=== PATIENT | male | born 1945 | race Caucasian/White ===

== ENCOUNTER 2016-10-29 08:13 | Inpatient (IN) ==
--- NOTE | 2016-10-29 08:56 | EKG Report ---
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
[2016-10-29] MEDS ORDERED: ONDANSETRON 4 MG/2 ML VIAL IV STA (09:15)
[2016-10-29] MEDS ORDERED: SODIUM CHLORIDE 0.9% 1,000 ML IV STA (09:15)
[2016-10-29] MEDS ORDERED: ONDANSETRON 4 MG/2 ML VIAL ONE (09:22)
[2016-10-29 09:23] LABS: Basophils # 0.1 10*3/uL (0.0-0.2); Basophils % 0.7 % (0.0-0.8); Eosinophils # 0.3 10*3/uL (0.0-0.87); Eosinophils % 2.1 % (0.00-10.9); Hematocrit 44.3 VOL% (42.0-52.0); Hemoglobin 15.6 GM/DL (14.0-18.0); Immature Granulocytes % 0.4 %; Immature Granulocytes Absolute 0.05 #; Lymphocytes # 2.6 10*3/uL (1.4-4.0); Lymphocytes % 21.1 % (21.2-54.2); Mean Corpuscular HGB Conc 35.2 GM/DL (32-36); Mean Corpuscular Hemoglobin 29 PG (27-34); Mean Corpuscular Volume 81.4 FL (87-102); Mean Platelet Volume 9.7 FL (9.6-12.0); Monocytes # 0.7 10*3/uL (0.11-0.8); Monocytes % 5.8 % (1.7-12.7); Neutrophils # 8.5 10*3/uL (1.4-7.4); Neutrophils % 69.9 % (38.7-73.9); Platelet Count 275 T/CUMM (130-400); Red Blood Count 5.44 MC/CUMM (3.8-5.5); White Blood Count 12.2 T/CUMM (4-12)
--- NOTE | 2016-10-29 09:23 | Emergency Department Note ---
Arrival - Arrival Chief Complaint: Dizziness Stated Complaint: dizziness,vomitting,heart issues ED Nursing Triage Note: after getting up this am pt started having n/v. +light head after vomiting. Mode of Arrival: Ambulatory Limitations: No Limitations Source: Patient Time Seen by Provider: 10/29/16 09:14 - History of Present Illness HPI Narrative: The patient complains of nausea and vomiting this morning shortly after awaking. He also had some lightheadedness just afterwards. Patient states he has been having "dizziness" off and on for the past 3 weeks or so, especially when he is up moving around. He has been using a walking stick because he feels unsteady. He had a episode of nausea and vomiting around 3 weeks ago as well. He denies syncope. He denies any sense of movement or spinning. He had no symptoms prior to this. No chest pain, palpitations, shortness of breath, diaphoresis or other symptoms. No fever or recent illness. He has no known cardiac problems, however, during an evaluation for abdominal pain a few years ago, he was noted to be bradycardic. Allergies/Adverse Reactions: Allergies Allergy/AdvReac Type Severity Reaction Status Date / Time Penicillins Allergy Unknown/Unable Verified 10/29/16 08:21 to obtain Review of System - Review of System 12 point system: reviewed and no additional remarkable complaints except as stated - Review of System Constitutional: Present: weakness. Absent: diaphoresis, fever Head/Ears/Nose/Throat: Absent: nasal drainage, sore throat Respiratory: Absent: cough, respiratory distress, wheezing Cardiovascular: Absent: chest pain, palpitations, dyspnea on exertion, orthopnea , edema, syncope Gastrointestinal: Present: nausea, vomiting. Absent: abdominal pain, diarrhea, constipation Musculoskeletal: Absent: arm pain, back pain, neck pain Neurological: Absent: headache, numbness, paresthesias, confusion Medical,Surgical,& Family Hx - Medical History Cardio: History of: Hypertension, Cardiovascular Problems (low heart rate) Genitourinary: History of: Kidney Stones Gastrointestinal: History of: GI Problems (gallstones) - Surgical History Surgical History: noncontributory - Family History Family History: noncontributory - Social History Smoking Status: Never smoker Frequency of Alcohol Use: None Type of Drug Use: None Exam Physical Examination: GENERAL: Alert. No acute distress. HEENT: Normocephalic and atraumatic. PERRLA. EOMI. There is no nasal drainage. No pharyngeal erythema or exudate. NECK: Normal inspection. Supple. No lymphadenopathy or meningismus. LUNGS: No respiratory distress. Clear to auscultation bilaterally, no wheezes, rales or rhonchi. HEART: Regular bradycardia around 48. (Monitor showed a rate of 38 when I enter the room). No murmurs. ABDOMEN: Soft, nontender and nondistended with normoactive bowel sounds. BACK: Normal inspection. SKIN: Color normal. Warm and dry. EXTREMITIES: Nontender. Normal range of motion. No pedal edema. NEUROLOGICAL/PSYCHIATRIC: Alert and oriented -3 with normal mood and affect. Cranial nerves normal. No motor or sensory deficit. No pronator drift. Vital Signs: Vital Signs Temperature 97.0 F L 10/29/16 08:46 Pulse Rate 44 L 10/29/16 09:44 Respiratory Rate 18 10/29/16 09:35 Blood Pressure 207/81 10/29/16 09:44 O2 Sat by Pulse Oximetry 95 10/29/16 08:46 Course - Reevaluation(s) Reevaluation #1: The patient has remained stable in the ER. Heart rate has been in the 40s and 50s but he has remained asymptomatic while lying in bed. His potassium is noted to be low at 2.9. He is on hydrochlorothiazide for peripheral edema but is not taking any potassium. He also takes MiraLAX once a day. I suspect his symptoms are coming from the low potassium versus the low heart rate. His TSH is also elevated. I discussed the patient with the hospitalist service who will see him and admit. Time: 10:13 Results - Labs CBC & BMP: 10/29/16 08:42 10/29/16 08:42 Lab Results: I have reviewed the patients labs Labs: Laboratory Tests 10/29/16 10/29/16 08:42 08:42 Potassium 2.9 L Total Bilirubin 0.40 AST 18 ALT 27 Troponin I 0.034 TSH 3rd Generation 7.130 H Ur Specific [place] 1.004 Urine Ketones Negative Urine RBC 1 Urine WBC 2 Laboratory Tests 10/29/16 08:42 TSH 3rd Generation 7.130 H - Impressions EKG shows atrial fibrillation with slow ventricular response of 42. Chest x-ray shows cardiomegaly without decompensation. 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 Additional atrophy and microvascular disease. 16 mm asymmetric hypodensity in the right cerebellum which could be related to a more recent infarction. Sinusitis with 10 mm retention cyst/polyp in the left ethmoid air cells. 12 mm asymmetric osseous findings in finding in the left occipital bone which could be related to arachnoid granulation, etc. MRI may be helpful for further evaluation these findings. Disposition Clinical Impression: Hypokalemia, Hypothyroidism, Bradycardia, Renal insufficiency, Atrial fibrillation Case discussed with: patient, patient's family Disposition: Still a Patient Condition: Stable Time of Disposition: 10:15
[2016-10-29 09:28] LABS: PT Patient Result 10.3 SECS
--- NOTE | 2016-10-29 09:35 | CT Report ---
Referring physician: Mac Vaughan Exam: CT brain without contrast Date: 10/29/2016 Comparison: None Reason: Dizziness Technique: Axial images of the head were obtained without the use of contrast. Total DLP was 1012.10 mGy*cm. Findings: The right frontal horn is minimally larger in size in the left with adjacent 26 mm hypodensity in the left frontal lobe. Diffuse atrophy and cerebral hypodensities. Ill-defined asymmetric 16 mm hypodensity in the right cerebellum. Vascular calcifications are identified. There is no evidence of recent intracranial hemorrhage or abnormal mass effect. The osseous structures appear intact. The mastoid air cells are clear. Mucosal thickening/fluid in the visualized paranasal sinuses with 10 mm polypoidal mucosal finding in the left ethmoid air cells. 12 mm asymmetric osseous finding in the left occipital bone. 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 Additional atrophy and microvascular disease. 16 mm asymmetric hypodensity in the right cerebellum which could be related to a more recent infarction. Sinusitis with 10 mm retention cyst/polyp in the left ethmoid air cells. 12 mm asymmetric osseous findings in finding in the left occipital bone which could be related to arachnoid granulation, etc. MRI may be helpful for further evaluation these findings. The CT exam was performed using one or more of the following dose reduction techniques: Automated exposure control and adjustment of the mA and/or kV according to patient size. PROCEDURE INTERPRETED AT [facility] DEPARTMENT OF RADIOLOGY Final Report Signed by: Dr. Ignacia Herrera
--- NOTE | 2016-10-29 09:37 | XRay Report ---
Exam: XR chest 1V portable Date: 10/29/2016 9:16 AM Indication: Shortness of breath Comparison: None Technical: PA chest Findings: Cardiomegaly is present. No obvious consolidating infiltrate or effusion. Mediastinum and bony structures reveal no acute findings. Impression: 1. Cardiomegaly without decompensation with mild scarring in the perihilar regions. PROCEDURE INTERPRETED AT [facility] DEPARTMENT OF RADIOLOGY Final Report Signed by: Dr. Mac Coley
[2016-10-29 09:44] LABS: Apearance,Urine CLEAR (Clear); Bilirubin,Urine Negative (Negative); Blood, Urine Negative (Negative); Glucose,Urine (UA) Negative (Negative); Ketones,Urine Negative (Negative); Nitrite,Urine Negative (Negative); Protein,Urine >=500 MG/DL; RBC,Urine 1 /HPF (0-4); Urine Color Straw (Yellow); Urine Specific Gravity 1.004 (1.001-1.035); Urine Urobilinogen < 2.0 EU/DL (0.2-1.0); WBC,Urine 2 /HPF (0-6)
[2016-10-29 09:54] LABS: Albumin 3.7 G/DL (3.4-5.0); Bilirubin,Total 0.4 MG/DL (0.2-1.0); Calcium 9.1 MG/DL (8.5-10.1); Magnesium 2.2 MG/DL (1.8-2.4); Osmolality,Calculated 283.4 MOS/KG (273-304); Potassium 2.9 MMOL/L (3.5-5.1); Thyroid Stimulating Hormone 7.13 uIU/ml (0.358-3.74); Total Protein 7.1 G/DL (6.4-8.3); Troponin I Only 0.034 NG/ML (0.00-0.045)
[2016-10-29] MEDS ORDERED: POTASSIUM CHLORIDE 20 MEQ TABLET PO STA (09:58)
[2016-10-29] MEDS ORDERED: POTASSIUM CHLORIDE 20 MEQ TABLET PO ONE (10:03)
--- NOTE | 2016-10-29 10:51 | Hospitalist History & Physical ---
Assessment and Plan (1) Hypokalemia Status: Acute Assessment and plan: Potassium was noted at 2.9, we will correct the deficit and recheck in a.m. Current Visit: Yes (2) Hypothyroidism Status: Acute Assessment and plan: TSH was noted at 7.130. The patient reports no previous diagnosis of hypothyroidism. We will order ordered T4 and placed on continuous telemetry monitoring pending results. Current Visit: Yes (3) Atrial fibrillation with slow ventricular response Status: Acute Assessment and plan: The patient was noted to be in atrial fibrillation with slow ventricular response at the time of ED presentation. Heart rate ranged from 30-40. The patient reports no significant cardiac history in the past. He reports that he takes hydrochlorothiazide for "peripheral edema". Chest x-ray reported significant cardiomegaly. We will obtain echocardiogram, carotid Dopplers, lipid panel, and consult cardiology to evaluate and assist during the clinical encounter. Current Visit: Yes History of Present Illness Chief complaint: Nausea, vomiting, near syncope History of present illness: This is a very pleasant 71-year-old male that presented to the ED at [facility] for evaluation of dizziness, vomiting, and near syncope patient has a medical history significant for: Bradycardia, renal calculi, and gallstones. patient reports no significant surgical history at the time of ED presentation. The patient reported the onset of the above symptoms shortly this morning upon awakening. In addition, he also reported some "lightheadedness". He also reported intermittent episodes of vertigo, nausea, and vomiting for the past 3 weeks which normally occurred when he was up and ambulatory. Due to the increased episodes of vertigo, the patient has resorted to using a assistive device due to his unsteady gait. Pertinent positives include: Vertigo, near syncope, nausea, vomiting, and unsteady gait; pertinent negatives include: Chest pain, shortness of breath, diaphoresis, visual changes , abdominal pain, and headache. The patient became alarmed and his transported him to the ED for further evaluation. Incidentally, the patient reports no significant cardiac history however he was found to be bradycardic during a routine examination for abdominal pain several years ago. At the time of ED presentation, the patient was assessed. He was noted to be profoundly bradycardic with a heart rate 44. In addition the patient was noted to be hypertensive with a blood pressure of 207/81. Labs were obtained; complete blood cell count reported a white blood cell count at 12.2, hemoglobin 15.6, hematocrit 44.3, platelet count 275. Coagulation panel reported INR at 1.0 and PT 18.3 complete metabolic profile reported a sodium at 140, potassium at 2.9, chloride 99, carbon dioxide 30, BUN at 24, creatinine 1.50, glucose 110 , magnesium 2.2, calcium 9.1, and alkaline phosphatase at 134. Cardiac enzymes reported an albumin at 1.0 TSH was reported at 7.13. Urinalysis was essentially unremarkable. Chest x-ray reported cardiomegaly without decompensation with mild scarring in the perihilar regions. 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 Additional atrophy and microvascular disease was noted. In addition a 16 mm asymmetric hypodensity in the right cerebellum was noted which could be significant for a more recent infarction. Sinusitis with a 10 mm retention cyst/polyp in the left ethmoid air cells and 12 mm asymmetric osseous findings in the left occipital bone which could be related to arachnoid granulation. After brief discussion with both Dr. Vaughan and Dr. Ramirez, the patient will be admitted to the hospitalist services for continuation of care. We will consult cardiology to evaluate and assist during the clinical encounter. Home Medications Medication Instructions Recorded Confirmed Type Albuterol Sulfate [Ventolin HFA] 2 puffs INH Q4H PRN 10/29/16 10/29/16 History Loratadine Tab [Claritin Tab] 10 mg PO QAM 10/29/16 10/29/16 History Polyethylene Glycol Powder 17 gm PO BEDTIME 10/29/16 10/29/16 History [Miralax] amLODIPine [Norvasc] 5 mg PO BEDTIME 10/29/16 10/29/16 History hydroCHLOROthiazide 50 mg PO QAM 10/29/16 10/29/16 History [Hydrochlorothiazide] Allergies Allergy/AdvReac Type Severity Reaction Status Date / Time Penicillins Allergy Unknown/Unable Verified 10/29/16 08:21 to obtain Medical,Surgical,& Family Hx - Medical History Cardio: History of: Hypertension, Cardiovascular Problems (low heart rate) Genitourinary: History of: Kidney Stones Gastrointestinal: History of: GI Problems (gallstones) - Social History Smoking Status: Never smoker Frequency of Alcohol Use: None Type of Drug Use: None 12 point system: reviewed and no additional remarkable complaints except as stated Exam - Constitutional Vitals: Period Temp Pulse Resp BP Sys/Pretty Pulse Ox Last 24 Hr 97.0 F-97.0 F 43-55 18-18 204-234/46-98 95-95 General appearance: morbidly obese - Head Head exam: Present: normal inspection, normocephalic, atraumatic - Eye Eye exam: Present: EOMI, conjunctival injection Pupils: Present: ELISEO, normal accommodation - ENT ENT exam: Present: normal exam, normal external ear exam, normal oropharynx - Neck Neck exam: Present: normal inspection. Absent: lymphadenopathy, meningismus, tenderness, thyromegaly - Respiratory Respiratory exam: Present: clear to auscultation bilaterally. Absent: rales, rhonchi, stridor, other - Cardiovascular Cardiovascular exam: Present: bradycardia (Rate is regular), irregular rhythm ( Atrial fibrillation with slow ventricular response). Absent: carotid bruit, diastolic murmur, gallop, JVD, regular rate and rhythm, rubs, tachycardia - GI/Abdominal GI/Abdominal exam: Present: normal bowel sounds, soft - Extremities Exam Extremities exam: Present: normal inspection, normal capillary refill, full ROM , edema (+2 edema noted to lower extreme) - Back Exam Back exam: Present: normal inspection - Neurological Exam Neurological exam: Present: alert, oriented X3, abnormal gait (Per patient report unsteady gait since the initiation of episodes.), CN II-XII intact - Psychiatric Psychiatric exam: Present: normal affect, normal mood - Skin Skin exam: Present: normal color, warm, dry Results - Labs CBC & BMP: 10/29/16 08:42 10/29/16 08:42 Lab Results: I have reviewed the past 24 hour labs
[2016-10-29 10:53] LABS: Free T4 (Free Thyroxine) 0.93 NG/DL (0.76-1.46); T4 (Thyroxine) 7.8 UG/DL (4.7-13.3)
--- NOTE | 2016-10-29 11:31 | Ultrasound Report ---
US carotid duplex BI Indication: Bradycardia. Syncope. CAROTID ULTRASOUND Comparison: None. Findings: Grayscale, color Doppler and pulsed Doppler interrogation of the carotid and vertebral arteries performed. Severity of stenosis based on flow velocity measurements using NASCET criteria. Distal right ICA diameter: 5.0 mm Distal left ICA diameter: 7.0 mm Peak systolic flow velocities in centimeters per second are as follows: Right: CCA: 60 cm/s Proximal ICA: 87 Distal ICA: 95 ICA/CCA ratio: 1.6 Left: CCA: 85 cm/s Proximal ICA: 82 Distal ICA: 89 ICA/CCA ratio: 1.0 External carotid arteries: Both are patent with antegrade flow. Vertebral arteries: Both are patent with antegrade flow. Grayscale and color Doppler images: Scattered areas of mild focal plaque deposition identified, with normal color Doppler flow present. Pulse Doppler waveform interrogation: No significant spectral broadening. Impression: No hemodynamically significant stenosis of either ICA origin. PROCEDURE INTERPRETED AT [facility] DEPARTMENT OF RADIOLOGY Final Report Signed by: Rm Borden M.D.
[2016-10-29] MEDS ORDERED: ENOXAPARIN 40 MG/0.4 ML SYRINGE SUBCUT SCH (11:51)
[2016-10-29] MEDS ORDERED: POTASSIUM CHLORIDE RIDER 10 MEQ in PREMIX 1 EACH IV PRN (11:51)
[2016-10-29] MEDS ORDERED: ALBUTEROL 2.5 MG/3 ML NEB RESP TX PRN ×2 (11:51)
--- NOTE | 2016-10-29 12:36 | Cardiology Consult Note ---
<Brandy Mendes E - Last Filed: 10/29/16 12:35> History of Present Illness - Consult Narrative History of present illness: Mr. Hays is a 71 year old male CC: Nanda Ramirez MD - Home Medications and Allergies Home Medications: Home Medications Medication Instructions Recorded Confirmed Type Albuterol Sulfate [Ventolin HFA] 2 puffs INH Q4H PRN 10/29/16 10/29/16 History Loratadine Tab [Claritin Tab] 10 mg PO QAM 10/29/16 10/29/16 History Polyethylene Glycol Powder 17 gm PO BEDTIME 10/29/16 10/29/16 History [Miralax] amLODIPine [Norvasc] 5 mg PO BEDTIME 10/29/16 10/29/16 History hydroCHLOROthiazide 50 mg PO QAM 10/29/16 10/29/16 History [Hydrochlorothiazide] Allergies/Adverse Reactions: Allergies Allergy/AdvReac Type Severity Reaction Status Date / Time Penicillins Allergy Unknown/Unable Verified 10/29/16 08:21 to obtain Medical,Surgical,& Family Hx - Medical History Cardio: History of: Hypertension, Cardiovascular Problems (low heart rate) Respiratory: History of: Asthma (As a child), Bronchitis (As a child) Genitourinary: History of: Kidney Stones Gastrointestinal: History of: GI Problems (gallstones) - Surgical History Reproductive Surgeries: Patient denies;: Genitourinary Surgery - Social History Smoking Status: Never smoker Frequency of Alcohol Use: None Type of Drug Use: None Physical Examination Vital Signs Temp Pulse Resp BP Pulse Ox 97.0 F L 55 L 18 234/81 95 10/29/16 08:17 10/29/16 08:17 10/29/16 08:17 10/29/16 08:17 10/29/16 08:17 Result/EKG - Labs CBC & BMP: 10/29/16 08:42 10/29/16 08:42 Labs: Laboratory Results - last 24 hr 10/29/16 10/29/16 10/29/16 08:42 08:42 08:42 WBC 12.2 H RBC 5.44 Hgb 15.6 Hct 44.3 MCV 81.4 L MCH 29 MCHC 35.2 RDW 14.0 Plt Count 275 MPV 9.7 Neut % (Auto) 69.9 Lymph % (Auto) 21.1 L [place] % (Auto) 5.8 Eos % (Auto) 2.1 Baso % (Auto) 0.7 Neut # (Auto) 8.5 H Lymph # (Auto) 2.6 [place] # (Auto) 0.7 Eos # (Auto) 0.3 Baso # (Auto) 0.1 Immature Gran % 0.4 Nucleated RBC % 0.0 Immature Gran # 0.05 Nucleated RBCs # 0.00 INR 1.0 PT Patient/Control Mix 10.3 Sodium Potassium Chloride Carbon Dioxide Anion Gap BUN Creatinine GFR Calculation BUN/Creatinine Ratio Glucose Hemoglobin A1c Calculated Osmolality Calcium Magnesium Total Bilirubin AST ALT Alkaline Phosphatase Troponin I Total Protein Albumin Globulin Albumin/Globulin Ratio Free T4 Thyroxine (T4) TSH 3rd Generation Urine Color Straw Urine Appearance Clear Urine pH 7.0 Ur Specific [place] 1.004 Urine Protein >=500 Urine Glucose (UA) Negative Urine Ketones Negative Urine Blood Negative Urine Nitrate Negative Urine Bilirubin Negative Urine Urobilinogen < 2.0 H Urine Leukocytes Negative Urine RBC 1 Urine WBC 2 Ur Culture Indicated? Not indicated 10/29/16 10/29/16 10/29/16 08:42 08:42 Unknown WBC RBC Hgb Hct MCV MCH MCHC RDW Plt Count MPV Neut % (Auto) Lymph % (Auto) [place] % (Auto) Eos % (Auto) Baso % (Auto) Neut # (Auto) Lymph # (Auto) [place] # (Auto) Eos # (Auto) Baso # (Auto) Immature Gran % Nucleated RBC % Immature Gran # Nucleated RBCs # INR PT Patient/Control Mix Sodium 140 Potassium 2.9 L Chloride 99 Carbon Dioxide 30 Anion Gap 13.9 BUN 24 H Creatinine 1.50 H GFR Calculation 58 BUN/Creatinine Ratio 16.00 Glucose 110 H Hemoglobin A1c 6.2 Calculated Osmolality 283.4 Calcium 9.1 Magnesium 2.2 Total Bilirubin 0.40 AST 18 ALT 27 Alkaline Phosphatase 134 H Troponin I 0.034 Total Protein 7.1 Albumin 3.7 Globulin 3.4 Albumin/Globulin Ratio 1.0 L Free T4 0.93 Thyroxine (T4) 7.8 TSH 3rd Generation 7.130 H Urine Color Urine Appearance Urine pH Ur Specific [place] Urine Protein Urine Glucose (UA) Urine Ketones Urine Blood Urine Nitrate Urine Bilirubin Urine Urobilinogen Urine Leukocytes Urine RBC Urine WBC Ur Culture Indicated? <Woodrwo Mason - Last Filed: 10/29/16 14:46> History of Present Illness - Consult Narrative History of present illness: Cardiology addendum 71-year-old man with several week history of weakness and dizziness but no calvin syncope. Franca states he tires very easily and has been sleeping all the time. EKG shows atrial fib ventricular rate 40. Blood pressure is 180/ 90. O2 sat is 95% on 2 L. No history of atrial fibrillation. he does have chronic hypertension takes Norvasc. Remote smoker. Remote alcohol abuse. No angina. Never had a stress test. CT does show evidence for 2 old lacunar infarcts. Echo shows ejection fraction of 45-50% with moderate biatrial enlargement. Chest x-ray shows cardio megaly but no heart failure. Suspect atrial fib is chronic. Dizziness weakness for several weeks and chronic fatigue. White count is elevated. Plan MRI of the brain Recheck CBC Anticipate single-chamber pacemaker Tuesday Watch rhythm and blood pressure CC: Nanda Ramirez MD Physical Examination Vital Signs Temp Pulse Resp BP Pulse Ox 97.0 F L 55 L 18 234/81 95 10/29/16 08:17 10/29/16 08:17 10/29/16 08:17 10/29/16 08:17 10/29/16 08:17 Result/EKG - Labs CBC & BMP: 10/29/16 08:42 10/29/16 08:42 Labs: Laboratory Results - last 24 hr 10/29/16 10/29/16 10/29/16 08:42 08:42 08:42 WBC 12.2 H RBC 5.44 Hgb 15.6 Hct 44.3 MCV 81.4 L MCH 29 MCHC 35.2 RDW 14.0 Plt Count 275 MPV 9.7 Neut % (Auto) 69.9 Lymph % (Auto) 21.1 L [place] % (Auto) 5.8 Eos % (Auto) 2.1 Baso % (Auto) 0.7 Neut # (Auto) 8.5 H Lymph # (Auto) 2.6 [place] # (Auto) 0.7 Eos # (Auto) 0.3 Baso # (Auto) 0.1 Immature Gran % 0.4 Nucleated RBC % 0.0 Immature Gran # 0.05 Nucleated RBCs # 0.00 INR 1.0 PT Patient/Control Mix 10.3 Sodium Potassium Chloride Carbon Dioxide Anion Gap BUN Creatinine GFR Calculation BUN/Creatinine Ratio Glucose Hemoglobin A1c Calculated Osmolality Calcium Magnesium Total Bilirubin AST ALT Alkaline Phosphatase Troponin I Total Protein Albumin Globulin Albumin/Globulin Ratio Free T4 Thyroxine (T4) TSH 3rd Generation Urine Color Straw Urine Appearance Clear Urine pH 7.0 Ur Specific [place] 1.004 Urine Protein >=500 Urine Glucose (UA) Negative Urine Ketones Negative Urine Blood Negative Urine Nitrate Negative Urine Bilirubin Negative Urine Urobilinogen < 2.0 H Urine Leukocytes Negative Urine RBC 1 Urine WBC 2 Ur Culture Indicated? Not indicated 10/29/16 10/29/16 10/29/16 08:42 08:42 Unknown WBC RBC Hgb Hct MCV MCH MCHC RDW Plt Count MPV Neut % (Auto) Lymph % (Auto) [place] % (Auto) Eos % (Auto) Baso % (Auto) Neut # (Auto) Lymph # (Auto) [place] # (Auto) Eos # (Auto) Baso # (Auto) Immature Gran % Nucleated RBC % Immature Gran # Nucleated RBCs # INR PT Patient/Control Mix Sodium 140 Potassium 2.9 L Chloride 99 Carbon Dioxide 30 Anion Gap 13.9 BUN 24 H Creatinine 1.50 H GFR Calculation 58 BUN/Creatinine Ratio 16.00 Glucose 110 H Hemoglobin A1c 6.2 Calculated Osmolality 283.4 Calcium 9.1 Magnesium 2.2 Total Bilirubin 0.40 AST 18 ALT 27 Alkaline Phosphatase 134 H Troponin I 0.034 Total Protein 7.1 Albumin 3.7 Globulin 3.4 Albumin/Globulin Ratio 1.0 L Free T4 0.93 Thyroxine (T4) 7.8 TSH 3rd Generation 7.130 H Urine Color Urine Appearance Urine pH Ur Specific [place] Urine Protein Urine Glucose (UA) Urine Ketones Urine Blood Urine Nitrate Urine Bilirubin Urine Urobilinogen Urine Leukocytes Urine RBC Urine WBC Ur Culture Indicated?
--- NOTE | 2016-10-29 12:56 | ECHO Report ---
Stuart Hays Exam Date: 10/29/2016 11:22 Referring Physician: Technologist: Gail Keane Age: 71 Ht (in): 68 Wt (lb): 230 Gender: M Exam Location: [facility] Echo Indications: HTN, Hx. Kidney stones, Hx. GI, hypokalemia, hypothyroidism, A fib BP: 207 / 81 HR: 44 Rhythm: Atrial fibrillation Technical Quality: Fair IMPRESSIONS EF 45-50 % at slow heart rate. Normal right ventricular size and systolic function. Moderately increased right atrial size. Moderately increased left atrial size. Thickened mitral valve. Trace mitral valve regurgitation. Aortic valve sclerosis. Moderate tricuspid valve regurgitation. PAP 40 mmHg. Pulmonic valve not well visualized. No pericardial effusion. Normal aorta. MEASUREMENTS (Male / Female) Normal Values 2D ECHO LV Diastolic Diameter PLAX 4.3 cm 4.2 - 5.9 / 3.9 - 5.3 cm LV Systolic Diameter PLAX 2.9 cm LV Fractional Shortening PLAX 31.5 % IVS Diastolic Thickness 1.7 cm 0.6 - 1.0 / 0.6 - 0.9 cm LVPW Diastolic Thickness 1.8 cm 0.6 - 1.0 / 0.6 - 0.9 cm RV Internal Dim ED PLAX 3.8 cm Aortic Root Diameter 3.0 cm LA Systolic Diameter LX 5.9 cm 3.0 - 4.0 / 2.7 - 3.8 cm DOPPLER TR Peak Velocity 269.0 cm/s TR Peak Gradient 28.9 mmHg FINDINGS Left Ventricle EF 45-50 % at slow heart rate. Right Ventricle Normal right ventricular size and systolic function. Right Atrium Moderately increased right atrial size. Left Atrium Moderately increased left atrial size. Mitral Valve Thickened mitral valve. Trace mitral valve regurgitation. Aortic Valve Aortic valve sclerosis. Tricuspid Valve Morphologically normal tricuspid valve. Moderate tricuspid valve regurgitation. PAP 40 mmHg. Pulmonic Valve Pulmonic valve not well visualized. Pericardium No pericardial effusion. Aorta Normal aorta. Wing Mason (Electronically Signed) Final Date: 29 October 2016 12:55
--- NOTE | 2016-10-29 14:50 | Magnetic Resonance Report ---
Exam: MR head/brain w and wo con Date: 10/29/2016 11:14 AM Comparison: CT brain 10/29/2016 Indication: Dizziness,, unsteady gait, nausea, and vomiting, near syncope Technique:[Multiple acquisitions were obtained including sagittal T1, coronal T1 scans following injection of 20 cc of Dotarem, and axial ADC, diffusion, FLAIR, T2, GRE, and T1 scans before and after the injection contrast.] Findings: The left frontal horn is minimally larger in size than the right. Adjacent chronic infarction in the left frontal lobe. Partially empty sella. The cerebellar tonsils are normal in their location. 19 mm area of restricted diffusion in the right cerebellum. No evidence of hemorrhage, mass, extracerebral collection, or abnormal enhancement. Enlarged perivascular spaces are noted which represent a normal variant. Additional diffuse atrophy and FLAIR/T2 hyperintensities. 10 mm retention cyst in the right maxillary sinus and left ethmoid air cells. Symmetric fluid in the optic nerve sheaths. No acute findings in the temporal bones, [place], or venous sinuses. Probable arachnoid granulation in the left occipital bone. Impression: 19 mm acute infarction right cerebellum. 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 Additional atrophy and significant microvascular disease. T2 hyperintensities can also be associated with demyelinating disease, vasculitis, viral illness, etc. Retention cyst in the right maxillary sinus and ethmoid air cells with probable arachnoid granulation in the left occipital bone. Partially empty sella with associated nonspecific fluid in the optic nerves disease. Papilledema should be excluded clinically since these findings can be associated with idiopathic intracranial hypertension. PROCEDURE INTERPRETED AT [facility] DEPARTMENT OF RADIOLOGY Final Report Signed by: Dr. Ignacia Herrera
--- NOTE | 2016-10-29 14:53 | Magnetic Resonance Report ---
History: Stroke Date: 10/29/2016 Study: MR angiogram neck with and without IV contrast Comparison exam: No previous similar study MRA of the neck was performed with and without IV 20 ml Dotarem contrast on the 1.5 Natalie magnet. In addition to axial 2-D [id number] source images, 3-D maximum intensity projection images were also archived and evaluated. There is normal arch anatomy. There is no hemodynamically significant stenosis at the origins of the great vessels. There is antegrade flow in either vertebral artery. There is no significant stenosis of the common carotid arteries on either side. There is 26% diameter reduction narrowing of the right internal carotid artery and 0% diameter reduction narrowing of the left internal carotid artery using NASCET criteria. The normal right ICA measures 4.6 mm; the left measures 3.6 mm. Impression: No hemodynamically significant stenosis of the internal carotid arteries at the neck level. Details above PROCEDURE INTERPRETED AT [facility] DEPARTMENT OF RADIOLOGY Final Report Signed by: Dr. Sarah Ayala
--- NOTE | 2016-10-29 15:11 | Magnetic Resonance Report ---
History: Stroke Date: 10/29/2016 Study: MRA [place] without contrast Comparison exam: No previous similar A 3-D [id number] MRA of the [place] was performed without IV contrast on the 1.5 Natalie magnet. In addition to axial source images, 3-D maximum intensity projection images were also archived and evaluated. There are 2 areas of elongated 50% stenosis in the basilar artery, 1 at its proximal aspect and the other at its mid to distal aspect. Flow is noted within bilateral superior cerebellar and right anterior inferior cerebellar arteries. The posterior cerebral arteries are patent bilaterally with mild to moderate diffuse atherosclerotic irregularity. There is moderate atherosclerotic irregularity and mild to moderate diffuse narrowing of the distal internal carotid arteries bilaterally. There is flow within the anterior and middle cerebral arteries bilaterally. There is mild diffuse atherosclerotic irregularity and narrowing of the M1 segments of either middle cerebral artery and A1 segment of either anterior cerebral artery. There is moderate diffuse atherosclerotic irregularity and narrowing of the peripheral branches of the anterior and middle cerebral arteries bilaterally. There is no obvious patent cerebral artery aneurysm. Impression: Diffuse atherosclerotic irregularity of the cerebral vasculature. No focal high-grade [place] stenosis. 2 areas of elongated 50% stenosis are noted in the basilar artery. No patent cerebral artery aneurysm is seen. PROCEDURE INTERPRETED AT [facility] DEPARTMENT OF RADIOLOGY Final Report Signed by: Dr. Sarah Ayala
--- NOTE | 2016-10-29 16:17 | Cardiology Consult Note ---
Assessment and Plan - Time spent with patient Time spent with patient: Greater than 30 minutes (1) Hypertension Status: Chronic Assessment and plan: SEE PLAN OF CARE LISTED BELOW Current Visit: Yes (2) Sleep disorder Status: Chronic Assessment and plan: SEE PLAN OF CARE LISTED BELOW Current Visit: Yes (3) Obesity (BMI 35.0-39.9 without comorbidity) Status: Chronic Assessment and plan: SEE PLAN OF CARE LISTED BELOW Current Visit: Yes (4) Hypokalemia Status: Acute Assessment and plan: SEE PLAN OF CARE LISTED BELOW Current Visit: Yes (5) Hypothyroidism Status: Acute Assessment and plan: SEE PLAN OF CARE LISTED BELOW Current Visit: Yes (6) Bradycardia Status: Acute Assessment and plan: SEE PLAN OF CARE LISTED BELOW Current Visit: Yes (7) Atrial fibrillation with slow ventricular response Status: Acute Assessment and plan: SEE PLAN OF CARE LISTED BELOW Current Visit: Yes History of Present Illness - Data of Consult Patient: new to practice Consult date: 10/29/16 Requesting Physician: Nanda Ramirez Primary care physician: Dominic Martinez - Consult Narrative Reason for consult: symptomatic bradycardia, atrial fib with SVR History of present illness: 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 MASON Patient was seen in the emergency department. Mr. Hays, 71WM, without a prior history of known coronary artery disease. He has never been followed by cardiology. Risk factors include: Hypertension, remote tobaccoism. Patient presented to the ED of [facility] this morning with complaints of dizziness, near syncope, weakness and unsteady gait occurring over the past 3 weeks. The vomiting occurred this morning and he became alarmed. Upon evaluation in the emergency department he was found to be in atrial fibrillation with SVR, heart rate in the 30s -40s. He was extremely hypertensive with a blood pressure noted of 220/100. He denies chest pain, heaviness, tightness. Prior to 3 weeks ago, patient considered himself very active however, he has been avoiding activities over the past week due to significant fatigue. Patient states he is always had a low heart rate. He cannot further elaborate. Cardiac biomarkers negative, EKG reveals A. fib, SVR. Patient was hypokalemic, potassium 2.9. This was repleted but his heart rate still persistently low. Also, TSH elevated but T4 within normal limits. I contacted his pharmacy myself in order to verify all home medications. He takes Norvasc and HCTZ. He recently picked up an inhaler. Patient underwent CT of head which reported a 26 mm chronic infarct in the left frontal lobe, right cerebellum revealed a probable recent infarct. To his knowledge, he has never had TIA or CVA. He has never been formally diagnosed with atrial fibrillation. He denies palpitations. is present and acknowledges that he does snore occasionally but frequently holds his breath while sleeping. He has never been tested for sleep apnea. Echocardiogram reveals EF 45%. At this time, patient is scheduled to undergo MRI of the brain. I have discussed patient with Dr. Mason who in turn consulted Dr. Stallings, traffic engineering director. Patient's WBCs are minimally elevated at 12.2 and blood pressure is suboptimally controlled. Patient will be started on anticoagulation (Lovenox) today. His heart rhythm seems stable. He will be "tuned up" over the weekend and scheduled to undergo pacemaker implantation by Dr. Stallings Tuesday. Continue to follow his heart rate. Will adjust medications for better blood pressure control. Consult sleep medicine for evaluation of possible sleep apnea, fasting lipid profile in the morning. Will further discuss with Dr. Mason and await additional recommendations. ASSESSMENT/PLAN: 1. SYMPTOMATIC BRADYCARDIA - heart rate seems to be stable and will be scheduled for pacemaker Tuesday. 2. ATRIAL FIBRILLATION, SVR - this will be a new diagnosis. Lovenox has been initiated and patient will need NOAC prior to discharge 3. HYPERTENSION - suboptimally controlled. Will adjust medications accordingly for better control. 4. UNKNOWN LIPID STATUS - lipid profile in the morning 5. SLEEP DISORDER CONCERNING FOR SLEEP APNEA - consult Dr. Mott 6. OBESITY - dietary counseling prior to discharge 7. SUSPECTED TIA - scheduled for MRI today. 8. HYPOKALEMIA - repleted. Continue to monitor accordingly. CC: Nanda Ramirez MD - Home Medications and Allergies Home Medications: Home Medications Medication Instructions Recorded Confirmed Type Albuterol Sulfate [Ventolin HFA] 2 puffs INH Q4H PRN 10/29/16 10/29/16 History Loratadine Tab [Claritin Tab] 10 mg PO QAM 10/29/16 10/29/16 History Polyethylene Glycol Powder 17 gm PO BEDTIME 10/29/16 10/29/16 History [Miralax] amLODIPine [Norvasc] 5 mg PO BEDTIME 10/29/16 10/29/16 History hydroCHLOROthiazide 50 mg PO QAM 10/29/16 10/29/16 History [Hydrochlorothiazide] Allergies/Adverse Reactions: Allergies Allergy/AdvReac Type Severity Reaction Status Date / Time Penicillins Allergy Unknown/Unable Verified 10/29/16 08:21 to obtain Review of systems: REVIEW OF SYSTEMS: - Constitutional Constitutional: Present: Fatigue. Near syncope. Absent: syncope, anorexia, night sweats - EENT Eyes: Absent: blurry vision, loss of vision, diplopia Ears: Absent: decreased hearing, ear pain, ear discharge - Cardiovascular Cardiovascular: Denies: chest pain with exertion, dyspnea on exertion. Occasional edema. Denies palpitations. Absent: chest pain with deep breath, claudication - Respiratory Respiratory: Denies: BANERJEE, cough. Air hunger many nights while sleeping. Absent : wheezing, hemoptysis, change in phlegm color - Gastrointestinal Gastrointestinal: Denies: constipation. Vomiting. Absent: abbominal pain, hematemesis, hematochezia, melena, change in bowel habits - Genitourinary Genitourinary: Absent: difficulty urinating, dysuria, urinary hesitancy, flank pain - Musculoskeletal Musculoskeletal: Present: back pain Absent: joint swelling, muscle cramps, muscle weakness - Neurological Neurological: Present: Unsteady gait without frequent falls. Dizziness. Absent : hemiparesis - Psychiatric Psychiatric: Absent: anxiety, depression, difficulty concentrating - Endocrine Endocrine: Present: fatigue. Absent: cold intolerance, heat intolerance, polyuria, polyphagia, polydipsia - Hematologic/Lymphatic Hematologic/Lymphatic: Present: easy bruising. Absent: easy bleeding -Integumentary Integumentary: Absent: lesions, rashes, skin breakdown Medical,Surgical,& Family Hx - Medical History Cardio: History of: Hypertension, Cardiovascular Problems (Low heart rate) No history of: CAD, [place] Respiratory: History of: Asthma (As a child), Bronchitis (As a child) Genitourinary: History of: Kidney Stones Gastrointestinal: History of: GI Problems (gallstones) - Surgical History Reproductive Surgeries: Patient denies;: Genitourinary Surgery - Social History Smoking Status: Never smoker Have you smoked in the last 12 months: No Frequency of Alcohol Use: None Type of Drug Use: None Marital Status: Lives With:: Spouse Functional capacity: uses cane/walker Physical Examination Vital Signs Temp Pulse Resp BP Pulse Ox 97.0 F L 55 L 18 234/81 95 10/29/16 08:17 10/29/16 08:17 10/29/16 08:17 10/29/16 08:17 10/29/16 08:17 General: [Appears well with no apparent distress.] [Pleasant and cooperative. ] [Appears comfortable.] HEENT: [PERRL, normocephalic, atraumatic. Mucous membranes moist. No jaundice noted. Conjunctiva moist and clear, sclerae anicteric] Neck: No JVD/HJR, no thyromegaly or lymphadenopathy noted. No carotid bruit appreciated Cardiac: [Slow rate, irregularly irregular rhythm.] [No obvious murmur rub or gallop.] PMI is nondisplaced. Lungs: [Clear to auscultation without accessory muscle use to assist the respiratory pattern.] Oxygen in use via nasal cannula Abdomen: Soft, bowel sounds normoactive. Nontender and nondistended. No abdominal bruit or thrill noted. No masses noted. Musculoskeletal: No fluid collection. Decreased range of motion is noted. Extremities: No clubbing, cyanosis noted. [Trace bilateral lower extremity edema noted.] Upper extremity pulses 2+. Lower extremity pulses 2+. Capillary refill less than 3 seconds. Skin: No unusual lesions or rashes. No skin breakdown appreciated. Neuro: Awake, alert and oriented 3. Moves all extremities well without hemiparesis or paralysis. No essential tremor is appreciated. Result/EKG - Labs CBC & BMP: 10/29/16 08:42 10/29/16 08:42 Lab Results: I have reviewed the past 24 hour labs Labs: Laboratory Results - last 24 hr 10/29/16 10/29/16 10/29/16 08:42 08:42 08:42 WBC 12.2 H RBC 5.44 Hgb 15.6 Hct 44.3 MCV 81.4 L MCH 29 MCHC 35.2 RDW 14.0 Plt Count 275 MPV 9.7 Neut % (Auto) 69.9 Lymph % (Auto) 21.1 L [place] % (Auto) 5.8 Eos % (Auto) 2.1 Baso % (Auto) 0.7 Neut # (Auto) 8.5 H Lymph # (Auto) 2.6 [place] # (Auto) 0.7 Eos # (Auto) 0.3 Baso # (Auto) 0.1 Immature Gran % 0.4 Nucleated RBC % 0.0 Immature Gran # 0.05 Nucleated RBCs # 0.00 INR 1.0 PT Patient/Control Mix 10.3 Sodium Potassium Chloride Carbon Dioxide Anion Gap BUN Creatinine GFR Calculation BUN/Creatinine Ratio Glucose Hemoglobin A1c Calculated Osmolality Calcium Magnesium Total Bilirubin AST ALT Alkaline Phosphatase Troponin I Total Protein Albumin Globulin Albumin/Globulin Ratio Free T4 Thyroxine (T4) TSH 3rd Generation Urine Color Straw Urine Appearance Clear Urine pH 7.0 Ur Specific [place] 1.004 Urine Protein >=500 Urine Glucose (UA) Negative Urine Ketones Negative Urine Blood Negative Urine Nitrate Negative Urine Bilirubin Negative Urine Urobilinogen < 2.0 H Urine Leukocytes Negative Urine RBC 1 Urine WBC 2 Ur Culture Indicated? Not indicated 10/29/16 10/29/16 10/29/16 08:42 08:42 Unknown WBC RBC Hgb Hct MCV MCH MCHC RDW Plt Count MPV Neut % (Auto) Lymph % (Auto) [place] % (Auto) Eos % (Auto) Baso % (Auto) Neut # (Auto) Lymph # (Auto) [place] # (Auto) Eos # (Auto) Baso # (Auto) Immature Gran % Nucleated RBC % Immature Gran # Nucleated RBCs # INR PT Patient/Control Mix Sodium 140 Potassium 2.9 L Chloride 99 Carbon Dioxide 30 Anion Gap 13.9 BUN 24 H Creatinine 1.50 H GFR Calculation 58 BUN/Creatinine Ratio 16.00 Glucose 110 H Hemoglobin A1c 6.2 Calculated Osmolality 283.4 Calcium 9.1 Magnesium 2.2 Total Bilirubin 0.40 AST 18 ALT 27 Alkaline Phosphatase 134 H Troponin I 0.034 Total Protein 7.1 Albumin 3.7 Globulin 3.4 Albumin/Globulin Ratio 1.0 L Free T4 0.93 Thyroxine (T4) 7.8 TSH 3rd Generation 7.130 H Urine Color Urine Appearance Urine pH Ur Specific [place] Urine Protein Urine Glucose (UA) Urine Ketones Urine Blood Urine Nitrate Urine Bilirubin Urine Urobilinogen Urine Leukocytes Urine RBC Urine WBC Ur Culture Indicated? - Diagnostic Findings Procedure: Chest x-ray: report reviewed by me - EKG EKG results: interpreted by nd EKG shows: bradycardia, atrial fibrillation
[2016-10-29] MEDS ORDERED: amLODIPine 5 MG TABLET PO ONE (17:04)
[2016-10-29] MEDS: hydrALAZINE 25 MG TABLET PO SCH ×3 (17:20→21:46)
[2016-10-29] MEDS: ENOXAPARIN 100 MG/ML SYRINGE SUBCUT SCH (17:34)
[2016-10-29] MEDS ORDERED: hydrALAZINE 20 MG/1 ML VIAL IV ONE ×2 (19:46→19:47)
[2016-10-29] MEDS: NITROGLYCERIN DRIP 50 MG/250 ML BOTTLE IV SCH (19:55)
[2016-10-29 21:11] LABS: Calcium 8.2 MG/DL (8.5-10.1); Osmolality,Calculated 286.3 MOS/KG (273-304); Potassium 3.3 MMOL/L (3.5-5.1)
[2016-10-29] MEDS: POLYETHYLENE GLYCOL POWDER 17 GM PACK PO SCH (21:46)
[2016-10-29] MEDS: LISINOPRIL 5 MG TABLET PO SCH (21:46)
[2016-10-30] MEDS: ONDANSETRON 4 MG/2 ML VIAL IV PRN (00:08)
[2016-10-30] MEDS ORDERED: ONDANSETRON 4 MG/2 ML VIAL IV STA (01:33)
[2016-10-30] MEDS ORDERED: PROMETHAZINE INJ 25 MG in SODIUM CHLORIDE 0.9% 50 ML IV ONE (02:00)
[2016-10-30 04:42] LABS: Basophils # 0.1 10*3/uL (0.0-0.2); Basophils % 0.4 % (0.0-0.8); Eosinophils # 0.1 10*3/uL (0.0-0.87); Eosinophils % 0.7 % (0.00-10.9); Hemoglobin 13.9 GM/DL (14.0-18.0); Immature Granulocytes % 0.8 %; Immature Granulocytes Absolute 0.13 #; Lymphocytes # 2.4 10*3/uL (1.4-4.0); Lymphocytes % 14.8 % (21.2-54.2); Mean Corpuscular HGB Conc 34.8 GM/DL (32-36); Mean Corpuscular Hemoglobin 29 PG (27-34); Mean Corpuscular Volume 82.5 FL (87-102); Mean Platelet Volume 9.2 FL (9.6-12.0); Monocytes # 0.7 10*3/uL (0.11-0.8); Monocytes % 4.4 % (1.7-12.7); Neutrophils # 12.7 10*3/uL (1.4-7.4); Neutrophils % 78.9 % (38.7-73.9); Platelet Count 261 T/CUMM (130-400); Red Blood Count 4.85 MC/CUMM (3.8-5.5); Red Cell Distribution Width 14.2 % (9.3-17.3); White Blood Count 16.1 T/CUMM (4-12)
[2016-10-30 05:17] LABS: Calcium 8.2 MG/DL (8.5-10.1); Magnesium 2.1 MG/DL (1.8-2.4); Osmolality,Calculated 287.1 MOS/KG (273-304); Potassium 3.3 MMOL/L (3.5-5.1); Risk Ratio 5.07; VLDL CHOLESTEROL 45.8 MG/DL
--- NOTE | 2016-10-30 07:31 | Cardiology Progress Note ---
Cardiology - PN: Subj Interval history: Cardiology note 71-year-old man admitted with weakness, nausea and bradycardia. MRI of the brain shows acute infarct right cerebellum, and chronic left frontal lobe infarct. Carotid duplex negative. Patient has atrial fibrillation with a slow ventricular rate and I suspect that this is chronic. Chest x-ray shows cardiomegaly and his echo Doppler shows moderate biatrial enlargement with ejection fraction of 45-50%. O2 sat is 97% on 2 L Telemetry shows atrial fibrillation good rate in the 40s Irregular rhythm no murmur No carotid bruit Clear lungs Abdomen benign No leg edema Lab data today White count 16.1 hemoglobin 13.9 hematocrit 40.0 Sodium 142 potassium 3.3 chloride 104 CO2 28 BUN 25 creatinine 1.60 Glucose 123 magnesium 2.1 Impression Acute infarct right cerebellum Chronic left frontal lobe infarct Chronic atrial fibrillation with slow ventricular rate and symptoms of weakness dizziness Suspect DAYAMI Chronic hypertension Hypokalemia improving Plan Lovenox IV nitro Single-chamber pacemaker Tuesday Monitor rhythm and blood pressure Discussed with patient and his Franca Exam (Progress Note) - Constitutional Vitals: Period Temp Pulse Resp BP Sys/Pretty Pulse Ox Last 24 Hr 97.0 F-98.7 F 37-97 12-23 151-234/46-117 91-98 Result/EKG - Labs CBC & BMP: 10/30/16 04:33 10/30/16 04:33 Labs: Laboratory Results - last 24 hr 10/29/16 10/29/16 10/29/16 08:42 08:42 08:42 WBC 12.2 H RBC 5.44 Hgb 15.6 Hct 44.3 MCV 81.4 L MCH 29 MCHC 35.2 RDW 14.0 Plt Count 275 MPV 9.7 Neut % (Auto) 69.9 Lymph % (Auto) 21.1 L Holt % (Auto) 5.8 Eos % (Auto) 2.1 Baso % (Auto) 0.7 Neut # (Auto) 8.5 H Lymph # (Auto) 2.6 Holt # (Auto) 0.7 Eos # (Auto) 0.3 Baso # (Auto) 0.1 Immature Gran % 0.4 Nucleated RBC % 0.0 Immature Gran # 0.05 Nucleated RBCs # 0.00 INR 1.0 PT Patient/Control Mix 10.3 Sodium Potassium Chloride Carbon Dioxide Anion Gap BUN Creatinine GFR Calculation BUN/Creatinine Ratio Glucose Hemoglobin A1c Calculated Osmolality Lactic Acid Calcium Magnesium Total Bilirubin AST ALT Alkaline Phosphatase Troponin I Total Protein Albumin Globulin Albumin/Globulin Ratio Triglycerides Cholesterol LDL Cholesterol VLDL Cholesterol HDL Cholesterol Heart Disease Risk Ratio Free T4 Thyroxine (T4) TSH 3rd Generation Urine Color Straw Urine Appearance Clear Urine pH 7.0 Ur Specific [place] 1.004 Urine Protein >=500 Urine Glucose (UA) Negative Urine Ketones Negative Urine Blood Negative Urine Nitrate Negative Urine Bilirubin Negative Urine Urobilinogen < 2.0 H Urine Leukocytes Negative Urine RBC 1 Urine WBC 2 Ur Culture Indicated? Not indicated 10/29/16 10/29/16 10/29/16 08:42 08:42 20:20 WBC RBC Hgb Hct MCV MCH MCHC RDW Plt Count MPV Neut % (Auto) Lymph % (Auto) Holt % (Auto) Eos % (Auto) Baso % (Auto) Neut # (Auto) Lymph # (Auto) Holt # (Auto) Eos # (Auto) Baso # (Auto) Immature Gran % Nucleated RBC % Immature Gran # Nucleated RBCs # INR PT Patient/Control Mix Sodium 140 141 Potassium 2.9 L 3.3 L Chloride 99 102 Carbon Dioxide 30 29 Anion Gap 13.9 13.3 BUN 24 H 26 H Creatinine 1.50 H 1.60 H GFR Calculation 58 54 BUN/Creatinine Ratio 16.00 16.00 Glucose 110 H 120 H Hemoglobin A1c Calculated Osmolality 283.4 286.3 Lactic Acid Calcium 9.1 8.2 L Magnesium 2.2 Total Bilirubin 0.40 AST 18 ALT 27 Alkaline Phosphatase 134 H Troponin I 0.034 Total Protein 7.1 Albumin 3.7 Globulin 3.4 Albumin/Globulin Ratio 1.0 L Triglycerides Cholesterol LDL Cholesterol VLDL Cholesterol HDL Cholesterol Heart Disease Risk Ratio Free T4 0.93 Thyroxine (T4) 7.8 TSH 3rd Generation 7.130 H Urine Color Urine Appearance Urine pH Ur Specific [place] Urine Protein Urine Glucose (UA) Urine Ketones Urine Blood Urine Nitrate Urine Bilirubin Urine Urobilinogen Urine Leukocytes Urine RBC Urine WBC Ur Culture Indicated? 10/29/16 10/30/16 10/30/16 Unknown 04:33 04:33 WBC 16.1 H D RBC 4.85 Hgb 13.9 L Hct 40.0 L MCV 82.5 L MCH 29 MCHC 34.8 RDW 14.2 Plt Count 261 MPV 9.2 L Neut % (Auto) 78.9 H Lymph % (Auto) 14.8 L Holt % (Auto) 4.4 Eos % (Auto) 0.7 Baso % (Auto) 0.4 Neut # (Auto) 12.7 H Lymph # (Auto) 2.4 Holt # (Auto) 0.7 Eos # (Auto) 0.1 Baso # (Auto) 0.1 Immature Gran % 0.8 Nucleated RBC % 0.0 Immature Gran # 0.13 Nucleated RBCs # 0.00 INR PT Patient/Control Mix Sodium 142 Potassium 3.3 L Chloride 104 Carbon Dioxide 28 Anion Gap 13.3 BUN 25 H Creatinine 1.60 H GFR Calculation 54 BUN/Creatinine Ratio 15.00 Glucose 123 H Hemoglobin A1c 6.2 Calculated Osmolality 287.1 Lactic Acid Calcium 8.2 L Magnesium 2.1 Total Bilirubin AST ALT Alkaline Phosphatase Troponin I Total Protein Albumin Globulin Albumin/Globulin Ratio Triglycerides 229 H Cholesterol 152 LDL Cholesterol 80.0 VLDL Cholesterol 45.8 HDL Cholesterol 30 L Heart Disease Risk Ratio 5.07 Free T4 Thyroxine (T4) TSH 3rd Generation Urine Color Urine Appearance Urine pH Ur Specific [place] Urine Protein Urine Glucose (UA) Urine Ketones Urine Blood Urine Nitrate Urine Bilirubin Urine Urobilinogen Urine Leukocytes Urine RBC Urine WBC Ur Culture Indicated? 10/30/16 04:33 WBC RBC Hgb Hct MCV MCH MCHC RDW Plt Count MPV Neut % (Auto) Lymph % (Auto) Holt % (Auto) Eos % (Auto) Baso % (Auto) Neut # (Auto) Lymph # (Auto) [place] # (Auto) Eos # (Auto) Baso # (Auto) Immature Gran % Nucleated RBC % Immature Gran # Nucleated RBCs # INR PT Patient/Control Mix Sodium Cancelled Potassium Cancelled Chloride Cancelled Carbon Dioxide Cancelled Anion Gap Cancelled BUN Cancelled Creatinine Cancelled GFR Calculation Cancelled BUN/Creatinine Ratio Cancelled Glucose Cancelled Hemoglobin A1c Calculated Osmolality Cancelled Lactic Acid 1.6 Calcium Cancelled Magnesium Total Bilirubin AST ALT Alkaline Phosphatase Troponin I Total Protein Albumin Globulin Albumin/Globulin Ratio Triglycerides Cholesterol LDL Cholesterol VLDL Cholesterol HDL Cholesterol Heart Disease Risk Ratio Free T4 Thyroxine (T4) TSH 3rd Generation Urine Color Urine Appearance Urine pH Ur Specific [place] Urine Protein Urine Glucose (UA) Urine Ketones Urine Blood Urine Nitrate Urine Bilirubin Urine Urobilinogen Urine Leukocytes Urine RBC Urine WBC Ur Culture Indicated?
[2016-10-30] MEDS ORDERED: amLODIPine 5 MG TABLET PO SCH (09:00)
[2016-10-30] MEDS: ENOXAPARIN 100 MG/ML SYRINGE SUBCUT SCH ×2 (11:40→21:27)
[2016-10-30] MEDS: amLODIPine 5 MG TABLET PO SCH (11:41)
[2016-10-30] MEDS: LORATADINE 10 MG TABLET PO SCH (11:42)
[2016-10-30] MEDS: PANTOPRAZOLE 40 MG TABLET PO SCH (11:42)
[2016-10-30] MEDS: hydrALAZINE 25 MG TABLET PO SCH ×5 (11:43→21:27)
[2016-10-30] MEDS: LISINOPRIL 5 MG TABLET PO SCH ×3 (11:43→21:27)
--- NOTE | 2016-10-30 12:10 | Hospitalist Progress Note ---
Assessment and Plan (1) Atrial fibrillation with slow ventricular response Status: Acute Assessment and plan: 1)acute right cerebellar stroke, embolic- on SQ lovenox at treatment doses. PT OT ST consulted. On asa and statin. Stroke is cerebellar and explains his nausea and vomiting. Neuro consulted but Dr Lechuga is on bypass. 2)HTN- on meds for HTN prior to admit with good control per his history. Now on nitro drip, increase norvasc to 10, increase lisinopril to 10mg bid, and continue hydralazine 25qid. 3)slow afib with dizziness and weakness and sleepiness- pacer on Tuesday. anticoagulated now. Unknown how long he has had this. 4)elevated TSh with normal T4 5)hypokalemia- replacing. He associates the nausea with receiving IV KCL, so will try to replace orally once nausea improved this morning. 6)possible DAYAMI- consult sleep medicine. Current Visit: Yes (2) Hypokalemia Status: Acute Current Visit: Yes (3) Renal insufficiency Status: Acute Current Visit: Yes (4) Hypertension Status: Chronic Current Visit: Yes (5) Sleep disorder Status: Chronic Current Visit: Yes (6) Obesity (BMI 35.0-39.9 without comorbidity) Status: Chronic Current Visit: Yes Hospitalist: Subjective Interval history: Mr Hays is stable this morning with heart rate between 30s adn 50s. He has had nausea and vomiting last night especially when he moved around. Better this morning and hoping for rest today. BP slowly coming down with permissive HTN post acute stroke. On nitro drip. Exam - Constitutional Vitals: Period Temp Pulse Resp BP Sys/Pretty Pulse Ox Last 24 Hr 97.2 F-98.7 F 38-97 12-23 150-208/46-117 91-98 General appearance: no acute distress, over weight - Head Head exam: Present: normocephalic, atraumatic - Eye Eye exam: Present: EOMI. Absent: scleral icterus Pupils: Present: ELISEO - ENT ENT exam: Present: normal oropharynx - Respiratory Respiratory exam: Present: clear to auscultation bilaterally - Cardiovascular Cardiovascular exam: Present: bradycardia, irregular rhythm - GI/Abdominal GI/Abdominal exam: Present: normal bowel sounds, soft. Absent: tenderness - Extremities Exam Extremities exam: Present: edema - Neurological Exam Neurological exam: Present: alert, oriented X3, CN II-XII intact. Absent: motor sensory deficit - Skin Skin exam: Present: warm, dry Results - Labs CBC & BMP: 10/30/16 04:33 10/30/16 04:33 Lab Results: I have reviewed the past 24 hour labs
[2016-10-30] MEDS: POTASSIUM CHLORIDE 20 MEQ TABLET PO PRN ×3 (13:30→23:49)
[2016-10-30] MEDS: NITROGLYCERIN DRIP 50 MG/250 ML BOTTLE IV SCH (19:33)
[2016-10-30] MEDS: POLYETHYLENE GLYCOL POWDER 17 GM PACK PO SCH (21:27)
[2016-10-31 03:13] LABS: Basophils # 0.1 10*3/uL (0.0-0.2); Basophils % 0.4 % (0.0-0.8); Eosinophils # 0.3 10*3/uL (0.0-0.87); Hematocrit 40.2 VOL% (42.0-52.0); Hemoglobin 13.5 GM/DL (14.0-18.0); Immature Granulocytes % 0.4 %; Immature Granulocytes Absolute 0.05 #; Lymphocytes # 2.9 10*3/uL (1.4-4.0); Lymphocytes % 22.4 % (21.2-54.2); Mean Corpuscular HGB Conc 33.6 GM/DL (32-36); Mean Corpuscular Hemoglobin 28 PG (27-34); Mean Corpuscular Volume 83.6 FL (87-102); Mean Platelet Volume 9.1 FL (9.6-12.0); Monocytes # 0.8 10*3/uL (0.11-0.8); Monocytes % 6.4 % (1.7-12.7); Neutrophils # 8.8 10*3/uL (1.4-7.4); Neutrophils % 68.4 % (38.7-73.9); Platelet Count 260 T/CUMM (130-400); Red Blood Count 4.81 MC/CUMM (3.8-5.5); Red Cell Distribution Width 14.2 % (9.3-17.3); White Blood Count 12.9 T/CUMM (4-12)
[2016-10-31 04:09] LABS: Calcium 8.7 MG/DL (8.5-10.1); Magnesium 2.3 MG/DL (1.8-2.4); Potassium 3.2 MMOL/L (3.5-5.1)
[2016-10-31] MEDS: POTASSIUM CHLORIDE 20 MEQ TABLET PO PRN ×4 (05:05→16:54)
--- NOTE | 2016-10-31 07:58 | Cardiology Progress Note ---
Cardiology - PN: Subj Interval history: Cardiology note 71-year-old man admitted with weakness nausea bradycardia and a acute right cerebellar infarct. Nausea and dizziness have resolved. Telemetry shows atrial fib ventricular rate 45-50 O2 sat 96 on 2 L Blood pressure running a little high and additional meds started 200/86 now Irregular rhythm no murmur Decreased breath sounds but clear Abdomen benign. Lab data today Hemoglobin 13.5 hematocrit 40.2 white count 12.9 INR 1.0 Sodium 143 potassium 3.2 chloride 105 CO2 27 BUN 23 creatinine 1.60 Triglycerides 229 cholesterol 152 8 HDL 30 and LDL 80 Impression Acute infarct right cerebellum Chronic left frontal lobe infarct Chronic atrial fib with slow ventricular rate and symptoms of weakness and dizziness Chronic hypertension Hypokalemia improving Suspect DAYAMI Plan DC Lovenox after tonight's dose Single-chamber pacemaker tomorrow Replace potassium Increase lisinopril 20 mg twice daily 10 mg amlodipine daily Increase hydralazine 50 mg 3 times daily Exam (Progress Note) - Constitutional Vitals: Period Temp Pulse Resp BP Sys/Pretty Pulse Ox Last 24 Hr 97.1 F-97.9 F 39-68 12-22 136-199/42-102 91-98 Result/EKG - Labs CBC & BMP: 10/31/16 03:01 10/31/16 03:01 Labs: Laboratory Results - last 24 hr 10/31/16 10/31/16 03:01 03:01 WBC 12.9 H RBC 4.81 Hgb 13.5 L Hct 40.2 L MCV 83.6 L MCH 28 MCHC 33.6 RDW 14.2 Plt Count 260 MPV 9.1 L Neut % (Auto) 68.4 Lymph % (Auto) 22.4 [place]on % (Auto) 6.4 Eos % (Auto) 2.0 Baso % (Auto) 0.4 Neut # (Auto) 8.8 H Lymph # (Auto) 2.9 Weston # (Auto) 0.8 Eos # (Auto) 0.3 Baso # (Auto) 0.1 Immature Gran % 0.4 Nucleated RBC % 0.0 Immature Gran # 0.05 Nucleated RBCs # 0.00 Sodium 143 Potassium 3.2 L Chloride 105 Carbon Dioxide 27 Anion Gap 14.2 BUN 23 H Creatinine 1.60 H GFR Calculation 54 BUN/Creatinine Ratio 14.00 Glucose 113 H Calculated Osmolality 289.0 Calcium 8.7 Magnesium 2.3
[2016-10-31] MEDS: amLODIPine 5 MG TABLET PO SCH (08:28)
[2016-10-31] MEDS: LISINOPRIL 20 MG TABLET PO SCH ×2 (08:31→20:07)
[2016-10-31] MEDS: LORATADINE 10 MG TABLET PO SCH (08:31)
[2016-10-31] MEDS: ENOXAPARIN 100 MG/ML SYRINGE SUBCUT SCH (08:32)
[2016-10-31] MEDS: ATORVASTATIN 40 MG TABLET PO SCH (08:32)
[2016-10-31] MEDS: PANTOPRAZOLE 40 MG TABLET PO SCH (08:32)
--- NOTE | 2016-10-31 09:23 | Hospitalist Progress Note ---
Hospitalist: Subjective Interval history: Overnight, there were no issues. Patient denies any n/v/dizziness. He had a bowel movement today. Chart reviewed. Exam - Constitutional Vitals: Period Temp Pulse Resp BP Sys/Pretty Pulse Ox Last 24 Hr 97.1 F-97.9 F 39-68 12-22 136-199/42-102 91-98 General appearance: no acute distress, morbidly obese - Head Head exam: Present: atraumatic - Eye Eye exam: Present: EOMI Pupils: Present: ELISEO - Respiratory Respiratory exam: Present: clear to auscultation bilaterally, decreased breath sounds (no wheezes/rhonchi/rales) - Cardiovascular Cardiovascular exam: Present: bradycardia, irregular rhythm - GI/Abdominal GI/Abdominal exam: Present: normal bowel sounds, soft - Extremities Exam Extremities exam: Absent: edema - Neurological Exam Neurological exam: Present: alert, oriented X3 - Psychiatric Psychiatric exam: Present: normal affect, normal mood Results - Labs CBC & BMP: 10/31/16 03:01 10/31/16 03:01 - Impressions 1. Acute right cerebellar infarct: symptoms of dizziness/n,v resolved 2. h/o chronic left frontal lobe infarct 3. chronic a-fib with slow ventricular rate/sick sinus syndrome: being followed by cardiology; appreciate help; keep K at least 4 and mg at least 2 4. Hypertension: uncontrolled; hydralazine/lisinopril increased today; monitor renal functions and K 5. Azotemia: stable creatinine;monitor 6. Dyslipidemia: on statin 7. Leukocytosis: afebrile; improving; was 16, now: 13; monitor 8. HypoK: replete; monitor; check mg 9. Suspected DAYAMI: sleep medicine consulted Plan: add aspirin after pacer placement; continue statin; control bp; PT/OT noted plan for single chamber pacemaker placement on tomorrow; d/c lovenox after tonight's dose continue rest of current therapy
[2016-10-31] MEDS ORDERED: VANCOMYCIN INJ 1,000 MG in SODIUM CHLORIDE 0.9% 250 ML IV ONE (18:06)
[2016-10-31] MEDS ORDERED: VANCOMYCIN 500 MG VIAL IRRIG ONE (18:06)
--- NOTE | 2016-10-31 18:11 | Electrophysiology Consultation ---
History of Present Illness - Data of Consult Patient: new to practice Consult date: 10/31/16 Requesting Physician: Woodrow Mason - Consult Narrative Reason for consult: cindy, af History of present illness: Mr. Hays is a 71 year old male with history of hypertension, hypothyroidism. He was admitted on Tuesday, after he was feeling sick and weak for a few weeks and immediately prior to the admission, he had spells of nausea, vomiting and headache. He was diagnosed with acute cerebellar CVA, and atrial fibrillation, with bradycardia, junctional rhythm, in the 30s, low 40s. The MRI was also suspicious for elevated intracranial pressure. Anticoagulation was started Lovenox and blood pressure was controlled with oral and IV agents, was trending better in the 160s today, however, it is up to 210 today again. His amlodipine , lisinopril and hydralazine was increased earlier today. The nitroglycerin drip was discontinued yesterday due to headache and intermittent nausea. He is remained bradycardic, mostly in the 40s 50s, right now, he is in A. fib, heart rate 170, with frequent, uniform PVCs. He is currently not symptomatic but was feeling much weaker, when his heart rate for the lower. He has moderate CKD and he is still hypokalemic, despite repletion so far. Remote history of kidney stones, no recent bleeding problems. He also has bronchitis, stable currently. Echo showed borderline depressed systolic function, biatrial enlargement, PASP of 40. WBC was elevated on admission, still trending around 12, he is not septic and he is afebrile. CC: Art Bhatt MD - Home Medications and Allergies Home Medications: Home Medications Medication Instructions Recorded Confirmed Type Albuterol Sulfate [Ventolin HFA] 2 puffs INH Q4H PRN 10/29/16 10/29/16 History Loratadine Tab [Claritin Tab] 10 mg PO QAM 10/29/16 10/29/16 History Polyethylene Glycol Powder 17 gm PO BEDTIME 10/29/16 10/29/16 History [Miralax] amLODIPine [Norvasc] 5 mg PO BEDTIME 10/29/16 10/29/16 History hydroCHLOROthiazide 50 mg PO QAM 10/29/16 10/29/16 History [Hydrochlorothiazide] Allergies/Adverse Reactions: Allergies Allergy/AdvReac Type Severity Reaction Status Date / Time Penicillins Allergy Unknown/Unable Verified 10/29/16 08:21 to obtain Medical,Surgical,& Family Hx - Medical History Cardio: History of: Hypertension, Cardiovascular Problems (Low heart rate) No history of: CAD, AR Respiratory: History of: Asthma (As a child), Bronchitis (As a child) Genitourinary: History of: Kidney Stones Gastrointestinal: History of: GI Problems (gallstones) - Surgical History Reproductive Surgeries: Patient denies;: Genitourinary Surgery - Social History Smoking Status: Never smoker Frequency of Alcohol Use: None Type of Drug Use: None 12 point system: reviewed and no additional remarkable complaints except as stated Exam - Constitutional Vitals: Period Temp Pulse Resp BP Sys/Pretty Pulse Ox Last 24 Hr 97.7 F-99.2 F 39-61 12-22 140-210/47-102 90-100 General appearance: normal weight, morbidly obese - Head Head exam: Present: normal inspection, normocephalic - Eye Eye exam: Absent: conjunctival injection Pupils: Absent: dilated - ENT ENT exam: Present: normal external ear exam - Neck Neck exam: Present: normal inspection - Respiratory Respiratory exam: Present: clear to auscultation bilaterally. Absent: accessory muscle use - Cardiovascular Cardiovascular exam: Present: bradycardia, irregular rhythm, systolic murmur - GI/Abdominal GI/Abdominal exam: Present: normal bowel sounds. Absent: distended - Extremities Exam Extremities exam: Present: normal inspection, normal capillary refill. Absent: edema - Back Exam Back exam: Present: normal inspection - Neurological Exam Neurological exam: Present: alert, oriented X3 - Psychiatric Psychiatric exam: Present: normal affect, normal mood - Skin Skin exam: Present: normal color, warm. Absent: cyanosis Results - Labs CBC & BMP: 10/31/16 03:01 10/31/16 03:01 Lab Results: I have reviewed the past 24 hour labs Assessment and Plan (1) Atrial fibrillation with slow ventricular response Status: Acute Assessment and plan: 71-year-old male, persistent atrial fibrillation with slow ventricular rate of unknown duration, symptomatic bradycardia, recent cerebellar ischemic stroke, severe hypertension, moderate CKD, history of hypothyroidism. -Discussed risks and benefits of management options for symptomatic bradycardia , atrial fibrillation. We will proceed with a single-chamber pacemaker implantation in conscious sedation. N.p.o. after midnight. Hold Lovenox. -Hypertension. Still markedly elevated. His regimen was adjusted today, if the blood pressure is not trending down, we may consider putting him back on a nitroglycerin drip. -Frequent PVCs. Once protected from bradycardia, we can initiate beta-alyx. There is no ACS. -CHADSVASC 4. I suggest to resume anticoagulation, once the pacemaker is implanted, we may consider a NOAC or Coumadin. Will await neuro input if this is compatible with his recent CVA. Also suggest to start aspirin, once BP is better controlled, multiple CV risk factors. Current Visit: Yes (2) CVA (cerebral vascular accident) Status: Acute Current Visit: Yes (3) Hypokalemia Status: Acute Current Visit: Yes (4) Hypothyroidism Status: Acute Current Visit: Yes (5) Bradycardia Status: Acute Current Visit: Yes (6) Renal insufficiency Status: Acute Current Visit: Yes (7) Hypertension Status: Chronic Current Visit: Yes (8) Sleep disorder Status: Chronic Current Visit: Yes (9) Obesity (BMI 35.0-39.9 without comorbidity) Status: Chronic Current Visit: Yes
[2016-10-31] MEDS: POLYETHYLENE GLYCOL POWDER 17 GM PACK PO SCH (20:07)
[2016-11-01 04:42] LABS: Basophils # 0.1 10*3/uL (0.0-0.2); Basophils % 0.5 % (0.0-0.8); Eosinophils # 0.1 10*3/uL (0.0-0.87); Eosinophils % 0.8 % (0.00-10.9); Hematocrit 39.3 VOL% (42.0-52.0); Hemoglobin 13.4 GM/DL (14.0-18.0); Immature Granulocytes % 0.9 %; Immature Granulocytes Absolute 0.13 #; Lymphocytes # 2.6 10*3/uL (1.4-4.0); Lymphocytes % 18.5 % (21.2-54.2); Mean Corpuscular HGB Conc 34.1 GM/DL (32-36); Mean Corpuscular Hemoglobin 29 PG (27-34); Mean Corpuscular Volume 83.8 FL (87-102); Mean Platelet Volume 9.5 FL (9.6-12.0); Monocytes % 7.1 % (1.7-12.7); Neutrophils # 10.2 10*3/uL (1.4-7.4); Neutrophils % 72.2 % (38.7-73.9); Platelet Count 254 T/CUMM (130-400); Red Blood Count 4.69 MC/CUMM (3.8-5.5); Red Cell Distribution Width 14.3 % (9.3-17.3); White Blood Count 14.1 T/CUMM (4-12)
[2016-11-01 05:17] LABS: Calcium 8.2 MG/DL (8.5-10.1); Magnesium 2.2 MG/DL (1.8-2.4); Osmolality,Calculated 284.3 MOS/KG (273-304); Potassium 3.4 MMOL/L (3.5-5.1)
[2016-11-01] MEDS: NITROGLYCERIN DRIP 50 MG/250 ML BOTTLE IV SCH (06:26)
[2016-11-01] MEDS: POTASSIUM CHLORIDE 20 MEQ TABLET PO PRN ×3 (07:00→15:00)
[2016-11-01] MEDS: amLODIPine 5 MG TABLET PO SCH ×2 (07:00→08:12)
[2016-11-01] MEDS: LISINOPRIL 20 MG TABLET PO SCH ×3 (07:00→20:35)
[2016-11-01] MEDS: PANTOPRAZOLE 40 MG TABLET PO SCH ×2 (07:00→08:12)
[2016-11-01] MEDS: LORATADINE 10 MG TABLET PO SCH ×2 (07:00→08:12)
[2016-11-01] MEDS: ATORVASTATIN 40 MG TABLET PO SCH ×2 (07:00→08:12)
[2016-11-01] MEDS ORDERED: VANCOMYCIN 500 MG VIAL ONE ×2 (07:12→07:45)
[2016-11-01] MEDS ORDERED: HEPARIN/NACL 0.9% 2 UNITS/ML 500 ML IV ONE (07:12)
[2016-11-01] MEDS ORDERED: LIDOCAINE 1% 20 ML VIAL ONE (07:12)
--- NOTE | 2016-11-01 07:12 | EKG Report ---
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
--- NOTE | 2016-11-01 07:34 | History and Physical Update ---
Sedation H&P Update - History and Physical H&P was reviewed, the patient examined and there: are no changes in the patients condition since last H&P was completed. - Dictation Physical: refer to H&P completed by admitting physician - Physical Exam Mental Status: alert and oriented Heart: other (irregular, bradycardic) Lung: clear to auscultation Abdomen: within normal limits Vitals: other (hypertensive) - Sedation Plan for Sedation: moderate Patient Consent: Procedure disscussed with patient and patinet has consented., Risks and benefits were discussed with patient,including infection,, bleeding, injury to surrounding structures, seizure, temporary nerve, Patient understands and accepts potential risks/benefits and agrees to ASA Class: IV Airway Assessment: Class III: Soft palate, base of uvula visible
[2016-11-01] MEDS ORDERED: hydrALAZINE 20 MG/1 ML VIAL ONE (07:38)
[2016-11-01] MEDS ORDERED: fentaNYL 100 MCG/2 ML VIAL ONE ×2 (07:43→08:00)
[2016-11-01] MEDS ORDERED: MIDAZOLAM 2 MG/2 ML VIAL ONE ×2 (07:43→08:00)
[2016-11-01] MEDS ORDERED: TISSUE ADHESIVE 1 EACH APPLICATOR TOP ONE (08:32)
[2016-11-01] MEDS ORDERED: oxyCODONE/ACETAMINOPHEN 5-325 MG TABLET PO PRN (08:34)
--- NOTE | 2016-11-01 08:49 | Cardiac Pacemaker ---
- Preoperative diagnosis Date of Procedure:: 11/01/16 Preoperative Diagnosis: Documented nonreversible symptomatic bradycardia due to , sinus node dysfunction Pre-op Diagnosis: AF/bradycardia Post-op diagnosis: same Procedure: PROCEDURE SUMMARY DDD pacemaker implant from left axillary vein access. PLAN Bed rest for 4 hours. Routine post pacemaker implant site care and activity restrictions. Do not remove pressure dressing until AM. Portable CXR, EKG stat. CXR PA/Lat, device interrogation in AM. Vancomycin 1g iv. x1. Start Toprol XL 50 mg bid. If no bleeding, resume anticoagulation tonight. PROCEDURE Informed consent was obtained and a timeout was performed prior to the procedure. The patient was continuously monitored by ECG, pulse oxymetry and NIBP. 1g iv. Vancomycin was administered prior to the procedure for antibiotic prophylaxis. Moderate conscious sedation was initiated and maintained with iv. Versed and Fentanyl, for 45 minutes. The left pectoral area was meticulously prepared with ChloroPrep surgical scrub. Sterile draping was applied and Ioban was used to cover the operation site. The image intensifier was draped with a sterile bag and positioned over the patient's chest. After infiltration with 1% lidocaine, an incision was made in the left infraclavicular area, parallel to the deltopectoral groove. The incision was carried down to the level of the pectoral fascia. A subcutaneous pocket was then created with electrocautery and blunt dissection. Hemostasis was then achieved with electrocautery. A micropuncture needle was used to access the left axillary vein under fluoroscopic guidance. The microfilament was used to introduce the micropuncture sheath, which the was used to introduce and advance a long hydrophylic guidewire into the inferior vena cava. A 9 Fr sheath was introduced over the guidewire. The dilator was removed. The right ventricular pacemaker lead was introduced through the sheath. The sheath was then peeled away. The curved stylet was used to move the lead into the right ventricular outflow tract. The stylet was then replaced with a straight stylet and the lead was moved into a stable position on the right ventricular septum. Adequate sensing and pacing threshold was confirmed. The active fixation mechanism was then deployed. Stable signal and pacing threshold was noted, with decrease in pacing impedance. No extracardiac stimulation was noted with high output pacing. The lead was then anchored to the subcutaneous tissue with 2-0 nonabsorbable suture, using the anchoring sleeve near the point of entry to the vein. Another 9 Fr sheath was introduced over the retained guidewire. The dilator was removed. The right atrial pacemaker lead was introduced through the sheath. The sheath was then peeled away. A straight stylet was used to move the lead into the right atrium. The stylet was then replaced with a curved J stylet and the lead was moved into a stable position in the right atrial appendage. Adequate sensing and pacing threshold was confirmed. The active fixation mechanism was then deployed. Stable signal and pacing threshold was noted, with decrease in pacing impedance. No extracardiac stimulation was noted with high output pacing. The lead was then anchored to the subcutaneous tissue with 2-0 nonabsorbable suture, using the anchoring sleeve near the point of entry to the vein. The retained guidewire was removed. The pacemaker generator was attached to the leads and sealed in the prescribed manner. The wound was flushed with Vancomycin . The generator was placed into the pocket and tied to the pectoral fascia using 2-0 nonabsorbable suture. Stable lead positions were confirmed with fluoroscopy. The wound was closed using a double layer of 2-0 absorbable Vicryl sutures, followed by a subcuticular running suture with 4-0 Monocryl, then Exofin. A sterile, then a pressure dressing was applied. The device was then interrogated and programmed as detailed below. Device Type SN Location Medtronic Advisa DR DDD pacemaker [id number] Left infraclavicular Lead Position Type SN P/R Threshold Impedance RA RA appendage mV V @ 0.5 ms Ohm RV RV septum Medtronic 5076-58 [id number] 10.3 mV 0.5 V @ 0.5 ms 906 Ohm Bradycardia settings VVIR 60/110 The implanted system is MRI conditional. Anesthesia: moderate conscious sedation Surgeon / Physician: Corey Stallings [employer] Liaison: other ([place]) Estimated blood loss: minimal Specimens: none sent Condition: stable Disposition: ICU/CCU - Medications / Follow-up
[2016-11-01] MEDS ORDERED: ONDANSETRON 4 MG/2 ML VIAL ONE (08:51)
[2016-11-01] MEDS: ONDANSETRON 4 MG/2 ML VIAL IV PRN ×4 (08:54→23:20)
[2016-11-01] MEDS: diphenhydrAMINE 50 MG/1 ML VIAL IV PRN ×2 (09:00→17:00)
[2016-11-01] MEDS ORDERED: diphenhydrAMINE 50 MG/1 ML VIAL ONE (09:04)
--- NOTE | 2016-11-01 09:21 | XRay Report ---
XR chest 1V portable Indication: Lead placement. Comparison: Chest x-ray 10/29/2016. Technique: Portable AP chest was performed. Findings: There is been interval insertion of single lead cardiac pacemaker. The lead termination is not included on the study. Central vascular prominence bilaterally present and increased airspace opacities bilaterally within the lower chest suggest interval worsening of vascular congestive changes and pulmonary edema. Heart size is stable. Impression: 1. The entirety of the lead termination is not included on the study. 2. Interval worsening of pulmonary edema and pulmonary venous congestive changes is suggested. 11/01/2016 9:17 AM PROCEDURE INTERPRETED AT [facility] DEPARTMENT OF RADIOLOGY Final Report Signed by: Dr. Jeet Bueno
[2016-11-01] MEDS ORDERED: ONDANSETRON 4 MG/2 ML VIAL IV ONE (09:26)
--- NOTE | 2016-11-01 09:30 | EKG Report ---
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
[2016-11-01] MEDS: METOPROLOL SUCCINATE XL 50 MG TABLET PO SCH ×2 (10:11→20:36)
--- NOTE | 2016-11-01 10:47 | Physician Query Form ---
CLICK EDIT DOCUMENT TO SELECT QUERY ANSWER --> OK --> SIGN Suzette Hackett RN Clinical Relay Checker W) [phone] (f) [phone] [email or web address]: Make your selection(s) from the choices in EACH section by typing an "x" and enter comments in the comment section. Please use your independent medical judgment in providing your response. This request does not imply that any particular answer is desired or expected. CLINCAL INDICATORS: (Providers should not edit this section) Based on documentation of "His BP is very high 220/130 while i was in the room" Treated with IV Nitro infusion and IV Apresoline. Note: Hypertensive crises can present as hypertensive urgency or hypertensive emergency. Clarify which, if any of the following, is a more accurate diagnosis reflecting the type and acuity of the documented hypertension: TYPE: ( ) Hypertensive Urgency (x ) Hypertensive Emergency ( ) Uncontrolled chronic hypertension at baseline ( ) Other, please specify: ( ) Clinically unable to determine COMMENTS: Criteria Source - Up to Date (This topic last updated: Jul 02, 2015) HYPERTENSIVE URGENCY: Severe hypertension (usually a diastolic blood pressure above 120 mmHg) in asymptomatic patients is referred to as hypertensive urgency. There is no proven benefit from rapid reduction in blood pressure in asymptomatic patients who have no evidence of acute end-organ damage and are at little short-term risk. HYPERTENSIVE EMERGENCY: Severe hypertension (usually a diastolic blood pressure above 120 mmHg) with evidence of acute end-organ damage is defined as a hypertensive emergency. A hypertensive emergency can be life threatening and requires immediate treatment, usually with parenteral medications in a monitored setting. PLEASE ALSO DOCUMENT RESPONSE IN PROGRESS NOTES AND/OR DISCHARGE SUMMARY Use of terms such as suspected, likely, or probable (associated with a specific diagnosis that is being evaluated, monitored, or treated as if it exists) are acceptable and can be restated in the discharge summary if not ruled out. MTDD
--- NOTE | 2016-11-01 13:00 | Hospitalist Progress Note ---
Assessment and Plan (1) Atrial fibrillation with slow ventricular response Status: Acute Assessment and plan: 1)acute right cerebellar stroke, embolic- on SQ lovenox at treatment doses prior to pacemaker. restart anticoagulation when ok with Dr Stallings- donna Mckeon. PT OT ST consulted. On asa and statin. Stroke is cerebellar and explains his nausea and vomiting. Neuro consulted but Dr Lechuga is on bypass. 2)HTN- on meds for HTN prior to admit with good control per his history. Off nitro drip but BP remains elevated. Toprol started per cardiology after pacemaker today. If BP can come down, he could go to tele. 3)slow afib with dizziness and weakness and sleepiness- pacer placed. Unknown how long he has had this. 4)elevated TSh with normal T4 5)hypokalemia- replacing. He associates the nausea with receiving IV KCL, so will try to replacing orally. 6)possible DAYAMI- consult sleep medicine. Current Visit: Yes (2) Hypokalemia Status: Acute Current Visit: Yes (3) Renal insufficiency Status: Acute Current Visit: Yes (4) Hypertension Status: Chronic Current Visit: Yes (5) Sleep disorder Status: Chronic Current Visit: Yes (6) Obesity (BMI 35.0-39.9 without comorbidity) Status: Chronic Current Visit: Yes Hospitalist: Subjective Interval history: Mr Hays had his pacemaker this morning and is doing well. He states he already feels better. He continues to have nausea. No pain, no shortness of breath. Exam - Constitutional Vitals: Period Temp Pulse Resp BP Sys/Pretty Pulse Ox Last 24 Hr 97.0 F-99.2 F 42-83 12-26 152-212/51-84 91-100 General appearance: no acute distress, over weight - Head Head exam: Present: normocephalic, atraumatic - Eye Eye exam: Present: EOMI. Absent: scleral icterus - Respiratory Respiratory exam: Present: clear to auscultation bilaterally - Cardiovascular Cardiovascular exam: Present: regular rate and rhythm - GI/Abdominal GI/Abdominal exam: Present: normal bowel sounds, soft. Absent: tenderness - Extremities Exam Extremities exam: Absent: edema (trace) Results - Labs CBC & BMP: 11/01/16 04:34 11/01/16 04:34 Lab Results: I have reviewed the past 24 hour labs
[2016-11-01] MEDS ORDERED: SCOPOLAMINE 1.5 MG PATCH TRANSDERM SCH (13:30)
[2016-11-01] MEDS: hydrALAZINE 20 MG/1 ML VIAL IV PRN ×2 (14:56→22:55)
[2016-11-01 16:00] LABS: Apearance,Urine CLEAR (Clear); Bacteria,Urine Occasional /HPF (Few); Bilirubin,Urine Negative (Negative); Blood, Urine Negative (Negative); Glucose,Urine (UA) 50 mg/dL (Negative); Ketones,Urine Negative (Negative); Mucus,Urine Occasional /LPF (Occasional); Nitrite,Urine Negative (Negative); Protein,Urine >=500 MG/DL; RBC,Urine 1 /HPF (0-4); Squamous Epithelial Cell,Urine Occasional /HPF (0-10); Urine Color Yellow (Yellow); Urine Specific Gravity 1.011 (1.001-1.035); Urine Urobilinogen < 2.0 EU/DL (0.2-1.0); WBC,Urine 1 /HPF (0-6)
[2016-11-01] MEDS ORDERED: METOCLOPRAMIDE 10 MG/2 ML VIAL ONE (16:32)
[2016-11-01] MEDS: METOCLOPRAMIDE 10 MG/2 ML VIAL IV SCH (17:00)
[2016-11-01] MEDS ORDERED: VANCOMYCIN INJ 1,000 MG in SODIUM CHLORIDE 0.9% 250 ML IV ONE (20:34)
[2016-11-01] MEDS: POLYETHYLENE GLYCOL POWDER 17 GM PACK PO SCH (20:35)
[2016-11-01] MEDS: MECLIZINE 25 MG TABLET PO SCH (20:35)
[2016-11-02] MEDS: METOCLOPRAMIDE 10 MG/2 ML VIAL IV SCH ×5 (01:20→23:45)
[2016-11-02 02:42] LABS: Basophils # 0.1 10*3/uL (0.0-0.2); Basophils % 0.4 % (0.0-0.8); Eosinophils # 0.1 10*3/uL (0.0-0.87); Eosinophils % 0.3 % (0.00-10.9); Hematocrit 41.3 VOL% (42.0-52.0); Hemoglobin 13.9 GM/DL (14.0-18.0); Immature Granulocytes % 0.9 %; Immature Granulocytes Absolute 0.14 #; Lymphocytes # 1.8 10*3/uL (1.4-4.0); Lymphocytes % 11.4 % (21.2-54.2); Mean Corpuscular HGB Conc 33.7 GM/DL (32-36); Mean Corpuscular Hemoglobin 29 PG (27-34); Mean Corpuscular Volume 85.3 FL (87-102); Mean Platelet Volume 9.5 FL (9.6-12.0); Monocytes # 0.9 10*3/uL (0.11-0.8); Neutrophils # 12.6 10*3/uL (1.4-7.4); Platelet Count 256 T/CUMM (130-400); Red Blood Count 4.84 MC/CUMM (3.8-5.5); Red Cell Distribution Width 14.6 % (9.3-17.3); White Blood Count 15.6 T/CUMM (4-12)
[2016-11-02 03:18] LABS: Calcium 8.4 MG/DL (8.5-10.1); Magnesium 2.4 MG/DL (1.8-2.4); Osmolality,Calculated 281.4 MOS/KG (273-304); Potassium 3.6 MMOL/L (3.5-5.1)
[2016-11-02] MEDS: hydrALAZINE 20 MG/1 ML VIAL IV PRN (06:05)
--- NOTE | 2016-11-02 06:44 | XRay Report ---
History is respiratory distress, prior pacemaker placement Comparison 11/01/2016 The heart is enlarged with a pacemaker present There is been slight improvement of vascular congestion and pulmonary edema. There remains right greater than left reticulonodular and hazy pulmonary opacities and small right effusion. There is mild elevation right diaphragm with right basilar atelectasis and/or subpulmonic effusion suspected. No consolidation seen on the left. Impression: Mild improvement with continued right greater than left asymmetric edema and underlying right basilar infiltrate/atelectasis PROCEDURE INTERPRETED AT [facility] DEPARTMENT OF RADIOLOGY Final Report Signed by: Dr. Ary Rose
[2016-11-02] MEDS: LISINOPRIL 20 MG TABLET PO SCH ×2 (08:30→20:37)
[2016-11-02] MEDS: METOPROLOL SUCCINATE XL 50 MG TABLET PO SCH ×2 (08:30→20:38)
[2016-11-02] MEDS: amLODIPine 5 MG TABLET PO SCH (08:30)
[2016-11-02] MEDS: MECLIZINE 25 MG TABLET PO SCH ×4 (08:30→20:37)
[2016-11-02] MEDS: PANTOPRAZOLE 40 MG TABLET PO SCH (08:30)
[2016-11-02] MEDS: ATORVASTATIN 40 MG TABLET PO SCH (08:30)
[2016-11-02] MEDS: LORATADINE 10 MG TABLET PO SCH (08:30)
[2016-11-02] MEDS: ONDANSETRON 4 MG/2 ML VIAL IV PRN ×3 (08:31→22:35)
[2016-11-02] MEDS: TAMSULOSIN 0.4 MG CAPSULE PO SCH (08:35)
--- NOTE | 2016-11-02 09:26 | Electrophysiology Progress Not ---
Assessment and Plan (1) Atrial fibrillation with slow ventricular response Status: Acute Assessment and plan: 71-year-old male, persistent atrial fibrillation with slow ventricular rate of unknown duration, symptomatic bradycardia, recent cerebellar ischemic stroke, severe hypertension, moderate CKD, history of hypothyroidism. 11/01: VVI PM implant -HTN. Add Aldactone 25 mg daily. Follow renal function, CKD stage III. History of refractory hypertension, was also evaluated at [facility] in the past. He will need sleep evaluation. -Start Eliquis 5 mg twice daily. -Frequent PVCs. Improved with pacemaker, metoprolol. -Start ASA 81 mg qd -Nausea/vomiting. I suspect central etiology, due to stroke. Was quite refractory, now improved -He will need follow-up with neurology, when available, MRI suspected chronic intracranial hypertension -May be moved to telemetry -PT/OT -He may be ready for discharge tomorrow, if the blood pressure continues to improve. He would like to go home, with family support. Current Visit: Yes (2) CVA (cerebral vascular accident) Status: Acute Current Visit: Yes (3) Hypokalemia Status: Acute Current Visit: Yes (4) Hypothyroidism Status: Acute Current Visit: Yes (5) Bradycardia Status: Acute Current Visit: Yes (6) Renal insufficiency Status: Acute Current Visit: Yes (7) Hypertension Status: Chronic Current Visit: Yes (8) Sleep disorder Status: Chronic Current Visit: Yes (9) Obesity (BMI 35.0-39.9 without comorbidity) Status: Chronic Current Visit: Yes Electrophysiology Subjective Interval history: Uneventful single-chamber pacemaker implant yesterday. Removed the pressure dressing, there is no hematoma. Blood pressure still elevated, but less than 200 now. He is feeling better. Creatinine remains at 1.6 GFR 55 Exam - Constitutional Vitals: Period Temp Pulse Resp BP Sys/Pretty Pulse Ox Last 24 Hr 96.9 F-97.6 F 56-65 10-27 146-209/59-95 89-96 General appearance: no acute distress, morbidly obese - Head Head exam: Present: normal inspection, normocephalic - Eye Eye exam: Absent: conjunctival injection Pupils: Absent: dilated - ENT ENT exam: Present: normal external ear exam - Neck Neck exam: Present: normal inspection - Respiratory Respiratory exam: Present: clear to auscultation bilaterally. Absent: accessory muscle use - Cardiovascular Cardiovascular exam: Present: irregular rhythm. Absent: JVD, rubs - GI/Abdominal GI/Abdominal exam: Present: normal bowel sounds. Absent: distended - Extremities Exam Extremities exam: Present: normal inspection, normal capillary refill. Absent: edema - Back Exam Back exam: Present: normal inspection - Neurological Exam Neurological exam: Present: alert, oriented X3 - Psychiatric Psychiatric exam: Present: normal affect, normal mood - Skin Skin exam: Present: normal color, warm. Absent: cyanosis Results - Labs CBC & BMP: 11/02/16 02:36 11/02/16 02:36 Lab Results: I have reviewed the past 24 hour labs
[2016-11-02] MEDS: SPIRONOLACTONE 25 MG TABLET PO SCH (09:32)
[2016-11-02] MEDS: APIXABAN 5 MG TABLET PO SCH ×2 (09:32→20:37)
[2016-11-02] MEDS: ASPIRIN EC 81 MG TABLET PO SCH (10:15)
[2016-11-02] MEDS: FUROSEMIDE 40 MG TABLET PO SCH (10:15)
--- NOTE | 2016-11-02 11:16 | Hospitalist Progress Note ---
Assessment and Plan (1) Atrial fibrillation with slow ventricular response Status: Acute Assessment and plan: 1)acute right cerebellar stroke, embolic- started on Eliquis. PT OT ST consulted. On asa and statin. Stroke is cerebellar and explains his nausea and vomiting. His nausea is better on reglan and meclizine- continue these for now. Neuro consulted but Dr Lechuga is on bypass. 2)HTN- on meds for HTN prior to admit with good control per his history. Toprol has helped. Will start lasix today also. monitor. 3)slow afib with dizziness and weakness and sleepiness- pacer placed. Unknown how long he has had this. Feeling much better with heart rate in 60s. 4)elevated TSh with normal T4 5)hypokalemia- replaced. 6)possible DAYAMI- consult sleep medicine. 7)move to tele. hopes to go home tomorrow. Current Visit: Yes (2) Hypokalemia Status: Acute Current Visit: Yes (3) Renal insufficiency Status: Acute Current Visit: Yes (4) Hypertension Status: Chronic Current Visit: Yes (5) Sleep disorder Status: Chronic Current Visit: Yes (6) Obesity (BMI 35.0-39.9 without comorbidity) Status: Chronic Current Visit: Yes Hospitalist: Subjective Interval history: Mr Hays is feeling better this morning. His nausea is better and he has kept his breakfast down and been able to stand at the side of hte bed without nausea. His Bp remains high but is gradually coming down. He denies shortness of breath and his pain at pacer site is minimal. He can move to tele today. Exam - Constitutional Vitals: Period Temp Pulse Resp BP Sys/Pretty Pulse Ox Last 24 Hr 96.9 F-97.6 F 55-65 10-27 146-209/68-95 89-96 General appearance: no acute distress, over weight - Head Head exam: Present: normocephalic, atraumatic - Eye Eye exam: Present: EOMI. Absent: scleral icterus - Respiratory Respiratory exam: Present: clear to auscultation bilaterally - Cardiovascular Cardiovascular exam: Present: regular rate and rhythm, other (pacer site covered with bandage, clean, no bruising) - GI/Abdominal GI/Abdominal exam: Present: normal bowel sounds, soft. Absent: tenderness - Extremities Exam Extremities exam: Absent: edema Results - Labs CBC & BMP: 11/02/16 02:36 11/02/16 02:36 Lab Results: I have reviewed the past 24 hour labs
[2016-11-02] MEDS: POLYETHYLENE GLYCOL POWDER 17 GM PACK PO SCH (20:37)
[2016-11-03] MEDS: METOCLOPRAMIDE 10 MG/2 ML VIAL IV SCH ×3 (05:43→17:57)
[2016-11-03] MEDS: hydrALAZINE 20 MG/1 ML VIAL IV PRN (05:44)
[2016-11-03 06:26] LABS: Calcium 8.3 MG/DL (8.5-10.1); Magnesium 2.6 MG/DL (1.8-2.4); Osmolality,Calculated 284.4 MOS/KG (273-304); Potassium 3.5 MMOL/L (3.5-5.1)
[2016-11-03] MEDS: ONDANSETRON 4 MG/2 ML VIAL IV PRN ×3 (08:37→21:10)
[2016-11-03] MEDS: LISINOPRIL 20 MG TABLET PO SCH ×2 (08:39→21:09)
[2016-11-03] MEDS: PANTOPRAZOLE 40 MG TABLET PO SCH (08:39)
[2016-11-03] MEDS: METOPROLOL SUCCINATE XL 50 MG TABLET PO SCH ×2 (08:39→21:09)
[2016-11-03] MEDS: ATORVASTATIN 40 MG TABLET PO SCH (08:40)
[2016-11-03] MEDS: TAMSULOSIN 0.4 MG CAPSULE PO SCH (08:40)
[2016-11-03] MEDS: MECLIZINE 25 MG TABLET PO SCH ×4 (08:40→21:09)
[2016-11-03] MEDS: amLODIPine 5 MG TABLET PO SCH (08:40)
[2016-11-03] MEDS: APIXABAN 5 MG TABLET PO SCH ×2 (08:40→21:09)
[2016-11-03] MEDS: LORATADINE 10 MG TABLET PO SCH (08:41)
[2016-11-03] MEDS: ASPIRIN EC 81 MG TABLET PO SCH (08:41)
[2016-11-03] MEDS: SPIRONOLACTONE 25 MG TABLET PO SCH (08:41)
[2016-11-03] MEDS: FUROSEMIDE 40 MG TABLET PO SCH (08:41)
--- NOTE | 2016-11-03 10:49 | Cardiology Progress Note ---
I, Charito Roberson RN, am scribing for, and in the presence of, Corey Stallings MD 10 :46. Assessment and Plan (1) Atrial fibrillation with slow ventricular response Status: Acute Assessment and plan: 71-year-old male, persistent atrial fibrillation with slow ventricular rate of unknown duration, symptomatic bradycardia, recent cerebellar ischemic stroke, severe hypertension, moderate CKD, history of hypothyroidism. 11/01: VVI PM implant -HTN. Trend improving. Cont current regimen. Follow renal function closely with added aldactone, CKD stage III. History of refractory hypertension, was also evaluated at [facility] in the past. He will need sleep evaluation. -Cont Eliquis 5 mg twice daily for AF. -Frequent PVCs. Improved with pacemaker, metoprolol. -Cont ASA 81 mg qd -Nausea/vomiting. I suspect central etiology, due to stroke. Was quite refractory, now improving -He will need follow-up with neurology, when available, MRI suspected chronic intracranial hypertension. Due to recent pacemaker implant, MRI would be contraindicated for at least 6 weeks -Dispo: plan TMR. 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 Marin because he has family that sees him SUMMARY: Mr. Hays, 71WM, without a prior history of known coronary artery disease. He has never been followed by cardiology. Risk factors include: Hypertension, remote tobaccoism. Patient presented to the ED of [facility] this morning with complaints of dizziness, near syncope, weakness and unsteady gait occurring over the past 3 weeks. The vomiting occurred this morning and he became alarmed. Upon evaluation in the emergency department he was found to be in atrial fibrillation with SVR, heart rate in the 30s -40s. He was extremely hypertensive with a blood pressure noted of 220/100. He denies chest pain, heaviness, tightness. Prior to 3 weeks ago, patient considered himself very active however, he has been avoiding activities over the past week due to significant fatigue. Patient states he is always had a low heart rate. He cannot further elaborate. Cardiac biomarkers negative, EKG reveals A. fib, SVR. Patient was hypokalemic, potassium 2.9. This was repleted but his heart rate remained persistently low. Also, TSH elevated but T4 within normal limits. Patient underwent CT of head which reported a 26 mm chronic infarct in the left frontal lobe, right cerebellum revealed a probable recent infarct. To his knowledge, he has never had TIA or CVA. He has never been formally diagnosed with atrial fibrillation. He denies palpitations. is present and acknowledges that he does snore occasionally but frequently holds his breath while sleeping. He has never been tested for sleep apnea. Echocardiogram reveals EF 45%. 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 Also showed additional atrophy and significant microvascular disease. He underwent dual-chamber pacemaker implantation November 01 Dr. Stallings. November 03, 2016: Mr. Hays is day 2 status post dual-chamber pacemaker implant to left chest. Dressing to pacemaker site is dry and intact with no hematoma noted. Left arm is in immobilizer sling. He denies any chest pain, shortness of breath, or palpitations. He continues to be nauseated, but states that it is improving. He continues to be hypertensive, but it has improved. This morning it is 183/83. Potassium today is 3.5. Creatinine continues to increase , today is 1.8. We have discussed with the patient about going to rehab and he is cooperative with this plan. If he is still there next week, Dr. Stallings we will see him for his pacemaker check. Dr. Lechuga will be back next week, we will also have him see him while in rehab. We will schedule follow-up with Dr. Marin in 2 weeks. Exam (Progress Note) - Constitutional Vitals: Period Temp Pulse Resp BP Sys/Pretty Pulse Ox Last 24 Hr 97.3 F-97.6 F 59-66 17-20 145-184/65-98 91-174 General appearance: no acute distress, over weight - Head Head exam: Absent: abrasion, hematoma - Eye Eye exam: Absent: periorbital swelling, laceration to eyelids Pupils: Present: ELISEO - Respiratory Respiratory exam: Present: clear to auscultation bilaterally. Absent: accessory muscle use, chest wall tenderness - Cardiovascular Cardiovascular exam: Present: regular rate and rhythm, other (Pacemaker site without evidence of hematoma). Absent: JVD - GI/Abdominal GI/Abdominal exam: Present: normal bowel sounds, soft. Absent: distended, tenderness - Extremities Exam Extremities exam: Absent: calf tenderness, edema - Neurological Exam Neurological exam: Present: alert, oriented X3 - Psychiatric Psychiatric exam: Present: normal affect, normal mood - Skin Skin exam: Present: warm, dry Result/EKG - Labs CBC & BMP: 11/02/16 02:36 11/03/16 05:10 Lab Results: I have reviewed the past 24 hour labs Labs: Laboratory Results - last 24 hr 11/03/16 05:10 Sodium 140 Potassium 3.5 Chloride 105 Carbon Dioxide 26 Anion Gap 12.5 BUN 26 H Creatinine 1.80 H GFR Calculation 47 BUN/Creatinine Ratio 14.00 Glucose 111 H Calculated Osmolality 284.4 Calcium 8.3 L Magnesium 2.6 H - Diagnostic Findings Procedure: Chest x-ray: report reviewed by me Specialty Discharge - Follow Up or Referrals Follow up with: Chris Marin MD [Physician] - 2 Weeks (With CBC BMP mag EKG) Haylie Ratliff Attila, MD, personally performed the services described in this documentation, ascribed by Charito Roberson RN in my presence, and it is both accurate and complete .
--- NOTE | 2016-11-03 11:26 | Hospitalist Progress Note ---
Assessment and Plan (1) Atrial fibrillation with slow ventricular response Status: Acute Assessment and plan: 1)acute right cerebellar stroke, embolic- started on Eliquis. PT OT ST consulted. On asa and statin. No new deficits on exam. Stroke is cerebellar and explains his ataxia, vertigo, nausea and vomiting. His nausea is better on reglan and meclizine- continue these for now. Neuro consulted but Dr Lechuga is on bypass. 2)HTN- on meds for HTN prior to admit with good control per his history. Toprol has helped. stop lasix- it has not helped his BP. Try imdur. 3)slow afib with dizziness and weakness and sleepiness- pacer placed. Unknown how long he has had this. Feeling much better with heart rate in 60s. 4)elevated TSh with normal T4 5)dehydration with NEEL- creatinine now 1.8 from 1.6- start gentle hydration. EF 40%, CHF well compensated. stop lasix- it has not helped his BP. 6)possible DAYAMI- consult sleep medicine. 7)referred to [facility]. Current Visit: Yes (2) Hypokalemia Status: Acute Current Visit: Yes (3) Renal insufficiency Status: Chronic Current Visit: Yes (4) Hypertension Status: Chronic Current Visit: Yes (5) Sleep disorder Status: Chronic Current Visit: Yes (6) Obesity (BMI 35.0-39.9 without comorbidity) Status: Chronic Current Visit: Yes Hospitalist: Subjective Interval history: Mr Hays's balance and nausea is better this morning. He last vomited at 1am. It seems the meclizine and regaln have helped along with the zofran. Pt and OT are seeing him also. A referral has been made to [facility]. I discussed the situation as regards neurology with him again today and offered to transfer him to another hospital if he wanted me to. At this point he is comfortable with the plan to go to [facility] and see Dr Lechuga there when he gets back. I asked him to let me know if he changes his mind. I discussed it with DR Stallings also and he agreed that at this point his neuro exam is unchanged and that PT and OT will be most helpful. I think that it is best for him to go to [facility] prior to returning home. Exam - Constitutional Vitals: Period Temp Pulse Resp BP Sys/Pretty Pulse Ox Last 24 Hr 97.3 F-97.6 F 59-66 18-20 145-184/65-83 91-174 General appearance: no acute distress (lying in bed, comfortable, alert. ), over weight - Head Head exam: Present: normocephalic, atraumatic - Eye Eye exam: Present: EOMI. Absent: scleral icterus Pupils: Present: ELISEO - Neck Neck exam: Present: normal inspection - Respiratory Respiratory exam: Present: clear to auscultation bilaterally - Cardiovascular Cardiovascular exam: Present: regular rate and rhythm - GI/Abdominal GI/Abdominal exam: Present: normal bowel sounds, soft. Absent: tenderness - Extremities Exam Extremities exam: Absent: edema - Neurological Exam Neurological exam: Present: alert, oriented X3, CN II-XII intact, other (some balance issues when he gets up though he got to chair with PT yesterday.). Absent: motor sensory deficit - Skin Skin exam: Present: warm, dry Results - Labs CBC & BMP: 11/02/16 02:36 11/03/16 05:10 Lab Results: I have reviewed the past 24 hour labs Specialty Discharge - Follow Up or Referrals Follow up with: Chris Marin MD [Physician] - 2 Weeks (With CBC BMP mag EKG)
[2016-11-03] MEDS: ISOSORBIDE MONONITRATE 30 MG TABLET PO SCH (12:47)
[2016-11-03] MEDS: POLYETHYLENE GLYCOL POWDER 17 GM PACK PO SCH (21:07)
[2016-11-04] MEDS: METOCLOPRAMIDE 10 MG/2 ML VIAL IV SCH ×3 (00:09→12:11)
[2016-11-04 04:06] LABS: Basophils % 0.3 % (0.0-0.8); Eosinophils # 0.1 10*3/uL (0.0-0.87); Eosinophils % 0.8 % (0.00-10.9); Hematocrit 35.6 VOL% (42.0-52.0); Hemoglobin 12.2 GM/DL (14.0-18.0); Immature Granulocytes % 1.1 %; Immature Granulocytes Absolute 0.14 #; Lymphocytes # 1.7 10*3/uL (1.4-4.0); Lymphocytes % 13.8 % (21.2-54.2); Mean Corpuscular HGB Conc 34.3 GM/DL (32-36); Mean Corpuscular Hemoglobin 29 PG (27-34); Mean Corpuscular Volume 83.2 FL (87-102); Mean Platelet Volume 9.8 FL (9.6-12.0); Monocytes # 0.8 10*3/uL (0.11-0.8); Monocytes % 6.1 % (1.7-12.7); Neutrophils # 9.8 10*3/uL (1.4-7.4); Neutrophils % 77.9 % (38.7-73.9); Platelet Count 278 T/CUMM (130-400); Red Blood Count 4.28 MC/CUMM (3.8-5.5); Red Cell Distribution Width 14.7 % (9.3-17.3); White Blood Count 12.5 T/CUMM (4-12)
[2016-11-04 04:40] LABS: Calcium 8.4 MG/DL (8.5-10.1); Magnesium 2.5 MG/DL (1.8-2.4); Osmolality,Calculated 285.5 MOS/KG (273-304); Potassium 3.1 MMOL/L (3.5-5.1)
[2016-11-04] MEDS: SPIRONOLACTONE 25 MG TABLET PO SCH (09:13)
[2016-11-04] MEDS: ISOSORBIDE MONONITRATE 30 MG TABLET PO SCH (09:40)
[2016-11-04] MEDS: ATORVASTATIN 40 MG TABLET PO SCH (09:40)
[2016-11-04] MEDS: LORATADINE 10 MG TABLET PO SCH (09:40)
[2016-11-04] MEDS: POTASSIUM CHLORIDE 20 MEQ TABLET PO PRN ×2 (09:40→12:13)
[2016-11-04] MEDS: amLODIPine 5 MG TABLET PO SCH (09:41)
[2016-11-04] MEDS: FUROSEMIDE 40 MG TABLET PO SCH (09:41)
[2016-11-04] MEDS: LISINOPRIL 20 MG TABLET PO SCH (09:41)
[2016-11-04] MEDS: METOPROLOL SUCCINATE XL 50 MG TABLET PO SCH (09:43)
[2016-11-04] MEDS: PANTOPRAZOLE 40 MG TABLET PO SCH (09:43)
[2016-11-04] MEDS: ASPIRIN EC 81 MG TABLET PO SCH (09:43)
[2016-11-04] MEDS: MECLIZINE 25 MG TABLET PO SCH ×2 (09:44→12:13)
[2016-11-04] MEDS: APIXABAN 5 MG TABLET PO SCH (09:44)
[2016-11-04] MEDS: TAMSULOSIN 0.4 MG CAPSULE PO SCH (09:44)
[2016-11-04] MEDS ORDERED: ACETAMINOPHEN 325 MG TABLET PO PRN (10:40)
--- NOTE | 2016-11-04 10:42 | Cardiology Progress Note ---
I, Charito Roberson, RN, am scribing for, and in the presence of, Corey Stallings MD 10 :35. Assessment and Plan (1) Atrial fibrillation with slow ventricular response Status: Acute Assessment and plan: 71-year-old male, persistent atrial fibrillation with slow ventricular rate of unknown duration, symptomatic bradycardia, recent cerebellar ischemic stroke, severe hypertension, moderate CKD, history of hypothyroidism. 11/01: VVI PM implant -HTN. Trend improving. Cont amlodipine 10 mg qd, hydralazine 100 mg tid, Imdur 30 mg qd, Lisinopril 20 mg bid, Toprol 50 mg bid, -History of refractory hypertension, was also evaluated at [facility] in the past. He will need sleep evaluation. -D/c Lasix, Aldactone. Creat increased. Recheck BMP/Mg in 1 week. May need adding a diuretic to BP regimen if BP increases again -Cont Eliquis 5 mg twice daily for AF. -Frequent PVCs. Improved with pacemaker, metoprolol. -Cont ASA 81 mg qd -Nausea/vomiting. I suspect central etiology, due to stroke. Was quite refractory, improved -He will need follow-up with neurology, when available, MRI suspected chronic intracranial hypertension. Due to recent pacemaker implant, MRI would be contraindicated for at least 6 weeks -Dispo: plan TMR. 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 Marin because he has family that sees him SUMMARY: Mr. Hays, 71WM, without a prior history of known coronary artery disease. He has never been followed by cardiology. Risk factors include: Hypertension, remote tobaccoism. Patient presented to the ED of [facility] this morning with complaints of dizziness, near syncope, weakness and unsteady gait occurring over the past 3 weeks. The vomiting occurred this morning and he became alarmed. Upon evaluation in the emergency department he was found to be in atrial fibrillation with SVR, heart rate in the 30s -40s. He was extremely hypertensive with a blood pressure noted of 220/100. He denies chest pain, heaviness, tightness. Prior to 3 weeks ago, patient considered himself very active however, he has been avoiding activities over the past week due to significant fatigue. Patient states he is always had a low heart rate. He cannot further elaborate. Cardiac biomarkers negative, EKG reveals A. fib, SVR. Patient was hypokalemic, potassium 2.9. This was repleted but his heart rate remained persistently low. Also, TSH elevated but T4 within normal limits. Patient underwent CT of head which reported a 26 mm chronic infarct in the left frontal lobe, right cerebellum revealed a probable recent infarct. To his knowledge, he has never had TIA or CVA. He has never been formally diagnosed with atrial fibrillation. He denies palpitations. is present and acknowledges that he does snore occasionally but frequently holds his breath while sleeping. He has never been tested for sleep apnea. Echocardiogram reveals EF 45%. 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 Also showed additional atrophy and significant microvascular disease. He underwent dual-chamber pacemaker implantation November 01 Dr. Stallings. November 03, 2016: Mr. Hays is day 2 status post dual-chamber pacemaker implant to left chest. Dressing to pacemaker site is dry and intact with no hematoma noted. Left arm is in immobilizer sling. He denies any chest pain, shortness of breath, or palpitations. He continues to be nauseated, but states that it is improving. He continues to be hypertensive, but it has improved. This morning it is 183/83. Potassium today is 3.5. Creatinine continues to increase , today is 1.8. We have discussed with the patient about going to rehab and he is cooperative with this plan. If he is still there next week, Dr. Stallings we will see him for his pacemaker check. Dr. Lechuga will be back next week, we will also have him see him while in rehab. We will schedule follow-up with Dr. Marin in 2 weeks. November 04, 2016: Mr. Hays is seen sitting up in chair. He states he had a good night and has not had any vomiting since yesterday afternoon. Dressing to the pacemaker site is dry and intact with no hematoma noted, left arm is in an immobilizer sling. He denies any chest pain, shortness of breath, or palpitations. His pressures have been better during the night, this morning 158 /63. Potassium this morning was 3.1, this is to be replaced per protocol. His creatinine continues to rise, this morning it is 2.0. He is agreeable in going to [facility] rehab, we are waiting to hear back from them. Exam (Progress Note) - Constitutional Vitals: Period Temp Pulse Resp BP Sys/Pretty Pulse Ox Last 24 Hr 96.9 F-98.2 F 60-65 16-20 143-189/63-83 91-94 General appearance: no acute distress, over weight - Head Head exam: Absent: abrasion, hematoma - Eye Eye exam: Absent: periorbital swelling, laceration to eyelids - Respiratory Respiratory exam: Present: clear to auscultation bilaterally. Absent: accessory muscle use, chest wall tenderness - Cardiovascular Cardiovascular exam: Present: regular rate and rhythm, other (Pacemaker site without evidence of hematoma) - GI/Abdominal GI/Abdominal exam: Present: normal bowel sounds, soft. Absent: distended, tenderness - Extremities Exam Extremities exam: Absent: calf tenderness, edema - Neurological Exam Neurological exam: Present: alert, oriented X3 - Psychiatric Psychiatric exam: Present: normal affect, normal mood - Skin Skin exam: Present: warm, dry Result/EKG - Labs CBC & BMP: 11/04/16 03:31 11/04/16 03:31 Lab Results: I have reviewed the past 24 hour labs Labs: Laboratory Results - last 24 hr 11/04/16 11/04/16 03:31 03:31 WBC 12.5 H RBC 4.28 Hgb 12.2 L Hct 35.6 L MCV 83.2 L MCH 29 MCHC 34.3 RDW 14.7 Plt Count 278 MPV 9.8 Neut % (Auto) 77.9 H Lymph % (Auto) 13.8 L Hutchinson % (Auto) 6.1 Eos % (Auto) 0.8 Baso % (Auto) 0.3 Neut # (Auto) 9.8 H Lymph # (Auto) 1.7 Hutchinson # (Auto) 0.8 Eos # (Auto) 0.1 Baso # (Auto) 0.0 Immature Gran % 1.1 Nucleated RBC % 0.0 Immature Gran # 0.14 Nucleated RBCs # 0.00 Sodium 139 Potassium 3.1 L Chloride 103 Carbon Dioxide 24 Anion Gap 15.1 H BUN 35 H Creatinine 2.00 H GFR Calculation 42 BUN/Creatinine Ratio 17.00 Glucose 109 H Calculated Osmolality 285.5 Calcium 8.4 L Magnesium 2.5 H - EKG EKG results: interpreted by me Specialty Discharge - Follow Up or Referrals Follow up with: Chris Marin MD [Physician] - 2 Weeks (With CBC BMP mag EKG) Haylie Ratliff Attila, MD, personally performed the services described in this documentation, ascribed by Charito Roberson RN in my presence, and it is both accurate and complete 042 .
--- NOTE | 2016-11-04 11:26 | Discharge Summary ---
Hospital Course - Hospital Course Hospital Course: Mr. Stuart Hays is a 71-year-old male admitted for evaluation of dizziness, nausea, vomiting, and near syncope. An acute right cerebellar infarction was documented on brain MRI scan. The study also demonstrated chronic left frontal infarction involving left frontal horn. Retention cyst documented in right maxillary sinus and ethmoid air cells. Patient's brain MRA scan did not report focal high-grade intracerebral stenosis or aneurysm. No acute cardiopulmonary abnormalities were reported on chest x-ray. Patient has a history of chronic atrial fibrillation therefore systemic anticoagulation was recommended rather than solo antiplatelet therapy as secondary prophylaxis against future strokes. No hemodynamically significant ICA stenosis reported on carotid ultrasound exam. Transthoracic echocardiogram documented LVEF 45-50 % with moderately increased left atrial size with thickened mitral valve and trace mitral valve regurgitation. Patient completed physical and occupational therapy evaluation and treatment. His discharge to continue same at [facility]. - Time spent with patient Time with patient DS: Greater than 30 minutes (Mr. Stuart Hays is a 71-year- old male admitted for evaluation of an episode of dizziness, vomiting , and near syncope.) Diagnosis - Discharge Diagnosis (1) New cerebellar infarct Status: Acute (2) Atrial fibrillation with slow ventricular response Status: Chronic (3) Hypothyroidism Status: Chronic (4) Hypertension Status: Chronic (5) Hypokalemia Status: Acute Specialty Discharge - Follow Up or Referrals Follow up with: Chris Marin MD [Physician] - 2 Weeks (With CBC BMP mag EKG) Discharge Plan - Discharge Data Disposition: Disch/Xfer-Ip Rehab Fac Condition at Discharge: Stable Discharge Diet: heart healthy Activity: other (As directed by facility PT, OT staff) Hygiene: may shower Weight Bearing at Discharge: full weight bearing Driving: not until seen by doctor Contact your physician if you experience:: fever over 101 (I am seeing patient for the first time on the day of hospital discharge.) - Discharge Medications No Action hydroCHLOROthiazide [Hydrochlorothiazide] 50 mg PO QAM amLODIPine [Norvasc] 5 mg PO BEDTIME Polyethylene Glycol Powder [Miralax] 17 gm PO BEDTIME Albuterol Sulfate [Ventolin HFA] 2 puffs INH Q4H PRN PRN Reason: Shortness Of Breath/Wheezing Loratadine Tab [Claritin Tab] 10 mg PO QAM - Follow Up or Referral Follow Up: Chris Marin MD [Physician] - 2 Weeks (With CBC BMP mag EKG) - Forms/Instructions Exam - Constitutional Vitals: Period Temp Pulse Resp BP Sys/Pretty Pulse Ox Last 24 Hr 96.9 F-98.2 F 60-65 16-20 143-189/63-83 91-94 General appearance: no acute distress, other (Alert and fully oriented; patient' s was at bedside at the time of my interview and exam on the day of discharge.) - Head Head exam: Present: normal inspection - Eye Pupils: Present: ELISEO - Neck Neck exam: Present: normal inspection - Respiratory Respiratory exam: Present: clear to auscultation bilaterally - Cardiovascular Cardiovascular exam: Present: bradycardia, irregular rhythm - GI/Abdominal GI/Abdominal exam: Present: normal bowel sounds - Extremities Exam Extremities exam: Present: normal inspection - Neurological Exam Neurological exam: Present: alert, oriented X3 - Psychiatric Psychiatric exam: Present: normal affect, normal mood - Skin Skin exam: Present: normal color, warm, dry Discharge Results Procedures and tests throughout hospitalization: Chest x-ray 10/29/2016: Findings: Cardiomegaly is present. No obvious consolidating infiltrate or effusion. Mediastinum and bony structures reveal no acute findings. Impression: 1. Cardiomegaly without decompensation with mild scarring in the perihilar regions. Head CT without contrast 10/29/2016: Findings: The right frontal horn is minimally larger in size in the left with adjacent 26 mm hypodensity in the left frontal lobe. Diffuse atrophy and cerebral hypodensities. Ill-defined asymmetric 16 mm hypodensity in the right cerebellum. Vascular calcifications are identified. There is no evidence of recent intracranial hemorrhage or abnormal mass effect. The osseous structures appear intact. The mastoid air cells are clear. Mucosal thickening/fluid in the visualized paranasal sinuses with 10 mm polypoidal mucosal finding in the left ethmoid air cells. 12 mm asymmetric osseous finding in the left occipital bone. 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 Additional atrophy and microvascular disease. 16 mm asymmetric hypodensity in the right cerebellum which could be related to a more recent infarction. Sinusitis with 10 mm retention cyst/polyp in the left ethmoid air cells. 12 mm asymmetric osseous findings in finding in the left occipital bone which could be related to arachnoid granulation, etc. MRI may be helpful for further evaluation these findings. Carotid ultrasound 10/29/2016: Findings: Grayscale, color Doppler and pulsed Doppler interrogation of the carotid and vertebral arteries performed. Severity of stenosis based on flow velocity measurements using NASCET criteria. Distal right ICA diameter: 5.0 mm Distal left ICA diameter: 7.0 mm Peak systolic flow velocities in centimeters per second are as follows: Right: CCA: 60 cm/s Proximal ICA: 87 Distal ICA: 95 ICA/CCA ratio: 1.6 Left: CCA: 85 cm/s Proximal ICA: 82 Distal ICA: 89 ICA/CCA ratio: 1.0 External carotid arteries: Both are patent with antegrade flow. Vertebral arteries: Both are patent with antegrade flow. Grayscale and color Doppler images: Scattered areas of mild focal plaque deposition identified, with normal color Doppler flow present. Pulse Doppler waveform interrogation: No significant spectral broadening. Impression: No hemodynamically significant stenosis of either ICA origin. Brain MRI 10/29/2016: Findings: The left frontal horn is minimally larger in size than the right. Adjacent chronic infarction in the left frontal lobe. Partially empty sella. The cerebellar tonsils are normal in their location. 19 mm area of restricted diffusion in the right cerebellum. No evidence of hemorrhage, mass, extracerebral collection, or abnormal enhancement. Enlarged perivascular spaces are noted which represent a normal variant. Additional diffuse atrophy and FLAIR/T2 hyperintensities. 10 mm retention cyst in the right maxillary sinus and left ethmoid air cells. Symmetric fluid in the optic nerve sheaths. No acute findings in the temporal bones, [place], or venous sinuses. Probable arachnoid granulation in the left occipital bone. 19 mm acute infarction right cerebellum. 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 Additional atrophy and significant microvascular disease. T2 hyperintensities can also be associated with demyelinating disease, vasculitis, viral illness, etc. Retention cyst in the right maxillary sinus and ethmoid air cells with probable arachnoid granulation in the left occipital bone. Partially empty sella with associated nonspecific fluid in the optic nerves disease. Papilledema should be excluded clinically since these findings can be associated with idiopathic intracranial hypertension. Head and neck MRA: There are 2 areas of elongated 50% stenosis in the basilar artery, 1 at its proximal aspect and the other at its mid to distal aspect. Flow is noted within bilateral superior cerebellar and right anterior inferior cerebellar arteries. The posterior cerebral arteries are patent bilaterally with mild to moderate diffuse atherosclerotic irregularity. There is moderate atherosclerotic irregularity and mild to moderate diffuse narrowing of the distal internal carotid arteries bilaterally. There is flow within the anterior and middle cerebral arteries bilaterally. There is mild diffuse atherosclerotic irregularity and narrowing of the M1 segments of either middle cerebral artery and A1 segment of either anterior cerebral artery. There is moderate diffuse atherosclerotic irregularity and narrowing of the peripheral branches of the anterior and middle cerebral arteries bilaterally. There is no obvious patent cerebral artery aneurysm. Impression: Diffuse atherosclerotic irregularity of the cerebral vasculature. No focal high-grade [place] stenosis. 2 areas of elongated 50% stenosis are noted in the basilar artery. No patent cerebral artery aneurysm is seen. Labs on day of discharge: Labs from last 24 hours 11/04/16 11/04/16 03:31 03:31 WBC 12.5 H RBC 4.28 Hgb 12.2 L Hct 35.6 L MCV 83.2 L MCH 29 MCHC 34.3 RDW 14.7 Plt Count 278 MPV 9.8 Neut % (Auto) 77.9 H Lymph % (Auto) 13.8 L Will % (Auto) 6.1 Eos % (Auto) 0.8 Baso % (Auto) 0.3 Neut # (Auto) 9.8 H Lymph # (Auto) 1.7 Will # (Auto) 0.8 Eos # (Auto) 0.1 Baso # (Auto) 0.0 Immature Gran % 1.1 Nucleated RBC % 0.0 Immature Gran # 0.14 Nucleated RBCs # 0.00 Sodium 139 Potassium 3.1 L Chloride 103 Carbon Dioxide 24 Anion Gap 15.1 H BUN 35 H Creatinine 2.00 H GFR Calculation 42 BUN/Creatinine Ratio 17.00 Glucose 109 H Calculated Osmolality 285.5 Calcium 8.4 L Magnesium 2.5 H - Imaging and Cardiology Procedure: Chest x-ray: report reviewed by me, CT: report reviewed by me (Head CT without contrast), MRI: report reviewed by me (Brain MRI), Ultrasound: report reviewed by me (Carotid) - Additional Comments Brain MRA DS: Provider Date of admission: 10/29/16 10:22 Primary care physician: . No PCP Attending physician on admission: Nanda Ramirez MD Consults: 10/29/16 11:51 Consult to Physician [CONS] Routine Comment: Consulting Provider: Cardiology - [facility] When should Consulting Provider be notified: Now Consult Notification Comment: Left voicemail message on Khloe Bergman CNP cell phone Consult to Physician [CONS] Routine Comment: ?stroke Consulting Provider: Martin Das Consult Notification Comment: Unable to notify on 10/29/16 r/t Neuro being on bypass 11/01/16 @ 930 attempted to call consult to clinic but clinic closed for the holidays. I checked the [employer] consultant calendar again & dr das on bypass until 11/08/16 so I let charge nurse know, hospitalist will be made aware 10/29/16 17:03 Consult to Sleep Center [CONS] Routine Reason for Sleep Center: Sleep Center Physician Consult Comment: sleep disorder 11/02/16 09:28 Consult to Occupational Therapy [CONS] Routine Reason for Occupational Therapy: Evaluate and Treat PT [Consult to Physical Therapy] [CONS] Routine Reason for Physical Therapy: Evaluate and Treat 11/03/16 09:19 Consult to Case Mgmt/Social Srvs [CONS] Routine Reason for Case Mgmt/Social Srvs: Rehab Consult Comment: sumi lacy Discharging clinician: Hollis Pollack III Expected date of discharge: 11/04/16
[2016-11-04] MEDS: ONDANSETRON 4 MG/2 ML VIAL IV PRN (11:36)
[2016-11-04 11:42] VITALS: BP 151/67
--- NOTE | 2016-11-04 13:10 | Discharge Summary ---
Hospital Course - Hospital Course Hospital Course: Mr. Stuart Hays is a 71-year-old male admitted for evaluation of dizziness, nausea, vomiting, and near syncope. An acute right cerebellar infarction was documented on brain MRI scan. The study also demonstrated chronic left frontal infarction involving left frontal horn. Retention cyst documented in right maxillary sinus and ethmoid air cells. Patient's brain MRA scan did not report focal high-grade intracerebral stenosis or aneurysm. No acute cardiopulmonary abnormalities were reported on chest x-ray. Patient has a history of chronic atrial fibrillation therefore systemic anticoagulation was recommended rather than solo antiplatelet therapy as secondary prophylaxis against future strokes. No hemodynamically significant ICA stenosis reported on carotid ultrasound exam. Transthoracic echocardiogram documented LVEF 45-50 % with moderately increased left atrial size with thickened mitral valve and trace mitral valve regurgitation. Patient completed physical and occupational therapy evaluation and treatment. His discharge to continue same at [facility]. Diagnosis - Discharge Diagnosis (1) New cerebellar infarct Status: Acute (2) Atrial fibrillation with slow ventricular response Status: Chronic (3) Hypothyroidism Status: Chronic (4) Hypertension Status: Chronic (5) Hypokalemia Status: Acute Specialty Discharge - Follow Up or Referrals Follow up with: Chris Marin MD [Physician] - 2 Weeks (appt. for labs at [facility] on 11/17/16 at 10:[address] marin at [facility] on 11/24/16 at 9:10) Discharge Plan - Discharge Data Disposition: Disch/Xfer-Ip Rehab Fac - Discharge Medications New Aspirin EC Tab 81 mg PO DAILY #30 tablet Atorvastatin [Lipitor] 40 mg PO DAILY #30 tablet hydrALAZINE TAB [Apresoline Tab] 100 mg PO TID #90 tablet Lisinopril [Prinivil] 20 mg PO BID #60 tablet Metoprolol Succinate Xl [Toprol Xl] 50 mg PO BID #60 tablet Polyethylene Glycol Powder [Miralax] 17 gm PO DAILY #30 Potassium Chloride Cap/Tab [K Dur] 20 meq PO DAILY #30 tablet amLODIPine [Norvasc] 10 mg PO DAILY #30 tablet Apixaban [Eliquis] 5 mg PO BID #60 tablet Meclizine [Antivert] 25 mg PO QID #120 tablet Tamsulosin [Flomax] 0.4 mg PO DAILY #30 capsule Continue Albuterol Sulfate [Ventolin HFA] 2 puffs INH Q4H PRN #2 unit PRN Reason: Shortness Of Breath/Wheezing Discontinued hydroCHLOROthiazide [Hydrochlorothiazide] 50 mg PO QAM amLODIPine [Norvasc] 5 mg PO BEDTIME Polyethylene Glycol Powder [Miralax] 17 gm PO BEDTIME Loratadine Tab [Claritin Tab] 10 mg PO QAM - Follow Up or Referral Follow Up: Chris Marin MD [Physician] - 2 Weeks (appt. for labs at [facility] on 11/17/16 at 10:[address] marin at [facility] on 11/24/16 at 9:10) - Forms/Instructions Instructions: Pacemaker (DC) Exam - Constitutional Vitals: Period Temp Pulse Resp BP Sys/Pretty Pulse Ox Last 24 Hr 97.5 F-98.2 F 60-65 16-20 143-161/63-83 91-94 Discharge Results Labs on day of discharge: Labs from last 24 hours 11/04/16 11/04/16 03:31 03:31 WBC 12.5 H RBC 4.28 Hgb 12.2 L Hct 35.6 L MCV 83.2 L MCH 29 MCHC 34.3 RDW 14.7 Plt Count 278 MPV 9.8 Neut % (Auto) 77.9 H Lymph % (Auto) 13.8 L [place] % (Auto) 6.1 Eos % (Auto) 0.8 Baso % (Auto) 0.3 Neut # (Auto) 9.8 H Lymph # (Auto) 1.7 [place] # (Auto) 0.8 Eos # (Auto) 0.1 Baso # (Auto) 0.0 Immature Gran % 1.1 Nucleated RBC % 0.0 Immature Gran # 0.14 Nucleated RBCs # 0.00 Sodium 139 Potassium 3.1 L Chloride 103 Carbon Dioxide 24 Anion Gap 15.1 H BUN 35 H Creatinine 2.00 H GFR Calculation 42 BUN/Creatinine Ratio 17.00 Glucose 109 H Calculated Osmolality 285.5 Calcium 8.4 L Magnesium 2.5 H DS: Provider Date of admission: 10/29/16 10:22 Primary care physician: . No PCP Attending physician on admission: Nanda Ramirez MD Consults: 10/29/16 11:51 Consult to Physician [CONS] Routine Comment: Consulting Provider: Cardiology - [facility] When should Consulting Provider be notified: Now Consult Notification Comment: Left voicemail message on Khloe Bergman, JOSHUA cell phone Consult to Physician [CONS] Routine Comment: ?stroke Consulting Provider: Martin Das Consult Notification Comment: Unable to notify on 10/29/16 r/t Neuro being on bypass 11/01/16 @ 930 attempted to call consult to clinic but clinic closed for the holidays. I checked the [employer] regist[employer] calendar again & dr das on bypass until 11/08/16 so I let charge nurse know, hospitalist will be made aware 10/29/16 17:03 Consult to Sleep Center [CONS] Routine Reason for Sleep Center: Sleep Center Physician Consult Comment: sleep disorder 11/02/16 09:28 Consult to Occupational Therapy [CONS] Routine Reason for Occupational Therapy: Evaluate and Treat PT [Consult to Physical Therapy] [CONS] Routine Reason for Physical Therapy: Evaluate and Treat 11/03/16 09:19 Consult to Case Mgmt/Social Srvs [CONS] Routine Reason for Case Mgmt/Social Srvs: Rehab Consult Comment: sumi lacy Discharging clinician: Hollis Pollack III
[2016-11-05] MEDS ORDERED: amLODIPine 10 MG TABLET PO SCH (09:00)
[2016-11-05] MEDS ORDERED: POLYETHYLENE GLYCOL POWDER 17 GM PACK PO SCH (09:00)
--- NOTE | 2016-11-12 14:23 | Physician Query Form ---
CLICK EDIT DOCUMENT TO SELECT QUERY ANSWER --> OK --> SIGN Suzette Hackett RN Clinical Cloth Finishing Range Operator W) [phone] (f) [phone] [email or web address] PROVIDERS: Make your selection(s) from the choices in EACH section by typing an "x" and enter comments in the comment section. Please use your independent medical judgment in providing your response. This request does not imply that any particular answer is desired or expected. CLINICAL INDICATORS: (Providers should not edit this section) Based on documentation of "Renal insufficiency" Creatinine from 1.6 to 2.0. GFR from 54 to 42. Treated with NS bolus and infusion. Monitored with serial lab checks. Clarify which of the following most accurately represents the patient's renal status: ( ) Acute kidney injury (non-traumatic) ( x) Acute renal failure ( ) Acute renal failure with underlying Chronic Kidney Disease (CKD) - please provide stage below ( ) Acute renal failure with pathological renal lesion ( ) Acute renal failure with necrosis ( ) tubular ( ) medullary ( ) cortical ( ) CKD - please provide stage below ( ) End Stage Renal Disease ( ) Acute interstitial nephritis ( ) Hepatorenal syndrome ( ) Other, please specify: ( ) Clinically unable to determine Chronic Kidney Disease Stages Source: National Kidney Disease Foundation ( ) Stage I (eGFR > or = 90) ( ) Stage II (eGFR 60 - 89) ( ) Stage III (eGFR 30 - 59) ( ) Stage IV (eGFR 15 - 29) ( ) Stage V (eGFR < 15 or dialysis) COMMENTS: PLEASE ALSO DOCUMENT RESPONSE IN PROGRESS NOTES AND/OR DISCHARGE SUMMARY Use of terms such as suspected, likely, or probable (associated with a specific diagnosis that is being evaluated, monitored, or treated as if it exists) are acceptable and can be restated in the discharge summary if not ruled out. MTDD
== END 2016-11-04 13:35 | DRG 242 ==
LOC: EDSEX → N.ED 08:13 → N.EDINP 10:22 → SUATTDRO 10:22 → N.CC 11:33 → N.TELEN 11-02 12:16
PROVIDERS: ADMIT Internal Medicine; ATTEND Internal Medicine

== ENCOUNTER 2016-11-10 22:21 | Inpatient (IN) ==
[2016-11-10] MEDS ORDERED: SODIUM CHLORIDE 0.9% 1,000 ML IV STA (22:52)
[2016-11-10] MEDS ORDERED: METOCLOPRAMIDE 10 MG/2 ML VIAL IV STA (22:52)
[2016-11-10] MEDS ORDERED: ONDANSETRON 4 MG/2 ML VIAL IV STA (22:52)
--- NOTE | 2016-11-10 22:59 | Emergency Department Note ---
Arrival - Arrival Chief Complaint: Nausea/Vomiting/Diarrhea ED Nursing Triage Note: [facility]/o vomiting dark maroon colored emesis x 3. pt had pacemaker placed on . has hx of gallstones. Mode of Arrival: Stretcher Source: Patient Time Seen by Provider: 11/10/16 22:51 - History of Present Illness HPI Narrative: This 71-year-old white male has had a complicated medical course the last 2 months with problems of diagnosis and treatment of atrial fibrillation including recent pacemaker placement per Dr. Stallings, cerebellar infarct which has left him with no residual deficits except chronic dizziness and nausea with frequent vomiting in association with the nausea, and cholelithiasis diagnosed by Dr. Dotson who felt the patient was too unstable to operate at the time of diagnosis. Gallbladder ultrasound earlier today today documented the cholelithiasis. Currently the patient is nauseated and purportedly had some coffee-ground emesis at the rehab unit this evening precipitating his transfer. The patient himself has not seen any red blood orally or per rectum nor any melanotic stools. Currently he is medically stable. Onset (ago): week(s) (Onset several weeks ago) Allergies/Adverse Reactions: Allergies Allergy/AdvReac Type Severity Reaction Status Date / Time dexamethasone Allergy Depression Verified 11/01/16 07:02 montelukast [From Singulair] Allergy Depression Verified 11/01/16 07:02 Penicillins Allergy Unknown/Unable Verified 10/29/16 08:21 to obtain Home Medications: Home Medications Medication Instructions Recorded Confirmed Type Albuterol Sulfate [Ventolin HFA] 2 puffs INH Q4H PRN #2 unit 11/04/16 11/04/16 Rx Apixaban [Eliquis] 5 mg PO BID #60 tablet 11/04/16 11/04/16 Rx Aspirin EC Tab 81 mg PO DAILY #30 tablet 11/04/16 11/04/16 Rx Atorvastatin [Lipitor] 40 mg PO DAILY #30 tablet 11/04/16 11/04/16 Rx Lisinopril [Prinivil] 20 mg PO BID #60 tablet 11/04/16 11/04/16 Rx Meclizine [Antivert] 25 mg PO QID #120 tablet 11/04/16 11/04/16 Rx Metoprolol Succinate Xl [Toprol Xl] 50 mg PO BID #60 tablet 11/04/16 11/04/16 Rx Polyethylene Glycol Powder 17 gm PO DAILY #30 11/04/16 11/04/16 Rx [Miralax] Potassium Chloride Cap/Tab [K Dur] 20 meq PO DAILY #30 tablet 11/04/16 11/04/16 Rx Tamsulosin [Flomax] 0.4 mg PO DAILY #30 capsule 11/04/16 11/04/16 Rx amLODIPine [Norvasc] 10 mg PO DAILY #30 tablet 11/04/16 11/04/16 Rx hydrALAZINE TAB [Apresoline Tab] 100 mg PO TID #90 tablet 11/04/16 11/04/16 Rx Review of System - Review of System 12 point system: reviewed and no additional remarkable complaints except as stated - Review of System Constitutional: Present: as per HPI Cardiovascular: Present: as per HPI Gastrointestinal: Present: as per HPI Neurological: Present: as per HPI Medical,Surgical,& Family Hx - Medical History Cardio: History of: Cardiac Dysrhythmia (PVCs), Hypertension, Pacemaker (Placed 11/01/[address] Stallings), Cardiovascular Problems (Bradycardia and A Fib) No history of: CAD, [place] Neurology: History of: Cerebrovascular Accident (10/29/2016) No history of: Seizures Endocrine: History of: Thyroid Disorder No history of: Adrenal Disease, Diabetes Mellitus (IDDM), Diabetes Mellitus ( NIDDM), Endocrine Cancer, Endocrine Problems Rheumatology: History of;: Gout (Occasionally in his toes) Respiratory: History of: Asthma (As a child), Bronchitis (As a child) Genitourinary: History of: Kidney Stones (2011) Gastrointestinal: History of: GI Problems (gallstones in 2011) Musculoskeletal: No history of: Amputation - Surgical History Cardiac Surgeries: Sugical HX of: Cardiac Surgery (Pacemaker Placed 11/01/[address] Stallings) Patient Denies: Femoral-Popliteal Bypass Graft, Cardiac Catheterization, Carotid Endarterectomy, Internal Defibrillator, Vascular Access Devices Thoracic Surgeries: Patient denies;: Kidney (Renal Surgery), Lithotripsy, Nephrectomy, Organ Transplant, Lobectomy Neurologic Surgeries: Patient denies: Neurologic Surgery HEENT Surgeries: Surgical HX of: Tonsilectomy & Adenoidectomy (1955) Patient denies: Carotid Endarterectomy, Eye Surgery, Thyroid Surgery Abdominal Surgeries: Surgical HX of: Colonoscopy (2011), EGD (2011) Patient denies: Abdominal Surgery, Appendectomy, Cholecystectomy, Gastric Bypass Surgery, Hernia Repair, Splenectomy Reproductive Surgeries: Patient denies;: Breast Surgery, Cystoscopy, Genitourinary Surgery, Prostate Surgery, Vasectomy Orthopedic Surgeries: Patient denies;: Implanted Devices, Orthopedic Surgery, Spinal Surgery, Total Hip Replacement, Total Knee Replacement - Family History Family History: Reports;: Family Stroke (Mother) Denies;: Family Anesthesia Reaction, Family Cancer, Family Diabetes, Family Heart Disease, Family Hypertension, Family Psychiatric Problems - Social History Smoking Status: Never smoker Frequency of Alcohol Use: None Type of Drug Use: None Exam Physical Examination: GENERAL: Obese white male in no acute distress. HEENT: Normocephalic. No trauma. Moist mucous membranes. EOMI. PERRLA. ENT NML NECK: Supple. No adenopathy. CARDIAC: Regular. No murmurs. Heart rate 61 CHEST: Clear to auscultation. No respiratory distress. O2 sat 97% ABDOMEN: Soft. Nontender. Active bowel sounds. Benign abdomen at the moment EXTREMITIES: No trauma. Normal ROM. No pedal edema. SKIN: No diaphoresis. No rash. NEURO: Alert. Oriented 3. Motor, sensory, vibratory intact. No focal deficits. Vital Signs: Vital Signs Temperature 98.6 F 11/10/16 22:21 Pulse Rate 61 11/10/16 22:21 Respiratory Rate 14 11/10/16 22:21 Blood Pressure 160/71 11/10/16 22:21 O2 Sat by Pulse Oximetry 97 11/10/16 22:21 Course - Reevaluation(s) Reevaluation #1: Discussed with patient the fact that it would appear he is lost over a unit of blood in the last 4 days and for this reason I would say this supports the contention that he had coffee-ground emesis. To this end we will hospitalize him. - Consultations Consultation #1: Hospitalist service was contacted and they will admit for further evaluation treatment. Results - Labs CBC & BMP: 11/10/16 23:32 11/10/16 23:32 - Impressions EKG: Electronic pacemaker at [address] changes noted. Disposition Clinical Impression: Gastrointestinal hemorrhage, Cholelithiasis, Cerebellar stroke with chronic vertigo, Atrial fibrillation Case discussed with: patient, patient's family Disposition: Still a Patient Condition: Guarded Time of Disposition: 00:46
--- NOTE | 2016-11-10 23:33 | EKG Report ---
Stationary ECG Study [facility] ER Test Date: 11/10/2016 11:33:58 PM Pat Name: JUANA WARNER Department: Room: Gender: M Emergency Telecommunications Dispatcher: : 1945 Requested by: Daniel Ro Order Number: [id number] Reading MD: MEAGAN PADGETT Intervals [place] Rate: 59 P: 999 DC: 0 QRS: 20 QRSD: 196 T: 145 QT: 530 QTc: 530 Interpretive Statements ELECTRONIC VENTRICULAR PACEMAKER at 59 bpm SUGGESTS UNDERLYING ATRIAL FIBRILLATION Electronically Signed On 11-11-16 07:06:15 CDT by MEAGAN PADGETT [email or web address]
[2016-11-10] MEDS ORDERED: ONDANSETRON 4 MG/2 ML VIAL ONE (23:43)
[2016-11-10] MEDS ORDERED: METOCLOPRAMIDE 10 MG/2 ML VIAL ONE (23:43)
[2016-11-10 23:47] LABS: Basophils # 0.1 10*3/uL (0.0-0.2); Basophils % 0.5 % (0.0-0.8); Eosinophils # 0.2 10*3/uL (0.0-0.87); Eosinophils % 2.2 % (0.00-10.9); Hematocrit 31.7 VOL% (42.0-52.0); Hemoglobin 10.7 GM/DL (14.0-18.0); Immature Granulocytes % 1.8 %; Immature Granulocytes Absolute 0.19 #; Lymphocytes # 1.5 10*3/uL (1.4-4.0); Lymphocytes % 14.1 % (21.2-54.2); Mean Corpuscular HGB Conc 33.8 GM/DL (32-36); Mean Corpuscular Hemoglobin 29 PG (27-34); Mean Corpuscular Volume 85.4 FL (87-102); Monocytes # 0.7 10*3/uL (0.11-0.8); Monocytes % 6.6 % (1.7-12.7); Neutrophils # 7.8 10*3/uL (1.4-7.4); Neutrophils % 74.8 % (38.7-73.9); Platelet Count 266 T/CUMM (130-400); Red Blood Count 3.71 MC/CUMM (3.8-5.5); Red Cell Distribution Width 14.8 % (9.3-17.3); White Blood Count 10.4 T/CUMM (4-12)
[2016-11-11 00:32] LABS: Alanine Aminotransferase 44 U/L (16-61); Albumin 3.1 G/DL (3.4-5.0); Alkaline Phosphatase 103 U/L (45-117); Amylase 105 U/L (25-115); Aspartate Amino Transferase 30 U/L (0-37); Blood Urea Nitrogen 24 MG/DL (7-18); Calcium 8.6 MG/DL (8.5-10.1); Glucose 115 MG/DL (74-106); Osmolality,Calculated 287.1 MOS/KG (273-304); Potassium 4.1 MMOL/L (3.5-5.1); Sodium 142 MMOL/L (136-145); Total Protein 6.3 G/DL (6.4-8.3)
[2016-11-11 00:52] LABS: Apearance,Urine CLEAR (Clear); Bilirubin,Urine Negative (Negative); Blood, Urine Negative (Negative); Glucose,Urine (UA) Negative (Negative); Granular Casts,Urine 6 /LPF (0-1); Hyaline Casts,Urine 1 /LPF (0-3); Ketones,Urine Negative (Negative); Mucus,Urine Occasional /LPF (Occasional); Nitrite,Urine Negative (Negative); Protein,Urine 100 MG/DL; RBC,Urine 2 /HPF (0-4); Urine Color Yellow (Yellow); Urine Urobilinogen < 2.0 EU/DL (0.2-1.0); WBC,Urine 1 /HPF (0-6)
[2016-11-11] MEDS ORDERED: MORPHINE 2 MG/1 ML SYRINGE IV PRN (01:54)
[2016-11-11] MEDS ORDERED: ONDANSETRON 4 MG/2 ML VIAL IV PRN (01:54)
[2016-11-11] MEDS ORDERED: ACETAMINOPHEN 325 MG TABLET PO PRN (01:54)
--- NOTE | 2016-11-11 01:59 | Hospitalist History & Physical ---
Assessment and Plan (1) Acute blood loss anemia Status: Acute Current Visit: Yes (2) Coffee ground emesis Status: Acute Current Visit: Yes (3) Abdominal pain Status: Acute Current Visit: Yes Qualifiers: Abdominal location: generalized Qualified Code(s): R10.84 - Generalized abdominal pain (4) Chronic kidney disease, stage 3 Status: Acute Current Visit: Yes (5) Chronic atrial fibrillation Status: Acute Current Visit: Yes (6) Pacemaker Status: Acute Current Visit: Yes (7) Chronic anticoagulation Status: Acute Current Visit: Yes (8) History of stroke Status: Acute Current Visit: Yes (9) Essential hypertension Status: Acute Assessment and plan: Plan: Start Protonix IV twice daily, monitor for recurrence of bleeding and transfuse if necessary Consult GI for possible endoscopy HIDA scan in a.m. given abdominal pain, multiple gallstones on prior ultrasound Consult Dr. Goff if surgical evaluation needed per family preference Hold Eliquis and aspirin Continue physical therapy Current Visit: Yes History of Present Illness Chief complaint: Transferred from [facility] due to coffee-ground emesis History of present illness: Mr. Hays is a 71 year old male with hypertension, atrial fibrillation status post pacemaker, chronic anticoagulation, recent cerebellar stroke. He has been at [facility] after his stroke. He was transferred to our emergency room tonight after having multiple episodes of coffee-ground emesis. There is also report of dark colored stools. He has had mild diffuse abdominal crampy pain, rated a 3 or 4 out of 10, no exacerbating or alleviating factors. He denies fever or chills, chest pain, or shortness of breath. He states he has had "issues with nausea quite a bit since the stroke." Additionally he had a recent abdominal ultrasound showing multiple gallstones. Home Medications Medication Instructions Recorded Confirmed Type Albuterol Sulfate [Ventolin HFA] 2 puffs INH Q4H PRN #2 unit 11/04/16 11/04/16 Rx Apixaban [Eliquis] 5 mg PO BID #60 tablet 11/04/16 11/04/16 Rx Aspirin EC Tab 81 mg PO DAILY #30 tablet 11/04/16 11/04/16 Rx Atorvastatin [Lipitor] 40 mg PO DAILY #30 tablet 11/04/16 11/04/16 Rx Lisinopril [Prinivil] 20 mg PO BID #60 tablet 11/04/16 11/04/16 Rx Meclizine [Antivert] 25 mg PO QID #120 tablet 11/04/16 11/04/16 Rx Metoprolol Succinate Xl [Toprol Xl] 50 mg PO BID #60 tablet 11/04/16 11/04/16 Rx Polyethylene Glycol Powder 17 gm PO DAILY #30 11/04/16 11/04/16 Rx [Miralax] Potassium Chloride Cap/Tab [K Dur] 20 meq PO DAILY #30 tablet 11/04/16 11/04/16 Rx Tamsulosin [Flomax] 0.4 mg PO DAILY #30 capsule 11/04/16 11/04/16 Rx amLODIPine [Norvasc] 10 mg PO DAILY #30 tablet 11/04/16 11/04/16 Rx hydrALAZINE TAB [Apresoline Tab] 100 mg PO TID #90 tablet 11/04/16 11/04/16 Rx Allergies Allergy/AdvReac Type Severity Reaction Status Date / Time dexamethasone Allergy Depression Verified 11/01/16 07:02 montelukast [From Singulair] Allergy Depression Verified 11/01/16 07:02 Penicillins Allergy Unknown/Unable Verified 10/29/16 08:21 to obtain Medical,Surgical,& Family Hx - Medical History Cardio: History of: Cardiac Dysrhythmia (Atrial fibrillation), Hypertension, Pacemaker (Placed 11/01/[address] Stallings) No history of: CAD Neurology: History of: Cerebrovascular Accident (Cerebellar stroke, 10/29/2016) Endocrine: History of: Thyroid Disorder No history of: Diabetes Mellitus (NIDDM) Rheumatology: History of;: Gout (Occasionally in his toes) Respiratory: History of: Asthma (As a child), Bronchitis (As a child) Genitourinary: History of: Kidney Stones (2011) Gastrointestinal: History of: GI Problems (gallstones in 2011) - Surgical History Cardiac Surgeries: Sugical HX of: Cardiac Surgery (Pacemaker Placed 11/01/[address] Stallings) Patient Denies: Femoral-Popliteal Bypass Graft, Cardiac Catheterization, Carotid Endarterectomy, Internal Defibrillator, Vascular Access Devices Thoracic Surgeries: Patient denies;: Kidney (Renal Surgery), Lithotripsy, Nephrectomy, Organ Transplant, Lobectomy Neurologic Surgeries: Patient denies: Neurologic Surgery HEENT Surgeries: Surgical HX of: Tonsilectomy & Adenoidectomy (1956) Patient denies: Carotid Endarterectomy, Eye Surgery, Thyroid Surgery Abdominal Surgeries: Surgical HX of: Colonoscopy (2011), EGD (2011) Patient denies: Abdominal Surgery, Appendectomy, Cholecystectomy, Gastric Bypass Surgery, Hernia Repair, Splenectomy Reproductive Surgeries: Patient denies;: Breast Surgery, Cystoscopy, Genitourinary Surgery, Prostate Surgery, Vasectomy Orthopedic Surgeries: Patient denies;: Implanted Devices, Orthopedic Surgery, Spinal Surgery, Total Hip Replacement, Total Knee Replacement - Family History Family History: Reports;: Family Stroke (Mother) Denies;: Family Anesthesia Reaction, Family Cancer, Family Diabetes, Family Heart Disease, Family Hypertension, Family Psychiatric Problems - Social History Smoking Status: Never smoker Frequency of Alcohol Use: None Type of Drug Use: None Marital Status: Lives With:: Spouse Functional capacity: uses cane/walker Review of systems: A 12 point review of systems is negative except as specified in the HPI Exam - Constitutional Vitals: Period Temp Pulse Resp BP Sys/Pretty Pulse Ox Last 24 Hr 98.6 F 61 14 160/71 97 Exam: EXAM: CONSTITUTIONAL: non toxic, NAD HEENT: NC, AT, OP benign, ELISEO, EOMI CV: RRR no m/g/r, pacemaker incision benign RESP: clear B/L, no w/r/r GI: abd soft, minimal tenderness to palpation, ND, +bowel sounds INTEGUMENTARY: no lesions or rash EXTREMITIES: no c/c/e NEURO: no focal deficits PSYCH: unremarkable, A/O x3 Results - Labs CBC & BMP: 11/10/16 23:32 11/10/16 23:32 Lab Results: I have reviewed the past 24 hour labs - Impressions EKG shows paced rhythm Quality Measures - VTE Contraindication to Pharmacological VTE Prophylaxis: Active Bleeding
[2016-11-11] MEDS ORDERED: hydrALAZINE 20 MG/1 ML VIAL IV PRN (02:51)
--- NOTE | 2016-11-11 07:59 | XRay Report ---
Exam: XR KUB Date: 11/10/2016 10:54 PM Indication: Pain Comparison: None Technical: Supine Findings: The patient device is present. Mild cardiac prominence. The lung bases are otherwise not well seen. The liver shadow is intact. The renal shadows and liver shadow are not well seen. 5 lumbar vertebral segments are present. Vascular plaque within the aorta iliac vessels. Nonspecific GI pattern is present. No obvious pneumoperitoneum. Impression: 1. Nonspecific GI pattern. 2. Vascular calcinosis. PROCEDURE INTERPRETED AT [facility] DEPARTMENT OF RADIOLOGY Final Report Signed by: Dr. Mac Coley
--- NOTE | 2016-11-11 08:00 | XRay Report ---
Exam: XR chest 1V portable Date: 11/10/2016 10:54 PM Indication: Pain Comparison: 11/02/2016. Technical: AP Findings: Cardiomegaly is present. ASVD present. No pneumothorax. A left-sided cardiac pacing device with a right ventricular lead present. Mild interstitial edema and shunt vascularity present. Tiny effusion suspected. Impression: 1. Cardiomegaly with stable position of the cardiac pacing device 2. Mild interstitial edema and shunt vascularity with tiny effusions. PROCEDURE INTERPRETED AT [facility] DEPARTMENT OF RADIOLOGY Final Report Signed by: Dr. Mac Coley
--- NOTE | 2016-11-11 08:07 | Ultrasound Report ---
US gallbladder Indication: Right upper quadrant, epigastric pain. Comparison: None available. Technique: Multiple longitudinal and transverse real-time sonographic images of the right upper quadrant of the abdomen are obtained. Findings: The liver measures 17 cm with mildly increased echogenicity suggesting fatty infiltration. cm and demonstrates normal echogenicity without focal abnormality. Multiple stones are noted within the gallbladder. The gallbladder wall is not thickened. There is no pericholecystic fluid. Sonographic Rae sign is reportedly negative. The common duct measures 0.6 cm in diameter and there is no evidence of intrahepatic ductal dilation. Right kidney measures up to 11.8 cm. Renal cortical echogenicity is mildly increased. A subcentimeter hypoechoic lesion possibly representing a cyst is noted at the upper pole. Visualized portion of the pancreas appears unremarkable. There is no ascites. IMPRESSION: Cholelithiasis with no sonographic evidence of acute cholecystitis. Minimal change in the appearance when compared to the study performed several hours earlier the same day. Findings suggestive of medical renal disease. Ultrasound images were captured and stored. PROCEDURE INTERPRETED AT [facility] DEPARTMENT OF RADIOLOGY Final Report Signed by: Kian Stephenson
[2016-11-11] MEDS ORDERED: PANTOPRAZOLE 40 MG TABLET PO SCH (09:00)
--- NOTE | 2016-11-11 09:02 | Event Note ---
11/11/2016 Patient is not in the room at this time he is down getting a HIDA scan. Apparently he was transferred back up. Because of some nausea and vomiting and concern about blood in the vomitus. Patient is probably going require an EGD to be sure that the stomach is clear and that there is no ulcerations present. As far as her gallbladder goes surgery is going to be a difficult choice because he is on the Eliquis for at this time. From his stroke situation unless he can be off the Eliquis 2-3 days prior to her surgery and at least 3 days after surgery we cannot pursue the gallbladder at this time.
--- NOTE | 2016-11-11 11:38 | Hospitalist Progress Note ---
Assessment and Plan (1) Atrial fibrillation Status: Chronic Assessment and plan: Slow ventricular response precipitating pacemaker implantation November 01. Current Visit: No (2) CVA (cerebral vascular accident) Status: Acute Assessment and plan: Remote left frontal lobe encephalomalacia. Subacute right cerebellar cerebrovascular accident with associated cerebellar atrophy. Follow-up CT scan of the head demonstrates enlargement of the initial area of stroke Current Visit: No (3) Coffee ground emesis Status: Acute Assessment and plan: The patient has been vomiting in association with vertigo for 4-5 weeks. He he has developed coffee-ground emesis with melena recently. Overall the emesis has been associated with physical activity and persistent sensation of vertigo. Documented cholelithiasis on recent gallbladder ultrasound. He is at risk for a central RECREATION COORDINATOR injury gastritis/peptic ulcer as well as Natalia-Hung phenomena. He is on chronic oral anticoagulation due to his recent presumed embolic cerebrovascular accident. Current Visit: Yes Hospitalist: Subjective Interval history: 71-year-old male admitted to the hospital October 29 with complaints of vertigo vomiting and near syncope. This had occurred for approximately 3 weeks prior to his presentation and was particularly noticeable when ambulatory. Evaluation demonstrated an old frontal lobe lesion on the left side but a probable subacute right cerebellar lesion. This is confirmed by MRI. In this regard the patient was found to be in atrial fibrillation with a slow ventricular response. He he underwent VVI pacemaker implantation on 01 November. He was discharged to rehab. The patient and the family report that he had never really stopped vomiting particularly with activity. They report the transition to coffee-ground emesis with melanotic bowel movements. He was referred for admission to the emergency department. A gallbladder ultrasound was positive for stones. His discharge hemoglobin was 12.2 with admission hemoglobin of 10.7. Patient been placed on Eliquis for his underlying atrial fibrillation after placement of pacemaker. A CT scan of his head was repeated on 10 November. This demonstrated progression of the infarction involving the region of the right cerebellum compared to imaging performed on 29 October. Exam - Constitutional Vitals: Period Temp Pulse Resp BP Sys/Pretty Pulse Ox Last 24 Hr 97.8 F-98.6 F 59-67 12-20 143-193/63-83 92-97 General appearance: over weight - Respiratory Respiratory exam: Present: clear to auscultation bilaterally. Absent: rales, rhonchi, wheezes - Cardiovascular Cardiovascular exam: Present: regular rate and rhythm - GI/Abdominal GI/Abdominal exam: Present: normal bowel sounds. Absent: distended, tenderness , rebound - Extremities Exam Extremities exam: Absent: edema - Neurological Exam Neurological exam: Present: alert, oriented X3, other (Patient has a mildly disconjugate gaze associated with rotatory nystagmus) Results - Labs CBC & BMP: 11/10/16 23:32 11/10/16 23:32 Labs: Albumin 3.1 urinalysis specific gravity 1.01, proteinuria - Impressions Atrial fibrillation with a ventricular paced rhythm. - Diagnostic Findings Procedure: Chest x-ray: image reviewed by me (Reduced inspiratory effort elevated right hemidiaphragm prominent pulmonary arteries) Quality Measures - VTE Contraindication to Pharmacological VTE Prophylaxis: Active Bleeding
--- NOTE | 2016-11-11 12:39 | Nuclear Medicine Report ---
Nuclear medicine hepatobiliary scan. Indication: Gallstones. Right upper quadrant abdominal pain. Following the intravenous administration of 5 mCi technetium 99m Choletec, hepatic excretion is prompt and uniform. Gallbladder activity can be seen by 30 minutes. Bowel activity can be seen by 30 minutes. Following the oral administration of 8 ounces of ensure, and ejection fraction was calculated. Ejection fraction is 4%. Normal is 35% or greater. Impression: Findings consistent with gallbladder dyskinesia. PROCEDURE INTERPRETED AT [facility] DEPARTMENT OF RADIOLOGY Final Report Signed by: Dr. Khloe Rose
[2016-11-11] MEDS: MECLIZINE 25 MG TABLET PO SCH ×4 (14:06→20:50)
[2016-11-11] MEDS: METOPROLOL SUCCINATE XL 50 MG TABLET PO SCH ×2 (14:06→20:50)
[2016-11-11] MEDS: PANTOPRAZOLE 40 MG VIAL IV SCH ×2 (14:06→20:50)
[2016-11-11] MEDS: POLYETHYLENE GLYCOL POWDER 17 GM PACK PO SCH (14:57)
[2016-11-11] MEDS: ATORVASTATIN 40 MG TABLET PO SCH (14:59)
[2016-11-11] MEDS: TAMSULOSIN 0.4 MG CAPSULE PO SCH (14:59)
[2016-11-12] MEDS: PANTOPRAZOLE 40 MG VIAL IV SCH (10:10)
[2016-11-12] MEDS: TAMSULOSIN 0.4 MG CAPSULE PO SCH (10:10)
[2016-11-12] MEDS: MECLIZINE 25 MG TABLET PO SCH ×3 (10:10→17:46)
[2016-11-12] MEDS: ATORVASTATIN 40 MG TABLET PO SCH (10:10)
[2016-11-12] MEDS: METOPROLOL SUCCINATE XL 50 MG TABLET PO SCH (10:10)
[2016-11-12] MEDS: POLYETHYLENE GLYCOL POWDER 17 GM PACK PO SCH (10:10)
[2016-11-12 11:38] VITALS: BP 154/96
--- NOTE | 2016-11-12 12:54 | General Surgery Progress Note ---
Assessment and Plan - Time spent with patient Time spent with patient: Less than 30 minutes (1) Cholecystitis with cholelithiasis Status: Acute Assessment and plan: 11/12/2016. Patient is doing much better today his nausea and vomiting has cleared. He is sort of staying on some clear liquids at this point time and that seemed to be keeping symptoms down. We know he has gallstones on ultrasound and his HIDA scan was positive with an ejection fraction of only 4%. No cystic duct obstruction was noted at this time. His labs are fairly stable at this point in time. Patient indicated that he favor going home. Long discussion talking to him about his diet and activities and what to expect with this process he can understood at this time. We are faced with a problem that he needs to be on Eliquis for the stroke and I do not know when it would be safe to consider taking him off of that for any type of surgery. Since he is feeling better we are going get dietary look at him and hip him, with a diet that may be will not stimulate the gallbladder and see if we can bottom a little time till it would be safe to come off the Eliquis. If he continues to have symptoms in his early we would need to consider surgery at some point time. He prefers not having surgery at this point wants to go on home so we will talk to his other physicians as fine with me and will follow him up in 2 weeks in the office. Current Visit: No Subjective Patient reports: Present: feels better, pain is less, tolerating liquids well, afebrile. Absent: nausea, vomiting Exam - Constitutional Vitals: Period Temp Pulse Resp BP Sys/Pretty Pulse Ox Last 24 Hr 97.6 F-984 F 60-70 20-20 143-190/67-96 87-97 General appearance: no acute distress - Head Head exam: Present: normal inspection - ENT ENT exam: Present: normal exam - Neck Neck exam: Present: normal inspection - Respiratory Respiratory exam: Present: clear to auscultation bilaterally, rales - Cardiovascular Cardiovascular exam: Present: RRR - GI/Abdominal GI/Abdominal exam: Present: hypoactive bowel sounds, soft. Absent: distended, tenderness - Extremities Exam Extremities exam: Present: normal inspection - Back Exam Back exam: Present: normal inspection - Neurological Exam Neurological exam: Present: alert, oriented X3, CN II-XII intact - Skin Skin exam: Present: normal color, warm, dry Results - Labs CBC & BMP: 11/10/16 23:32 11/10/16 23:32 Lab Results: I have reviewed the past 24 hour labs - Diagnostic Findings Procedure: X-ray: report reviewed by me (HIDA scan was positive) Quality Measures - VTE Contraindication to Pharmacological VTE Prophylaxis: Active Bleeding Specialty Discharge - Follow Up or Referrals Follow up with: Stuart Goff MD [Physician] - 2 Weeks
[2016-11-12] MEDS ORDERED: PANTOPRAZOLE 40 MG TABLET PO SCH (17:00)
[2016-11-12] MEDS ORDERED: ASPIRIN EC 81 MG TABLET PO SCH (17:00)
--- NOTE | 2016-11-12 17:03 | Discharge Summary ---
Hospital Course - Hospital Course Hospital Course: 71-year-old male admitted to the hospital October 29 with complaints of vertigo, vomiting and near syncope. This occurred for approximately 3 weeks prior to his presentation and was particularly noticeable when ambulatory. Evaluation demonstrated an old frontal lobe lesion on the left side but a probable subacute right cerebellar lesion. This was confirmed by MRI. In this regard the patient was found to be in atrial fibrillation with a slow ventricular response. He underwent VVI pacemaker implantation on 01 of November. He was discharged to rehab. The patient and the family report that he had never really stopped vomiting particularly with activity. He was referred for admission to the emergency department as he developed some dark vomitus, but without blood, that resolved spontaneously. A gallbladder ultrasound was positive for stones. His aspirin for stroke and Eliquis for atrial ablation was held temporarily because of vomiting dark material. He was started on Protonix. GI workup was planned but patient has improved. Patient requested to requested to defer his GI workup for now, and requested to resume his aspirin and Eliquis as he is concerned about risk of stroke due to not being on anticoagulation.. Patient does understand that resuming blood thinners might exacerbate his vomiting or any or may cause underlying GI problems as well. Patient agrees to take Protonix with his Eliquis and aspirin. He is now being discharged home per his, and his 's request. Clear discharge instructions were given to present to the nearest emergency room if he starts developing any further nausea vomiting or any other dark ground emesis. Patient and voiced understanding. Clear discharge instructions were provided. . - Time spent with patient Time with patient DS: Greater than 30 minutes Diagnosis - Discharge Diagnosis (1) Atrial fibrillation with slow ventricular response Status: Chronic (2) New cerebellar infarct Status: Acute Specialty Discharge - Follow Up or Referrals Follow up with: Dominic Martinez [Physician] - 1 Week Tori Casarez [REFERRING DOCTOR/PRACTITIONER] - Stuart Goff MD [Physician] - 2 Weeks (THE OFFICE WILL CALL YOU WITH YOUR APPT WITH ) Discharge Plan - Discharge Medications No Action Aspirin EC Tab 81 mg PO DAILY #30 tablet Atorvastatin [Lipitor] 40 mg PO DAILY #30 tablet hydrALAZINE TAB [Apresoline Tab] 100 mg PO TID #90 tablet Lisinopril [Prinivil] 20 mg PO BID #60 tablet Metoprolol Succinate Xl [Toprol Xl] 50 mg PO BID #60 tablet Polyethylene Glycol Powder [Miralax] 17 gm PO DAILY #30 Potassium Chloride Cap/Tab [K Dur] 20 meq PO DAILY #30 tablet amLODIPine [Norvasc] 10 mg PO DAILY #30 tablet Apixaban [Eliquis] 5 mg PO BID #60 tablet Meclizine [Antivert] 25 mg PO QID #120 tablet Tamsulosin [Flomax] 0.4 mg PO DAILY #30 capsule - Follow Up or Referral Follow Up: Dominic Martinez [Physician] - 1 Week Tori Casarez [REFERRING DOCTOR/PRACTITIONER] - Stuart Goff MD [Physician] - 2 Weeks (THE OFFICE WILL CALL YOU WITH YOUR APPT WITH ) - Forms/Instructions Exam - Constitutional Vitals: Period Temp Pulse Resp BP Sys/Pretty Pulse Ox Last 24 Hr 97.6 F-984 F 61-70 20-20 143-186/67-96 87-97 Discharge Results Procedures and tests throughout hospitalization: Pending Orders 11/10/16 23:32 Blood Culture Stat Labs on day of discharge: Preliminary micro results at discharge 11/10/16 23:32 Blood Culture - Preliminary Blood No growth at 1 day 11/10/16 23:32 Blood Culture - Preliminary Blood No growth at 1 day DS: Provider Date of admission: 11/11/16 01:54 Primary care physician: . No PCP Attending physician on admission: Enrique Watson DO Consults: 11/11/16 03:50 Consult to Physician [CONS] Routine Comment: persistent n/v, gallstones Consulting Provider: Stuart Goff Consulting Provider Notified: Yes When should Consulting Provider be notified: In am Person Notified: JUSTYNA Date Notified: 11/11/16 Time Notified: 09:10 11/11/16 03:51 Consult to Physical Therapy [CONS] Routine Reason for Physical Therapy: Gait Training Start Therapy: Today 11/12/16 12:15 Consult to Dietitian [CONS] Routine Reason for Dietitian: Diet Instruction Consult Comment: lowfat,no salad, full liquid or really soft diet please, help with this diet Discharging clinician: Lyndon Fairchild MD
--- NOTE | 2016-11-12 17:15 | Discharge Summary ---
Hospital Course - Hospital Course Hospital Course: 71-year-old male admitted to the hospital October 29 with complaints of vertigo, vomiting and near syncope. This occurred for approximately 3 weeks prior to his presentation and was particularly noticeable when ambulatory. Evaluation demonstrated an old frontal lobe lesion on the left side but a probable subacute right cerebellar lesion. This was confirmed by MRI. In this regard the patient was found to be in atrial fibrillation with a slow ventricular response. He underwent VVI pacemaker implantation on 01 of November. He was discharged to rehab. The patient and the family report that he had never really stopped vomiting particularly with activity. He was referred for admission to the emergency department as he developed some dark vomitus, but without blood, that resolved spontaneously. A gallbladder ultrasound was positive for stones. His aspirin for stroke and Eliquis for atrial ablation was held temporarily because of vomiting dark material. He was started on Protonix. GI workup was planned but patient has improved. Patient requested to requested to defer his GI workup for now, and requested to resume his aspirin and Eliquis as he is concerned about risk of stroke due to not being on anticoagulation.. Patient does understand that resuming blood thinners might exacerbate his vomiting or any or may cause underlying GI problems as well. Patient agrees to take Protonix with his Eliquis and aspirin. He is now being discharged home per his, and his 's request. Clear discharge instructions were given to present to the nearest emergency room if he starts developing any further nausea vomiting or any other dark ground emesis. Patient and voiced understanding. Clear discharge instructions were provided. . Diagnosis - Discharge Diagnosis (1) Atrial fibrillation with slow ventricular response Status: Chronic (2) New cerebellar infarct Status: Acute Specialty Discharge - Follow Up or Referrals Follow up with: Dominic Martinez [Physician] - 1 Week Tori Casarez [REFERRING DOCTOR/PRACTITIONER] - Stuart Goff MD [Physician] - 2 Weeks (THE OFFICE WILL CALL YOU WITH YOUR APPT WITH ) Discharge Plan - Discharge Data Condition at Discharge: Stable Discharge Diet: advance to your usual diet Activity: resume usual activities as tolerated Hygiene: no restrictions Weight Bearing at Discharge: full weight bearing Driving: not until seen by doctor Contact your physician if you experience:: fever over 101, Difficulty voiding, Nausea/Vomiting, Bleeding - Discharge Medications No Action Aspirin EC Tab 81 mg PO DAILY #30 tablet Atorvastatin [Lipitor] 40 mg PO DAILY #30 tablet hydrALAZINE TAB [Apresoline Tab] 100 mg PO TID #90 tablet Lisinopril [Prinivil] 20 mg PO BID #60 tablet Metoprolol Succinate Xl [Toprol Xl] 50 mg PO BID #60 tablet Polyethylene Glycol Powder [Miralax] 17 gm PO DAILY #30 Potassium Chloride Cap/Tab [K Dur] 20 meq PO DAILY #30 tablet amLODIPine [Norvasc] 10 mg PO DAILY #30 tablet Apixaban [Eliquis] 5 mg PO BID #60 tablet Meclizine [Antivert] 25 mg PO QID #120 tablet Tamsulosin [Flomax] 0.4 mg PO DAILY #30 capsule - Follow Up or Referral Follow Up: Dominic Martinez [Physician] - 1 Week Tori Casarez [REFERRING DOCTOR/PRACTITIONER] - Stuart Goff MD [Physician] - 2 Weeks (THE OFFICE WILL CALL YOU WITH YOUR APPT WITH ) - Forms/Instructions Exam - Constitutional Vitals: Period Temp Pulse Resp BP Sys/Pretty Pulse Ox Last 24 Hr 97.6 F-984 F 61-70 20-20 143-186/67-96 87-97 General appearance: normal weight, no acute distress - Head Head exam: Present: normal inspection, normocephalic, atraumatic - Eye Eye exam: Present: EOMI Pupils: Present: ELISEO - ENT ENT exam: Present: normal exam - Neck Neck exam: Present: normal inspection - Respiratory Respiratory exam: Present: clear to auscultation bilaterally - Cardiovascular Cardiovascular exam: Present: regular rate and rhythm - GI/Abdominal GI/Abdominal exam: Present: normal bowel sounds - Extremities Exam Extremities exam: Present: normal inspection, normal capillary refill - Back Exam Back exam: Present: normal inspection - Neurological Exam Neurological exam: Present: alert, oriented X3 - Psychiatric Psychiatric exam: Present: normal affect, normal mood - Skin Skin exam: Present: normal color, warm Discharge Results Procedures and tests throughout hospitalization: Pending Orders 11/10/16 23:32 Blood Culture Stat Labs on day of discharge: Preliminary micro results at discharge 11/10/16 23:32 Blood Culture - Preliminary Blood No growth at 1 day 11/10/16 23:32 Blood Culture - Preliminary Blood No growth at 1 day DS: Provider Date of admission: 11/11/16 01:54 Primary care physician: . No PCP Attending physician on admission: Enrique Watson DO Consults: 11/11/16 03:50 Consult to Physician [CONS] Routine Comment: persistent n/v, gallstones Consulting Provider: Stuart Goff Consulting Provider Notified: Yes When should Consulting Provider be notified: In am Person Notified: JUSTYNA Date Notified: 11/11/16 Time Notified: 09:10 11/11/16 03:51 Consult to Physical Therapy [CONS] Routine Reason for Physical Therapy: Gait Training Start Therapy: Today 11/12/16 12:15 Consult to Dietitian [CONS] Routine Reason for Dietitian: Diet Instruction Consult Comment: lowfat,no salad, full liquid or really soft diet please, help with this diet Discharging clinician: Lyndon Fairchild MD
[2016-11-12] MEDS ORDERED: APIXABAN 5 MG TABLET PO SCH (21:00)
== END 2016-11-12 19:34 | disposition home or self-care (01) | DRG 444 ==
LOC: EDUNIT# → EDBD → N.ED 22:21 → N.EDINP 11-11 01:54 → SUATTDRO 11-11 01:54 → N.4E 11-11 02:47
PROVIDERS: ADMIT Internal Medicine; ATTEND Hospitalist

== ENCOUNTER 2016-11-15 11:24 | Inpatient (IN) ==
[2016-11-15] MEDS ORDERED: HYDROmorphone 2 MG/1 ML VIAL IV PRN (11:31)
[2016-11-15] MEDS ORDERED: ACETAMINOPHEN 325 MG TABLET PO PRN (11:31)
[2016-11-15] MEDS ORDERED: ONDANSETRON 4 MG/2 ML VIAL IV PRN (11:31)
[2016-11-15 13:45] LABS: Basophils # 0.1 10*3/uL (0.0-0.2); Basophils % 0.5 % (0.0-0.8); Eosinophils # 0.3 10*3/uL (0.0-0.87); Eosinophils % 2.3 % (0.00-10.9); Hematocrit 29.4 VOL% (42.0-52.0); Hemoglobin 10.1 GM/DL (14.0-18.0); Immature Granulocytes % 0.9 %; Lymphocytes # 1.4 10*3/uL (1.4-4.0); Lymphocytes % 12.7 % (21.2-54.2); Mean Corpuscular HGB Conc 34.4 GM/DL (32-36); Mean Corpuscular Hemoglobin 29 PG (27-34); Mean Corpuscular Volume 84.7 FL (87-102); Monocytes # 0.6 10*3/uL (0.11-0.8); Monocytes % 5.4 % (1.7-12.7); Neutrophils # 8.4 10*3/uL (1.4-7.4); Neutrophils % 78.2 % (38.7-73.9); Platelet Count 271 T/CUMM (130-400); Red Blood Count 3.47 MC/CUMM (3.8-5.5); White Blood Count 10.8 T/CUMM (4-12)
[2016-11-15 14:15] LABS: Albumin 3.2 G/DL (3.4-5.0); Bilirubin,Total 0.9 MG/DL (0.2-1.0); Calcium 8.2 MG/DL (8.5-10.1); Osmolality,Calculated 278.5 MOS/KG (273-304); Potassium 3.3 MMOL/L (3.5-5.1); Total Protein 6.2 G/DL (6.4-8.3)
--- NOTE | 2016-11-15 14:54 | General Surg History&Physical ---
Assessment and Plan - Time spent with patient Time spent with patient: Greater than 30 minutes (1) Cholecystitis with cholelithiasis Status: Acute Assessment and plan: Impression: Recurrent abdominal pain with nausea and vomiting possibly secondary to cholecystitis cholelithiasis. Plan: We will look at the and Tuesday of taking him to surgery for laparoscopic cholecystectomy in order to see if this will improve his symptoms at this time. We will need to get cardiology and neurology look and see if it is safe to have him off the Eliquis during this time. In order for him to get this surgery. Current Visit: Yes Qualifiers: Cholelithiasis location: gallbladder Cholecystitis acuity: chronic Biliary obstruction: without biliary obstruction Qualified Code(s): K80.10 - Calculus of gallbladder with chronic cholecystitis without obstruction (2) Renal insufficiency Status: Chronic Assessment and plan: Impression: Mild renal insufficiency IV fluids and support Current Visit: No (3) Bradycardia Status: Acute Assessment and plan: Impression: Bradycardia with pacemaker in place plan consult cardiology to follow Current Visit: No (4) CVA (cerebral vascular accident) Status: Acute Assessment and plan: Impression: CVA degree of unknown no residual Plan: Get neurology to evaluate for the possibility of being off the Eliquis surgical possibly have surgery. Current Visit: No History of Present Illness Chief complaint: Recurrent nausea and vomiting with abdominal pain epigastric History of present illness: Mr. Hays is a 71 year old male white who has been in the hospital initially for some nausea and vomiting and epigastric discomfort and was found to have a bradycardia which time he underwent a pacemaker. Following that apparently he had a stroke of some degree with no residual defects noted. He was put on Eliquis at that time and sent to the rehab center for rehabilitation. While up there we will consulted to see him because of some nausea and vomiting again and the fact that he had an ultrasound that showed some gallstones. We will set him up for a HIDA scan when he got transferred down here because of the nausea and vomiting from the nurses at the rehab center. I had a scan was positive with an ejection fraction of only 4%. While down here on some medications and stuff he did get clinically better was able to tolerate basically some liquids. He insisted on going home so we went ahead and discharged him at this time only to have say that on Tuesday he began to have more nausea and vomiting and some epigastric discomfort. This has persisted and was bag aggravated even with water and other small amounts of liquid that made him continued to have nausea and vomiting. He does remain nauseated throughout this day this morning to the point that they call the office we like to go ahead and admit him at this time. His liver function studies look normal at this point but I do not see any option but to consider surgery to get his gallbladder out see if this improves his symptoms. We have to get neurology and cardiology to look at him and see if it is considered safe enough to take him off the Eliquis an adequate amount of time in order to get the gallbladder out to see if his symptoms improve then. This is now in the last 2 months the third episode of recurrent nausea and vomiting. Home Medications Medication Instructions Recorded Confirmed Type Apixaban [Eliquis] 5 mg PO BID #60 tablet 11/04/16 11/15/16 Rx Aspirin EC Tab 81 mg PO DAILY #30 tablet 11/04/16 11/15/16 Rx Atorvastatin [Lipitor] 40 mg PO DAILY #30 tablet 11/04/16 11/15/16 Rx Lisinopril [Prinivil] 20 mg PO BID #60 tablet 11/04/16 11/15/16 Rx Meclizine [Antivert] 25 mg PO QID #120 tablet 11/04/16 11/15/16 Rx Metoprolol Succinate Xl [Toprol Xl] 50 mg PO BID #60 tablet 11/04/16 11/15/16 Rx Polyethylene Glycol Powder 17 gm PO DAILY #30 11/04/16 11/15/16 Rx [Miralax] Potassium Chloride Cap/Tab [K Dur] 20 meq PO DAILY #30 tablet 11/04/16 11/15/16 Rx amLODIPine [Norvasc] 10 mg PO DAILY #30 tablet 11/04/16 11/15/16 Rx hydrALAZINE TAB [Apresoline Tab] 100 mg PO TID #90 tablet 11/04/16 11/15/16 Rx Pantoprazole Tab [Protonix Tab] 40 mg PO DAILY #30 tablet 11/12/16 11/15/16 Rx Tamsulosin [Flomax] 0.4 mg PO BEDTIME 11/15/16 11/15/16 History Allergies Allergy/AdvReac Type Severity Reaction Status Date / Time dexamethasone Allergy Depression Verified 11/01/16 07:02 montelukast [From [facility]] Allergy Depression Verified 11/01/16 07:02 Penicillins Allergy Unknown/Unable Verified 10/29/16 08:21 to obtain Medical,Surgical,& Family Hx - Medical History Cardio: History of: Cardiac Dysrhythmia (Atrial fibrillation), Hypertension, Pacemaker (Placed 11/01/[address] Stallings), Cardiovascular Problems (Bradycardia and A Fib) No history of: CAD, CA Neurology: History of: Cerebrovascular Accident (Cerebellar stroke, 10/29/2016) No history of: Seizures Endocrine: History of: Thyroid Disorder No history of: Adrenal Disease, Diabetes Mellitus (IDDM), Diabetes Mellitus ( NIDDM), Endocrine Cancer, Endocrine Problems Rheumatology: History of;: Gout (Occasionally in his toes) Respiratory: History of: Asthma (As a child), Bronchitis (As a child) Genitourinary: History of: Kidney Stones (2011) Gastrointestinal: History of: GI Problems (gallstones in 2011) Musculoskeletal: No history of: Amputation - Surgical History Cardiac Surgeries: Sugical HX of: Cardiac Surgery (Pacemaker Placed 11/01/[address] Stallings) Patient Denies: Femoral-Popliteal Bypass Graft, Cardiac Catheterization, Carotid Endarterectomy, Internal Defibrillator, Vascular Access Devices Thoracic Surgeries: Patient denies;: Kidney (Renal Surgery), Lithotripsy, Nephrectomy, Organ Transplant, Lobectomy Neurologic Surgeries: Patient denies: Neurologic Surgery HEENT Surgeries: Surgical HX of: Tonsilectomy & Adenoidectomy (1955) Patient denies: Carotid Endarterectomy, Eye Surgery, Thyroid Surgery Abdominal Surgeries: Surgical HX of: Colonoscopy (2011), EGD (2011) Patient denies: Abdominal Surgery, Appendectomy, Cholecystectomy, Gastric Bypass Surgery, Hernia Repair, Splenectomy Reproductive Surgeries: Patient denies;: Breast Surgery, Cystoscopy, Genitourinary Surgery, Prostate Surgery, Vasectomy Orthopedic Surgeries: Patient denies;: Implanted Devices, Orthopedic Surgery, Spinal Surgery, Total Hip Replacement, Total Knee Replacement - Family History Family History: Reports;: Family Stroke (Mother) Denies;: Family Anesthesia Reaction, Family Cancer, Family Diabetes, Family Heart Disease, Family Hypertension, Family Psychiatric Problems - Social History Smoking Status: Never smoker Frequency of Alcohol Use: None Type of Drug Use: None Marital Status: Functional capacity: independent ambulation Exam - Constitutional Vitals: Period Temp Pulse Resp BP Sys/Pretty Pulse Ox Last 24 Hr 97.4 F 54 16 141/74 96 General appearance: mild distress - Head Head exam: Present: normal inspection - ENT ENT exam: Present: normal exam Mouth exam: Present: normal external inspection - Neck Neck exam: Present: normal inspection - Respiratory Respiratory exam: Present: clear to auscultation bilaterally, rales - Cardiovascular Cardiovascular exam: Present: RRR - GI/Abdominal GI/Abdominal exam: Present: hypoactive bowel sounds, tenderness (About the epigastric area right upper quadrant region), soft. Absent: distended, guarding , mass - Extremities Exam Extremities exam: Present: normal inspection - Back Exam Back exam: Present: normal inspection - Neurological Exam Neurological exam: Present: alert, oriented X3, CN II-XII intact - Skin Skin exam: Present: normal color, warm, dry 12 point system: reviewed and no additional remarkable complaints except as stated Quality Measures - VTE Contraindication to Pharmacological VTE Prophylaxis: High Risk of Bleeding Results - Labs CBC & BMP: 11/15/16 13:19 11/15/16 13:19 Lab Results: I have reviewed the past 24 hour labs
--- NOTE | 2016-11-15 15:10 | EKG Report ---
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
--- NOTE | 2016-11-15 15:41 | XRay Report ---
XR chest 2V Indication: Gallbladder with nausea Comparison: None Technique: Frontal and lateral views of the chest. Findings: Continued cardiomegaly. Pacemaker apparatus again demonstrated. There is mild nonspecific reticular pattern throughout the bilateral lungs suspicious for interstitial pulmonary edema. Interstitial pneumonia and other interstitial lung disease may have similar appearance. Small right pleural effusion. Visualized osseous and surrounding soft tissue structures appear grossly unchanged. IMPRESSION: As above. PROCEDURE INTERPRETED AT [facility] [place] DEPARTMENT OF RADIOLOGY Final Report Signed by: Dr Tushar Acevedo
[2016-11-15] MEDS: MECLIZINE 25 MG TABLET PO SCH ×2 (16:46→21:22)
[2016-11-15] MEDS: DEXTROSE 5% NACL 0.45% 1,000 ML IV SCH (17:53)
[2016-11-15] MEDS: CIPROFLOXACIN INJ 400 MG in PREMIX 1 EACH IV SCH (17:53)
[2016-11-15] MEDS: LISINOPRIL 20 MG TABLET PO SCH (21:22)
[2016-11-15] MEDS: DOCUSATE SODIUM 100 MG CAPSULE PO SCH (21:22)
[2016-11-15] MEDS: METOPROLOL SUCCINATE XL 50 MG TABLET PO SCH (21:24)
[2016-11-15] MEDS: TAMSULOSIN 0.4 MG CAPSULE PO SCH (21:27)
[2016-11-16] MEDS: DEXTROSE 5% NACL 0.45% 1,000 ML IV SCH ×3 (00:30→04:05)
[2016-11-16] MEDS: CIPROFLOXACIN INJ 400 MG in PREMIX 1 EACH IV SCH ×2 (03:53→14:30)
[2016-11-16 06:22] LABS: Basophils # 0.1 10*3/uL (0.0-0.2); Basophils % 0.5 % (0.0-0.8); Eosinophils # 0.3 10*3/uL (0.0-0.87); Eosinophils % 2.8 % (0.00-10.9); Hematocrit 28.8 VOL% (42.0-52.0); Hemoglobin 9.7 GM/DL (14.0-18.0); Immature Granulocytes % 0.5 %; Immature Granulocytes Absolute 0.05 #; Lymphocytes # 1.7 10*3/uL (1.4-4.0); Lymphocytes % 18.7 % (21.2-54.2); Mean Corpuscular HGB Conc 33.7 GM/DL (32-36); Mean Corpuscular Hemoglobin 29 PG (27-34); Mean Platelet Volume 10.4 FL (9.6-12.0); Monocytes # 0.7 10*3/uL (0.11-0.8); Monocytes % 7.5 % (1.7-12.7); Neutrophils # 6.4 10*3/uL (1.4-7.4); Platelet Count 265 T/CUMM (130-400); Red Blood Count 3.39 MC/CUMM (3.8-5.5); Red Cell Distribution Width 14.9 % (9.3-17.3); White Blood Count 9.2 T/CUMM (4-12)
[2016-11-16 06:34] LABS: INR 1.1; PT Patient Result 11.5 SECS; Partial Thromboplastin Time 33.8 SECS (0-40)
[2016-11-16 06:56] LABS: Calcium 8.1 MG/DL (8.5-10.1); Magnesium 1.9 MG/DL (1.8-2.4); Osmolality,Calculated 279.4 MOS/KG (273-304); Potassium 3.2 MMOL/L (3.5-5.1)
[2016-11-16] MEDS ORDERED: POTASSIUM CHLORIDE INJ 40 MEQ in DEXTROSE 5% NACL 0.45% 1,000 ML IV SCH (07:26)
[2016-11-16] MEDS: POTASSIUM CITRATE 10 MEQ TABLET PO SCH ×2 (08:30→21:50)
[2016-11-16] MEDS: DOCUSATE SODIUM 100 MG CAPSULE PO SCH ×2 (08:30→21:49)
[2016-11-16] MEDS: MECLIZINE 25 MG TABLET PO SCH ×5 (08:30→21:49)
[2016-11-16] MEDS: ATORVASTATIN 40 MG TABLET PO SCH (08:30)
[2016-11-16] MEDS: POTASSIUM CHLORIDE 20 MEQ TABLET PO SCH (08:30)
[2016-11-16] MEDS: ASPIRIN EC 81 MG TABLET PO SCH (08:30)
[2016-11-16] MEDS: PANTOPRAZOLE 40 MG TABLET PO SCH (08:30)
[2016-11-16] MEDS: LISINOPRIL 20 MG TABLET PO SCH ×2 (08:32→21:46)
[2016-11-16] MEDS: amLODIPine 10 MG TABLET PO SCH (08:32)
[2016-11-16] MEDS: METOPROLOL SUCCINATE XL 50 MG TABLET PO SCH ×2 (08:32→21:49)
[2016-11-16] MEDS: DEXT 5% NACL 0.45% KCL 40 MEQ 40 MEQ/1,000 ML BAG IV SCH ×3 (08:33→21:49)
--- NOTE | 2016-11-16 08:36 | General Surgery Progress Note ---
Assessment and Plan - Time spent with patient Time spent with patient: Less than 30 minutes (1) Cholecystitis with cholelithiasis Status: Acute Assessment and plan: Impression: Recurrent abdominal pain with nausea and vomiting possibly secondary to cholecystitis cholelithiasis. Plan: We will look at the and Tuesday of taking him to surgery for laparoscopic cholecystectomy in order to see if this will improve his symptoms at this time. We will need to get cardiology and neurology look and see if it is safe to have him off the Eliquis during this time. In order for him to get this surgery. 11/16/2016 Patient's labs look in pretty good shape with a potassium of 3.2. Adding potassium p.o. as well as IV to correct this at this time. His nausea is still persistent but has had no more vomiting at this time. Abdomen soft with some mild discomfort in the right upper quadrant area. Cardiology has seen him somewhat and was still waiting on their opinion on Eliquis as well as neurology. Plan is to taken to surgery tomorrow take his gallbladder out see if this will generally improve his symptoms at this time. Everything seems to be pointing towards her gallbladder as a source of this problem and he should improve once it is out. Current Visit: Yes Qualifiers: Cholelithiasis location: gallbladder Cholecystitis acuity: chronic Biliary obstruction: without biliary obstruction Qualified Code(s): K80.10 - Calculus of gallbladder with chronic cholecystitis without obstruction (2) Renal insufficiency Status: Chronic Assessment and plan: Impression: Mild renal insufficiency IV fluids and support Current Visit: No (3) Bradycardia Status: Acute Assessment and plan: Impression: Bradycardia with pacemaker in place plan consult cardiology to follow Current Visit: No (4) CVA (cerebral vascular accident) Status: Chronic Assessment and plan: Impression: CVA degree of unknown no residual Plan: Get neurology to evaluate for the possibility of being off the Eliquis surgical possibly have surgery. Current Visit: No Subjective Patient reports: Present: feels better, nausea (Less today), afebrile Exam - Constitutional Vitals: Period Temp Pulse Resp BP Sys/Pretty Pulse Ox Last 24 Hr 96.9 F-98.7 F 54-68 16-20 135-154/66-78 93-98 General appearance: mild distress - Head Head exam: Present: normal inspection - ENT ENT exam: Present: normal exam - Neck Neck exam: Present: normal inspection - Respiratory Respiratory exam: Present: clear to auscultation bilaterally, rales - Cardiovascular Cardiovascular exam: Present: RRR - GI/Abdominal GI/Abdominal exam: Present: hypoactive bowel sounds, soft - Extremities Exam Extremities exam: Present: normal inspection - Back Exam Back exam: Present: normal inspection - Neurological Exam Neurological exam: Present: alert, oriented X3, CN II-XII intact - Skin Skin exam: Present: normal color, warm, dry Results - Labs CBC & BMP: 11/16/16 04:34 11/16/16 04:34 Lab Results: I have reviewed the past 24 hour labs Quality Measures - VTE Contraindication to Pharmacological VTE Prophylaxis: High Risk of Bleeding
--- NOTE | 2016-11-16 11:25 | Cardiology Consult Note ---
Srikanth Ratliff Vanessa, RN, am scribing for, and in the presence of, Isak Albright MD 11:24. Assessment and Plan - Time spent with patient Time spent with patient: Greater than 30 minutes (Date of assessment, planning, documentation, medication review) (1) Cholecystitis with cholelithiasis Status: Acute Assessment and plan: Recurrent nausea, vomiting, epigastric discomfort. Diagnostic workup demonstrates cholelithiasis and gallbladder dyskinesia. Tentatively planned for laparascopic cholecystectomy TuesdayNovember 17. I would like to restart his anticoagulation after the operation as soon as it is feasible from a surgical standpoint. Current Visit: Yes Qualifiers: Cholelithiasis location: gallbladder Cholecystitis acuity: chronic Biliary obstruction: without biliary obstruction Qualified Code(s): K80.10 - Calculus of gallbladder with chronic cholecystitis without obstruction (2) CVA (cerebral vascular accident) Status: Chronic Assessment and plan: Acute right cerebellar beginning of October 2016. Stable at this time with no neurological complaints or symptoms. Current Visit: No (3) Chronic anticoagulation Status: Chronic Assessment and plan: Eliquis initiated after pacemaker implantation on November 01. Last dose of Eliquis was TuesdayNovember 13. On hold at this time for surgical evaluation. Resume this after operation as soon as is feasible from a postoperative standpoint. Current Visit: No (4) Chronic atrial fibrillation Status: Chronic Assessment and plan: He has had atrial fibrillation with slow ventricular response. Maintained with beta alyx and anticoagulated with Eliquis for stroke prevention. Current Visit: No (5) Essential hypertension Status: Chronic Assessment and plan: Resume usual medications and adjust antihypertensive medications as needed. Current Visit: No (6) Hypokalemia Status: Acute Assessment and plan: Continue PO supplement. Receiving 40 meq in IV fluids also. Follow up BMP. Current Visit: No (7) Chronic kidney disease, stage 3 Status: Chronic Assessment and plan: Monitor renal function closely. Avoid nephrotoxic agents. Current Visit: No History of Present Illness - Data of Consult Patient: new to practice (Initial appointment with Dr. Marin scheduled for November 17) Consult date: 11/16/16 Requesting Physician: Stuart Goff - Consult Narrative Reason for consult: acute choleycystitis; use of anticoagulant History of present illness: PRIMARY HOUSE REGISTRY RN: DR. MARIN (NEW) Mr. Hays is a 71 year old white male with risk factors significant for: hypertension, obesity, dyslipidemia, and previous tobacco use. History of vertigo and BPH. Patient was just recently admitted to the hospital on October 29 with dizziness, nausea and vomiting, and near syncope. Diagnostic workup revealed an acute right cerebellar infarction. He was also newly diagnosed with atrial fibrillation with slow ventricular response, and he had a dual- chamber pacemaker implanted on November [address] Stallings. Eliquis initiated postoperatively for further stroke prevention. Patient has had no neurological deficits status post CVA, and he is compliant with PT and OT. He was discharged to [facility] for further treatment on November 04, and since that time he has returned to the ER for evaluation of dizziness, nausea and vomiting , and he has had some dark vomitus without bleeding. He has been diagnosed with gallstones in the past, and recent workup with gallbladder ultrasound and HIDA scan consistent with cholelithiasis and gallbladder dyskinesia. Nausea, vomiting, and epigastric pain have now become persistent to the point that he is aggravated even with minimal amounts of liquid. He has been admitted to [facility] per surgical services for observation and possible laparoscopic cholecystectomy on Tuesday the . Cardiology asked to see patient as he has had recent CVA, has history of atrial fibrillation, and is chronically anticoagulated with Eliquis. Patient's last dose of Eliquis was the morning of November 13. Echocardiogram on October 29 demonstrates LV ejection fraction 45-50%, moderate TR with PA pressure 40 mmHg. Patient is awake and alert in his room this morning, and his Franca is present with him at bedside. He is in no acute distress. Denies chest pain, shortness of breath, or epigastric discomforts at this time. Reports he is hungry this morning, and that is his biggest complaint. No residual deficits post CVA. No orthopnea, PND, palpitations, dizziness, lower extremity edema. Denies melena or overt signs of bleeding. BP 148/74. Ventricularly paced rhythm per EKG. Labs reviewed. Hypokalemic at 3.2. Magnesium 1.9. Renal function stable with creatinine 1.6 (appears to be his baseline). Current Medications Acetaminophen (Tylenol Tab) 650 mg PO Q6H PRN PRN Reason: Pain Mild (1-3) and/or Fever Amlodipine Besylate (Norvasc) 10 mg PO DAILY [facility] Aspirin () 81 mg PO DAILY [facility] Atorvastatin Calcium (Lipitor) 40 mg PO DAILY [facility] Docusate Sodium (Colace Cap) 100 mg PO BID [facility] Last Admin: 11/15/16 21:22 Dose: 100 mg Hydralazine HCl (Apresoline Tab) 100 mg PO TID [facility] Last Admin: 11/15/16 21:25 Dose: Not Given Hydromorphone HCl (Dilaudid Inj) 1 mg IV Q4H PRN PRN Reason: Pain Severe (8-10) Clindamycin Phosphate 900 mg/ (Premix) 50 mls @ 100 mls/hr IV PREOP ONE Stop: 11/17/16 07:59 Ciprofloxacin/Dextrose 400 mg/ (Premix) 200 mls @ 200 mls/hr IV Q12H [facility] Last Infusion: 11/16/16 07:45 Dose: Infused Potassium Chloride/Dextrose/Sod Cl (D5 1/2ns Kcl 40 Meq) 40 meq in 1,000 mls @ 125 mls/hr IV .Q8H [facility] Lisinopril (Prinivil) 20 mg PO BID [facility] Last Admin: 11/15/16 21:22 Dose: 20 mg Meclizine HCl (Antivert) 25 mg PO QID [facility] Last Admin: 11/15/16 21:22 Dose: 25 mg Metoprolol Succinate (Toprol Xl) 50 mg PO BID [facility] Last Admin: 11/15/16 21:24 Dose: Not Given Ondansetron HCl (Zofran Inj) 4 mg IV Q4H PRN PRN Reason: Nausea/Vomiting Pantoprazole Sodium (Protonix Tab) 40 mg PO DAILY [facility] Potassium Chloride (K Dur) 20 meq PO DAILY [facility] Potassium Citrate (Urocit K) 10 meq PO BID [facility] Tamsulosin HCl (Flomax) 0.4 mg PO BEDTIME [facility] Last Admin: 11/15/16 21:27 Dose: 0.4 mg CC: Stuart Goff MD - Home Medications and Allergies Home Medications: Home Medications Medication Instructions Recorded Confirmed Type Apixaban [Eliquis] 5 mg PO BID #60 tablet 11/04/16 11/15/16 Rx Aspirin EC Tab 81 mg PO DAILY #30 tablet 11/04/16 11/15/16 Rx Atorvastatin [Lipitor] 40 mg PO DAILY #30 tablet 11/04/16 11/15/16 Rx Lisinopril [Prinivil] 20 mg PO BID #60 tablet 11/04/16 11/15/16 Rx Meclizine [Antivert] 25 mg PO QID #120 tablet 11/04/16 11/15/16 Rx Metoprolol Succinate Xl [Toprol Xl] 50 mg PO BID #60 tablet 11/04/16 11/15/16 Rx Polyethylene Glycol Powder 17 gm PO DAILY #30 11/04/16 11/15/16 Rx [Miralax] Potassium Chloride Cap/Tab [K Dur] 20 meq PO DAILY #30 tablet 11/04/16 11/15/16 Rx amLODIPine [Norvasc] 10 mg PO DAILY #30 tablet 11/04/16 11/15/16 Rx hydrALAZINE TAB [Apresoline Tab] 100 mg PO TID #90 tablet 11/04/16 11/15/16 Rx Pantoprazole Tab [Protonix Tab] 40 mg PO DAILY #30 tablet 11/12/16 11/15/16 Rx Tamsulosin [Flomax] 0.4 mg PO BEDTIME 11/15/16 11/15/16 History Allergies/Adverse Reactions: Allergies Allergy/AdvReac Type Severity Reaction Status Date / Time dexamethasone Allergy Depression Verified 11/01/16 07:02 montelukast [From Singulair] Allergy Depression Verified 11/01/16 07:02 Penicillins Allergy Unknown/Unable Verified 10/29/16 08:21 to obtain - Constitutional Constitutional: Present: anorexia. Absent: chills, daytime sleepiness, fatigue , fever(s), frequent falls, night sweats, stops breathing during sleep, weakness - EENT Eyes: Absent: blurry vision, loss of vision Ears: Absent: decreased hearing Nose, mouth and throat: Present: vertigo. Absent: dysphagia, epistaxis, nasal congestion, sinus pressure, throat swelling, tongue swelling - Cardiovascular Cardiovascular: Present: lightheadedness. Absent: chest pain at rest, chest pain with activity, diaphoresis, dyspnea, dyspnea on exertion, edema, radiating jaw, neck or arm pain, orthopnea, palpitations, PND - Respiratory Respiratory: Absent: cough, dyspnea, hemoptysis, dyspnea on exertion, change in phlegm color - Gastrointestinal Gastrointestinal: Present: abdominal pain (epigastric), diarrhea, early satiety , nausea, vomiting. Absent: bloating, coffee ground emesis, constipation, hematemesis, hematochezia, melena - Genitourinary Genitourinary: Absent: difficulty urinating, dysuria, flank pain, hematuria, nocturia - Musculoskeletal Musculoskeletal: Absent: arthralgias, myalgias - Neurological Neurological: Absent: abnormal gait, abnormal speech, behavioral changes, confusion, frequent falls, syncope, tremor(s) - Psychiatric Psychiatric: Absent: anxiety, depression - Endocrine Endocrine: Absent: cold intolerance, heat intolerance - Hematologic/Lymphatic Hematologic/Lymphatic: Absent: easy bleeding, easy bruising Medical,Surgical,& Family Hx - Medical History Cardio: History of: Cardiac Dysrhythmia (Atrial fibrillation), Hypertension, Pacemaker (Placed 11/01/[address] Stallings), Cardiovascular Problems (Bradycardia and A Fib) No history of: CHF, CAD, [place] Neurology: History of: Cerebrovascular Accident (Cerebellar stroke, 10/29/2016) No history of: Dementia, Seizures HEENT: History of: Ear Problem (vertigo) Endocrine: History of: Thyroid Disorder No history of: Adrenal Disease, Diabetes Mellitus (IDDM), Diabetes Mellitus ( NIDDM), Endocrine Cancer, Endocrine Problems Rheumatology: History of;: Gout (Occasionally in his toes) Respiratory: History of: Asthma (As a child), Bronchitis (As a child) Genitourinary: History of: Kidney Stones (2011) Gastrointestinal: History of: GI Problems (gallstones in 2011) No history of: Gastrointestinal Bleed Musculoskeletal: No history of: Amputation Hematology: No history of: Blood Transfusion Reaction - Surgical History Cardiac Surgeries: Sugical HX of: Cardiac Surgery (Pacemaker Placed 11/01/[address] Stallings) Patient Denies: Femoral-Popliteal Bypass Graft, Cardiac Catheterization, Carotid Endarterectomy, Internal Defibrillator, Vascular Access Devices Thoracic Surgeries: Patient denies;: Kidney (Renal Surgery), Lithotripsy, Nephrectomy, Organ Transplant, Lobectomy Neurologic Surgeries: Patient denies: Neurologic Surgery HEENT Surgeries: Surgical HX of: Tonsilectomy & Adenoidectomy (1955) Patient denies: Carotid Endarterectomy, Eye Surgery, Thyroid Surgery Abdominal Surgeries: Surgical HX of: Colonoscopy (2011), EGD (2011) Patient denies: Abdominal Surgery, Appendectomy, Cholecystectomy, Gastric Bypass Surgery, Hernia Repair, Splenectomy Reproductive Surgeries: Patient denies;: Breast Surgery, Cystoscopy, Genitourinary Surgery, Prostate Surgery, Vasectomy Orthopedic Surgeries: Patient denies;: Implanted Devices, Orthopedic Surgery, Spinal Surgery, Total Hip Replacement, Total Knee Replacement - Family History Family History: Reports;: Family Stroke (Mother) Denies;: Family Anesthesia Reaction, Family Cancer, Family Diabetes, Family Heart Disease, Family Hypertension, Family Psychiatric Problems - Social History Smoking Status: Former smoker Frequency of Alcohol Use: None Type of Drug Use: None Marital Status: Lives With:: Spouse Functional capacity: uses cane/walker Physical Examination Vital Signs Temp Pulse Resp BP Pulse Ox 97.4 F L 54 L 16 141/74 96 11/15/16 14:32 11/15/16 14:32 11/15/16 14:32 11/15/16 14:32 11/15/16 14:32 General: Present: Appears Well, No Apparent Distress HEENT: Present: PERRL, Normocephaly, Mucus Membranes Dry Neck: Present: Supple Neck, Midline Trachea, No JVD/HJR, No Masses, No Bruit Cardiac: Present: Reg Rate and Rhythm, No Murmur. Absent: Gallop Lungs: Present: Clear Ascult./Percussion, Normal Breath Sounds, No Wheezes, No Rales, No Rhonchi Neuro: Present: Grossly Intact. Absent: Numbness, Tingling, Weakness, Resting Tremor, Essential Tremor Abdomen: Present: Soft, Active Bowel Sounds, No Masses, No Pulsations/Bruits. Absent: Ascites, Tender, Firm Skin: Present: Clear. Absent: Rash, Suspicious Lesions Musculoskeletal: Present: No Fluid Collection, Normal Range of Motion Extremities: Present: No Clubbing, No Cyanosis, No Edema, Normal Upper Extr. Pulses (3+ bilaterally), Normal Lower Extr. Pulses (2+ bilaterally), Capillary Refill (normal), Other (warm, dry, intact) Result/EKG - Labs CBC & BMP: 11/16/16 04:34 11/16/16 04:34 Lab Results: I have reviewed the past 24 hour labs Labs: Laboratory Results - last 24 hr 11/15/16 11/15/16 11/15/16 13:19 13:19 13:19 WBC 10.8 RBC 3.47 L Hgb 10.1 L Hct 29.4 L MCV 84.7 L MCH 29 MCHC 34.4 RDW 15.0 Plt Count 271 MPV 10.0 Neut % (Auto) 78.2 H Lymph % (Auto) 12.7 L [place] % (Auto) 5.4 Eos % (Auto) 2.3 Baso % (Auto) 0.5 Neut # (Auto) 8.4 H Lymph # (Auto) 1.4 [place] # (Auto) 0.6 Eos # (Auto) 0.3 Baso # (Auto) 0.1 Immature Gran % 0.9 Nucleated RBC % 0.0 Immature Gran # 0.10 Nucleated RBCs # 0.00 INR PT Patient/Control Mix Circ Anticoag PTT Sodium 139 Potassium 3.3 L Chloride 107 Carbon Dioxide 22 Anion Gap 13.3 BUN 14 Creatinine 1.50 H GFR Calculation 0 BUN/Creatinine Ratio 9.00 Glucose 117 H Calculated Osmolality 278.5 Calcium 8.2 L Magnesium Total Bilirubin 0.90 AST 16 ALT 29 Alkaline Phosphatase 129 H Total Protein 6.2 L Albumin 3.2 L Globulin 3.0 Albumin/Globulin Ratio 1.0 L Amylase 91 Lipase 301.0 Blood Type Antibody Screen 11/16/16 11/16/16 11/16/16 04:34 04:34 04:34 WBC 9.2 RBC 3.39 L Hgb 9.7 L Hct 28.8 L MCV 85.0 L MCH 29 MCHC 33.7 RDW 14.9 Plt Count 265 MPV 10.4 Neut % (Auto) 70.0 Lymph % (Auto) 18.7 L [place] % (Auto) 7.5 Eos % (Auto) 2.8 Baso % (Auto) 0.5 Neut # (Auto) 6.4 Lymph # (Auto) 1.7 [place] # (Auto) 0.7 Eos # (Auto) 0.3 Baso # (Auto) 0.1 Immature Gran % 0.5 Nucleated RBC % 0.0 Immature Gran # 0.05 Nucleated RBCs # 0.00 INR 1.1 PT Patient/Control Mix 11.5 Circ Anticoag PTT 33.8 Sodium Potassium Chloride Carbon Dioxide Anion Gap BUN Creatinine GFR Calculation BUN/Creatinine Ratio Glucose Calculated Osmolality Calcium Magnesium Total Bilirubin AST ALT Alkaline Phosphatase Total Protein Albumin Globulin Albumin/Globulin Ratio Amylase Lipase Blood Type A POSITIVE Antibody Screen Negative 11/16/16 04:34 WBC RBC Hgb Hct MCV MCH MCHC RDW Plt Count MPV Neut % (Auto) Lymph % (Auto) [place] % (Auto) Eos % (Auto) Baso % (Auto) Neut # (Auto) Lymph # (Auto) [place] # (Auto) Eos # (Auto) Baso # (Auto) Immature Gran % Nucleated RBC % Immature Gran # Nucleated RBCs # INR PT Patient/Control Mix Circ Anticoag PTT Sodium 140 Potassium 3.2 L Chloride 107 Carbon Dioxide 22 Anion Gap 14.2 BUN 12 Creatinine 1.60 H GFR Calculation 54 BUN/Creatinine Ratio 7.00 Glucose 110 H Calculated Osmolality 279.4 Calcium 8.1 L Magnesium 1.9 Total Bilirubin AST ALT Alkaline Phosphatase Total Protein Albumin Globulin Albumin/Globulin Ratio Amylase Lipase Blood Type Antibody Screen - Diagnostic Findings Procedure: Chest x-ray: image reviewed by me, report reviewed by me - EKG EKG results: interpreted by me, no acute changes (ventricular pacing; underlying atrial fib) Quality Measures - VTE Contraindication to Pharmacological VTE Prophylaxis: High Risk of Bleeding Jose Ramon Ratliff Michael, MD, personally performed the services described in this documentation, ascribed by Casandra Duke RN in my presence, and it is both accurate and complete .
--- NOTE | 2016-11-16 15:44 | Neurology Consult Note ---
History of Present Illness History of present illness: Mr. Hays is a 71 year old male white who has been in the hospital initially for some nausea and vomiting and epigastric discomfort and was found to have a bradycardia which time he underwent a pacemaker. Following that he had a cerebellar stroke of some degree with no residual defects noted except mild ataxic gait. He was put on Eliquis at that time and sent to the rehab center for rehabilitation. While up there he developed some nausea and vomiting again and the fact that he had an ultrasound that showed some gallstones. HIDA scan was performed which was was positive with an ejection fraction of only 4%. While down here on some medications and stuff he did get clinically better was able to tolerate basically some liquids. He insisted on going home so he got discharge but on Tuesday he began to have more nausea and vomiting and some epigastric discomfort. This has persisted and was aggravated even with water and other small amounts of liquid that made him continued to have nausea and vomiting. He was then admitted to the hospital for possible surgery. He took Eliquis last time on last Tuesday or Tuesday. He seems to be doing better from neurology standpoint. He would be okay to go ahead for surgery for tomorrow and we will put him back on Eliquis after the surgery. In the meanwhile I am going to go ahead and do a CAT scan of the brain without contrast to make sure his stroke is stabilizing Home Medications Medication Instructions Recorded Confirmed Type Apixaban [Eliquis] 5 mg PO BID #60 tablet 11/04/16 11/15/16 Rx Aspirin EC Tab 81 mg PO DAILY #30 tablet 11/04/16 11/15/16 Rx Atorvastatin [Lipitor] 40 mg PO DAILY #30 tablet 11/04/16 11/15/16 Rx Lisinopril [Prinivil] 20 mg PO BID #60 tablet 11/04/16 11/15/16 Rx Meclizine [Antivert] 25 mg PO QID #120 tablet 11/04/16 11/15/16 Rx Metoprolol Succinate Xl [Toprol Xl] 50 mg PO BID #60 tablet 11/04/16 11/15/16 Rx Polyethylene Glycol Powder 17 gm PO DAILY #30 11/04/16 11/15/16 Rx [Miralax] Potassium Chloride Cap/Tab [K Dur] 20 meq PO DAILY #30 tablet 11/04/16 11/15/16 Rx amLODIPine [Norvasc] 10 mg PO DAILY #30 tablet 11/04/16 11/15/16 Rx hydrALAZINE TAB [Apresoline Tab] 100 mg PO TID #90 tablet 11/04/16 11/15/16 Rx Pantoprazole Tab [Protonix Tab] 40 mg PO DAILY #30 tablet 11/12/16 11/15/16 Rx Tamsulosin [Flomax] 0.4 mg PO BEDTIME 11/15/16 11/15/16 History Allergies Allergy/AdvReac Type Severity Reaction Status Date / Time dexamethasone Allergy Depression Verified 11/01/16 07:02 montelukast [From Singulair] Allergy Depression Verified 11/01/16 07:02 Penicillins Allergy Unknown/Unable Verified 10/29/16 08:21 to obtain 12 point system: reviewed and no additional remarkable complaints except as stated Medical,Surgical,& Family Hx - Medical History Cardio: History of: Cardiac Dysrhythmia (Atrial fibrillation), Hypertension, Pacemaker (Placed 11/01/[address] Stallings), Cardiovascular Problems (Bradycardia and A Fib) No history of: CHF, CAD, [place] Neurology: History of: Cerebrovascular Accident (Cerebellar stroke, 10/29/2016) No history of: Dementia, Seizures HEENT: History of: Ear Problem (vertigo) Endocrine: History of: Thyroid Disorder No history of: Adrenal Disease, Diabetes Mellitus (IDDM), Diabetes Mellitus ( NIDDM), Endocrine Cancer, Endocrine Problems Rheumatology: History of;: Gout (Occasionally in his toes) Respiratory: History of: Asthma (As a child), Bronchitis (As a child) Genitourinary: History of: Kidney Stones (2011) Gastrointestinal: History of: GI Problems (gallstones in 2011) No history of: Gastrointestinal Bleed Musculoskeletal: No history of: Amputation Hematology: No history of: Blood Transfusion Reaction - Surgical History Cardiac Surgeries: Sugical HX of: Cardiac Surgery (Pacemaker Placed 11/01/[address] Stallings) Patient Denies: Femoral-Popliteal Bypass Graft, Cardiac Catheterization, Carotid Endarterectomy, Internal Defibrillator, Vascular Access Devices Thoracic Surgeries: Patient denies;: Kidney (Renal Surgery), Lithotripsy, Nephrectomy, Organ Transplant, Lobectomy Neurologic Surgeries: Patient denies: Neurologic Surgery HEENT Surgeries: Surgical HX of: Tonsilectomy & Adenoidectomy (1956) Patient denies: Carotid Endarterectomy, Eye Surgery, Thyroid Surgery Abdominal Surgeries: Surgical HX of: Colonoscopy (2011), EGD (2011) Patient denies: Abdominal Surgery, Appendectomy, Cholecystectomy, Gastric Bypass Surgery, Hernia Repair, Splenectomy Reproductive Surgeries: Patient denies;: Breast Surgery, Cystoscopy, Genitourinary Surgery, Prostate Surgery, Vasectomy Orthopedic Surgeries: Patient denies;: Implanted Devices, Orthopedic Surgery, Spinal Surgery, Total Hip Replacement, Total Knee Replacement - Family History Family History: Reports;: Family Stroke (Mother) Denies;: Family Anesthesia Reaction, Family Cancer, Family Diabetes, Family Heart Disease, Family Hypertension, Family Psychiatric Problems - Social History Smoking Status: Former smoker Frequency of Alcohol Use: None Type of Drug Use: None Exam - Constitutional Vitals: Period Temp Pulse Resp BP Sys/Pretty Pulse Ox Last 24 Hr 96.9 F-98.7 F 61-68 18-20 135-158/66-82 93-98 Exam: GENERAL: Patient is in no acute distress. NECK: Neck is supple. There is no JVD. No carotid bruits present. No thyroid masses. CVS: First and second heart sounds are normal. There is no S3 present. Regular rate and rhythm. RESPIRATORY: Lungs are clear to auscultation without any rales or rhonchi. ABDOMEN: Soft and non-tender. Bowel sounds are present. There is no hepatosplenomegaly. EXT: There is no palpable edema. Peripheral pulses are present. Skin: No rashes Central Nervous system: General: Alert, awake and Oriented x 3 Speech: Fluent Comprehension: Intact and normal Facial expressions: Normal Cranial Nerves: CN1/Olfactory: Normal CN II/ Optic: Normal, Visual Valladares unreliable CN III, and : ELISEO & EOMI CN V: Normal & intact CN VII: face is symmetric CNVIII: Normal CN XI/X/XI/XII: Intact and Normal Motor: Bulk and Tone is normal. Strength in the right 5/5 Strength in the left 5/5 Sensory: Grossly intact for all the modalities of PP, LT and temp sense Reflexes: 1+ and symmetrical Cerebellar function: Normal finger to nose and heel to scott testing. Toes: Equivocal Gait: Not tested at this time Results - Labs CBC & BMP: 11/16/16 04:34 11/16/16 04:34 Assessment and Plan (1) Cerebellar stroke Status: Acute Assessment and plan: Okay to go ahead for surgery in the morning. CAT scan brain without today Will resume Eliquis after the surgery Thank you for the consult Current Visit: Yes (2) Cholecystitis with cholelithiasis Status: Acute Assessment and plan: For surgery in the morning Current Visit: No
--- NOTE | 2016-11-16 16:18 | CT Report ---
CT head/brain wo con Indication: History of CVA Comparison: CT brain dated November 10, 2016 Technique: Multiple axial tomographic images of the brain were obtained without the use of intravenous contrast. Findings: Interval evolution of right inferior cerebellar infarct with less edema on current exam. Small old left frontal infarct. Atherosclerotic calcifications demonstrated. Moderate global volume loss present. Moderate periventricular and subcortical hypoattenuation noted which is nonspecific but consistent with chronic microvascular ischemic change. Demyelinating process and vasculitis less likely considerations. There is no convincing evidence of acute intracranial hemorrhage . No convincing evidence of hydrocephalus. Midline structures are nondisplaced. Opacification of a single ethmoid air cell on the left. IMPRESSION: Interval evolution of right inferior cerebellar infarct with less edema on current exam. Other chronic findings as detailed above. The CT exam was performed using one or more of the following dose reduction techniques: Automated exposure control, adjustment of the mA and/or kV according to patient size, or use of iterative reconstruction technique. PROCEDURE INTERPRETED AT [facility] DEPARTMENT OF RADIOLOGY Final Report Signed by: Dr Tushar Acevedo
[2016-11-16] MEDS: TAMSULOSIN 0.4 MG CAPSULE PO SCH (21:49)
[2016-11-17] MEDS: DEXT 5% NACL 0.45% KCL 40 MEQ 40 MEQ/1,000 ML BAG IV SCH ×4 (01:38→16:15)
[2016-11-17] MEDS: CIPROFLOXACIN INJ 400 MG in PREMIX 1 EACH IV SCH ×2 (03:36→16:25)
[2016-11-17] MEDS ORDERED: CLINDAMYCIN INJ 900 MG in PREMIX 1 EACH IV ONE (07:30)
[2016-11-17] MEDS: METOPROLOL SUCCINATE XL 50 MG TABLET PO SCH ×2 (08:37→21:19)
[2016-11-17] MEDS: PANTOPRAZOLE 40 MG TABLET PO SCH (08:37)
[2016-11-17] MEDS: LISINOPRIL 20 MG TABLET PO SCH ×2 (08:37→21:18)
[2016-11-17] MEDS: amLODIPine 10 MG TABLET PO SCH (08:37)
[2016-11-17] MEDS ORDERED: BUPIVACAINE 0.25% /EPI 10 ML VIAL ONE (08:46)
[2016-11-17] MEDS: LACTATED RINGERS 1,000 ML IV SCH ×2 (09:03→10:16)
[2016-11-17] MEDS ORDERED: LIDOCAINE 2% 5 ML VIAL ONE (09:03)
[2016-11-17] MEDS ORDERED: HYDROCORTISONE 100 MG VIAL ONE (09:03)
[2016-11-17] MEDS ORDERED: PHENYLEPHRINE 1 MG/10 ML SYRINGE IV ONE (09:03)
[2016-11-17] MEDS ORDERED: ROCURONIUM 100 MG/10 ML VIAL IV ONE (09:03)
[2016-11-17] MEDS ORDERED: GLYCOPYRROLATE 0.4 MG/2 ML VIAL ONE (09:03)
[2016-11-17] MEDS ORDERED: NEOSTIGMINE 10 MG/10 ML VIAL ONE (09:03)
[2016-11-17] MEDS ORDERED: ONDANSETRON 4 MG/2 ML VIAL ONE (09:03)
[2016-11-17] MEDS: DOCUSATE SODIUM 100 MG CAPSULE PO SCH ×2 (10:19→21:20)
[2016-11-17] MEDS: ASPIRIN EC 81 MG TABLET PO SCH (10:19)
[2016-11-17] MEDS: MECLIZINE 25 MG TABLET PO SCH ×4 (10:19→22:13)
[2016-11-17] MEDS: POTASSIUM CITRATE 10 MEQ TABLET PO SCH ×2 (10:20→22:13)
[2016-11-17] MEDS: ATORVASTATIN 40 MG TABLET PO SCH (10:20)
[2016-11-17] MEDS: POTASSIUM CHLORIDE 20 MEQ TABLET PO SCH ×2 (10:20→21:19)
[2016-11-17] MEDS ORDERED: TISSUE ADHESIVE 1 EACH APPLICATOR TOP ONE (10:43)
--- NOTE | 2016-11-17 10:51 | Operative Note ---
Date of procedure: 11/17/16 Pre-op diagnosis: Cholecystitis with cholelithiasis Post-op diagnosis: same Procedure: Operative note: Preoperative diagnosis: Chronic cholecystitis cholelithiasis recurrent nausea and vomiting Postop diagnosis: Same Procedure: Laparoscopic cholecystectomy with attempted intraoperative cholangiogram. Surgeon Dr. Goff Snuff Grinder Franca Mo, [employer] ACNP Anesthesia general endotracheal Brief history: 71-year-old white male who has come in now with the third episode of nausea and vomiting inability to keep anything down including liquids over the last month. Initially came in for the same symptoms with epigastric discomfort and was found to have a bradycardia noted over the pacemaker went to rehab where he had another episode of nausea and vomiting and had to be transferred back down here. The patient in the interim had developed a stroke and it was on Eliquis during this time. At this point he got a little bit better where he was here and went home but will over the weekend he had another episode of nausea and vomiting had to come back and get some IV fluids. At this point we felt like we need to go ahead and get the gallbladder out since it showed stones and an abnormal ejection fraction of 40%. Liver function studies were normal at this time. He understood the risks of having another stroke since he had to be off the Eliquis for this surgery at we had neurology and cardiology see the patient. They agreed that surgery was probably indicated and that we could have him off the Eliquis at this point because of the multiple episodes of nausea vomiting and inability to eat now. Would like to bring him in to surgery if he has been off the Eliquis now for about 4 days Procedure: With patient in supine position prepped and draped in sterile fashion timeout and antibiotics completed approaches area the abdomen itself. Infiltrated area just above the umbilicus were made incision through the skin and the subcutaneous tissue and dissected down to the fascia. I incised the fascia but could never get a good feel or see of the peritoneum at this point. At this point I took a varies needle and we entered the abdominal cavity with that with good flow of saline into the abdomen. We then instilled 3 L of CO2 into the abdomen I was able to place 11 mm trocar in without difficulty. We put a scope and begin to look around no evidence of any other problems could be seen liver did not look unusually fatty at this time. Gallbladder appeared to be just distended but not unusually discolored at this point but tense. At that point I was able go ahead and place and a 5 mm trocar at the anterior axillary and midclavicular line all under direct vision. We then pay placed an 11 mm epigastric port and under direct vision. With those then we put the patient upright tilted left side position. I was able to see the gallbladder the fundus was counted tense but also get a grasper on it without damaging the gallbladder at this time. I was able elevate this removed some adhesions from the underside and group and had a little trouble grasping the infundibulum due to the tension but I did get a tax processor on it. At that point I would begin to dissected down at the end of the gallbladder and was able to identify the cystic duct and the cystic artery without difficulty at this time. There is good bit of edema in this area allowed the dissection to go easy. I placed a clip on the proximal part of the cystic duct and then made an incision in the duct and made multiple attempts to try to get the Cholangiocath into the duct itself. I could never get it to thread and after multiple attempts of felt that since her liver function studies were normal that we could have abandoned our attempts. At that point we then placed 3 clips across the distal part of the cystic duct and divided it. I then dissected out cystic artery and placed 3 clips on approximately 1 distally and divided it. I dissected out what looked like some smaller vessels at the lower part of the liver bed in place and clips on that and then begin to dissected gallbladder out by incising peritoneal attachments anteriorly and posteriorly. With sharp and blunt dissection were able to dissected gallbladder out we did get into it in one spot and had a little bilious spillage at that time. Once the gallbladder was completely removed from the liver bed we placed an Endo Catch bag pulled it out the umbilical port. Went back in washed and above and below the liver at this time. He was a little liver bleed that we did get control of with electrocautery. Once the liver bed looked dry because of the fact he is not to be back on Eliquis was elected to lay a Surgicel in the liver bed and place drain underneath the liver at this time bring it out to the lateral port. With that completed then we were able to go ahead pull the other trochars with no bleeding seen from them. Went back to the umbilical port and closed that fascia down with interrupted 0 Monocryl suture. We then washed out subtenons tissue and closed it with 3-0 Vicryl closed the skin running 4-0 Monocryl with 3 -0 nylon for the drain. With that completed we then moved the patient to recovery room. Estimated blood loss 20 cc Sponge count correct 2 Drains one #10 Gio-Vides Complications none Condition stable satisfactory Anesthesia: GETA, local (0.25% Marcaine with epinephrine mixed [id number] 1% Xylocaine plain) Surgeon / Physician: Stuart Goff Snuff Grinder: Franca Mo Estimated blood loss: other (20 cc) Specimens: other (Gallbladder) Condition: stable Disposition: floor Results - Labs CBC & BMP: 11/16/16 04:34 11/17/16 06:42 Discharge Plan - Discharge Medications No Action Aspirin EC Tab 81 mg PO DAILY #30 tablet Atorvastatin [Lipitor] 40 mg PO DAILY #30 tablet hydrALAZINE TAB [Apresoline Tab] 100 mg PO TID #90 tablet Lisinopril [Prinivil] 20 mg PO BID #60 tablet Metoprolol Succinate Xl [Toprol Xl] 50 mg PO BID #60 tablet Polyethylene Glycol Powder [Miralax] 17 gm PO DAILY #30 Potassium Chloride Cap/Tab [K Dur] 20 meq PO DAILY #30 tablet Tamsulosin [Flomax] 0.4 mg PO BEDTIME amLODIPine [Norvasc] 10 mg PO DAILY #30 tablet Apixaban [Eliquis] 5 mg PO BID #60 tablet Meclizine [Antivert] 25 mg PO QID #120 tablet Pantoprazole Tab [Protonix Tab] 40 mg PO DAILY #30 tablet - Follow Up or Referral - Forms/Instructions
[2016-11-17] MEDS ORDERED: HYDROmorphone 2 MG/1 ML VIAL IV PRN (10:52)
[2016-11-17] MEDS ORDERED: oxyCODONE/ACETAMINOPHEN 5-325 MG TABLET PO PRN (10:52)
[2016-11-17] MEDS ORDERED: DEXTROSE 5% NACL 0.9% 1,000 ML IV SCH (11:00)
[2016-11-17] MEDS ORDERED: LACTATED RINGERS 1,000 ML IV ONE (11:37)
[2016-11-17] MEDS ORDERED: fentaNYL 100 MCG/2 ML VIAL ONE (11:37)
[2016-11-17] MEDS ORDERED: SEVOFLURANE 1 UNIT/15 MINUTE INH ONE (11:37)
[2016-11-17] MEDS ORDERED: ACETAMINOPHEN 1,000 MG/100 ML VIAL IV ONE (11:37)
[2016-11-17 11:41] LABS: Apearance,Urine CLEAR (Clear); Bilirubin,Urine Negative (Negative); Blood, Urine Negative (Negative); Glucose,Urine (UA) Negative (Negative); Ketones,Urine Negative (Negative); Mucus,Urine Occasional /LPF (Occasional); Nitrite,Urine Negative (Negative); Protein,Urine 100 MG/DL; RBC,Urine <1 /HPF (0-4); Urine Color Yellow (Yellow); Urine Specific Gravity 1.004 (1.001-1.035); WBC,Urine <1 /HPF (0-6)
--- NOTE | 2016-11-17 13:16 | Anesthesia Post-Op ---
Anesthesia Post OP - Post Ansesthetic Evaluation Patient seen in post op: Yes Resp: within normal limits CV: within normal limits Mental: within normal limits Temp: within normal limits [id number]: within normal limits Nausea and Vomiting: within normal limits Pain: within normal limits
--- NOTE | 2016-11-17 14:02 | Cardiology Progress Note ---
Srikanth Ratliff Vanessa, RN, am scribing for, and in the presence of, Isak Albright MD 14:02. Assessment and Plan - Time spent with patient Time spent with patient: Greater than 30 minutes (1) Cholecystitis with cholelithiasis Status: Acute Assessment and plan: He is doing well status post laparoscopic cholecystectomy. Continue usual postoperative management. Current Visit: Yes Qualifiers: Cholelithiasis location: gallbladder Cholecystitis acuity: chronic Biliary obstruction: without biliary obstruction Qualified Code(s): K80.10 - Calculus of gallbladder with chronic cholecystitis without obstruction (2) CVA (cerebral vascular accident) Status: Chronic Assessment and plan: Acute right cerebellar beginning of October 2016. Stable at this time with no neurological complaints or symptoms. Current Visit: No (3) Chronic anticoagulation Status: Chronic Assessment and plan: Eliquis initiated after pacemaker implantation on November 01. Last dose of Eliquis was TuesdayNovember 13. On hold at this time for surgical evaluation. This will need to be resumed as soon as possible postoperatively but okay from surgical standpoint. Current Visit: No (4) Chronic atrial fibrillation Status: Chronic Assessment and plan: He has had atrial fibrillation with slow ventricular response. Maintained with beta alyx and anticoagulated with Eliquis for stroke prevention. Current Visit: No (5) Essential hypertension Status: Chronic Assessment and plan: Will adjust antihypertensives as indicated. Current Visit: No (6) Hypokalemia Status: Acute Assessment and plan: Improved today with potassium 3.7. Continue PO. supplement. Monitor and optimize electrolytes. Current Visit: No (7) Chronic kidney disease, stage 3 Status: Chronic Assessment and plan: Monitor renal function closely. Avoid nephrotoxic agents. Current Visit: No Cardiology - PN: Subj Interval history: PRIMARY FUNERAL DIRECTOR/EMBALMER/OWNER: DR. LOUIS ([facility]) SUMMARY: Mr. Hays is a 71 year old white male with risk factors significant for: hypertension, obesity, dyslipidemia, and previous tobacco use. History of vertigo and BPH. Patient is status post hospital admission on October 29 with acute right cerebellar infarction. He was also newly diagnosed with atrial fibrillation with slow ventricular response, and he had a dual-chamber pacemaker implanted on November [address] Stallings. Eliquis initiated postoperatively for further stroke prevention. Patient has had no significant neurological deficits status post CVA. He was discharged to [facility] rehab for further treatment on November 04, and since that time he has presented to the ER for evaluation of dizziness, nausea and vomiting, and he has had some dark vomitus without bleeding. He has been diagnosed with gallstones in the past, and recent workup with gallbladder ultrasound and HIDA scan consistent with cholelithiasis and gallbladder dyskinesia. Nausea, vomiting, and epigastric pain have now become persistent to the point that he is aggravated even with minimal amounts of liquid. He has been admitted to [facility] floor per surgical services on November 15 for observation and possible laparoscopic cholecystectomy. Cardiology asked to see patient as he has had recent CVA, has history of atrial fibrillation, and is chronically anticoagulated with Eliquis. Patient's last dose of Eliquis was the morning of November 13. Echocardiogram on October 29 demonstrates LV ejection fraction 45-50%, moderate TR with PA pressure 40 mmHg. October: The patient is doing well status post laparoscopic cholecystectomy. He has no cardiac symptoms such as angina, palpitations, or other symptoms. He is not having any problem with dyspnea. He states he is feeling much better after the surgery. Current Medications Acetaminophen (Tylenol Tab) 650 mg PO Q6H PRN PRN Reason: Pain Mild (1-3) and/or Fever Amlodipine Besylate (Norvasc) 10 mg PO DAILY [facility] Last Admin: 11/17/16 08:37 Dose: 10 mg Aspirin () 81 mg PO DAILY [facility] Last Admin: 11/16/16 08:30 Dose: 81 mg Atorvastatin Calcium (Lipitor) 40 mg PO DAILY [facility] Last Admin: 11/16/16 08:30 Dose: 40 mg Docusate Sodium (Colace Cap) 100 mg PO BID [facility] Last Admin: 11/16/16 21:49 Dose: 100 mg Hydralazine HCl (Apresoline Tab) 100 mg PO TID [facility] Last Admin: 11/17/16 08:37 Dose: 100 mg Hydromorphone HCl (Dilaudid Inj) 1 mg IV Q4H PRN PRN Reason: Pain Severe (8-10) Ciprofloxacin/Dextrose 400 mg/ (Premix) 200 mls @ 200 mls/hr IV Q12H [facility] Last Admin: 11/17/16 03:36 Dose: 200 mls/hr Potassium Chloride/Dextrose/Sod Cl (D5 1/2ns Kcl 40 Meq) 40 meq in 1,000 mls @ 125 mls/hr IV .Q8H [facility] Last Admin: 11/17/16 08:36 Dose: Not Given Lisinopril (Prinivil) 20 mg PO BID [facility] Last Admin: 11/17/16 08:37 Dose: 20 mg Meclizine HCl (Antivert) 25 mg PO QID [facility] Last Admin: 11/16/16 21:49 Dose: Not Given Metoprolol Succinate (Toprol Xl) 50 mg PO BID [facility] Last Admin: 11/17/16 08:37 Dose: 50 mg Ondansetron HCl (Zofran Inj) 4 mg IV Q4H PRN PRN Reason: Nausea/Vomiting Pantoprazole Sodium (Protonix Tab) 40 mg PO DAILY [facility] Last Admin: 11/17/16 08:37 Dose: 40 mg Potassium Chloride (K Dur) 20 meq PO DAILY [facility] Last Admin: 11/16/16 08:30 Dose: 20 meq Potassium Citrate (Urocit K) 10 meq PO BID [facility] Last Admin: 11/16/16 21:50 Dose: 10 meq Tamsulosin HCl (Flomax) 0.4 mg PO BEDTIME [facility] Last Admin: 11/16/16 21:49 Dose: 0.4 mg Exam (Progress Note) - Constitutional Vitals: Period Temp Pulse Resp BP Sys/Pretty Pulse Ox Last 24 Hr 97.5 F-98.0 F 59-67 15-20 141-171/75-91 95-98 Exam: General: Present: Appears Well, No Apparent Distress HEENT: Present: PERRL, Normocephaly, Mucus Membranes Dry Neck: Present: Supple Neck, Midline Trachea, No JVD/HJR, No Masses, No Bruit Cardiac: Present: Reg Rate and Rhythm, No Murmur. Absent: Gallop Lungs: Present: Clear Ascult./Percussion, Normal Breath Sounds, No Wheezes, No Rales, No Rhonchi Neuro: Present: Grossly Intact. Absent: Numbness, Tingling, Weakness, Resting Tremor, Essential Tremor Abdomen: Present: Soft, Active Bowel Sounds, No Masses, No Pulsations/Bruits. Absent: Ascites, Tender, Firm Skin: Present: Clear. Absent: Rash, Suspicious Lesions Musculoskeletal: Present: No Fluid Collection, Normal Range of Motion Extremities: Present: No Clubbing, No Cyanosis, No Edema, Normal Upper Extr. Pulses (3+ bilaterally), Normal Lower Extr. Pulses (2+ bilaterally), Capillary Refill (normal), Other (warm, dry, intact) Result/EKG - Labs CBC & BMP: 11/16/16 04:34 11/17/16 06:42 Lab Results: I have reviewed the past 24 hour labs Labs: Laboratory Results - last 24 hr 11/17/16 06:42 Potassium 3.7 - EKG EKG results: interpreted by me, no acute changes Quality Measures - VTE Contraindication to Pharmacological VTE Prophylaxis: High Risk of Bleeding I, Isak Albright MD, personally performed the services described in this documentation, ascribed by Casandra Duke RN in my presence, and it is both accurate and complete .
[2016-11-17 14:49] LABS: Hematocrit 30.1 VOL% (42.0-52.0); Hemoglobin 10.2 GM/DL (14.0-18.0)
--- NOTE | 2016-11-17 15:21 | Neurology Progress Note ---
Neurology - PN : Subjective Interval history: Patient is a status post laparoscopic cholecystectomy. Seems to be doing really well and feeling much better. Exam (Progress Note) - Constitutional Vitals: Period Temp Pulse Resp BP Sys/Pretty Pulse Ox Last 24 Hr 97.3 F-98.0 F 60-67 15-28 121-161/56-91 93-100 Exam: GENERAL: Patient is in no acute distress. NECK: Neck is supple. There is no JVD. No carotid bruits present. No thyroid masses. CVS: First and second heart sounds are normal. There is no S3 present. Regular rate and rhythm. RESPIRATORY: Lungs are clear to auscultation without any rales or rhonchi. ABDOMEN: Soft and non-tender. Bowel sounds are present. There is no hepatosplenomegaly. EXT: There is no palpable edema. Peripheral pulses are present. Skin: No rashes Central Nervous system: General: Alert, awake and Oriented x 3 Speech: Fluent Comprehension: Intact and normal Facial expressions: Normal Cranial Nerves: CN1/Olfactory: Normal CN II/ Optic: Normal, Visual Valladares unreliable CN III, and : ELISEO & EOMI CN V: Normal & intact CN VII: face is symmetric CNVIII: Normal CN XI/X/XI/XII: Intact and Normal Motor: Bulk and Tone is normal. Strength not tested at this time Sensory: Grossly intact for all the modalities of PP, LT and temp sense Reflexes: 1+ and symmetrical Cerebellar function: Normal finger to nose and heel to scott testing. Toes: Equivocal Gait: Not tested at this time but moving lower extremities Results - Labs CBC & BMP: 11/17/16 14:45 11/17/16 06:42 Assessment and Plan (1) Cerebellar stroke Status: Acute Assessment and plan: We will start antiplatelet agents hopefully in the morning Current Visit: Yes (2) Cholecystitis with cholelithiasis Status: Acute Assessment and plan: Status post cholecystectomy. Doing fairly well Current Visit: No Quality Measures - VTE Contraindication to Pharmacological VTE Prophylaxis: High Risk of Bleeding
--- NOTE | 2016-11-17 16:21 | Event Note ---
11/15/2016 1630 hrs. Patient is awake and alert vital signs appear to be stable. No sign of any progression of stroke at this time. We will start some liquids a little bit later and see how he tolerates that. Hematocrit is stable at 30. Appears stable postop at this time
[2016-11-17] MEDS: SUCRALFATE 1 GM TABLET PO SCH (16:29)
[2016-11-17] MEDS: CLINDAMYCIN INJ 900 MG in PREMIX 1 EACH IV SCH (18:20)
[2016-11-17] MEDS: TAMSULOSIN 0.4 MG CAPSULE PO SCH (21:19)
[2016-11-18] MEDS: CLINDAMYCIN INJ 900 MG in PREMIX 1 EACH IV SCH (00:03)
[2016-11-18] MEDS: DEXT 5% NACL 0.45% KCL 40 MEQ 40 MEQ/1,000 ML BAG IV SCH ×4 (00:03→18:09)
[2016-11-18 03:17] LABS: Basophils % 0.2 % (0.0-0.8); Eosinophils # 0.1 10*3/uL (0.0-0.87); Eosinophils % 0.9 % (0.00-10.9); Hematocrit 28.9 VOL% (42.0-52.0); Hemoglobin 9.7 GM/DL (14.0-18.0); Immature Granulocytes % 0.6 %; Immature Granulocytes Absolute 0.07 #; Lymphocytes # 1.7 10*3/uL (1.4-4.0); Lymphocytes % 15.2 % (21.2-54.2); Mean Corpuscular HGB Conc 33.6 GM/DL (32-36); Mean Corpuscular Hemoglobin 28 PG (27-34); Mean Corpuscular Volume 84.5 FL (87-102); Mean Platelet Volume 10.3 FL (9.6-12.0); Monocytes # 0.7 10*3/uL (0.11-0.8); Monocytes % 6.1 % (1.7-12.7); Neutrophils # 8.3 10*3/uL (1.4-7.4); Platelet Count 271 T/CUMM (130-400); Red Blood Count 3.42 MC/CUMM (3.8-5.5); Red Cell Distribution Width 14.7 % (9.3-17.3); White Blood Count 10.8 T/CUMM (4-12)
[2016-11-18 03:50] LABS: Albumin 2.8 G/DL (3.4-5.0); Bilirubin,Total 0.9 MG/DL (0.2-1.0); Calcium 8.1 MG/DL (8.5-10.1); Osmolality,Calculated 273.7 MOS/KG (273-304); Potassium 4.1 MMOL/L (3.5-5.1); Total Protein 5.5 G/DL (6.4-8.3)
[2016-11-18] MEDS: CIPROFLOXACIN INJ 400 MG in PREMIX 1 EACH IV SCH ×2 (04:22→14:56)
[2016-11-18] MEDS ORDERED: ENOXAPARIN 40 MG/0.4 ML SYRINGE SUBCUT SCH (09:00)
--- NOTE | 2016-11-18 09:22 | Neurology Progress Note ---
Neurology - PN : Subjective Interval history: Patient seems to be doing really well. No new problems reported. No focal deficits seen. Exam (Progress Note) - Constitutional Vitals: Period Temp Pulse Resp BP Sys/Pretty Pulse Ox Last 24 Hr 96.6 F-98.1 F 60-67 16-28 121-164/56-77 93-100 Exam: GENERAL: Patient is in no acute distress. NECK: Neck is supple. There is no JVD. No carotid bruits present. No thyroid masses. CVS: First and second heart sounds are normal. There is no S3 present. Regular rate and rhythm. RESPIRATORY: Lungs are clear to auscultation without any rales or rhonchi. ABDOMEN: Soft and non-tender. Bowel sounds are present. There is no hepatosplenomegaly. EXT: There is no palpable edema. Peripheral pulses are present. Skin: No rashes Central Nervous system: General: Alert, awake and Oriented x 3 Speech: Fluent Comprehension: Intact and normal Facial expressions: Normal Cranial Nerves: CN1/Olfactory: Normal CN II/ Optic: Normal, Visual Valladares unreliable CN III, and : ELISEO & EOMI CN V: Normal & intact CN VII: face is symmetric CNVIII: Normal CN XI/X/XI/XII: Intact and Normal Motor: Bulk and Tone is normal. Strength not tested at this time Sensory: Grossly intact for all the modalities of PP, LT and temp sense Reflexes: 1+ and symmetrical Cerebellar function: Normal finger to nose and heel to scott testing. Toes: Equivocal Gait: Not tested at this time but moving lower extremities and getting up and going to the bathroom Results - Labs CBC & BMP: 11/18/16 02:32 11/18/16 02:32 Assessment and Plan (1) Cerebellar stroke Status: Acute Assessment and plan: We will start Eliquis today. Stop Lovenox and aspirin Follow-up in 4 weeks Current Visit: Yes (2) Cholecystitis with cholelithiasis Status: Acute Assessment and plan: Status post cholecystectomy. Doing fairly well Current Visit: No Quality Measures - VTE Contraindication to Pharmacological VTE Prophylaxis: High Risk of Bleeding Specialty Discharge - Follow Up or Referrals Follow up with: Martin Lechuga MD [Physician] - 1 Month
[2016-11-18] MEDS: MECLIZINE 25 MG TABLET PO SCH ×4 (09:40→20:25)
[2016-11-18] MEDS: amLODIPine 10 MG TABLET PO SCH (09:40)
[2016-11-18] MEDS: DOCUSATE SODIUM 100 MG CAPSULE PO SCH ×2 (09:40→20:26)
[2016-11-18] MEDS: ATORVASTATIN 40 MG TABLET PO SCH (09:40)
[2016-11-18] MEDS: METOPROLOL SUCCINATE XL 50 MG TABLET PO SCH ×2 (09:40→20:26)
[2016-11-18] MEDS: SUCRALFATE 1 GM TABLET PO SCH ×2 (09:41→18:06)
[2016-11-18] MEDS: POTASSIUM CHLORIDE 20 MEQ TABLET PO SCH ×2 (09:41→20:25)
[2016-11-18] MEDS: PANTOPRAZOLE 40 MG TABLET PO SCH (09:41)
[2016-11-18] MEDS: POTASSIUM CITRATE 10 MEQ TABLET PO SCH ×2 (09:41→20:26)
[2016-11-18] MEDS: LISINOPRIL 20 MG TABLET PO SCH ×2 (09:55→20:25)
[2016-11-18] MEDS: ASPIRIN EC 81 MG TABLET PO SCH (12:01)
--- NOTE | 2016-11-18 13:26 | Pathology Report from [facility] ---
[facility] [place] ACCESSION # : [id number] PATIENT NAME : Stuart Hays ORDERING DR : STUART HENSON MD CLINICAL HX: Cholecystitis, cholelithiasis POST-OP DX: Same SPECIMEN INFO: Gallbladder GROSS DESCRIPTION: The specimen is received in formalin labeled with the patients name and consists of an intact gallbladder measuring 10.0 x 4.0 cm. The serosa is smooth and yellow-harvey. The wall averages 0.2 cm in thickness. The mucosal surface is velvety. The lumen is filled with yellow-brown bile with several lobulated yellow-harvey stones noted measuring up to 1.5 cm. Coating Mixer sections submitted in one cassette. DIAGNOSIS FOR STUART HAYS: GALLBLADDER, CHOLECYSTECTOMY: Chronic cholecystitis; cholelithiasis. COLLECTED DATE: 11/17/2016 [facility] [place] REPORT DATE: 11/18/2016 ELECTRONICALLY SIGNED BY: Gerardo Ramey M.D. 11/18/2016 - 10:22:07 RIGO
--- NOTE | 2016-11-18 16:56 | Cardiology Progress Note ---
Srikanth Ratliff Vanessa, RN, am scribing for, and in the presence of, Isak Albright MD 16:55. Assessment and Plan - Time spent with patient Time spent with patient: Greater than 30 minutes (1) Cholecystitis with cholelithiasis Status: Acute Assessment and plan: Patient is POD #1 status post laparoscopic cholecystectomy. He is doing well postoperatively, and he is not having any anginal complaint. Current Visit: Yes Qualifiers: Cholelithiasis location: gallbladder Cholecystitis acuity: chronic Biliary obstruction: without biliary obstruction Qualified Code(s): K80.10 - Calculus of gallbladder with chronic cholecystitis without obstruction (2) CVA (cerebral vascular accident) Status: Chronic Assessment and plan: Acute right cerebellar beginning of October 2016. Postoperatively, he is not having any neurological complaints or symptoms. He has been seen by Dr. Lechuga during admission. Current Visit: No (3) Chronic anticoagulation Status: Chronic Assessment and plan: Anticoagulated with Eliquis for stroke prevention. Eliquis is being resumed this evening. Current Visit: No (4) Chronic atrial fibrillation Status: Chronic Assessment and plan: This remains stable. He has had atrial fibrillation with slow ventricular response. Maintained with beta alyx and anticoagulated with Eliquis for stroke prevention. Current Visit: No (5) Essential hypertension Status: Chronic Assessment and plan: Will adjust antihypertensives as indicated. Current Visit: No (6) Hypokalemia Status: Resolved Assessment and plan: Resolved. K+ 4.1. Continue PO supplement. Current Visit: No (7) Chronic kidney disease, stage 3 Status: Chronic Assessment and plan: Stable today with creatinine 1.7. Continue to monitor renal function closely. Avoid nephrotoxic agents. Current Visit: No Cardiology - PN: Subj Interval history: PRIMARY ARB[facility] END [place] FORMER: DR. LOUIS ([facility]) SUMMARY: Mr. Hays is a 71 year old white male with risk factors significant for: hypertension, obesity, dyslipidemia, and previous tobacco use. History of vertigo and BPH. Patient is status post hospital admission on October 29 with acute right cerebellar infarction. He was also newly diagnosed with atrial fibrillation with slow ventricular response, and he had a dual-chamber pacemaker implanted on November [address] Stallings. Eliquis initiated postoperatively for further stroke prevention. Patient has had no significant neurological deficits status post CVA. He was discharged to [facility] rehab for further treatment on Pippa 6, and since that time he has presented to the ER for evaluation of dizziness, nausea and vomiting, and he has had some dark vomitus without bleeding. He has been diagnosed with gallstones in the past, and recent workup with gallbladder ultrasound and HIDA scan consistent with cholelithiasis and gallbladder dyskinesia. Nausea, vomiting, and epigastric pain have now become persistent to the point that he is aggravated even with minimal amounts of liquid. He has been admitted to [facility] floor per surgical services on November 15 for observation and possible laparoscopic cholecystectomy. Cardiology asked to see patient as he has had recent CVA, has history of atrial fibrillation, and is chronically anticoagulated with Eliquis. Patient's last dose of Eliquis was the morning of November 13. Echocardiogram on October 29 demonstrates LV ejection fraction 45-50%, moderate TR with PA pressure 40 mmHg. NOVEMBER 18, 2016: Mr. Hays is awake and alert this morning. Postoperative day #1 status post laparoscopic cholecystectomy. His is present at bedside with him. Episode of vomiting overnight after taking PO medicine including potassium supplement, but he has had no nausea or further vomiting. No abdominal pain except for mild discomfort at incision sites. Tolerated liquid diet this morning with no difficulty. No chest pain, dyspnea, palpitations, or other anginal complaint. Patient is not having any neurological complaint or symptoms. Eliquis will be restarted this evening. Labs reviewed. Electrolytes within acceptable range and renal function is stable. Postop H&H stable. BP 135/75. Perioperatively, he appears to be doing very well from a cardiac standpoint. Left chest pacemaker implant site continues to heal well with dry and intact incision and no redness, drainage, foul odor. Current Medications Acetaminophen (Tylenol Tab) 650 mg PO Q6H PRN PRN Reason: Pain Mild (1-3) and/or Fever Amlodipine Besylate (Norvasc) 10 mg PO DAILY [facility] Last Admin: 11/18/16 09:40 Dose: 10 mg Apixaban (Eliquis) 5 mg PO BID [facility] Atorvastatin Calcium (Lipitor) 40 mg PO DAILY [facility] Last Admin: 11/18/16 09:40 Dose: 40 mg Docusate Sodium (Colace Cap) 100 mg PO BID [facility] Last Admin: 11/18/16 09:40 Dose: 100 mg Hydralazine HCl (Apresoline Tab) 100 mg PO TID [facility] Last Admin: 11/18/16 09:40 Dose: 100 mg Hydromorphone HCl (Dilaudid Inj) 1 mg IV Q2H PRN PRN Reason: Pain Severe (8-10) Ciprofloxacin/Dextrose 400 mg/ (Premix) 200 mls @ 200 mls/hr IV Q12H [facility] Last Admin: 11/18/16 04:22 Dose: 100 mls/hr Potassium Chloride/Dextrose/Sod Cl (D5 1/2ns Kcl 40 Meq) 40 meq in 1,000 mls @ 125 mls/hr IV .Q8H [facility] Last Admin: 11/18/16 09:41 Dose: 125 mls/hr Lisinopril (Prinivil) 20 mg PO BID [facility] Last Admin: 11/18/16 09:55 Dose: 20 mg Meclizine HCl (Antivert) 25 mg PO QID [facility] Last Admin: 11/18/16 09:40 Dose: 25 mg Metoprolol Succinate (Toprol Xl) 50 mg PO BID [facility] Last Admin: 11/18/16 09:40 Dose: 50 mg Ondansetron HCl (Zofran Inj) 4 mg IV Q4H PRN PRN Reason: Nausea/Vomiting Last Admin: 11/18/16 00:25 Dose: 4 mg Oxycodone/Acetaminophen (Percocet 5-325) 1 tablet PO Q6H PRN PRN Reason: Pain Moderate (4-7) Pantoprazole Sodium (Protonix Tab) 40 mg PO DAILY [facility] Last Admin: 11/18/16 09:41 Dose: 40 mg Potassium Chloride (K Dur) 20 meq PO BID [facility] Last Admin: 11/18/16 09:41 Dose: 20 meq Potassium Citrate (Urocit K) 10 meq PO BID [facility] Last Admin: 11/18/16 09:41 Dose: 10 meq Sucralfate (Carafate Tab) 1 gm PO BIDAC [facility] Last Admin: 11/18/16 09:41 Dose: 1 gm Tamsulosin HCl (Flomax) 0.4 mg PO BEDTIME [facility] Last Admin: 11/17/16 21:19 Dose: 0.4 mg Exam (Progress Note) - Constitutional Vitals: Period Temp Pulse Resp BP Sys/Pretty Pulse Ox Last 24 Hr 96.6 F-98.1 F 60-67 16-28 121-164/56-77 93-100 Exam: General: Present: Appears Well, No Apparent Distress. Alert and oriented 3. HEENT: Present: PERRL, Normocephaly, Mucus Membranes Dry Neck: Present: Supple Neck, Midline Trachea, No JVD/HJR, No Masses, No Bruit Cardiac: Present: Reg Rate and Rhythm, No Murmur. Absent: Gallop Lungs: Present: Clear Ascult./Percussion, Normal Breath Sounds, No Wheezes, No Rales, No Rhonchi Neuro: Present: Grossly Intact. Absent: Numbness, Tingling, Weakness, Resting Tremor, Essential Tremor Abdomen: Present: Soft, Active Bowel Sounds, No Masses, No Pulsations/Bruits. Absent: Ascites, Tender, Firm. Other: Incision site 2 with dry/intact dressing. RAJI drain 1 into with minimal drainage this morning. Skin: Present: Clear. Absent: Rash, Suspicious Lesions Musculoskeletal: Present: No Fluid Collection, Normal Range of Motion Extremities: Present: No Clubbing, No Cyanosis, No Edema, Normal Upper Extr. Pulses (3+ bilaterally), Normal Lower Extr. Pulses (2+ bilaterally), Capillary Refill (normal), Other (warm, dry, intact) Result/EKG - Labs CBC & BMP: 11/18/16 02:32 11/18/16 02:32 Lab Results: I have reviewed the past 24 hour labs Labs: Laboratory Results - last 24 hr 11/17/16 11/17/16 11/18/16 11:41 14:45 02:32 WBC 10.8 RBC 3.42 L Hgb 10.2 L 9.7 L Hct 30.1 L 28.9 L MCV 84.5 L MCH 28 MCHC 33.6 RDW 14.7 Plt Count 271 MPV 10.3 Neut % (Auto) 77.0 H Lymph % (Auto) 15.2 L Ida % (Auto) 6.1 Eos % (Auto) 0.9 Baso % (Auto) 0.2 Neut # (Auto) 8.3 H Lymph # (Auto) 1.7 Ida # (Auto) 0.7 Eos # (Auto) 0.1 Baso # (Auto) 0.0 Immature Gran % 0.6 Nucleated RBC % 0.0 Immature Gran # 0.07 Nucleated RBCs # 0.00 Sodium Potassium Chloride Carbon Dioxide Anion Gap BUN Creatinine GFR Calculation BUN/Creatinine Ratio Glucose Calculated Osmolality Calcium Total Bilirubin AST ALT Alkaline Phosphatase Total Protein Albumin Globulin Albumin/Globulin Ratio Urine Color Yellow Urine Appearance Clear Urine pH 7.0 Ur Specific [place] 1.004 Urine Protein 100 Urine Glucose (UA) Negative Urine Ketones Negative Urine Blood Negative Urine Nitrate Negative Urine Bilirubin Negative Urine Urobilinogen 2.0 H Urine Leukocytes Negative Urine RBC <1 Urine WBC <1 Urine Mucus Occasional Ur Culture Indicated? Not indicated 11/18/16 02:32 WBC RBC Hgb Hct MCV MCH MCHC RDW Plt Count MPV Neut % (Auto) Lymph % (Auto) Ida % (Auto) Eos % (Auto) Baso % (Auto) Neut # (Auto) Lymph # (Auto) Ida # (Auto) Eos # (Auto) Baso # (Auto) Immature Gran % Nucleated RBC % Immature Gran # Nucleated RBCs # Sodium 138 Potassium 4.1 Chloride 107 Carbon Dioxide 22 Anion Gap 13.1 BUN 11 Creatinine 1.70 H GFR Calculation 50 BUN/Creatinine Ratio 6.00 Glucose 102 Calculated Osmolality 273.7 Calcium 8.1 L Total Bilirubin 0.90 AST 32 ALT 45 Alkaline Phosphatase 124 H Total Protein 5.5 L Albumin 2.8 L Globulin 2.7 Albumin/Globulin Ratio 1.0 L Urine Color Urine Appearance Urine pH Ur Specific [place] Urine Protein Urine Glucose (UA) Urine Ketones Urine Blood Urine Nitrate Urine Bilirubin Urine Urobilinogen Urine Leukocytes Urine RBC Urine WBC Urine Mucus Ur Culture Indicated? - EKG EKG results: interpreted by me, no acute changes Quality Measures - VTE Contraindication to Pharmacological VTE Prophylaxis: High Risk of Bleeding Specialty Discharge - Follow Up or Referrals Follow up with: Martin Lechuga MD [Physician] - 12/29/16 9:45 am IJose Ramon Michael, MD, personally performed the services described in this documentation, ascribed by Casandra Duke RN in my presence, and it is both accurate and complete [id number] .
--- NOTE | 2016-11-18 17:45 | General Surgery Progress Note ---
Assessment and Plan - Time spent with patient Time spent with patient: Less than 30 minutes (1) Cholecystitis with cholelithiasis Status: Acute Assessment and plan: Impression: Recurrent abdominal pain with nausea and vomiting possibly secondary to cholecystitis cholelithiasis. Plan: We will look at the and Tuesday of taking him to surgery for laparoscopic cholecystectomy in order to see if this will improve his symptoms at this time. We will need to get cardiology and neurology look and see if it is safe to have him off the Eliquis during this time. In order for him to get this surgery. 11/16/2016 Patient's labs look in pretty good shape with a potassium of 3.2. Adding potassium p.o. as well as IV to correct this at this time. His nausea is still persistent but has had no more vomiting at this time. Abdomen soft with some mild discomfort in the right upper quadrant area. Cardiology has seen him somewhat and was still waiting on their opinion on Eliquis as well as neurology. Plan is to taken to surgery tomorrow take his gallbladder out see if this will generally improve his symptoms at this time. Everything seems to be pointing towards her gallbladder as a source of this problem and he should improve once it is out. 11/18/2016. Patient is postop from his cholecystectomy and he seems to be doing better. He has been tolerating liquids without problems and actually thinks he is hungry at this point. His drainage is moderate at best and no increased bleeding. His hematocrit remains stable at 28 at this time. He seems to be doing much better since a gallbladder was out with advanced some solid food and see if he tolerates that. Outside chance we send him home tomorrow. Current Visit: Yes Qualifiers: Cholelithiasis location: gallbladder Cholecystitis acuity: chronic Biliary obstruction: without biliary obstruction Qualified Code(s): K80.10 - Calculus of gallbladder with chronic cholecystitis without obstruction (2) Renal insufficiency Status: Chronic Assessment and plan: Impression: Mild renal insufficiency IV fluids and support Current Visit: No (3) Bradycardia Status: Acute Assessment and plan: Impression: Bradycardia with pacemaker in place plan consult cardiology to follow Current Visit: No (4) CVA (cerebral vascular accident) Status: Chronic Assessment and plan: Impression: CVA degree of unknown no residual Plan: Get neurology to evaluate for the possibility of being off the Eliquis surgical possibly have surgery. Current Visit: No Subjective Patient reports: Present: feels better, pain is less, afebrile. Absent: nausea Exam - Constitutional Vitals: Period Temp Pulse Resp BP Sys/Pretty Pulse Ox Last 24 Hr 97.2 F-98.1 F 60-61 16-20 126-164/63-78 93-96 General appearance: mild distress - Head Head exam: Present: normal inspection - ENT ENT exam: Present: normal exam - Neck Neck exam: Present: normal inspection - Respiratory Respiratory exam: Present: rales - Cardiovascular Cardiovascular exam: Present: RRR - GI/Abdominal GI/Abdominal exam: Present: hypoactive bowel sounds, tenderness (About the incisional site), soft, other (Drainage is moderate) - Extremities Exam Extremities exam: Present: normal inspection - Neurological Exam Neurological exam: Present: alert, oriented X3, CN II-XII intact - Skin Skin exam: Present: normal color, warm, dry Results - Labs CBC & BMP: 11/18/16 02:32 11/18/16 02:32 Lab Results: I have reviewed the past 24 hour labs Quality Measures - VTE Contraindication to Pharmacological VTE Prophylaxis: High Risk of Bleeding Specialty Discharge - Follow Up or Referrals Follow up with: Martin Lechuga MD [Physician] - 12/29/16 9:45 am
[2016-11-18] MEDS: APIXABAN 5 MG TABLET PO SCH (20:26)
[2016-11-18] MEDS: TAMSULOSIN 0.4 MG CAPSULE PO SCH (20:27)
[2016-11-19] MEDS: CIPROFLOXACIN INJ 400 MG in PREMIX 1 EACH IV SCH (04:45)
--- NOTE | 2016-11-19 08:19 | Discharge Summary ---
Hospital Course - Hospital Course Hospital Course: Discharge summary 11/19/2016. 1 acute on chronic cholecystitis with cholelithiasis 2 acute cerebellar CVA 3 atrial fibrillation with slow ventricular response, status post dual-chamber pacemaker on November 01, 2016 4 long-term antiplatelet medication use (Eliquis) 5 chronic renal failure with creatinine of 1.6 Procedure performed: Laparoscopic cholecystectomy by Dr. Goff on 11/17/2016 Brief summary this 71-year-old white male had recently undergone a near syncopal episode on October 29, 2016. At that time he had newly diagnosed atrial fibrillation with slow ventricular response. He was found to have an acute right cerebellar infarct. He had minimal residual effects from his CVA except for some ataxia. Cardiology was following his atrial fibrillation and slow ventricular response, and on November 01, 2016, Dr. Corey Stallings inserted dual- chamber pacemaker without complications. He was started on Eliquis preventatively at that time, and transferred to [facility] rehab facility for continued OT and PT treatment. While at that facility, he began to note worsening, persistent nausea and vomiting with epigastric pain. He had in the past been told he had "gallstones" but these had been only mildly symptomatic. While at rehab, his nausea vomiting and epigastric pain became intractable, to the point where he was unable to tolerate even p.o. liquids. At one point he was unable to tolerate even water by mouth. They became concerned, and he was transferred up to [facility], where Eliquis was held and Dr. Goff performed a repeat ultrasound of the gallbladder, which showed multiple gallstones within a distended gallbladder. There was no elevated liver function studies, and no elevated WBC. A HIDA nuclear scan was performed, which was abnormal, indicating ejection fraction of 4 percent. This was discussed with patient and his family, who, at that point, we are very concerned that he was unable to tolerate any thing by mouth. His Eliquis had been held since November 13, and we elected to consult to neurology and cardiology. Both consultants agreed that it was prudent at that point to proceed with laparoscopic cholecystectomy if indicated, with plans of reinitiating the Eliquis as soon as feasible after surgery. On November 17, 2016, he was taken to the operating room where a distended and thickened gallbladder was discovered, and was removed via laparoscopic cholecystectomy. An intraoperative cholangiogram was attempted, but the cystic duct could not be easily cannulated, and it was elected not to prolong the patient's OR anesthesia time to pursue cholangiogram in light of nothing on imaging or lab that indicated a bile duct obstruction. We did elect to leave the Gio-Vides drain. Postoperatively, the patient had very little discomfort, and no nausea or vomiting. He was able to tolerate clear liquids the evening of surgery and soft diet the following day. His labs and vital signs remained normal, and his Gio-Vides drainage slowly decreased in volume , transitioning from serous to serosanguineous. Today, he is tolerating a regular diet, having normal bowel movements, and is ambulatory in the room in the [place]. RAJI drainage is less, and is serosanguineous, so this has been removed today. He is essentially complaining of no discomfort, he is having no nausea and vomiting, and would like to be discharged home. His Eliquis has been restarted without evidence of any bleeding. His vital signs and labs are stable. We will will at this point and go ahead and discharge him home, with follow-up in our office in 10-14 days. We have discussed his restrictions and limitations with he and his . We will have them call Dr. Diop's office at [facility] for a follow-up appointment with them. Arrangements have been made for outpatient physical therapy in the patient's home town of [place]. He will also need a follow-up appointment with Dr. Lechuga, his neurologist. - Time spent with patient Time with patient DS: Greater than 30 minutes Diagnosis - Discharge Diagnosis (1) Chronic kidney disease, stage 3 Status: Chronic (2) Chronic atrial fibrillation Status: Chronic (3) Pacemaker Status: Acute (4) Chronic anticoagulation Status: Chronic (5) Cholecystitis with cholelithiasis Status: Acute (6) Cerebellar stroke Status: Acute Specialty Discharge - Follow Up or Referrals Follow up with: Martin Lechuga MD [Physician] - 2 Weeks (Call Tuesday to schedule an appointment for follow-up with Franca or Dr. Goff) Stuart Goff MD [Physician] - 2 Weeks (Call Tuesday to schedule an appointment with Franca or Dr. Goff) Discharge Plan - Discharge Data Disposition: Disch To Home/Self Care Condition at Discharge: Stable Discharge Diet: heart healthy Activity: increase activity as tolerated, no lifting (Over 25 pound), other ( Ambulate with assistance, or with someone present.) Hygiene: may shower Driving: not until seen by doctor Contact your physician if you experience:: fever over 101, Redness or swelling, Nausea/Vomiting, Shortness of breath, Bleeding, pain uncontrolled by pain medications Wound / Dressing Care Instructions: Shower daily using mild soap and water. No dressing needed over the skin include incisions to the midline and right upper quadrant; if these are irritated by her clothing, it is okay to cover these with a Band-Aid. Place a small bead of triple antibiotic over drain site and cover drain site with light gauze or Band-Aid if desired. - Discharge Medications Continue Aspirin EC Tab 81 mg PO DAILY #30 tablet Atorvastatin [Lipitor] 40 mg PO DAILY #30 tablet hydrALAZINE TAB [Apresoline Tab] 100 mg PO TID #90 tablet Lisinopril [Prinivil] 20 mg PO BID #60 tablet Metoprolol Succinate Xl [Toprol Xl] 50 mg PO BID #60 tablet Potassium Chloride Cap/Tab [K Dur] 20 meq PO DAILY #30 tablet Tamsulosin [Flomax] 0.4 mg PO BEDTIME amLODIPine [Norvasc] 10 mg PO DAILY #30 tablet Apixaban [Eliquis] 5 mg PO BID #60 tablet Meclizine [Antivert] 25 mg PO QID #120 tablet Pantoprazole Tab [Protonix Tab] 40 mg PO DAILY #30 tablet Discontinued Polyethylene Glycol Powder [Miralax] 17 gm PO DAILY #30 - Follow Up or Referral Follow Up: Martin Lechuga MD [Physician] - 12/29/16 9:45 am - Forms/Instructions Exam - Constitutional Vitals: Period Temp Pulse Resp BP Sys/Pretty Pulse Ox Last 24 Hr 97.0 F-98.1 F 60-62 16-20 150-163/70-78 92-97 General appearance: no acute distress, over weight - Head Head exam: Present: normocephalic - Respiratory Respiratory exam: Present: clear to auscultation bilaterally - Cardiovascular Cardiovascular exam: Present: regular rate and rhythm - GI/Abdominal GI/Abdominal exam: Present: hypoactive bowel sounds, other (Incisions are clean and dry. There is no unusual bruising. RAJI drain site is clean with minimal serous drainage.). Absent: guarding, rebound - Neurological Exam Neurological exam: Present: alert, oriented X3 DS: Provider Date of admission: 11/15/16 12:42 Primary care physician: Dominic Martinez Attending physician on admission: Stuart Goff MD Consults: 11/15/16 15:01 Consult to Physician [CONS] Routine Comment: Consulting Provider: Isidro Barrow Consulting Provider Notified: Yes When should Consulting Provider be notified: Now Consult to Specialist Group: Cardiology When should Consulting Provider be notified: Now Person Notified: ivette called Date Notified: 11/15/16 Time Notified: 15:09 Consult Notification Comment: Patient recently seen by Dr. Mason and Dr. Stallings for a bradycardia in which a pacemaker was inserted. He has had recurrent nausea and vomiting possibly secondary to his gallbladder. Would be okay to have him off his Eliquis for surgery 11/15/16 15:03 Consult to Physician [CONS] Routine Comment: Consulting Provider: Martin Lechuga Consulting Provider Notified: Yes When should Consulting Provider be notified: Now Person Notified: ameya called Date Notified: 11/15/16 Time Notified: 15:18 Consult Notification Comment: Patient known to you who has had a recent CVA and is on Eliquis. Unfortunately he is continued to have nausea and vomiting has gallstones and a low ejection fraction and probably needs to have the gallbladder out so that he can overcome the nausea and vomiting begin to eat again. Can he come off the Eliquis so that we can do his surgery. 11/15/16 15:06 Consult to Anesthesiology [CONS] Routine Consulting Provider: Reason for Anesthesiology: Pre-op Clearance Discharging clinician: Franca Mo CNP, R
[2016-11-19] MEDS: LISINOPRIL 20 MG TABLET PO SCH (09:30)
[2016-11-19] MEDS: amLODIPine 10 MG TABLET PO SCH (09:31)
[2016-11-19] MEDS: MECLIZINE 25 MG TABLET PO SCH (09:31)
[2016-11-19] MEDS: PANTOPRAZOLE 40 MG TABLET PO SCH (09:31)
[2016-11-19] MEDS: DOCUSATE SODIUM 100 MG CAPSULE PO SCH (09:31)
[2016-11-19] MEDS: APIXABAN 5 MG TABLET PO SCH (09:32)
[2016-11-19] MEDS: METOPROLOL SUCCINATE XL 50 MG TABLET PO SCH (09:32)
[2016-11-19] MEDS: ATORVASTATIN 40 MG TABLET PO SCH (09:32)
[2016-11-19] MEDS: SUCRALFATE 1 GM TABLET PO SCH (09:35)
[2016-11-19] MEDS: POTASSIUM CHLORIDE 20 MEQ TABLET PO SCH (09:37)
[2016-11-19] MEDS: POTASSIUM CITRATE 10 MEQ TABLET PO SCH (09:37)
[2016-11-19] MEDS: DEXT 5% NACL 0.45% KCL 40 MEQ 40 MEQ/1,000 ML BAG IV SCH (10:49)
[2016-11-19 11:16] VITALS: BP 161/70
== END 2016-11-19 11:30 | disposition home or self-care (01) | DRG 419 ==
LOC: N.3E → OBSVTOIN 12:42
PROVIDERS: ADMIT Specialist; ATTEND Specialist
PROC: LAPCHOL (2016-11-17 10:50)

== ENCOUNTER 2016-12-13 09:42 | Inpatient (IN) ==
[2016-12-13] MEDS ORDERED: SODIUM CHLORIDE 0.9% 1,000 ML IV STA (10:30)
[2016-12-13] MEDS ORDERED: PANTOPRAZOLE 40 MG VIAL IV STA (10:30)
[2016-12-13] MEDS ORDERED: ONDANSETRON 4 MG/2 ML VIAL IV STA (10:30)
[2016-12-13 10:42] LABS: Basophils % 0.4 % (0.0-0.8); Eosinophils # 0.2 10*3/uL (0.0-0.87); Eosinophils % 1.5 % (0.00-10.9); Immature Granulocytes % 1.4 %; Immature Granulocytes Absolute 0.15 #; Lymphocytes # 1.9 10*3/uL (1.4-4.0); Lymphocytes % 17.5 % (21.2-54.2); Mean Corpuscular HGB Conc 32.6 GM/DL (32-36); Mean Corpuscular Hemoglobin 28 PG (27-34); Mean Platelet Volume 9.5 FL (9.6-12.0); Monocytes # 0.5 10*3/uL (0.11-0.8); Monocytes % 4.6 % (1.7-12.7); Neutrophils # 8.3 10*3/uL (1.4-7.4); Neutrophils % 74.6 % (38.7-73.9); Platelet Count 305 T/CUMM (130-400); Red Blood Count 2.21 MC/CUMM (3.8-5.5); Red Cell Distribution Width 15.4 % (9.3-17.3); White Blood Count 11.1 T/CUMM (4-12)
[2016-12-13 10:46] LABS: Hemoglobin 6.2 GM/DL (14.0-18.0)
[2016-12-13 10:50] LABS: PT Patient Result 10.7 SECS
--- NOTE | 2016-12-13 11:01 | EKG Report ---
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
[2016-12-13] MEDS ORDERED: ONDANSETRON 4 MG/2 ML VIAL ONE (11:05)
[2016-12-13] MEDS ORDERED: PANTOPRAZOLE 40 MG VIAL IV ONE (11:05)
--- NOTE | 2016-12-13 11:47 | Emergency Department Note ---
Arrival - Arrival Chief Complaint: GI Bleed/Rectal Stated Complaint: vomiting blood. Recent gallbladder surgery ED Nursing Triage Note: vomiting blood that started this weekend. recently had a pacemaker placed in early october and gallbladder removed mid october. Mode of Arrival: Wheelchair Limitations: No Limitations Source: Patient, Family, RN Notes Reviewed Time Seen by Provider: 12/13/16 10:22 - History of Present Illness HPI Narrative: - History of Present Illness 71-year-old white male presents to ED with CC of: nausea, vomiting, vomiting blood, blood in stool x 3 days acutely. Symptoms have been milder for a few months. Fever: no Keeping fluids down: Minimal Normal urine output: yes PCP: Dr. 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 Allergies/Adverse Reactions: Allergies Allergy/AdvReac Type Severity Reaction Status Date / Time dexamethasone Allergy Depression Verified 11/01/16 07:02 montelukast [From Singulair] Allergy Depression Verified 11/01/16 07:02 Penicillins Allergy Unknown/Unable Verified 10/29/16 08:21 to obtain Home Medications: Home Medications Medication Instructions Recorded Confirmed Type Apixaban [Eliquis] 5 mg PO BID #60 tablet 11/04/16 12/13/16 Rx Aspirin EC Tab 81 mg PO DAILY #30 tablet 11/04/16 12/13/16 Rx Lisinopril [Prinivil] 20 mg PO BID #60 tablet 11/04/16 12/13/16 Rx Meclizine [Antivert] 25 mg PO QID #120 tablet 11/04/16 12/13/16 Rx Metoprolol Succinate Xl [Toprol Xl] 50 mg PO BID #60 tablet 11/04/16 12/13/16 Rx Potassium Chloride Cap/Tab [K Dur] 20 meq PO DAILY #30 tablet 11/04/16 12/13/16 Rx amLODIPine [Norvasc] 10 mg PO DAILY #30 tablet 11/04/16 12/13/16 Rx hydrALAZINE TAB [Apresoline Tab] 100 mg PO TID #90 tablet 11/04/16 12/13/16 Rx Pantoprazole Tab [Protonix Tab] 40 mg PO DAILY #30 tablet 11/12/16 12/13/16 Rx Tamsulosin [Flomax] 0.4 mg PO BEDTIME 11/15/16 12/13/16 History Atorvastatin [Lipitor] 40 mg PO DAILY 12/13/16 12/13/16 History Polyethylene Glycol 3350 17 gm PO DAILY PRN 12/13/16 12/13/16 History Review of System - Review of System 12 point system: reviewed and no additional remarkable complaints except as stated - Review of System Constitutional: Absent: chills, fever Respiratory: Absent: cough, respiratory distress, wheezing Cardiovascular: Present: other (Lightheaded). Absent: chest pain, dyspnea on exertion Gastrointestinal: Present: as per HPI, nausea, vomiting, hematemesis, melena, hematochezia Medical,Surgical,& Family Hx - Medical History Cardio: History of: Cardiac Dysrhythmia (Atrial fibrillation), Hypertension, Pacemaker (Placed 11/01/[address] Stallings), Cardiovascular Problems (Bradycardia and A Fib) No history of: CHF, CAD, [place] Neurology: History of: Cerebrovascular Accident (Cerebellar stroke, 10/29/2016) No history of: Dementia, Seizures HEENT: History of: Ear Problem (vertigo) Endocrine: History of: Thyroid Disorder No history of: Adrenal Disease, Diabetes Mellitus (IDDM), Diabetes Mellitus ( NIDDM), Endocrine Cancer, Endocrine Problems Rheumatology: History of;: Gout (Occasionally in his toes) Respiratory: History of: Asthma (As a child), Bronchitis (As a child) Genitourinary: History of: Kidney Stones (2011) Gastrointestinal: History of: GI Problems (gallstones in 2011) No history of: Gastrointestinal Bleed Musculoskeletal: No history of: Amputation Hematology: No history of: Blood Transfusion Reaction - Surgical History Cardiac Surgeries: Sugical HX of: Cardiac Surgery (Pacemaker Placed 11/01/[address] Stallings) Patient Denies: Femoral-Popliteal Bypass Graft, Cardiac Catheterization, Carotid Endarterectomy, Internal Defibrillator, Vascular Access Devices Thoracic Surgeries: Patient denies;: Kidney (Renal Surgery), Lithotripsy, Nephrectomy, Organ Transplant, Lobectomy Neurologic Surgeries: Patient denies: Neurologic Surgery HEENT Surgeries: Surgical HX of: Tonsilectomy & Adenoidectomy (1956) Patient denies: Carotid Endarterectomy, Eye Surgery, Thyroid Surgery Abdominal Surgeries: Surgical HX of: Colonoscopy (2011), EGD (2011) Patient denies: Abdominal Surgery, Appendectomy, Cholecystectomy, Gastric Bypass Surgery, Hernia Repair, Splenectomy Reproductive Surgeries: Patient denies;: Breast Surgery, Cystoscopy, Genitourinary Surgery, Prostate Surgery, Vasectomy Orthopedic Surgeries: Patient denies;: Implanted Devices, Orthopedic Surgery, Spinal Surgery, Total Hip Replacement, Total Knee Replacement - Family History Family History: Reports;: Family Stroke (Mother) Denies;: Family Anesthesia Reaction, Family Cancer, Family Diabetes, Family Heart Disease, Family Hypertension, Family Psychiatric Problems - Social History Smoking Status: Unknown if ever smoked Exam Physical Examination: - General General appearance: alert, in no apparent distress, color pale - HEENT Present: atraumatic, normocephalic, normal inspection, PERRL, EOMI, mucous membranes moist, conjunctival paleness - Neck Neck exam: Present: normal inspection, full ROM - Respiratory Respiratory exam: Present: normal lung sounds bilaterally - Cardiovascular Cardiovascular exam: Present: regular rate, normal rhythm, normal heart sounds - Abdominal Exam Abdominal exam: Present: soft, tenderness: No, normal bowel sounds. Absent: distention, guarding, trauma, - Rectal Exam Rectal exam: Present: Hemoccult-positive - Extremities Exam Extremities exam: Present: normal inspection, full ROM. Absent: pedal edema, joint swelling, calf tenderness - Neurological Exam Neurological exam: Present: alert, oriented X3, no neuorosensory deficits, strength 5/5 in all extremities - Psychiatric Psychiatric exam: Present: normal affect, normal mood - Skin Skin exam: Present: warm, dry, intact Vital Signs: Vital Signs Temperature 97.4 F L 12/13/16 09:46 Pulse Rate 57 L 12/13/16 11:25 Respiratory Rate 20 12/13/16 11:25 Blood Pressure 134/70 12/13/16 11:25 O2 Sat by Pulse Oximetry 99 12/13/16 11:25 Course - Consultations Time: 12:20 (Kulwant with Hospitalist service notified of patient presence and status. Will evaluate for admission.) Time: 13:00 (Hospitalist service here. Will admit patient.) Procedures - Stool Hemoccult Procedural Steps Taken: stool placed in appropriate test area, developer placed on stool and control areas, controls appropriately positive and negative Hemoccult result: positive Results - Labs CBC & BMP: 12/13/16 10:29 12/13/16 10:30 Lab Results: I have reviewed the patients labs - EKG EKG results: interpreted by TAMEKA (No STEMI, pacemaker rhythm), no acute changes - Impressions Chest x-ray:1. Persistent stable cardiomegaly. 2. Persistent interstitial prominence, fibrosis versus pulmonary edema. 3. Decreased but still present right pleural effusion. Abdominal x-ray:1. Fecal impaction. 2. Bowel gas pattern consistent with mild ileus or enteritis. 4. Decreased distention of bowel compared to the previous exam. - Diagnostic Findings Procedure: Abdominal x-ray: report reviewed by me, Chest x-ray: report reviewed by me Disposition Clinical Impression: Lower gastrointestinal hemorrhage, Upper gastrointestinal hemorrhage, Hematochezia, Melena Case discussed with: patient, patient's family Disposition: Still a Patient Time of Disposition: 13:00 (Admit)
--- NOTE | 2016-12-13 11:52 | XRay Report ---
Single portable view of the chest. Indication: Shortness of breath. Comparison: November 15, 2016. The heart is enlarged with left ventricular hypertrophy. Cardiac hardware is in satisfactory position. The pulmonary vasculature is normal. Interstitial prominence remains stable. Right-sided pleural effusion decreased but probably still present. Stable osseous structures. Impression: 1. Persistent stable cardiomegaly. 2. Persistent interstitial prominence, fibrosis versus pulmonary edema. 3. Decreased but still present right pleural effusion. PROCEDURE INTERPRETED AT [facility] DEPARTMENT OF RADIOLOGY Final Report Signed by: Dr. Khloe Rose
--- NOTE | 2016-12-13 11:54 | XRay Report ---
Abdomen complete, 4 views. Indication: Generalized abdominal pain. Comparison: KUB from November 10, 2016. The heart is enlarged. Cardiac hardware is in place. Surgical clips are noted in the gallbladder fossa. There is a nonspecific bowel gas pattern with scattered air-fluid levels and air in normal caliber small and large intestine. Decreased distention compared to the previous exam. Considerable fecal material in the rectal vault. Mild degenerative changes of the spinal column. No organomegaly. No free air. Impression: 1. Fecal impaction. 2. Bowel gas pattern consistent with mild ileus or enteritis. 4. Decreased distention of bowel compared to the previous exam. PROCEDURE INTERPRETED AT [facility] DEPARTMENT OF RADIOLOGY Final Report Signed by: Dr. Khloe Rose
[2016-12-13 12:36] LABS: Albumin 3.2 G/DL (3.4-5.0); Bilirubin,Total 0.4 MG/DL (0.2-1.0); Calcium 8.6 MG/DL (8.5-10.1); Magnesium 2.2 MG/DL (1.8-2.4); Osmolality,Calculated 286.4 MOS/KG (273-304); Potassium 3.5 MMOL/L (3.5-5.1)
[2016-12-13 12:39] LABS: Troponin I Only 0.117 NG/ML (0.00-0.045)
--- NOTE | 2016-12-13 13:24 | Hospitalist History & Physical ---
Assessment and Plan - Time spent with patient Time spent with patient: Greater than 30 minutes (1) Acute blood loss anemia Status: Acute Assessment and plan: H&H 6.2 and 19.0. Given the patient's history, I suspect this may be an upper GI bleed. Patient has been typed and screened and we will transfuse 2 units of PRBCs and monitor H&H appropriately. Repeat CBC in a.m. IV fluids. Consult gastroenterology for further recommendations. Current Visit: No (2) History of stroke Status: Acute Assessment and plan: Patient sustained a cerebellar stroke and September 2016. He has recovered well since physical therapy. Patient has been anticoagulated with Eliquis since September. We are holding his Eliquis due to his GI bleeds. Current Visit: No (3) Hypertension Status: Chronic Assessment and plan: Continue home medications. Current Visit: No (4) Renal insufficiency Status: Chronic Assessment and plan: BUN 31, creatinine 1.70. This may very well be due to dehydration given the patient's constant emesis. We will hydrate with gentle IV fluids. Recheck labs in a.m. Current Visit: No History of Present Illness Chief complaint: GI Bleed History of present illness: Mr. Hays is a 71 year old white male with a past medical history significant for hypertension, atrial fibrillation, CVA, bradycardia with pacemaker placement , cholecystectomy who presents to the ED today with complaints of worsening nausea and vomiting with weakness having onset 2 days ago. The patient was recently seen in September after suffering a cerebellar stroke. He was started on Eliquis and received PT with positive results. He was subsequently admitted in mid-October and underwent a cholecystectomy per Dr. Goff. The patient reports that he has had frequent episode of nausea and vomiting since the September admission that has since included hematemesis and melena in this last week. The patient's who is at bedside reports that he has been more fatigued and pale this week. On admission to the ED, the patient's vitals are stable however his H&H is markedly low, 6.2 and 19.0. He confirms lightheadedness, hematemesis, melena , epigastric pain, abdominal discomfort with associated nausea and vomiting. He denies headache, chest pain, SOB, lower extremity edema, numbness or tingling. The patient's states that she has held the patient's eliquis since Tuesday given his bleeding. Abdominal XR reveals fecal impaction and bowel gas pattern consistent with mild ileus or enteritis. CXR shows persistent stable cardiomegaly and interstitial prominence as well as a continued presence of right pleural effusion. Lab work is shows: WBC 11.1, hemoglobin 6.2, hematocrit 19.0, MCV 86.0, BUN 31, creatinine 1.70, serum glucose 108. Case has been discussed with Dr. Cantu, admitting physician, the patient will be admitted to the hospital medicine service for further evaluation and treatment. Patient is a full code. Home medications have been reviewed and reconciled. Home Medications Medication Instructions Recorded Confirmed Type Apixaban [Eliquis] 5 mg PO BID #60 tablet 11/04/16 12/13/16 Rx Aspirin EC Tab 81 mg PO DAILY #30 tablet 11/04/16 12/13/16 Rx Lisinopril [Prinivil] 20 mg PO BID #60 tablet 11/04/16 12/13/16 Rx Meclizine [Antivert] 25 mg PO QID #120 tablet 11/04/16 12/13/16 Rx Metoprolol Succinate Xl [Toprol Xl] 50 mg PO BID #60 tablet 11/04/16 12/13/16 Rx Potassium Chloride Cap/Tab [K Dur] 20 meq PO DAILY #30 tablet 11/04/16 12/13/16 Rx amLODIPine [Norvasc] 10 mg PO DAILY #30 tablet 11/04/16 12/13/16 Rx hydrALAZINE TAB [Apresoline Tab] 100 mg PO TID #90 tablet 11/04/16 12/13/16 Rx Pantoprazole Tab [Protonix Tab] 40 mg PO DAILY #30 tablet 11/12/16 12/13/16 Rx Tamsulosin [Flomax] 0.4 mg PO BEDTIME 11/15/16 12/13/16 History Atorvastatin [Lipitor] 40 mg PO DAILY 12/13/16 12/13/16 History Polyethylene Glycol 3350 17 gm PO DAILY PRN 12/13/16 12/13/16 History Allergies Allergy/AdvReac Type Severity Reaction Status Date / Time dexamethasone Allergy Depression Verified 11/01/16 07:02 montelukast [From Singulair] Allergy Depression Verified 11/01/16 07:02 Penicillins Allergy Unknown/Unable Verified 10/29/16 08:21 to obtain Medical,Surgical,& Family Hx - Medical History Cardio: History of: Cardiac Dysrhythmia (Atrial fibrillation), Hypertension, Pacemaker (Placed 11/01/[address] Stallings), Cardiovascular Problems (Bradycardia and A Fib) No history of: CHF, CAD, [place] Neurology: History of: Cerebrovascular Accident (Cerebellar stroke, 10/29/2016) No history of: Dementia, Seizures HEENT: History of: Ear Problem (vertigo) Endocrine: History of: Thyroid Disorder No history of: Adrenal Disease, Diabetes Mellitus (IDDM), Diabetes Mellitus ( NIDDM), Endocrine Cancer, Endocrine Problems Rheumatology: History of;: Gout (Occasionally in his toes) Respiratory: History of: Asthma (As a child), Bronchitis (As a child) Genitourinary: History of: Kidney Stones (2011) Gastrointestinal: History of: GI Problems (gallstones in 2011) No history of: Gastrointestinal Bleed Musculoskeletal: No history of: Amputation Hematology: No history of: Blood Transfusion Reaction - Surgical History Cardiac Surgeries: Sugical HX of: Cardiac Surgery (Pacemaker Placed 11/01/[address] Stallings) Patient Denies: Femoral-Popliteal Bypass Graft, Cardiac Catheterization, Carotid Endarterectomy, Internal Defibrillator, Vascular Access Devices Thoracic Surgeries: Patient denies;: Kidney (Renal Surgery), Lithotripsy, Nephrectomy, Organ Transplant, Lobectomy Neurologic Surgeries: Patient denies: Neurologic Surgery HEENT Surgeries: Surgical HX of: Tonsilectomy & Adenoidectomy (1955) Patient denies: Carotid Endarterectomy, Eye Surgery, Thyroid Surgery Abdominal Surgeries: Surgical HX of: Colonoscopy (2011), EGD (2011) Patient denies: Abdominal Surgery, Appendectomy, Cholecystectomy, Gastric Bypass Surgery, Hernia Repair, Splenectomy Reproductive Surgeries: Patient denies;: Breast Surgery, Cystoscopy, Genitourinary Surgery, Prostate Surgery, Vasectomy Orthopedic Surgeries: Patient denies;: Implanted Devices, Orthopedic Surgery, Spinal Surgery, Total Hip Replacement, Total Knee Replacement - Family History Family History: Reports;: Family Stroke (Mother) Denies;: Family Anesthesia Reaction, Family Cancer, Family Diabetes, Family Heart Disease, Family Hypertension, Family Psychiatric Problems - Social History Smoking Status: Never smoker Have you smoked in the last 12 months: No Frequency of Alcohol Use: None Type of Drug Use: None Marital Status: Lives With:: Spouse Functional capacity: independent ambulation 12 point system: reviewed and no additional remarkable complaints except as stated Exam - Constitutional Vitals: Period Temp Pulse Resp BP Sys/Pretty Pulse Ox Last 24 Hr 97.4 F 57-72 20-20 134-144/55-70 99-100 Exam: General appearance: normal weight, no acute distress - Head Head exam: Present: normocephalic, atraumatic - Eye Eye exam: Present: EOMI. Absent: conjunctival injection, nystagmus Pupils: Present: ELISEO, normal accommodation - ENT ENT exam: Present: normal exam, normal external ear exam - Neck Neck exam: Present: normal inspection. Absent: lymphadenopathy, tenderness, thyromegaly - Respiratory Respiratory exam: Present: clear to auscultation bilaterally. Absent: rales, rhonchi, wheezes - Cardiovascular Cardiovascular exam: Present: regular rate and rhythm. Absent: carotid bruit, gallop, rubs - GI/Abdominal GI/Abdominal exam: Present: normal bowel sounds. Absent: ascites, distended, mass - Extremities Exam Extremities exam: Present: normal inspection, normal capillary refill. Absent: edema - Back Exam Back exam: Absent: CVA tenderness (L), CVA tenderness (R) - Neurological Exam Neurological exam: Present: alert, oriented X3, CN II-XII intact, reflexes normal - Psychiatric Psychiatric exam: Present: normal affect, normal mood - Skin Skin exam: Present: normal color, warm, dry Results - Labs CBC & BMP: 12/13/16 10:29 12/13/16 10:30 Lab Results: I have reviewed the past 24 hour labs
[2016-12-13] MEDS ORDERED: SODIUM CHLORIDE 0.9% 250 ML IV PRN ×2 (13:25→16:39)
[2016-12-13] MEDS ORDERED: ONDANSETRON 4 MG/2 ML VIAL IV PRN (14:52)
[2016-12-13] MEDS ORDERED: POLYETHYLENE GLYCOL POWDER 17 GM PACK PO PRN (15:08)
[2016-12-13 17:02] LABS: Allen Test Positive
[2016-12-13 17:03] LABS: ABG Base Excess -1.2 MMOL/L (-2.5-2.5); ABG HCO3 23.4 MMOL/L (20-26); ABG Oxygen Saturation 99.7 % (95-100); ABG PCO2 30.9 MM HG (35-48); ABG PH 7.463 (7.35-7.45); ABG TCO2 20.9 MMOL/L (23-27)
[2016-12-13 17:21] LABS: Calcium 8.3 MG/DL (8.5-10.1); Osmolality,Calculated 291.1 MOS/KG (273-304); Potassium 3.7 MMOL/L (3.5-5.1)
--- NOTE | 2016-12-13 18:15 | Gastrointestinal Consult Note ---
Assessment and Plan (1) Acute posthemorrhagic anemia Status: Acute Assessment and plan: Patient has a history of a hematocrit of 41.3% back on 11/02/16 prior to getting the cholecystectomy. This dropped down to a adonis of 28.8% when seen on but has since dropped down to 19% this admission with recent coffee-ground emesis worse today and yesterday but going on for the last 3 days by report. Eliquis and aspirin certainly have added to the patient's blood loss and may be a Natalia-Hung tear versus esophagitis versus gastric/duodenal ulcer recurrence (patient had this back in the ), versus AVMs or duodenitis. We do not know what the patient's Helicobacter pylori status is but given his prior history of ulcers this may certainly be positive. We will perform upper endoscopy with potential biopsies. It is good and the patient has been off of his Eliquis for the last 2 days. Agree with transfusion in the short-term. Current Visit: Yes (2) Upper gastrointestinal hemorrhage Status: Acute Assessment and plan: As mentioned above we will try and find the source for the patient's upper GI blood loss, suspect that this may be a Natalia-Hung tear versus peptic ulcer disease of some type. He denies use of aspirin, other than his 81 mg, or other NSAIDs at home. Would certainly like to have Dr. Marin evaluate this patient before taking him to upper endoscopy tomorrow given his elevated troponin levels which I suspect are probably mild ischemia with the patient's drop in hematocrit to 19%. If Dr. Marin feels that a echocardiogram or other testing is indicated prior to endoscopy will certainly hold off on the scoping. Risks of upper endoscopy include but are not limited to: Bleeding, infection, perforation, cardiac and pulmonary compromise. Current Visit: Yes (3) Nausea with vomiting, unspecified Status: Acute Assessment and plan: I suspect this patient may have chronic gastritis based on the nausea and vomiting which is occurring on a routine basis. There may also be gastroparesis present that we will look for this specifically when doing her upper endoscopy tomorrow. Protonix has not helped particularly making the likelihood of gastroparesis higher. Current Visit: Yes (4) Personal history of colonic polyps Status: Acute Assessment and plan: The patient previously had colonoscopy done by Dr. Chandan Casarez back in 2011 with a number of polyps removed. Would like to know the pathology is polyps in the number as well as locations for colonoscopies in the future. I have asked the nurses to obtain old records by contacting [facility] to this end. Current Visit: Yes History of Present Illness Chief complaint: Hematemesis with hematocrit dropped to 19%, Eliquis and aspirin use History of present illness: Mr. 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 Mason it was recommended the patient get a pacemaker placement and this been in place for some months. Patient has been treated with Eliquis and aspirin but has been developing nausea and vomiting since mid October and the patient was admitted to the hospital and underwent cholecystectomy by Dr. Goff. Sadly this did not affect his nausea and vomiting overall, over the last 3 days the patient has developed worsening vomiting with some hematemesis and today has become quite dizzy and more fatigued and pale. His hematocrit and hemoglobin were noted to be 19% and 6.2 g/dL with epigastric pain, he did not admit to me that his stools were black but they were darker than usual. He states that he becomes acutely nauseous and vomits when going over bumpy roads and when being wheeled over the expansion joints here in the hospital. He does not have headache or chest pain or shortness of breath by report and there is no lower extremity edema but multiple cuts are noted on the legs to the patient's long nails and calluses he states. Patient's discontinued the Eliquis approximately 2 days ago, she is continued the aspirin however. The patient has been given Antivert to help with the nausea and vomiting and does take MiraLAX for constipation issues. He states that he was due to see Dr. Marin by the end of the month in the office. He had seen Dr. Chandan Casarez as an outpatient for colonoscopy as recently as 2011, multiple polyps removed we do not know with the pathology of these polyps showed. He is not sure when he is due to come back for recheck. He states that he had previously had a history of ulcers back in the 1980s and this was treated with short-term Tagamet. He had a poor appetite recently and this is actually been going on since mid October as well. Interestingly the patient does take potassium chloride which can be caustic to his stomach. He has been given Protonix but states that this has not worked for him. Home Medications Medication Instructions Recorded Confirmed Type Apixaban [Eliquis] 5 mg PO BID #60 tablet 11/04/16 12/13/16 Rx Aspirin EC Tab 81 mg PO DAILY #30 tablet 11/04/16 12/13/16 Rx Lisinopril [Prinivil] 20 mg PO BID #60 tablet 11/04/16 12/13/16 Rx Meclizine [Antivert] 25 mg PO QID #120 tablet 11/04/16 12/13/16 Rx Metoprolol Succinate Xl [Toprol Xl] 50 mg PO BID #60 tablet 11/04/16 12/13/16 Rx Potassium Chloride Cap/Tab [K Dur] 20 meq PO DAILY #30 tablet 11/04/16 12/13/16 Rx amLODIPine [Norvasc] 10 mg PO DAILY #30 tablet 11/04/16 12/13/16 Rx hydrALAZINE TAB [Apresoline Tab] 100 mg PO TID #90 tablet 11/04/16 12/13/16 Rx Pantoprazole Tab [Protonix Tab] 40 mg PO DAILY #30 tablet 11/12/16 12/13/16 Rx Tamsulosin [Flomax] 0.4 mg PO BEDTIME 11/15/16 12/13/16 History Atorvastatin [Lipitor] 40 mg PO DAILY 12/13/16 12/13/16 History Polyethylene Glycol 3350 17 gm PO DAILY PRN 12/13/16 12/13/16 History Allergies Allergy/AdvReac Type Severity Reaction Status Date / Time dexamethasone Allergy Depression Verified 11/01/16 07:02 montelukast [From Singulair] Allergy Depression Verified 11/01/16 07:02 Penicillins Allergy Unknown/Unable Verified 10/29/16 08:21 to obtain Medical,Surgical,& Family Hx - Medical History Cardio: History of: Cardiac Dysrhythmia (Atrial fibrillation), Hypertension, Pacemaker (Placed 11/01/[address] Stallings), Cardiovascular Problems (Bradycardia and A Fib) No history of: CHF, CAD, [place] Neurology: History of: Cerebrovascular Accident (Cerebellar stroke, 10/29/2016) No history of: Dementia, Seizures HEENT: History of: Ear Problem (vertigo) Endocrine: History of: Thyroid Disorder No history of: Adrenal Disease, Diabetes Mellitus (IDDM), Diabetes Mellitus ( NIDDM), Endocrine Cancer, Endocrine Problems Rheumatology: History of;: Gout (Occasionally in his toes) Respiratory: History of: Asthma (As a child), Bronchitis (As a child) Genitourinary: History of: Kidney Stones (2011) Gastrointestinal: History of: GI Problems (gallstones in 2011) No history of: Gastrointestinal Bleed Musculoskeletal: No history of: Amputation Hematology: No history of: Blood Transfusion Reaction - Surgical History Cardiac Surgeries: Sugical HX of: Cardiac Surgery (Pacemaker Placed 11/01/[address] Stallings) Patient Denies: Femoral-Popliteal Bypass Graft, Cardiac Catheterization, Carotid Endarterectomy, Internal Defibrillator, Vascular Access Devices Thoracic Surgeries: Patient denies;: Kidney (Renal Surgery), Lithotripsy, Nephrectomy, Organ Transplant, Lobectomy Neurologic Surgeries: Patient denies: Neurologic Surgery HEENT Surgeries: Surgical HX of: Tonsilectomy & Adenoidectomy (1955) Patient denies: Carotid Endarterectomy, Eye Surgery, Thyroid Surgery Abdominal Surgeries: Surgical HX of: Colonoscopy (2011), EGD (2011) Patient denies: Abdominal Surgery, Appendectomy, Cholecystectomy, Gastric Bypass Surgery, Hernia Repair, Splenectomy Reproductive Surgeries: Patient denies;: Breast Surgery, Cystoscopy, Genitourinary Surgery, Prostate Surgery, Vasectomy Orthopedic Surgeries: Patient denies;: Implanted Devices, Orthopedic Surgery, Spinal Surgery, Total Hip Replacement, Total Knee Replacement - Family History Family History: Reports;: Family Stroke (Mother) Denies;: Family Anesthesia Reaction, Family Cancer, Family Diabetes, Family Heart Disease, Family Hypertension, Family Psychiatric Problems - Social History Smoking Status: Never smoker Frequency of Alcohol Use: None Type of Drug Use: None Review of systems: Constitutional: Denies fever, chills, but positive for nausea, and vomiting Eyes: Denies dry eyes, and scleral icterus HENT: Occasional headaches Cardiovascular: Denies acute chest pain and claudication Respiratory: Denies shortness of breath, wheezing, and difficulty breathing, denies cough Gastrointestinal: As noted in the HPI Genitourinary: Denies dysuria and hematuria Neurologic: Denies vision loss, and loss of sensation Musculoskeletal: Admits to joint swelling, joint stiffness, and muscular weakness Psychiatric: Denies depression and harrison symptoms Heme-Lymph: Denies easy bruising, lymph node enlargement or tenderness, night sweats, excessive bleeding Allergies-immunologic: Denies pruritus and rhinorrhea Exam - Constitutional Vitals: Period Temp Pulse Resp BP Sys/Pretty Pulse Ox Last 24 Hr 96.1 F-98.2 F 57-77 18-20 132-170/55-76 9-100 General appearance: no acute distress Exam: Constitutional: Well-developed, well-nourished, alert, and in no acute distress Head and face: Head: Normocephalic atraumatic Eyes: Conjunctiva without injection, no gross scleral icterus, pupils equal and round bilaterally Ears: Intact to conversation in both ears Nose: External appearance is normal, nares patent Mouth: Oral mucous membranes moist without erythema dentition noted to be without erosion Neck: Normal appearance, no masses or tenderness, trachea midline Thyroid: Gland midline and appropriate size for age Respiratory: Normal respiratory effort, clear to auscultation without wheezes, rhonchi or rales Cardiovascular: Regular rate and rhythm, normal S1, S2, the exam is without rubs, murmurs or gallops. Pacemaker can is noted in the left supraclavicular area, well-healed. Gastrointestinal: Mildly tender to palpation in the epigastric region, normal active bowel sounds, tone normal without rigidity or guarding, no masses present, no hepatomegaly, no spleen tip felt. Large external hemorrhoids noted , rectal exam demonstrates dark brown stool that is grossly guaiac positive, but not sticky. Lymphatic: Neck without adenopathy, axilla without lymphadenopathy present Musculoskeletal: Right and left lower extremities without evidence of edema --multiple excoriations noted. Skin and subcutaneous tissue: No rashes or ulcerations noted, normal skin turgor, digits and nails without clubbing/cyanosis/deformities. Neurologic: The patient is grossly oriented to person place and time, cranial nerves show tongue movements are normal with normal tongue extrusion midline, light touch sensation is intact. Psychiatric: No hallucinations or delusions are present, does not appear depressed Results - Labs CBC & BMP: 12/13/16 10:29 12/13/16 16:41
[2016-12-13] MEDS ORDERED: PROMETHAZINE 25 MG TABLET PO SCH (18:30)
[2016-12-13] MEDS: MECLIZINE 25 MG TABLET PO SCH ×2 (18:59→21:18)
--- NOTE | 2016-12-13 19:45 | Cardiology Consult Note ---
Assessment and Plan - Time spent with patient Time spent with patient: Greater than 30 minutes (1) Elevated troponin Status: Acute Assessment and plan: This is just barely elevated and may be related to his anemia. It may be a chronic finding. Plan/recommendation: Serial cardiac isoenzymes If troponins continue to increase or decrease, would consider treating for CAD If no change and the [place] troponin is seen to be a chronic finding, then I would not pursue it further If no change in troponin okay to proceed with the scope Agree with holding the Eliquis for now I will follow along with you. I do not get any symptoms which suggest acute coronary ischemia. I discussed this with the patient's nurse and tested Dr. Joshua Gramajo to let him know of the plan. Thank you for allowing me to participate in this patient's care Current Visit: Yes (2) Acute posthemorrhagic anemia Status: Acute Current Visit: Yes (3) Upper gastrointestinal hemorrhage Status: Acute Current Visit: Yes (4) Acute blood loss anemia Status: Acute Current Visit: No (5) Cerebellar stroke Status: Acute Current Visit: No (6) Cholecystitis with cholelithiasis Status: Acute Current Visit: No (7) History of stroke Status: Acute Current Visit: No (8) Pacemaker Status: Acute Current Visit: No (9) Atrial fibrillation Status: Chronic Current Visit: No (10) Chronic anticoagulation Status: Chronic Current Visit: No (11) Chronic kidney disease, stage 3 Status: Chronic Current Visit: No (12) Hypertension Status: Chronic Current Visit: No (13) Obesity (BMI 35.0-39.9 without comorbidity) Status: Chronic Current Visit: No (14) Sleep disorder Status: Chronic Current Visit: No History of Present Illness - Data of Consult Patient: known to practice within the last 3 years Consult date: 12/13/16 Requesting Physician: Woodrow Gramajo - Consult Narrative Reason for consult: Evaluate cardiac status prior to E scope History of present illness: Mr. 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 ewing Patient is 71 years old. He has had a pacer placed for bradycardia. He has done well since then. Did have a stroke at that time. Has not had a stroke since. He has had no problems with the pacemaker since that time. He has been on Eliquis. He noted some recent blood in his stools and dark stool. He was tired. He came in. He was seen. He was anemic. I was asked tosee him . His troponin is about 0.100. He is having no chest pain No orthopnea, PND, edema, palpitations, syncope, cough wheezing or phlegm. Past medical history: CVA Prior pacemaker A. fib Anticoagulated Social history: Does not smoke cigarettes or drink alcohol. He has had 2 sons who have in the past. Also one has a kidney and pancreas transplant. Another son, opto mechanical technician, has insulin-dependent diabetes Family history is not remark for early coronary disease Review of systems is unremarkable except for as mentioned in HPI. sph: steven brady CC: King Cantu MD - Home Medications and Allergies Home Medications: Home Medications Medication Instructions Recorded Confirmed Type Apixaban [Eliquis] 5 mg PO BID #60 tablet 11/04/16 12/13/16 Rx Aspirin EC Tab 81 mg PO DAILY #30 tablet 11/04/16 12/13/16 Rx Lisinopril [Prinivil] 20 mg PO BID #60 tablet 11/04/16 12/13/16 Rx Meclizine [Antivert] 25 mg PO QID #120 tablet 11/04/16 12/13/16 Rx Metoprolol Succinate Xl [Toprol Xl] 50 mg PO BID #60 tablet 11/04/16 12/13/16 Rx Potassium Chloride Cap/Tab [K Dur] 20 meq PO DAILY #30 tablet 11/04/16 12/13/16 Rx amLODIPine [Norvasc] 10 mg PO DAILY #30 tablet 11/04/16 12/13/16 Rx hydrALAZINE TAB [Apresoline Tab] 100 mg PO TID #90 tablet 11/04/16 12/13/16 Rx Pantoprazole Tab [Protonix Tab] 40 mg PO DAILY #30 tablet 11/12/16 12/13/16 Rx Tamsulosin [Flomax] 0.4 mg PO BEDTIME 11/15/16 12/13/16 History Atorvastatin [Lipitor] 40 mg PO DAILY 12/13/16 12/13/16 History Polyethylene Glycol 3350 17 gm PO DAILY PRN 12/13/16 12/13/16 History Allergies/Adverse Reactions: Allergies Allergy/AdvReac Type Severity Reaction Status Date / Time dexamethasone Allergy Depression Verified 11/01/16 07:02 montelukast [From Singulair] Allergy Depression Verified 11/01/16 07:02 Penicillins Allergy Unknown/Unable Verified 10/29/16 08:21 to obtain 12 point system: reviewed and no additional remarkable complaints except as stated (A 12 point review of systems is negative except for as mentioned in HPI. ) Medical,Surgical,& Family Hx - Medical History Cardio: History of: Cardiac Dysrhythmia (Atrial fibrillation), Hypertension, Pacemaker (Placed 11/01/[address] Stallings), Cardiovascular Problems (Bradycardia and A Fib) No history of: CHF, CAD, [place] Neurology: History of: Cerebrovascular Accident (Cerebellar stroke, 10/29/2016) No history of: Dementia, Seizures HEENT: History of: Ear Problem (vertigo) Endocrine: History of: Thyroid Disorder No history of: Adrenal Disease, Diabetes Mellitus (IDDM), Diabetes Mellitus ( NIDDM), Endocrine Cancer, Endocrine Problems Rheumatology: History of;: Gout (Occasionally in his toes) Respiratory: History of: Asthma (As a child), Bronchitis (As a child) Genitourinary: History of: Kidney Stones (2011) Gastrointestinal: History of: GI Problems (gallstones in 2011) No history of: Gastrointestinal Bleed Musculoskeletal: No history of: Amputation Hematology: No history of: Blood Transfusion Reaction - Surgical History Cardiac Surgeries: Sugical HX of: Cardiac Surgery (Pacemaker Placed 11/01/[address] Stallings) Patient Denies: Femoral-Popliteal Bypass Graft, Cardiac Catheterization, Carotid Endarterectomy, Internal Defibrillator, Vascular Access Devices Thoracic Surgeries: Patient denies;: Kidney (Renal Surgery), Lithotripsy, Nephrectomy, Organ Transplant, Lobectomy Neurologic Surgeries: Patient denies: Neurologic Surgery HEENT Surgeries: Surgical HX of: Tonsilectomy & Adenoidectomy (1955) Patient denies: Carotid Endarterectomy, Eye Surgery, Thyroid Surgery Abdominal Surgeries: Surgical HX of: Colonoscopy (2011), EGD (2011) Patient denies: Abdominal Surgery, Appendectomy, Cholecystectomy, Gastric Bypass Surgery, Hernia Repair, Splenectomy Reproductive Surgeries: Patient denies;: Breast Surgery, Cystoscopy, Genitourinary Surgery, Prostate Surgery, Vasectomy Orthopedic Surgeries: Patient denies;: Implanted Devices, Orthopedic Surgery, Spinal Surgery, Total Hip Replacement, Total Knee Replacement - Family History Family History: Reports;: Family Stroke (Mother) Denies;: Family Anesthesia Reaction, Family Cancer, Family Diabetes, Family Heart Disease, Family Hypertension, Family Psychiatric Problems - Social History Smoking Status: Never smoker Frequency of Alcohol Use: None Type of Drug Use: None Marital Status: Lives With:: Spouse Functional capacity: independent ambulation Physical Examination Vital Signs Temp Pulse Resp BP Pulse Ox 97.4 F L 72 20 144/55 100 12/13/16 09:46 12/13/16 09:46 12/13/16 09:46 12/13/16 09:46 12/13/16 09:46 Exam: HEENT: Pupils equal, reactive to light and accommodation Neck: NoJVD or bruit Lungs clear to auscultation Heart: Regular rhythm rate with normal S1 and S2. Apical S4 Abdomen: No hepatosplenomegaly Spine/extremities: No clubbing, cyanosis, or edema Neuro: Nonfocal Psych: No depression or anxiety Result/EKG - Labs CBC & BMP: 12/13/16 10:29 12/13/16 16:41 Lab Results: I have reviewed the past 24 hour labs Labs: Laboratory Results - last 24 hr 12/13/16 12/13/16 12/13/16 10:29 10:29 10:29 WBC 11.1 RBC 2.21 L Hgb 6.2 L* Hct 19.0 L MCV 86.0 L MCH 28 MCHC 32.6 RDW 15.4 Plt Count 305 MPV 9.5 L Neut % (Auto) 74.6 H Lymph % (Auto) 17.5 L Lamb % (Auto) 4.6 Eos % (Auto) 1.5 Baso % (Auto) 0.4 Neut # (Auto) 8.3 H Lymph # (Auto) 1.9 Lamb # (Auto) 0.5 Eos # (Auto) 0.2 Baso # (Auto) 0.0 Immature Gran % 1.4 Nucleated RBC % 0.0 Immature Gran # 0.15 Nucleated RBCs # 0.00 Immature Plt Fraction 0.0 INR 1.0 PT Patient/Control Mix 10.7 ABG pH ABG pCO2 ABG pO2 ABG HCO3 ABG Total CO2 ABG O2 Saturation ABG Base Excess FiO2 Sodium Potassium Chloride Carbon Dioxide Anion Gap BUN Creatinine GFR Calculation BUN/Creatinine Ratio Glucose Calculated Osmolality Calcium Magnesium Total Bilirubin AST ALT Alkaline Phosphatase Ammonia Troponin I B-Natriuretic Peptide Total Protein Albumin Globulin Albumin/Globulin Ratio Blood Type A POSITIVE Antibody Screen Negative Crossmatch Blood Bank Comment 12/13/16 12/13/16 12/13/16 10:29 10:29 10:30 WBC RBC Hgb Hct MCV MCH MCHC RDW Plt Count MPV Neut % (Auto) Lymph % (Auto) Lamb % (Auto) Eos % (Auto) Baso % (Auto) Neut # (Auto) Lymph # (Auto) Lamb # (Auto) Eos # (Auto) Baso # (Auto) Immature Gran % Nucleated RBC % Immature Gran # Nucleated RBCs # Immature Plt Fraction INR PT Patient/Control Mix ABG pH ABG pCO2 ABG pO2 ABG HCO3 ABG Total CO2 ABG O2 Saturation ABG Base Excess FiO2 Sodium 140 Potassium 3.5 Chloride 107 Carbon Dioxide 23 Anion Gap 13.5 BUN 31 H Creatinine 1.70 H GFR Calculation 49 BUN/Creatinine Ratio 18.00 Glucose 108 H Calculated Osmolality 286.4 Calcium 8.6 Magnesium 2.2 Total Bilirubin 0.40 AST 13 ALT 18 Alkaline Phosphatase 132 H Ammonia Cancelled Troponin I 0.117 H B-Natriuretic Peptide Total Protein 6.0 L Albumin 3.2 L Globulin 2.8 Albumin/Globulin Ratio 1.1 Blood Type Cancelled Cancelled Antibody Screen Cancelled Cancelled Crossmatch See Detail See Detail Blood Bank Comment Cancelled Cancelled 12/13/16 12/13/16 12/13/16 16:41 16:41 16:45 WBC RBC Hgb Hct MCV MCH MCHC RDW Plt Count MPV Neut % (Auto) Lymph % (Auto) Lamb % (Auto) Eos % (Auto) Baso % (Auto) Neut # (Auto) Lymph # (Auto) Lamb # (Auto) Eos # (Auto) Baso # (Auto) Immature Gran % Nucleated RBC % Immature Gran # Nucleated RBCs # Immature Plt Fraction INR PT Patient/Control Mix ABG pH 7.463 H ABG pCO2 30.9 L ABG pO2 133.0 H ABG HCO3 23.4 ABG Total CO2 20.9 L ABG O2 Saturation 99.7 ABG Base Excess -1.2 FiO2 36.00 Sodium 142 Potassium 3.7 Chloride 110 H Carbon Dioxide 22 Anion Gap 13.7 BUN 31 H Creatinine 1.70 H GFR Calculation 50 BUN/Creatinine Ratio 18.00 Glucose 139 H Calculated Osmolality 291.1 Calcium 8.3 L Magnesium Total Bilirubin AST ALT Alkaline Phosphatase Ammonia Troponin I B-Natriuretic Peptide 279 H Total Protein Albumin Globulin Albumin/Globulin Ratio Blood Type Antibody Screen Crossmatch Blood Bank Comment - Diagnostic Findings Procedure: Chest x-ray: report reviewed by me - EKG EKG results: interpreted by me
[2016-12-13] MEDS: PROMETHAZINE INJ 25 MG in SODIUM CHLORIDE 0.9% 50 ML IV SCH (20:16)
[2016-12-13 20:58] LABS: CKMB % 8.2 %
[2016-12-13 20:59] LABS: Troponin I Only 0.863 NG/ML (0.00-0.045)
[2016-12-13] MEDS ORDERED: METOPROLOL SUCCINATE XL 50 MG TABLET PO SCH (21:00)
[2016-12-13] MEDS: TAMSULOSIN 0.4 MG CAPSULE PO SCH (21:18)
[2016-12-13] MEDS: PANTOPRAZOLE 40 MG VIAL IV SCH (21:18)
[2016-12-13] MEDS: LISINOPRIL 20 MG TABLET PO SCH (21:18)
[2016-12-14] MEDS: PROMETHAZINE INJ 25 MG in SODIUM CHLORIDE 0.9% 50 ML IV SCH ×3 (00:15→06:47)
[2016-12-14 02:24] LABS: Hematocrit 28.7 VOL% (42.0-52.0); Hemoglobin 9.6 GM/DL (14.0-18.0)
[2016-12-14 02:33] LABS: PT Patient Result 10.9 SECS
[2016-12-14 05:15] LABS: Basophils # 0.1 10*3/uL (0.0-0.2); Basophils % 0.6 % (0.0-0.8); Eosinophils # 0.1 10*3/uL (0.0-0.87); Eosinophils % 0.8 % (0.00-10.9); Hematocrit 27.1 VOL% (42.0-52.0); Hemoglobin 9.3 GM/DL (14.0-18.0); Immature Granulocytes % 0.8 %; Immature Granulocytes Absolute 0.11 #; Lymphocytes % 15.8 % (21.2-54.2); Mean Corpuscular HGB Conc 34.3 GM/DL (32-36); Mean Corpuscular Hemoglobin 29 PG (27-34); Mean Corpuscular Volume 84.4 FL (87-102); Mean Platelet Volume 9.8 FL (9.6-12.0); Monocytes # 0.7 10*3/uL (0.11-0.8); Monocytes % 5.2 % (1.7-12.7); Neutrophils # 9.9 10*3/uL (1.4-7.4); Neutrophils % 76.8 % (38.7-73.9); Platelet Count 270 T/CUMM (130-400); Red Blood Count 3.21 MC/CUMM (3.8-5.5)
--- NOTE | 2016-12-14 05:36 | EKG Report ---
Stationary ECG Study [facility] Test Date: 12/14/2016 5:36:33 AM Pat Name: JUANA WARNER Department: Room: 110 Gender: M [employer] Supervisor: SHELLIE PRESCOTT : 1945 Requested by: Jennifer Marin Order Number: [id number] Reading MD: JENNIFER MARIN Intervals [place] Rate: 60 P: 999 RI: 0 QRS: -79 QRSD: 190 T: 104 QT: 517 QTc: 518 Interpretive Statements ELECTRONIC VENTRICULAR PACEMAKER ABNORMAL RHYTHM ECG WARNING: DATA QUALITY MAY AFFECT INTERPRETATION Electronically Signed On 12-14-16 09:29:58 CDT by JENNIFER MARIN [email or web address]
[2016-12-14 05:55] LABS: Calcium 8.5 MG/DL (8.5-10.1); Osmolality,Calculated 293.8 MOS/KG (273-304); Potassium 3.7 MMOL/L (3.5-5.1)
[2016-12-14 06:03] LABS: Troponin I Only 1.61 NG/ML (0.00-0.045)
[2016-12-14] MEDS ORDERED: FUROSEMIDE 40 MG/4 ML VIAL IV ONE ×2 (07:33→15:00)
[2016-12-14] MEDS ORDERED: MORPHINE 2 MG/1 ML SYRINGE IV ONE (07:37)
[2016-12-14 07:46] LABS: Allen Test Positive; Pt O2 Delivery Device Venturi Mask
[2016-12-14 07:47] LABS: ABG Base Excess -1.5 MMOL/L (-2.5-2.5); ABG HCO3 23.1 MMOL/L (20-26); ABG Oxygen Saturation 91.7 % (95-100); ABG PCO2 34.3 MM HG (35-48); ABG PH 7.423 (7.35-7.45); ABG PO2 64.2 MM HG (80-95); ABG TCO2 20.4 MMOL/L (23-27)
[2016-12-14 08:18] LABS: Amorphous Crystals,Urine Occasional /HPF (Few); Apearance,Urine CLEAR (Clear); Bacteria,Urine Occasional /HPF (Few); Bilirubin,Urine Negative (Negative); Blood, Urine Negative (Negative); Glucose,Urine (UA) Negative (Negative); Ketones,Urine Negative (Negative); Mucus,Urine Occasional /LPF (Occasional); Nitrite,Urine Negative (Negative); Protein,Urine 100 MG/DL; RBC,Urine 2 /HPF (0-4); Urine Color Yellow (Yellow); Urine Urobilinogen < 2.0 EU/DL (0.2-1.0); WBC,Urine 1 /HPF (0-6)
[2016-12-14] MEDS ORDERED: ALBUTEROL/IPRATROPIUM 3 ML NEB RESP TX PRN (08:34)
[2016-12-14] MEDS ORDERED: POTASSIUM CHLORIDE 20 MEQ TABLET PO ONE (08:36)
--- NOTE | 2016-12-14 08:41 | XRay Report ---
Exam: XR chest 1V portable Indication: Shortness of breath, decreased oxygen saturation Comparison study: 12/13/2016 at 10:44 AM Findings: Cardiac silhouette is enlarged, similar to prior. There is been development of multifocal patchy perihilar and basilar interstitial airspace opacities, most compatible with edema changes. There is no pneumothorax. Trace pleural effusions are also suspected. Left chest pacemaker device and wire leads appear in similar position. There is no acute osseous abnormality. Impression: Cardiomegaly with findings suggestive of developing pulmonary edema and trace pleural effusions. PROCEDURE INTERPRETED AT [facility] DEPARTMENT OF RADIOLOGY Final Report Signed by: Kian Stephenson
[2016-12-14] MEDS ORDERED: PANTOPRAZOLE 40 MG TABLET PO SCH (09:00)
[2016-12-14] MEDS ORDERED: ASPIRIN EC 81 MG TABLET PO SCH (09:00)
--- NOTE | 2016-12-14 09:19 | Cardiology Progress Note ---
Assessment and Plan (1) Elevated troponin Status: Acute Assessment and plan: This is just barely elevated and may be related to his anemia. It may be a chronic finding. Plan/recommendation: Serial cardiac isoenzymes If troponins continue to increase or decrease, would consider treating for CAD If no change and the [place] troponin is seen to be a chronic finding, then I would not pursue it further If no change in troponin okay to proceed with the scope Agree with holding the Eliquis for now I will follow along with you. I do not get any symptoms which suggest acute coronary ischemia. I discussed this with the patient's nurse and tested Dr. Joshua Gramajo to let him know of the plan. Thank you for allowing me to participate in this patient's care 12/14/16: His troponins have increased significantly, but that may be due to the combination of his anemia, the stress of some heart failure--supply demand mismatch-- which I suspect is diastolic, and his renal failure magnifying the troponin rise. Alternatively it could be CAD and no chest pain. Plan/recommendation: I discussed the situation with Dr. Joshua Gramajo. I conferred care with he and the patient's nurse. The risk and benefits favor restarting a low-dose aspirin without the Eliquis, the aspirin will be 81 mg daily. We can re-stop it if he has significant more bleeding. I realize it may be aggravating whatever the cause of his bleeding is , but there is a question of some ischemia and until smoke clears we will cover for this finding I believe it is less likely will bleed with the low-dose aspirin alone and with the low-dose aspirin and the Eliquis. Regarding ischemia I am reluctant to cath him because we would be looking for disease which could be intervened upon which would have some risk with his bleeding source of unknown cause. He is not having chest pain. His EKG is nondiagnostic , pacing. Regarding his heart failure, maybe has had worsening LV function due to the right ventricular pacing. He does have a wide QRS. Will recheck an echo today We will start him on Coreg if he is not on it We will give IV Lasix twice daily We will consult Dr. Mott regarding his suspected sleep apnea. They are open to getting testing and treating if Dr. Mott thinks he may have it. Untreated sleep apnea could certainly aggravate diastolic and systolic heart failure. We will continue to watch hematocrit daily Watch BMP in the a.m. Further decisions based in pain on his response to this therapy I discussed the above with the patient and his . They voiced understanding and agree with the plan. Current Visit: Yes (2) Acute posthemorrhagic anemia Status: Acute Current Visit: Yes (3) Upper gastrointestinal hemorrhage Status: Acute Current Visit: Yes (4) Acute blood loss anemia Status: Acute Current Visit: No (5) Cerebellar stroke Status: Acute Current Visit: No (6) Cholecystitis with cholelithiasis Status: Acute Current Visit: No (7) History of stroke Status: Acute Current Visit: No (8) Pacemaker Status: Acute Current Visit: No (9) Atrial fibrillation Status: Chronic Current Visit: No (10) Chronic anticoagulation Status: Chronic Current Visit: No (11) Chronic kidney disease, stage 3 Status: Chronic Current Visit: No (12) Hypertension Status: Chronic Current Visit: No (13) Obesity (BMI 35.0-39.9 without comorbidity) Status: Chronic Current Visit: No (14) Sleep disorder Status: Chronic Current Visit: No Cardiology - PN: Subj Interval history: He denies chest pain. However he has been more short of breath, particularly this morning. Exam (Progress Note) - Constitutional Vitals: Period Temp Pulse Resp BP Sys/Pretty Pulse Ox Last 24 Hr 96.1 F-99.5 F 57-84 13-31 113-174/44-92 9-100 Exam: HEENT: Pupils equal, reactive to light and accommodation Neck: NoJVD or bruit Lungs decreased breath sounds, few bibasilar rales Heart: Regular rhythm rate with normal S1 and S2. Apical S4, 1/6 systolic ejection murmur along the left lower sternal border. Abdomen: No hepatosplenomegaly Spine/extremities: No clubbing, cyanosis, or edema Neuro: Nonfocal Psych: No depression or anxiety Result/EKG - Labs CBC & BMP: 12/14/16 04:51 12/14/16 04:51 Labs: Laboratory Results - last 24 hr 12/13/16 12/13/16 12/13/16 10:29 10:29 10:29 WBC 11.1 RBC 2.21 L Hgb 6.2 L* Hct 19.0 L MCV 86.0 L MCH 28 MCHC 32.6 RDW 15.4 Plt Count 305 MPV 9.5 L Neut % (Auto) 74.6 H Lymph % (Auto) 17.5 L Luce % (Auto) 4.6 Eos % (Auto) 1.5 Baso % (Auto) 0.4 Neut # (Auto) 8.3 H Lymph # (Auto) 1.9 Luce # (Auto) 0.5 Eos # (Auto) 0.2 Baso # (Auto) 0.0 Immature Gran % 1.4 Nucleated RBC % 0.0 Immature Gran # 0.15 Nucleated RBCs # 0.00 Immature Plt Fraction 0.0 INR 1.0 PT Patient/Control Mix 10.7 ABG pH ABG pCO2 ABG pO2 ABG HCO3 ABG Total CO2 ABG O2 Saturation ABG Base Excess FiO2 Sodium Potassium Chloride Carbon Dioxide Anion Gap BUN Creatinine GFR Calculation BUN/Creatinine Ratio Glucose Calculated Osmolality Calcium Magnesium Total Bilirubin AST ALT Alkaline Phosphatase Ammonia Total Creatine Kinase CK-MB (CK-2) CK and CKMB Interp Troponin I B-Natriuretic Peptide Total Protein Albumin Globulin Albumin/Globulin Ratio Urine Color Urine Appearance Urine pH Ur Specific [place] Urine Protein Urine Glucose (UA) Urine Ketones Urine Blood Urine Nitrate Urine Bilirubin Urine Urobilinogen Urine Leukocytes Urine RBC Urine WBC Amorphous Crystals Urine Bacteria Urine Mucus Ur Culture Indicated? Blood Type A POSITIVE Antibody Screen Negative Crossmatch Blood Bank Comment 12/13/16 12/13/16 12/13/16 10:29 10:29 10:30 WBC RBC Hgb Hct MCV MCH MCHC RDW Plt Count MPV Neut % (Auto) Lymph % (Auto) Luce % (Auto) Eos % (Auto) Baso % (Auto) Neut # (Auto) Lymph # (Auto) Luce # (Auto) Eos # (Auto) Baso # (Auto) Immature Gran % Nucleated RBC % Immature Gran # Nucleated RBCs # Immature Plt Fraction INR PT Patient/Control Mix ABG pH ABG pCO2 ABG pO2 ABG HCO3 ABG Total CO2 ABG O2 Saturation ABG Base Excess FiO2 Sodium 140 Potassium 3.5 Chloride 107 Carbon Dioxide 23 Anion Gap 13.5 BUN 31 H Creatinine 1.70 H GFR Calculation 49 BUN/Creatinine Ratio 18.00 Glucose 108 H Calculated Osmolality 286.4 Calcium 8.6 Magnesium 2.2 Total Bilirubin 0.40 AST 13 ALT 18 Alkaline Phosphatase 132 H Ammonia Cancelled Total Creatine Kinase CK-MB (CK-2) CK and CKMB Interp Troponin I 0.117 H B-Natriuretic Peptide Total Protein 6.0 L Albumin 3.2 L Globulin 2.8 Albumin/Globulin Ratio 1.1 Urine Color Urine Appearance Urine pH Ur Specific [place] Urine Protein Urine Glucose (UA) Urine Ketones Urine Blood Urine Nitrate Urine Bilirubin Urine Urobilinogen Urine Leukocytes Urine RBC Urine WBC Amorphous Crystals Urine Bacteria Urine Mucus Ur Culture Indicated? Blood Type Cancelled Cancelled Antibody Screen Cancelled Cancelled Crossmatch See Detail See Detail Blood Bank Comment Cancelled Cancelled 12/13/16 12/13/16 12/13/16 16:41 16:41 16:45 WBC RBC Hgb Hct MCV MCH MCHC RDW Plt Count MPV Neut % (Auto) Lymph % (Auto) Luce % (Auto) Eos % (Auto) Baso % (Auto) Neut # (Auto) Lymph # (Auto) Luce # (Auto) Eos # (Auto) Baso # (Auto) Immature Gran % Nucleated RBC % Immature Gran # Nucleated RBCs # Immature Plt Fraction INR PT Patient/Control Mix ABG pH 7.463 H ABG pCO2 30.9 L ABG pO2 133.0 H ABG HCO3 23.4 ABG Total CO2 20.9 L ABG O2 Saturation 99.7 ABG Base Excess -1.2 FiO2 36.00 Sodium 142 Potassium 3.7 Chloride 110 H Carbon Dioxide 22 Anion Gap 13.7 BUN 31 H Creatinine 1.70 H GFR Calculation 50 BUN/Creatinine Ratio 18.00 Glucose 139 H Calculated Osmolality 291.1 Calcium 8.3 L Magnesium Total Bilirubin AST ALT Alkaline Phosphatase Ammonia Total Creatine Kinase CK-MB (CK-2) CK and CKMB Interp Troponin I B-Natriuretic Peptide 279 H Total Protein Albumin Globulin Albumin/Globulin Ratio Urine Color Urine Appearance Urine pH Ur Specific [place] Urine Protein Urine Glucose (UA) Urine Ketones Urine Blood Urine Nitrate Urine Bilirubin Urine Urobilinogen Urine Leukocytes Urine RBC Urine WBC Amorphous Crystals Urine Bacteria Urine Mucus Ur Culture Indicated? Blood Type Antibody Screen Crossmatch Blood Bank Comment 12/13/16 12/14/16 12/14/16 20:31 02:19 02:22 WBC RBC Hgb 9.6 L D Hct 28.7 L MCV MCH MCHC RDW Plt Count MPV Neut % (Auto) Lymph % (Auto) Luce % (Auto) Eos % (Auto) Baso % (Auto) Neut # (Auto) Lymph # (Auto) Luce # (Auto) Eos # (Auto) Baso # (Auto) Immature Gran % Nucleated RBC % Immature Gran # Nucleated RBCs # Immature Plt Fraction INR 1.0 PT Patient/Control Mix 10.9 ABG pH ABG pCO2 ABG pO2 ABG HCO3 ABG Total CO2 ABG O2 Saturation ABG Base Excess FiO2 Sodium Potassium Chloride Carbon Dioxide Anion Gap BUN Creatinine GFR Calculation BUN/Creatinine Ratio Glucose Calculated Osmolality Calcium Magnesium Total Bilirubin AST ALT Alkaline Phosphatase Ammonia Total Creatine Kinase 106 CK-MB (CK-2) 8.7 H CK and CKMB Interp 8.2 Troponin I 0.863 H D B-Natriuretic Peptide Total Protein Albumin Globulin Albumin/Globulin Ratio Urine Color Urine Appearance Urine pH Ur Specific [place] Urine Protein Urine Glucose (UA) Urine Ketones Urine Blood Urine Nitrate Urine Bilirubin Urine Urobilinogen Urine Leukocytes Urine RBC Urine WBC Amorphous Crystals Urine Bacteria Urine Mucus Ur Culture Indicated? Blood Type Antibody Screen Crossmatch Blood Bank Comment 12/14/16 12/14/16 12/14/16 04:51 04:51 04:51 WBC 13.0 H RBC 3.21 L D Hgb 9.3 L Hct 27.1 L MCV 84.4 L MCH 29 MCHC 34.3 RDW 15.0 Plt Count 270 MPV 9.8 Neut % (Auto) 76.8 H Lymph % (Auto) 15.8 L Luce % (Auto) 5.2 Eos % (Auto) 0.8 Baso % (Auto) 0.6 Neut # (Auto) 9.9 H Lymph # (Auto) 2.0 Luce # (Auto) 0.7 Eos # (Auto) 0.1 Baso # (Auto) 0.1 Immature Gran % 0.8 Nucleated RBC % 0.0 Immature Gran # 0.11 Nucleated RBCs # 0.00 Immature Plt Fraction 0.0 INR 1.0 PT Patient/Control Mix 11.0 ABG pH ABG pCO2 ABG pO2 ABG HCO3 ABG Total CO2 ABG O2 Saturation ABG Base Excess FiO2 Sodium 144 Potassium 3.7 Chloride 111 H Carbon Dioxide 22 Anion Gap 14.7 BUN 32 H Creatinine 1.80 H GFR Calculation 46 BUN/Creatinine Ratio 17.00 Glucose 109 H Calculated Osmolality 293.8 Calcium 8.5 Magnesium Total Bilirubin AST ALT Alkaline Phosphatase Ammonia Total Creatine Kinase CK-MB (CK-2) CK and CKMB Interp Troponin I B-Natriuretic Peptide Total Protein Albumin Globulin Albumin/Globulin Ratio Urine Color Urine Appearance Urine pH Ur Specific [place] Urine Protein Urine Glucose (UA) Urine Ketones Urine Blood Urine Nitrate Urine Bilirubin Urine Urobilinogen Urine Leukocytes Urine RBC Urine WBC Amorphous Crystals Urine Bacteria Urine Mucus Ur Culture Indicated? Blood Type Antibody Screen Crossmatch Blood Bank Comment 12/14/16 12/14/16 12/14/16 04:51 04:51 07:45 WBC RBC Hgb Hct MCV MCH MCHC RDW Plt Count MPV Neut % (Auto) Lymph % (Auto) Luce % (Auto) Eos % (Auto) Baso % (Auto) Neut # (Auto) Lymph # (Auto) Luce # (Auto) Eos # (Auto) Baso # (Auto) Immature Gran % Nucleated RBC % Immature Gran # Nucleated RBCs # Immature Plt Fraction INR PT Patient/Control Mix ABG pH 7.423 ABG pCO2 34.3 L ABG pO2 64.2 L ABG HCO3 23.1 ABG Total CO2 20.4 L ABG O2 Saturation 91.7 L ABG Base Excess -1.5 FiO2 50.00 Sodium Potassium Chloride Carbon Dioxide Anion Gap BUN Creatinine GFR Calculation BUN/Creatinine Ratio Glucose Calculated Osmolality Calcium Magnesium Total Bilirubin AST ALT Alkaline Phosphatase Ammonia Total Creatine Kinase 176 D CK-MB (CK-2) 10.5 H CK and CKMB Interp 6.0 Troponin I 1.610 H D B-Natriuretic Peptide 578 H Total Protein Albumin Globulin Albumin/Globulin Ratio Urine Color Urine Appearance Urine pH Ur Specific [place] Urine Protein Urine Glucose (UA) Urine Ketones Urine Blood Urine Nitrate Urine Bilirubin Urine Urobilinogen Urine Leukocytes Urine RBC Urine WBC Amorphous Crystals Urine Bacteria Urine Mucus Ur Culture Indicated? Blood Type Antibody Screen Crossmatch Blood Bank Comment 12/14/16 08:05 WBC RBC Hgb Hct MCV MCH MCHC RDW Plt Count MPV Neut % (Auto) Lymph % (Auto) Luce % (Auto) Eos % (Auto) Baso % (Auto) Neut # (Auto) Lymph # (Auto) Luce # (Auto) Eos # (Auto) Baso # (Auto) Immature Gran % Nucleated RBC % Immature Gran # Nucleated RBCs # Immature Plt Fraction INR PT Patient/Control Mix ABG pH ABG pCO2 ABG pO2 ABG HCO3 ABG Total CO2 ABG O2 Saturation ABG Base Excess FiO2 Sodium Potassium Chloride Carbon Dioxide Anion Gap BUN Creatinine GFR Calculation BUN/Creatinine Ratio Glucose Calculated Osmolality Calcium Magnesium Total Bilirubin AST ALT Alkaline Phosphatase Ammonia Total Creatine Kinase CK-MB (CK-2) CK and CKMB Interp Troponin I B-Natriuretic Peptide Total Protein Albumin Globulin Albumin/Globulin Ratio Urine Color Yellow Urine Appearance Clear Urine pH 5.0 Ur Specific [place] 1.010 Urine Protein 100 Urine Glucose (UA) Negative Urine Ketones Negative Urine Blood Negative Urine Nitrate Negative Urine Bilirubin Negative Urine Urobilinogen < 2.0 H Urine Leukocytes Negative Urine RBC 2 Urine WBC 1 Amorphous Crystals Occasional Urine Bacteria Occasional Urine Mucus Occasional Ur Culture Indicated? Not indicated Blood Type Antibody Screen Crossmatch Blood Bank Comment - Diagnostic Findings Procedure: Chest x-ray: report reviewed by me (Consistent with pulmonary edema/ heart failure) - EKG EKG results: interpreted by me
[2016-12-14] MEDS: ASPIRIN CHEW 81 MG TABLET PO SCH (09:56)
[2016-12-14] MEDS: CARVEDILOL 3.125 MG TABLET PO SCH ×2 (09:56→20:02)
[2016-12-14] MEDS: MECLIZINE 25 MG TABLET PO SCH ×4 (09:56→20:02)
[2016-12-14] MEDS: ATORVASTATIN 40 MG TABLET PO SCH (09:56)
[2016-12-14] MEDS: amLODIPine 10 MG TABLET PO SCH (09:56)
[2016-12-14] MEDS: LISINOPRIL 20 MG TABLET PO SCH ×2 (09:56→20:02)
[2016-12-14] MEDS: POTASSIUM CHLORIDE 20 MEQ TABLET PO SCH (09:57)
[2016-12-14] MEDS: PANTOPRAZOLE 40 MG VIAL IV SCH ×2 (09:59→20:02)
--- NOTE | 2016-12-14 12:53 | Sleep Medicine Consult ---
Assessment and Plan (1) Sleep disorder Status: Chronic Assessment and plan: This patient certainly could have sleep apnea with his history of witnessed apneas and intermittent snoring and with his significant comorbidities. Unfortunately, he is too ill to adequately evaluate for sleep apnea at present. I would just continue to monitor him clinically with his hospital stay. I would not recommend empiric auto titration CPAP or BiPAP at this point even with his history. He has expressed significant angst about using CPAP and wearing a mask for such purposes. These patients would be very difficult to treat if an improper mask fit or less than best pressure were utilized. A very bad initial first experience with CPAP may prevent him from being compliant with good treatment in the future. He needs to be evaluated after he is medically stabilized. Thank you for this consult and the opportunity to participate in his care. Current Visit: No (2) Hypothyroidism Status: Chronic Assessment and plan: Hypothyroidism can be a contributing factor to sleep apnea and follow-up of his TSH needs to be done to make sure that he is euthyroid on appropriate replacement therapy. Current Visit: No (3) Atrial fibrillation Status: Chronic Assessment and plan: Untreated sleep apnea can be a contributing factor to atrial fibrillation. Prevalence rate can be as high as 80% and treatment of sleep apnea in these patients can reduce recurrence by almost 50% Current Visit: No (4) Hypertension Status: Chronic Assessment and plan: The prevalence rate for obstructive sleep apnea patients with hypertension is 35 %. That rate can be as high as 80% in patients who require 4 or more medications for blood pressure control. Current Visit: No History of Present Illness Chief complaint: Sleep apnea History of present illness: Mr. Hays is a 71 year old male with a complicated medical illness that developed back in late September. He apparently suffered a cerebellar stroke. He had atrial fibrillation and bradycardia. He ultimately required pacemaker placement. He also has had issues with recurrent nausea and vomiting and in October had a cholecystectomy. He had no improvement in his nausea and vomiting after cholecystectomy. He is return with GI bleeding with dark tarry stools and acute blood loss anemia. He is in the intensive care unit and has continued to have problems with vomiting. He has been seen by both GI medicine and cardiology. Dr. Marin is consulted sleep medicine. He does have a history of snoring on occasion according to his . She states that she has noticed him to be stopping breathing during his sleep for years. He does have symptoms of disrupted sleep. He has a stop bang score of 7 but an Jefferson sleepiness score of only 5. Home Medications Medication Instructions Recorded Confirmed Type Apixaban [Eliquis] 5 mg PO BID #60 tablet 11/04/16 12/13/16 Rx Aspirin EC Tab 81 mg PO DAILY #30 tablet 11/04/16 12/13/16 Rx Lisinopril [Prinivil] 20 mg PO BID #60 tablet 11/04/16 12/13/16 Rx Meclizine [Antivert] 25 mg PO QID #120 tablet 11/04/16 12/13/16 Rx Metoprolol Succinate Xl [Toprol Xl] 50 mg PO BID #60 tablet 11/04/16 12/13/16 Rx Potassium Chloride Cap/Tab [K Dur] 20 meq PO DAILY #30 tablet 11/04/16 12/13/16 Rx amLODIPine [Norvasc] 10 mg PO DAILY #30 tablet 11/04/16 12/13/16 Rx hydrALAZINE TAB [Apresoline Tab] 100 mg PO TID #90 tablet 11/04/16 12/13/16 Rx Pantoprazole Tab [Protonix Tab] 40 mg PO DAILY #30 tablet 11/12/16 12/13/16 Rx Tamsulosin [Flomax] 0.4 mg PO BEDTIME 11/15/16 12/13/16 History Atorvastatin [Lipitor] 40 mg PO DAILY 12/13/16 12/13/16 History Polyethylene Glycol 3350 17 gm PO DAILY PRN 12/13/16 12/13/16 History Allergies Allergy/AdvReac Type Severity Reaction Status Date / Time dexamethasone Allergy Depression Verified 11/01/16 07:02 montelukast [From Singulair] Allergy Depression Verified 11/01/16 07:02 Penicillins Allergy Unknown/Unable Verified 10/29/16 08:21 to obtain Review of systems: Otherwise unremarkable from a sleep medicine standpoint. Exam (P[place]monay) H&P - Constitutional Vitals: Period Temp Pulse Resp BP Sys/Pretty Pulse Ox Last 24 Hr 96.1 F-99.5 F 60-84 13-31 113-174/44-92 9-100 Exam: He is alert and responsive. He appears chronically ill. HEENT pupils equal round reactive to light and accommodation. Extraocular movements intact. Oropharynx with a class III Mallampati exam. Neck is supple without adenopathy. Neck circumference is 19 inches. No supraclavicular adenopathy. Chest with symmetrical breath sounds without focal wheeze or rhonchi. Cardiac exam reveals a regular rhythm without murmur or gallop. Abdomen obese nontender without palpable organomegaly or mass. Extremities without significant edema or clubbing. Neurologically, grossly intact. Medical,Surgical,& Family Hx - Medical History Cardio: History of: Cardiac Dysrhythmia (Atrial fibrillation), Hypertension, Pacemaker (Placed 11/01/[address] Stallings), Cardiovascular Problems (Bradycardia and A Fib) No history of: CHF, CAD, [place] Neurology: History of: Cerebrovascular Accident (Cerebellar stroke, 10/29/2016) No history of: Dementia, Seizures HEENT: History of: Ear Problem (vertigo) Endocrine: History of: Thyroid Disorder No history of: Adrenal Disease, Diabetes Mellitus (IDDM), Diabetes Mellitus ( NIDDM), Endocrine Cancer, Endocrine Problems Rheumatology: History of;: Gout (Occasionally in his toes) Respiratory: History of: Asthma (As a child), Bronchitis (As a child) Genitourinary: History of: Kidney Stones (2011) Gastrointestinal: History of: GI Problems (gallstones in 2011) No history of: Gastrointestinal Bleed Musculoskeletal: No history of: Amputation Hematology: No history of: Blood Transfusion Reaction - Surgical History Cardiac Surgeries: Sugical HX of: Cardiac Surgery (Pacemaker Placed 11/01/[address] Stallings) Patient Denies: Femoral-Popliteal Bypass Graft, Cardiac Catheterization, Carotid Endarterectomy, Internal Defibrillator, Vascular Access Devices Thoracic Surgeries: Patient denies;: Kidney (Renal Surgery), Lithotripsy, Nephrectomy, Organ Transplant, Lobectomy Neurologic Surgeries: Patient denies: Neurologic Surgery HEENT Surgeries: Surgical HX of: Tonsilectomy & Adenoidectomy (1955) Patient denies: Carotid Endarterectomy, Eye Surgery, Thyroid Surgery Abdominal Surgeries: Surgical HX of: Colonoscopy (2011), EGD (2011) Patient denies: Abdominal Surgery, Appendectomy, Cholecystectomy, Gastric Bypass Surgery, Hernia Repair, Splenectomy Reproductive Surgeries: Patient denies;: Breast Surgery, Cystoscopy, Genitourinary Surgery, Prostate Surgery, Vasectomy Orthopedic Surgeries: Patient denies;: Implanted Devices, Orthopedic Surgery, Spinal Surgery, Total Hip Replacement, Total Knee Replacement - Family History Family History: Reports;: Family Stroke (Mother) Denies;: Family Anesthesia Reaction, Family Cancer, Family Diabetes, Family Heart Disease, Family Hypertension, Family Psychiatric Problems - Social History Smoking Status: Never smoker Frequency of Alcohol Use: None Type of Drug Use: None Results - Labs CBC & BMP: 12/14/16 04:51 12/14/16 04:51 Lab Results: I have reviewed the past 24 hour labs Labs: TSH not done
--- NOTE | 2016-12-14 14:46 | Gastrointestinal Progress Note ---
Assessment and Plan (1) Acute posthemorrhagic anemia Status: Acute Assessment and plan: Patient has a history of a hematocrit of 41.3% back on 11/02/16 prior to getting the cholecystectomy. This dropped down to a adonis of 28.8% when seen on but has since dropped down to 19% this admission with recent coffee-ground emesis worse today and yesterday but going on for the last 3 days by report. Eliquis and aspirin certainly have added to the patient's blood loss and may be a Natalia-Hung tear versus esophagitis versus gastric/duodenal ulcer recurrence (patient had this back in the ), versus AVMs or duodenitis. We do not know what the patient's Helicobacter pylori status is but given his prior history of ulcers this may certainly be positive. We will perform upper endoscopy with potential biopsies. It is good and the patient has been off of his Eliquis for the last 2 days. Agree with transfusion in the short-term. 12/14/16--Unfortunately the patient developed some congestive heart failure and is currently being diuresed with Dr. Marin following closely. We have given him a clear liquid diet, and he does not have any further hematemesis. We are awaiting the greenlight from cardiology to schedule his upper endoscopy to look for the source of bleeding potentially. He is being given Protonix 40 mg twice daily IV. Current Visit: Yes (2) Upper gastrointestinal hemorrhage Status: Acute Assessment and plan: As mentioned above we will try and find the source for the patient's upper GI blood loss, suspect that this may be a Natalia-Hung tear versus peptic ulcer disease of some type. He denies use of aspirin, other than his 81 mg, or other NSAIDs at home. Would certainly like to have Dr. Marin evaluate this patient before taking him to upper endoscopy tomorrow given his elevated troponin levels which I suspect are probably mild ischemia with the patient's drop in hematocrit to 19%. If Dr. Marin feels that a echocardiogram or other testing is indicated prior to endoscopy will certainly hold off on the scoping. Risks of upper endoscopy include but are not limited to: Bleeding, infection, perforation, cardiac and pulmonary compromise. 12/14/16--Awaiting cardiology clearance to scope patient. He is currently being watched closely in the ICU. Diuresis continues, I expect that if he stopped bleeding his hematocrit will improve above 30% shortly. Current Visit: Yes (3) Nausea with vomiting, unspecified Status: Acute Assessment and plan: I suspect this patient may have chronic gastritis based on the nausea and vomiting which is occurring on a routine basis. There may also be gastroparesis present that we will look for this specifically when doing her upper endoscopy tomorrow. Protonix has not helped particularly making the likelihood of gastroparesis higher. 12/14/16--observe on a clear liquid diet, he seems to be doing better with promethazine as needed. Current Visit: Yes (4) Personal history of colonic polyps Status: Acute Assessment and plan: The patient previously had colonoscopy done by Dr. Chandan Casarez back in 2011 with a number of polyps removed. Would like to know the pathology is polyps in the number as well as locations for colonoscopies in the future. I have asked the nurses to obtain old records by contacting [facility] to this end. Current Visit: Yes Gastroenterology - PN: Subj Interval history: Unfortunately the patient got some fluid in the emergency room as well as a total of 4 units transfused yesterday which brought his hematocrit up to 28% from 19% but threw him into congestive heart failure. He is still mildly short of breath and appears quite fatigued this morning. He is not complaining of any nausea but typically does not have classic nausea anyway prior to vomiting. His abdominal "pressure" is improved. His hematocrit currently is 27.1% and he has not had any further melena. The aspirin is being continued as this is felt to be necessary from a cardiologic standpoint, he is tolerating clear liquids adequately at this time. Exam (Progress Note) - Constitutional Vitals: Period Temp Pulse Resp BP Sys/Pretty Pulse Ox Last 24 Hr 96.1 F-99.5 F 60-84 13-31 113-174/44-92 9-100 General appearance: over weight - Head Head exam: Present: normocephalic - Eye Eye exam: Present: EOMI Pupils: Present: ELISEO - Respiratory Respiratory exam: Present: clear to auscultation bilaterally. Absent: rhonchi, stridor, wheezes - GI/Abdominal GI/Abdominal exam: Present: normal bowel sounds, distended, soft. Absent: guarding, tenderness, rebound - Extremities Exam Extremities exam: Present: edema (Trace at the ankles) - Neurological Exam Neurological exam: Present: alert, oriented X3 - Psychiatric Psychiatric exam: Present: normal affect, normal mood - Skin Skin exam: Present: warm Results - Labs CBC & BMP: 12/14/16 04:51 12/14/16 04:51
[2016-12-14] MEDS: FUROSEMIDE 40 MG/4 ML VIAL IV SCH (15:29)
--- NOTE | 2016-12-14 17:14 | Hospitalist Progress Note ---
Assessment and Plan (1) Acute pulmonary edema Status: Acute Assessment and plan: Echo from 10/29/2016 shows EF 45-50 % at slow heart rate. Normal right ventricular size and systolic function. Moderately increased right atrial size. Moderately increased left atrial size. Thickened mitral valve. Trace mitral valve regurgitation. Aortic valve sclerosis. Moderate tricuspid valve regurgitation. PAP 40 mmHg. Pulmonic valve not well visualized. No pericardial effusion. Normal aorta. Continue with diuresis with IV Lasix. Current Visit: Yes (2) Chronic kidney disease, stage 3 Status: Chronic Current Visit: No (3) Chronic atrial fibrillation Status: Chronic Assessment and plan: Eliquis held. Current Visit: No (4) Chronic anticoagulation Status: Chronic Assessment and plan: Eliquis held due to GI bleeding Current Visit: No (5) Essential hypertension Status: Chronic Current Visit: No (6) Acute posthemorrhagic anemia Status: Acute Assessment and plan: Status post transfusion of 4 units of packed red blood cells. GI consulted. Awaiting cardiac clearance for EGD. Current Visit: Yes (7) Nausea with vomiting, unspecified Status: Acute Current Visit: Yes Qualifiers: Vomiting type: cyclical vomiting (8) Elevated troponin Status: Acute Assessment and plan: Follow-up cardiology consult Current Visit: Yes Hospitalist: Subjective Interval history: Patient seen and examined. No acute events overnight. Case discussed with nursing staff. Labs reviewed. The patient was transferred to the intensive care unit late yesterday afternoon after 2 episodes of bloody emesis. This morning he is short of breath and has evidence of pulmonary edema on chest x- ray. He also had elevated troponins and has been seen by cardiology- Dr. Marin. Lasix has been ordered and he has a good response with clear yellow urine in the Patterson bag. Exam - Constitutional Vitals: Period Temp Pulse Resp BP Sys/Pretty Pulse Ox Last 24 Hr 97.5 F-100.6 F 60-84 13-31 110-174/44-92 89-100 Exam: Constitutional System: Moderate distress. No tremulousness. Dyspneic. Head: Normocephalic, atraumatic. Ears, Nose and Throat System: No pain or tenderness. No epistaxis or discharge. Venti mask noted Eyes System: Pupils equal, round, and reactive. Extraocular muscles intact. Neck: Supple, without adenopathy, No jugular venous distention. Respiratory System: Chest with rales bilaterally to auscultation. Cardiovascular System: Heart with regular rate and rhythm. No murmur. GI System: Abdomen soft, nontender. Normo active bowel sounds present. Musculoskeletal System: limbs with no pedal edema. Full distal pulses. Neurological System: No discernable sensory deficit. No aphasia Psychiatric System: Conversation is rational Results - Labs CBC & BMP: 12/14/16 04:51 12/14/16 04:51 Lab Results: I have reviewed the past 24 hour labs - Diagnostic Findings Procedure: Chest x-ray: report reviewed by me, image reviewed by me
--- NOTE | 2016-12-14 17:31 | ECHO Report ---
Stuart Hays Exam Date: 12/14/2016 10:54 Referring Physician: Technologist: Jyoti Hernandez RDCS Age: 71 Ht (in): 68 Wt (lb): 226 Gender: M Exam Location: [facility] Echo Indications: Elevated troponin, Acute posthemorrhagic anemia, hx CVA, Presence of cardiac pacemaker, Chronic kidney disease, stage 3 (moderate) BP: 155 / 65 HR: 60 Rhythm: Pacemaker Technical Quality: Good, Fair IMPRESSIONS Moderate left ventricular hypertrophy. Left ventricular ejection fraction is estimated at 65 %. Moderately increased upper septal thickness. Moderately increased right atrial size. Moderately increased left atrial size. Mildly thickened mitral valve. Mild mitral valve regurgitation. Mild aortic valve calcification. Mean gradient 10 mmHg, HUMBLE 1.7 cm. Trace to mild tricuspid valve regurgitation. Tricuspid regurgitation velocities suggest a PAP of 48 mmHg. MEASUREMENTS (Male / Female) Normal Values 2D ECHO LV Diastolic Diameter PLAX 5.6 cm 4.2 - 5.9 / 3.9 - 5.3 cm LV Systolic Diameter PLAX 3.2 cm LV Fractional Shortening PLAX 43.6 % IVS Diastolic Thickness 1.6 cm 0.6 - 1.0 / 0.6 - 0.9 cm LVPW Diastolic Thickness 1.5 cm 0.6 - 1.0 / 0.6 - 0.9 cm RV Internal Dim ED PLAX 3.5 cm Aortic Root Diameter 3.1 cm LA Systolic Diameter LX 5.4 cm 3.0 - 4.0 / 2.7 - 3.8 cm DOPPLER TR Peak Velocity 307.0 cm/s TR Peak Gradient 37.7 mmHg FINDINGS Left Ventricle Normal left ventricular cavity size. Moderate left ventricular hypertrophy. Left ventricular ejection fraction is estimated at 65 %. Moderately increased upper septal thickness. Right Ventricle Normal right ventricular size. Catheter/pacemaker wire visualized in the right ventricle. Right Atrium Moderately increased right atrial size. Catheter/pacemaker wire in the right atrial cavity. Left Atrium Moderately increased left atrial size. Mitral Valve Mildly thickened mitral valve. Mild mitral valve regurgitation. Aortic Valve Mild aortic valve calcification. Mean gradient 10 mmHg, HUMBLE 1.7 cm. Tricuspid Valve Morphologically normal tricuspid valve. Trace to mild tricuspid valve regurgitation. Tricuspid regurgitation velocities suggest a PAP of 48 mmHg. Pulmonic Valve Morphologically normal pulmonic valve without significant stenosis. There is no pulmonic regurgitation. Pericardium Normal pericardium without effusion. Aorta Normal ascending aorta dimension. Chris Marin MD (Electronically Signed) Final Date: 14 December 2016 17:26
[2016-12-14] MEDS: TAMSULOSIN 0.4 MG CAPSULE PO SCH (20:02)
[2016-12-15 05:38] LABS: Basophils # 0.1 10*3/uL (0.0-0.2); Basophils % 0.4 % (0.0-0.8); Eosinophils # 0.1 10*3/uL (0.0-0.87); Eosinophils % 0.5 % (0.00-10.9); Hematocrit 26.9 VOL% (42.0-52.0); Hemoglobin 8.9 GM/DL (14.0-18.0); Immature Granulocytes % 0.7 %; Immature Granulocytes Absolute 0.08 #; Lymphocytes # 1.7 10*3/uL (1.4-4.0); Lymphocytes % 15.3 % (21.2-54.2); Mean Corpuscular HGB Conc 33.1 GM/DL (32-36); Mean Corpuscular Hemoglobin 28 PG (27-34); Mean Corpuscular Volume 85.7 FL (87-102); Monocytes # 0.7 10*3/uL (0.11-0.8); Neutrophils # 8.7 10*3/uL (1.4-7.4); Neutrophils % 77.1 % (38.7-73.9); Platelet Count 262 T/CUMM (130-400); Red Blood Count 3.14 MC/CUMM (3.8-5.5); Red Cell Distribution Width 15.9 % (9.3-17.3); White Blood Count 11.3 T/CUMM (4-12)
[2016-12-15 05:40] LABS: INR 1.1; PT Patient Result 11.7 SECS
[2016-12-15 06:01] LABS: Calcium 8.3 MG/DL (8.5-10.1); Magnesium 2.2 MG/DL (1.8-2.4); Osmolality,Calculated 292.8 MOS/KG (273-304); Potassium 3.4 MMOL/L (3.5-5.1)
[2016-12-15 06:03] LABS: Risk Ratio 2.68; VLDL CHOLESTEROL 21.2 MG/DL
[2016-12-15] MEDS: FUROSEMIDE 40 MG/4 ML VIAL IV SCH (07:32)
--- NOTE | 2016-12-15 08:01 | EKG Report ---
Stationary ECG Study [facility] Test Date: 12/15/2016 8:01:55 AM Pat Name: JUANA WARNER Department: Room: 110 Gender: M Professor Of French: LEBRON : 1945 Requested by: Jennifer Marin Order Number: [id number] Reading MD: JENNIFER MARIN Intervals [place] Rate: 75 P: 999 CA: 0 QRS: 111 QRSD: 202 T: 51 QT: 516 QTc: 544 Interpretive Statements ELECTRONIC VENTRICULAR PACEMAKER ABNORMAL RHYTHM ECG Electronically Signed On 12-15-16 13:07:53 CDT by JENNIFER MARIN [email or web address]
[2016-12-15] MEDS: ATORVASTATIN 40 MG TABLET PO SCH (08:15)
[2016-12-15] MEDS: POTASSIUM CHLORIDE 20 MEQ TABLET PO SCH (08:23)
[2016-12-15] MEDS: LISINOPRIL 20 MG TABLET PO SCH (08:23)
[2016-12-15] MEDS: PANTOPRAZOLE 40 MG VIAL IV SCH ×2 (08:23→21:56)
[2016-12-15] MEDS: CARVEDILOL 3.125 MG TABLET PO SCH (08:23)
[2016-12-15] MEDS: MECLIZINE 25 MG TABLET PO SCH ×4 (08:23→21:50)
[2016-12-15] MEDS: ASPIRIN CHEW 81 MG TABLET PO SCH (08:23)
[2016-12-15] MEDS: amLODIPine 10 MG TABLET PO SCH (08:23)
[2016-12-15] MEDS ORDERED: POTASSIUM CHLORIDE RIDER 20 MEQ in PREMIX 1 EACH IV PRN (09:03)
[2016-12-15] MEDS: POTASSIUM CHLORIDE RIDER 10 MEQ in PREMIX 1 EACH IV PRN ×3 (09:30→13:10)
--- NOTE | 2016-12-15 11:26 | Cardiology Progress Note ---
Assessment and Plan - Time spent with patient Time spent with patient: Greater than 30 minutes (1) PAF (paroxysmal atrial fibrillation) Status: Chronic Assessment and plan: SEE PLAN OF CARE LISTED BELOW Current Visit: Yes (2) Dyslipidemia Status: Chronic Assessment and plan: SEE PLAN OF CARE LISTED BELOW Current Visit: Yes (3) Elevated troponin Status: Acute Assessment and plan: SEE PLAN OF CARE LISTED BELOW Current Visit: Yes (4) Melena Status: Acute Assessment and plan: SEE PLAN OF CARE LISTED BELOW Current Visit: Yes (5) Nausea with vomiting, unspecified Status: Resolved Assessment and plan: SEE PLAN OF CARE LISTED BELOW Current Visit: Yes Qualifiers: Vomiting type: cyclical vomiting (6) Abdominal pain Status: Resolved Assessment and plan: SEE PLAN OF CARE LISTED BELOW Current Visit: No Qualifiers: Abdominal location: generalized Qualified Code(s): R10.84 - Generalized abdominal pain (7) Acute blood loss anemia Status: Acute Assessment and plan: SEE PLAN OF CARE LISTED BELOW Current Visit: No (8) History of stroke Status: Acute Assessment and plan: SEE PLAN OF CARE LISTED BELOW Current Visit: No (9) Pacemaker Status: Chronic Assessment and plan: SEE PLAN OF CARE LISTED BELOW Current Visit: No (10) Hypertension Status: Chronic Assessment and plan: SEE PLAN OF CARE LISTED BELOW Current Visit: No (11) Hypothyroidism Status: Chronic Assessment and plan: SEE PLAN OF CARE LISTED BELOW Current Visit: No (12) Obesity (BMI 35.0-39.9 without comorbidity) Status: Chronic Assessment and plan: SEE PLAN OF CARE LISTED BELOW Current Visit: No (13) Renal insufficiency Status: Chronic Assessment and plan: SEE PLAN OF CARE LISTED BELOW Current Visit: No (14) Sleep disorder Status: Chronic Assessment and plan: SEE PLAN OF CARE LISTED BELOW Current Visit: No Cardiology - PN: Subj Interval history: PRIMARY CERTIFIED PHARMACY TECHNICIAN: DR. MARIN SUMMARY: Mr. Hays has risk factors significant for: age, hypertension, obesity, dyslipidemia, and previous tobacco use. History of atrial fibrillation for which he takes Eliquis for stroke prevention. History of CVA September 2016 (at that time he was started on Eliquis) is. Status post permanent pacemaker implantation for symptomatic bradycardia. Patient admitted November elevates admitted December 13, 2016 with complaints of hematemesis and melena last week, worsening fatigue. He was found to be severely anemic with a hemoglobin and hematocrit of 6.2 and 19.0 respectively. He has received several units of packed red blood cells. Cardiology was consulted for elevated troponin, anemia on Eliquis with recent CVA. December 13, 2016 echocardiogram: EF 60%, moderate LVH, PA P 48 mmHg. DECEMBER 15, 2016: This morning, Mr. Hays reports he is feeling fantastic. Labs are stable. Gastroenterology has been following and awaiting recommendations from cardiology to proceed with further invasive workup. Troponin is elevated at 2 this morning. I discussed with Dr. Marin and suspect his troponin is related to his severe anemia, elevated creatinine and stress. Recommends undergoing further GI workup prior to cardiac catheterization. Patient reports he is normally very active. He states he can take 2 flights of stairs without chest pain, heaviness, tightness or shortness of breath. He has never had heart catheterization or complaints concerning for angina. We will continue to monitor his lab work, EKG and telemetry. Will further discuss with Dr. Marin and await additional recommendations. ASSESSMENT/PLAN: 1. ELEVATED TROPONIN - continue to cycle cardiac biomarkers. Will need eventual further cardiac workup with possible heart catheterization after anemia has been thoroughly explored. 2. ANEMIA - with reported hematemesis and melena and epigastric pain. Recommend proceeding with invasive GI workup. 3. HYPERTENSION - suboptimally controlled. Increase beta-blockade, continue KAMAR inhibitor closely monitoring renal insufficiency. 4. DYSLIPIDEMIA - LDL 38. Continue atorvastatin. May consider lowering the dose. 5. ATRIAL FIBRILLATION WITH HISTORY OF CVA - currently in normal sinus rhythm. CHADVASC SCORE 5. After reviewing telemetry, I see no paroxysms of A. fib. Patient may be a candidate for a rhythm controlling agent, especially since he is severely anemic and we are avoiding anticoagulants. 6. SLEEP DISORDER CONCERNING FOR SLEEP APNEA - Dr. Mott has seen. 7. CKD, STAGE III - , specifically EGD he is being evaluated for possible 8. PACEMAKER - stable Exam (Progress Note) - Constitutional Vitals: Period Temp Pulse Resp BP Sys/Pretty Pulse Ox Last 24 Hr 97.3 F-100.6 F 60-92 14-28 110-185/56-94 92-98 Exam: General: [Appears well with no apparent distress.] [Pleasant and cooperative. ] [Appears comfortable.] HEENT: [PERRL, normocephalic, atraumatic. Mucous membranes moist. No jaundice noted. Conjunctiva moist and clear, sclerae anicteric] Neck: Unable to assess for JVD due to habitus. No thyromegaly or lymphadenopathy noted. No carotid bruit appreciated Cardiac: [Regular rate and rhythm.] [No obvious murmur rub or gallop.] Lungs: [Clear to auscultation without accessory muscle use to assist the respiratory pattern.] Using oxygen intermittently. Abdomen: Soft, bowel sounds normoactive. Nontender and nondistended. No abdominal bruit or thrill noted. No masses noted. Musculoskeletal: No fluid collection. Decreased range of motion is noted. Extremities: No clubbing, cyanosis noted. [ No edema noted.] Upper extremity pulses 2+. Lower extremity pulses 2+. Capillary refill less than 3 seconds. Skin: No unusual lesions or rashes. No skin breakdown appreciated. Neuro: Awake, alert and oriented 3. Moves all extremities well without hemiparesis or paralysis. No essential tremor is appreciated. Result/EKG - Labs CBC & BMP: 12/15/16 04:07 12/15/16 04:07 Lab Results: I have reviewed the past 24 hour labs Labs: Laboratory Results - last 24 hr 12/15/16 12/15/16 12/15/16 04:07 04:07 04:07 WBC 11.3 RBC 3.14 L Hgb 8.9 L Hct 26.9 L MCV 85.7 L MCH 28 MCHC 33.1 RDW 15.9 Plt Count 262 MPV 10.0 Neut % (Auto) 77.1 H Lymph % (Auto) 15.3 L [place] % (Auto) 6.0 Eos % (Auto) 0.5 Baso % (Auto) 0.4 Neut # (Auto) 8.7 H Lymph # (Auto) 1.7 [place] # (Auto) 0.7 Eos # (Auto) 0.1 Baso # (Auto) 0.1 Immature Gran % 0.7 Nucleated RBC % 0.0 Immature Gran # 0.08 Nucleated RBCs # 0.00 Immature Plt Fraction 0.0 INR 1.1 PT Patient/Control Mix 11.7 Sodium 144 Potassium 3.4 L Chloride 111 H Carbon Dioxide 26 Anion Gap 10.4 BUN 31 H Creatinine 2.10 H GFR Calculation 39 BUN/Creatinine Ratio 14.00 Glucose 105 Calculated Osmolality 292.8 Calcium 8.3 L Magnesium 2.2 Total Creatine Kinase CK-MB (CK-2) Troponin I Triglycerides Cholesterol LDL Cholesterol VLDL Cholesterol HDL Cholesterol Heart Disease Risk Ratio 12/15/16 12/15/16 04:07 07:50 WBC RBC Hgb Hct MCV MCH MCHC RDW Plt Count MPV Neut % (Auto) Lymph % (Auto) [place] % (Auto) Eos % (Auto) Baso % (Auto) Neut # (Auto) Lymph # (Auto) [place] # (Auto) Eos # (Auto) Baso # (Auto) Immature Gran % Nucleated RBC % Immature Gran # Nucleated RBCs # Immature Plt Fraction INR PT Patient/Control Mix Sodium Potassium Chloride Carbon Dioxide Anion Gap BUN Creatinine GFR Calculation BUN/Creatinine Ratio Glucose Calculated Osmolality Calcium Magnesium Total Creatine Kinase 133 D CK-MB (CK-2) 3.0 D Troponin I 2.500 H D Triglycerides 106 Cholesterol 83 LDL Cholesterol 38.0 VLDL Cholesterol 21.2 HDL Cholesterol 31 L Heart Disease Risk Ratio 2.68 - Diagnostic Findings Procedure: Chest x-ray: report reviewed by me - EKG EKG results: interpreted by me EKG shows: sinus rhythm
--- NOTE | 2016-12-15 11:31 | Hospitalist Progress Note ---
Assessment and Plan (1) Acute pulmonary edema Status: Acute Assessment and plan: Echo from 10/29/2016 shows EF 45-50 % at slow heart rate. Normal right ventricular size and systolic function. Moderately increased right atrial size. Moderately increased left atrial size. Thickened mitral valve. Trace mitral valve regurgitation. Aortic valve sclerosis. Moderate tricuspid valve regurgitation. PAP 40 mmHg. Pulmonic valve not well visualized. No pericardial effusion. Normal aorta. The patient had a good response to Lasix IV. His renal function is starting to climb and I will decrease his Lasix to once daily. Cardiology following. Echo noted. Current Visit: Yes (2) Chronic kidney disease, stage 3 Status: Chronic Assessment and plan: Mildly increased creatinine. Reduce Lasix. Current Visit: No (3) Chronic atrial fibrillation Status: Chronic Assessment and plan: Eliquis held. Due to gastrointestinal bleeding. Current Visit: No (4) Chronic anticoagulation Status: Chronic Assessment and plan: Eliquis held due to GI bleeding Current Visit: No (5) Essential hypertension Status: Chronic Current Visit: No (6) Acute posthemorrhagic anemia Status: Acute Assessment and plan: Status post transfusion of 4 units of packed red blood cells. GI consulted. Awaiting cardiac clearance for EGD. Current Visit: Yes (7) Nausea with vomiting, unspecified Status: Resolved Current Visit: Yes Qualifiers: Vomiting type: cyclical vomiting (8) Elevated troponin Status: Acute Assessment and plan: Cardiology consult noted. They will wait until the EGD is performed in the patient is cleared from a GI standpoint from bleeding prior to performing heart cath due to the risk of further bleeding with anticoagulation related to treatment of his possible ischemia. Current Visit: Yes Hospitalist: Subjective Interval history: Patient seen and examined. No acute events overnight. Case discussed with nursing staff. Labs reviewed. He denies any complaints. Feels much better this morning than yesterday. He had a good response with Lasix and diuresis. Echocardiogram shows Moderate left ventricular hypertrophy. Left ventricular ejection fraction is estimated at 65 %. Moderately increased upper septal thickness. Moderately increased right atrial size. Moderately increased left atrial size. Mildly thickened mitral valve. Mild mitral valve regurgitation. Mild aortic valve calcification. Mean gradient 10 mmHg, HUMBLE 1.7 cm. Trace to mild tricuspid valve regurgitation. Tricuspid regurgitation velocities suggest a PAP of 48 mmHg. Exam - Constitutional Vitals: Period Temp Pulse Resp BP Sys/Pretty Pulse Ox Last 24 Hr 97.3 F-100.6 F 60-92 14-28 110-185/56-94 92-98 Exam: Constitutional System: Moderate distress. No tremulousness. Dyspneic. Head: Normocephalic, atraumatic. Ears, Nose and Throat System: No pain or tenderness. No epistaxis or discharge. Eyes System: Pupils equal, round, and reactive. Extraocular muscles intact. Neck: Supple, without adenopathy, No jugular venous distention. Respiratory System: Chest with clear lungs to auscultation. Cardiovascular System: Heart with regular rate and rhythm. No murmur. GI System: Abdomen soft, nontender. Normo active bowel sounds present. Musculoskeletal System: limbs with no pedal edema. Full distal pulses. Neurological System: No discernable sensory deficit. No aphasia Psychiatric System: Conversation is rational Results - Labs CBC & BMP: 12/15/16 04:07 12/15/16 04:07 Lab Results: I have reviewed the past 24 hour labs
--- NOTE | 2016-12-15 11:51 | Physician Query Form ---
CLICK EDIT DOCUMENT TO SELECT QUERY ANSWER --> OK --> SIGN Eduarda Bueno RN, CCDS Certified Clinical Production Statistical Clerk W) [phone] (f) [phone] [email or web address]: Make your selection(s) from the choices in EACH section by typing an "x" and enter comments in the comment section. Please use your independent medical judgment in providing your response. This request does not imply that any particular answer is desired or expected. CLINICAL INDICATORS: (Providers should not edit this section) The medical record indicates that the patient was admitted with lower GI bleeding, later had "Acute Pulmonary Edema", "developed some congestive heart failure", "EF 45-50%", BNP to 578# on the , and the patient was treated with IV Lasix. Please provide further specificity regarding CHF. ACUITY: ( ) Acute ( ) Chronic ( x) Acute on Chronic ( ) Clinically unable to determine TYPE: ( ) Systolic (HFrEF - heart failure with reduced systolic function/EF) ( x) Diastolic (HFpEF - heart failure with preserved systolic function/EF) ( ) Combined Systolic/Diastolic ( ) Other, please specify: ( ) Clinically unable to determine ( ) Past Medical History of Systolic CHF ( ) Past Medical History of Diastolic CHF (x ) Clinically unable to determine COMMENTS: PLEASE ALSO DOCUMENT RESPONSE IN PROGRESS NOTES AND/OR DISCHARGE SUMMARY Use of terms such as suspected, likely, or probable (associated with a specific diagnosis that is being evaluated, monitored, or treated as if it exists) are acceptable and can be restated in the discharge summary if not ruled out. MTDD
[2016-12-15] MEDS: METOPROLOL TARTRATE 50 MG TABLET PO SCH ×2 (11:57→21:55)
--- NOTE | 2016-12-15 17:23 | Gastrointestinal Progress Note ---
Assessment and Plan (1) Acute posthemorrhagic anemia Status: Acute Assessment and plan: Patient has a history of a hematocrit of 41.3% back on 11/02/16 prior to getting the cholecystectomy. This dropped down to a adonis of 28.8% when seen on but has since dropped down to 19% this admission with recent coffee-ground emesis worse today and yesterday but going on for the last 3 days by report. Eliquis and aspirin certainly have added to the patient's blood loss and may be a Natalia-Hung tear versus esophagitis versus gastric/duodenal ulcer recurrence (patient had this back in the ), versus AVMs or duodenitis. We do not know what the patient's Helicobacter pylori status is but given his prior history of ulcers this may certainly be positive. We will perform upper endoscopy with potential biopsies. It is good and the patient has been off of his Eliquis for the last 2 days. Agree with transfusion in the short-term. 12/14/16--Unfortunately the patient developed some congestive heart failure and is currently being diuresed with Dr. Marin following closely. We have given him a clear liquid diet, and he does not have any further hematemesis. We are awaiting the greenlight from cardiology to schedule his upper endoscopy to look for the source of bleeding potentially. He is being given Protonix 40 mg twice daily IV. 12/15/16--Feels better now that he is out of congestive heart failure and diuresed appropriately. His troponin levels continue to rise, but Dr. Marin wishes to proceed with upper endoscopy tomorrow and find out what his risk bleeding risk is prior to taking him to catheterization. We will likely use minimal sedation and his hematocrit remained stable at this point at 26.9%. Current Visit: Yes (2) Upper gastrointestinal hemorrhage Status: Acute Assessment and plan: As mentioned above we will try and find the source for the patient's upper GI blood loss, suspect that this may be a Natalia-Hung tear versus peptic ulcer disease of some type. He denies use of aspirin, other than his 81 mg, or other NSAIDs at home. Would certainly like to have Dr. Marin evaluate this patient before taking him to upper endoscopy tomorrow given his elevated troponin levels which I suspect are probably mild ischemia with the patient's drop in hematocrit to 19%. If Dr. Marin feels that a echocardiogram or other testing is indicated prior to endoscopy will certainly hold off on the scoping. Risks of upper endoscopy include but are not limited to: Bleeding, infection, perforation, cardiac and pulmonary compromise. 12/14/16--Awaiting cardiology clearance to scope patient. He is currently being watched closely in the ICU. Diuresis continues, I expect that if he stopped bleeding his hematocrit will improve above 30% shortly. 12/15/16--Patient's hematocrit is remained stable that is drifting downward. Current Visit: Yes (3) Nausea with vomiting, unspecified Status: Resolved Assessment and plan: I suspect this patient may have chronic gastritis based on the nausea and vomiting which is occurring on a routine basis. There may also be gastroparesis present that we will look for this specifically when doing her upper endoscopy tomorrow. Protonix has not helped particularly making the likelihood of gastroparesis higher. 12/14/16--observe on a clear liquid diet, he seems to be doing better with promethazine as needed. 12/15/16--Continues on clear liquids and is doing much better on these now. No difficulty tolerating. Current Visit: Yes Qualifiers: Vomiting type: cyclical vomiting (4) Personal history of colonic polyps Status: Acute Assessment and plan: The patient previously had colonoscopy done by Dr. Chandan Casarez back in 2011 with a number of polyps removed. Would like to know the pathology is polyps in the number as well as locations for colonoscopies in the future. I have asked the nurses to obtain old records by contacting [facility] to this end. 12/15/16--Reports from [place] are not back yet. Still awaiting colonoscopy report with number and placement of polyps as well as pathology. Current Visit: Yes Gastroenterology - PN: Subj Interval history: Patient is feeling pretty good today without any atypical chest pain or nausea/ vomiting he is not having any epigastric tenderness. He has not had any bowel movements. He is happily eating his popsicles and juice at the bedside. He has his prescription sunglasses on and he is upright in a bedside chair in the ICU. Exam (Progress Note) - Constitutional Vitals: Period Temp Pulse Resp BP Sys/Pretty Pulse Ox Last 24 Hr 97.3 F-98.5 F 60-83 13-28 131-185/56-94 92-99 General appearance: no acute distress - Head Head exam: Present: normocephalic, atraumatic - Eye Eye exam: Present: EOMI - Respiratory Respiratory exam: Present: clear to auscultation bilaterally. Absent: rhonchi, stridor, wheezes - GI/Abdominal GI/Abdominal exam: Present: normal bowel sounds, soft. Absent: distended, guarding, tenderness, rebound - Extremities Exam Extremities exam: Absent: edema - Neurological Exam Neurological exam: Present: alert, oriented X3, CN II-XII intact. Absent: motor sensory deficit - Psychiatric Psychiatric exam: Present: normal affect, normal mood - Skin Skin exam: Present: warm Results - Labs CBC & BMP: 12/15/16 04:07 12/15/16 04:07
[2016-12-15] MEDS: TAMSULOSIN 0.4 MG CAPSULE PO SCH (21:55)
[2016-12-16 05:35] LABS: Basophils % 0.4 % (0.0-0.8); Eosinophils # 0.1 10*3/uL (0.0-0.87); Eosinophils % 1.4 % (0.00-10.9); Hematocrit 26.9 VOL% (42.0-52.0); Hemoglobin 8.8 GM/DL (14.0-18.0); Immature Granulocytes % 0.6 %; Immature Granulocytes Absolute 0.05 #; Lymphocytes # 1.7 10*3/uL (1.4-4.0); Lymphocytes % 18.5 % (21.2-54.2); Mean Corpuscular HGB Conc 32.7 GM/DL (32-36); Mean Corpuscular Hemoglobin 28 PG (27-34); Mean Corpuscular Volume 85.7 FL (87-102); Mean Platelet Volume 9.7 FL (9.6-12.0); Monocytes # 0.5 10*3/uL (0.11-0.8); Monocytes % 5.9 % (1.7-12.7); Neutrophils # 6.7 10*3/uL (1.4-7.4); Neutrophils % 73.2 % (38.7-73.9); Platelet Count 254 T/CUMM (130-400); Red Blood Count 3.14 MC/CUMM (3.8-5.5); Red Cell Distribution Width 15.6 % (9.3-17.3); White Blood Count 9.1 T/CUMM (4-12)
[2016-12-16] MEDS: LISINOPRIL 20 MG TABLET PO SCH ×3 (05:46→20:57)
[2016-12-16 05:57] LABS: PT Patient Result 11.1 SECS
[2016-12-16 06:29] LABS: Calcium 8.1 MG/DL (8.5-10.1); Magnesium 2.1 MG/DL (1.8-2.4); Osmolality,Calculated 285.3 MOS/KG (273-304); Potassium 3.1 MMOL/L (3.5-5.1)
--- NOTE | 2016-12-16 07:15 | XRay Report ---
XR chest 1V portable Indication: Pulmonary edema. Chest one view: Comparison 2 days ago shows slight decrease but persistent interstitial prominence of the lungs from presumed pulmonary edema. Cardiomegaly is unchanged. Pacemaker stable. Impression: Slightly decreased fluid overload. However, there is continued CHF present. PROCEDURE INTERPRETED AT [facility] DEPARTMENT OF RADIOLOGY Final Report Signed by: Rm Borden M.D.
--- NOTE | 2016-12-16 07:43 | EKG Report ---
Stationary ECG Study [facility] Test Date: 12/16/2016 7:42:39 AM Pat Name: JUANA WARNER Department: Room: 110 Gender: M [employer] Developer: LEBRON : 1945 Requested by: Jennifer Marin Order Number: [id number] Reading MD: JENNIFER MARIN Intervals [place] Rate: 72 P: 999 [place]: 0 QRS: -14 QRSD: 206 T: 119 QT: 511 QTc: 535 Interpretive Statements UNCERTAIN IRREGULAR RHYTHM--possible underlying atrial fibrillation ELECTRONIC VENTRICULAR PACEMAKER -- CONTOUR ANALYSIS BASED ON INTRINSIC RHYTHM INDETERMINATE AXIS RIGHT BUNDLE BRANCH BLOCK MARKED ST DEPRESSION, CONSIDER SUBENDOCARDIAL INJURY Electronically Signed On 12-16-16 09:30:05 CDT by JENNIFER MARIN [email or web address]
[2016-12-16] MEDS ORDERED: ETOMIDATE 20 MG/10 ML VIAL IV ONE (08:30)
[2016-12-16] MEDS ORDERED: LIDOCAINE 100 MG/5 ML SYRINGE ONE (08:30)
--- NOTE | 2016-12-16 08:45 | Operative Note ---
Date of procedure: 12/16/16 Pre-op diagnosis: Upper GI bleeding, hematocrit 19%-->26.9% today posttransfusion Procedure: PROCEDURE: Esophagogastroduodenoscopy (EGD) with cold biopsy for pathology REFERRING PHYSICIAN: Chris Marin MD and Dr. King Cantu MD INDICATIONS: Decrease in hematocrit from 19% now up to 26.9 post transfusion in a patient with upper GI bleeding and increased troponin levels with CHF posttransfusion. The prior H&P was reviewed and interrim changes are as noted: No change from GI consultation on 12/13/16 ENDOSCOPIST: Woodrow Gramajo MD ENDOSCOPE: Olympus Video 100 System upper endoscope ASA CLASS: 4 EXAM: CV: regular rate and rhythm respiratory: Clear without wheezes abdominal: active bowel sounds MEDICATION: Per nursing anesthesia protocol, see their notes PROCEDURE: After discussion of the potential risks and benefits of upper endoscopy, the informed consent was obtained. The patient was then placed in the left lateral decubitus position where sedation was achieved as noted above. Esophageal intubation was performed without difficulty, and the endoscope was advanced through the esophagus, stomach and duodenum. A slow withdrawal was then performed with retroflexion in the stomach for careful inspection of the incisura angularis, fundus and cardia. The scope was then returned to a neutral position and withdrawn through the esophagus. The patient tolerated the procedure well and without complication. BIOPSIES: Gastric antrum/body and distal esophageal mass 3 cm PHOTOGRAPHS: Obtained FINDINGS: Hypopharynx and Larynx: Normal Esohagoscopy Upper and middle thirds: Normal Lower third 3 cm esophageal mass between 36 and 39 cm at and above the GE junction, biopsied Esophogastric junctions: 3 cm esophageal mass between 36 and 39 cm abdomen above the GE junction, biopsied Gastroscopy: Cardia/Fundus: 4 cm hiatal hernia noted Body: Mild gastritis, biopsied Antrum and pylorus mild gastritis with nidia-pyloric lipoma (probable) biopsied Duodenoscopy: Bulb normal Second and third portions: Normal IMPRESSION: 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 Mild gastritis, 4 cm hiatal hernia also noted incidentally. RECOMMENDATIONS: Follow up for biopsy results in 1-2 weeks by phone [phone] Continue anti-gastroesophageal reflux measures (avoid carbonated and acidic beverages, avoid eating within 2 hours of bedtime, avoid tight fitting clothing , and elevate the front bed posts 6 inches prior to sleeping. My suggestion would be not to anticoagulate this patient further. Await biopsies This patient may need an esophagectomy. Suggest consultation to oncology. Woodrow Gramajo MD COPY TO: IVAN Marin and King Cantu Anesthesia: [facility] [place] Surgeon / Physician: Woodrow Gramajo Estimated blood loss: minimal Specimens: other (Distal esophageal biopsies of mass, gastric antrum/body) Condition: stable Disposition: post procedure unit (G.I. Suite) Results - Labs CBC & BMP: 12/16/16 04:50 12/16/16 04:50 Discharge Plan - Discharge Medications No Action Aspirin EC Tab 81 mg PO DAILY #30 tablet hydrALAZINE TAB [Apresoline Tab] 100 mg PO TID #90 tablet Lisinopril [Prinivil] 20 mg PO BID #60 tablet Metoprolol Succinate Xl [Toprol Xl] 50 mg PO BID #60 tablet Potassium Chloride Cap/Tab [K Dur] 20 meq PO DAILY #30 tablet Tamsulosin [Flomax] 0.4 mg PO BEDTIME Polyethylene Glycol 3350 17 gm PO DAILY PRN PRN Reason: Constipation Atorvastatin [Lipitor] 40 mg PO DAILY amLODIPine [Norvasc] 10 mg PO DAILY #30 tablet Apixaban [Eliquis] 5 mg PO BID #60 tablet Meclizine [Antivert] 25 mg PO QID #120 tablet Pantoprazole Tab [Protonix Tab] 40 mg PO DAILY #30 tablet - Follow Up or Referral - Forms/Instructions
--- NOTE | 2016-12-16 08:49 | Gastrointestinal Progress Note ---
Assessment and Plan (1) Esophageal cancer Status: Acute Assessment and plan: Discovered on endoscopy today. We will need to wait for the biopsy results, with suggest consulting oncology and weighing the options between radiation chemotherapy and esophagectomy. I would's further suggest the patient be left on a full liquid diet as this is has pretty significant narrowing of the esophagus and consider holding further anticoagulation. The esophageal cancer as the cause for the patient's blood loss. Current Visit: Yes (2) Acute posthemorrhagic anemia Status: Acute Assessment and plan: Patient has a history of a hematocrit of 41.3% back on 11/02/16 prior to getting the cholecystectomy. This dropped down to a adonis of 28.8% when seen on but has since dropped down to 19% this admission with recent coffee-ground emesis worse today and yesterday but going on for the last 3 days by report. Eliquis and aspirin certainly have added to the patient's blood loss and may be a Natalia-Hung tear versus esophagitis versus gastric/duodenal ulcer recurrence (patient had this back in the ), versus AVMs or duodenitis. We do not know what the patient's Helicobacter pylori status is but given his prior history of ulcers this may certainly be positive. We will perform upper endoscopy with potential biopsies. It is good and the patient has been off of his Eliquis for the last 2 days. Agree with transfusion in the short-term. 12/14/16--Unfortunately the patient developed some congestive heart failure and is currently being diuresed with Dr. Marin following closely. We have given him a clear liquid diet, and he does not have any further hematemesis. We are awaiting the greenlight from cardiology to schedule his upper endoscopy to look for the source of bleeding potentially. He is being given Protonix 40 mg twice daily IV. 12/15/16--Feels better now that he is out of congestive heart failure and diuresed appropriately. His troponin levels continue to rise, but Dr. Marin wishes to proceed with upper endoscopy tomorrow and find out what his risk bleeding risk is prior to taking him to catheterization. We will likely use minimal sedation and his hematocrit remained stable at this point at 26.9%. 12/16/16--hematocrit stable. Current Visit: Yes (3) Upper gastrointestinal hemorrhage Status: Acute Assessment and plan: As mentioned above we will try and find the source for the patient's upper GI blood loss, suspect that this may be a Natalia-Hung tear versus peptic ulcer disease of some type. He denies use of aspirin, other than his 81 mg, or other NSAIDs at home. Would certainly like to have Dr. Marin evaluate this patient before taking him to upper endoscopy tomorrow given his elevated troponin levels which I suspect are probably mild ischemia with the patient's drop in hematocrit to 19%. If Dr. Marin feels that a echocardiogram or other testing is indicated prior to endoscopy will certainly hold off on the scoping. Risks of upper endoscopy include but are not limited to: Bleeding, infection, perforation, cardiac and pulmonary compromise. 12/14/16--Awaiting cardiology clearance to scope patient. He is currently being watched closely in the ICU. Diuresis continues, I expect that if he stopped bleeding his hematocrit will improve above 30% shortly. 12/15/16--Patient's hematocrit is remained stable that is drifting downward. 12/16/16--patient stable. Current Visit: Yes (4) Nausea with vomiting, unspecified Status: Resolved Assessment and plan: I suspect this patient may have chronic gastritis based on the nausea and vomiting which is occurring on a routine basis. There may also be gastroparesis present that we will look for this specifically when doing her upper endoscopy tomorrow. Protonix has not helped particularly making the likelihood of gastroparesis higher. 12/14/16--observe on a clear liquid diet, he seems to be doing better with promethazine as needed. 12/15/16--Continues on clear liquids and is doing much better on these now. No difficulty tolerating. 12/16/16--Tolerating clears at this point. Advance to full liquid diet due to esophageal cancer. Current Visit: Yes Qualifiers: Vomiting type: cyclical vomiting (5) Personal history of colonic polyps Status: Acute Assessment and plan: The patient previously had colonoscopy done by Dr. Chandan Casarez back in 2011 with a number of polyps removed. Would like to know the pathology is polyps in the number as well as locations for colonoscopies in the future. I have asked the nurses to obtain old records by contacting [facility] to this end. 12/15/16--Reports from [place] are not back yet. Still awaiting colonoscopy report with number and placement of polyps as well as pathology. Current Visit: Yes Gastroenterology - PN: Subj Interval history: Doing okay this morning. Exam (Progress Note) - Constitutional Vitals: Period Temp Pulse Resp BP Sys/Pretty Pulse Ox Last 24 Hr 97.1 F-98.5 F 60-83 13-24 107-174/41-79 96-100 - Eye Eye exam: Present: EOMI - Respiratory Respiratory exam: Present: clear to auscultation bilaterally - Cardiovascular Cardiovascular exam: Present: regular rate and rhythm - GI/Abdominal GI/Abdominal exam: Present: normal bowel sounds, soft. Absent: tenderness, rebound - Extremities Exam Extremities exam: Present: normal inspection - Neurological Exam Neurological exam: Present: alert, oriented X3 - Psychiatric Psychiatric exam: Present: normal affect, normal mood Results - Labs CBC & BMP: 12/16/16 04:50 12/16/16 04:50
--- NOTE | 2016-12-16 08:51 | Anesthesia Post-Op ---
Anesthesia Post OP - Post Ansesthetic Evaluation Patient seen in post op: Yes Resp: within normal limits CV: within normal limits Mental: within normal limits Temp: within normal limits [id number]: within normal limits Nausea and Vomiting: within normal limits Pain: within normal limits
[2016-12-16] MEDS ORDERED: FUROSEMIDE 40 MG/4 ML VIAL IV SCH (09:00)
[2016-12-16] MEDS: PANTOPRAZOLE 40 MG VIAL IV SCH ×2 (10:32→20:58)
[2016-12-16] MEDS: ATORVASTATIN 40 MG TABLET PO SCH (10:35)
[2016-12-16] MEDS: METOPROLOL TARTRATE 50 MG TABLET PO SCH ×2 (10:36→20:57)
[2016-12-16] MEDS: amLODIPine 10 MG TABLET PO SCH (10:36)
[2016-12-16] MEDS: MECLIZINE 25 MG TABLET PO SCH ×4 (10:37→20:57)
[2016-12-16] MEDS: POTASSIUM CHLORIDE 20 MEQ TABLET PO SCH (10:37)
[2016-12-16] MEDS: ASPIRIN CHEW 81 MG TABLET PO SCH (10:46)
--- NOTE | 2016-12-16 11:39 | Cardiology Progress Note ---
Assessment and Plan - Time spent with patient Time spent with patient: Greater than 30 minutes (1) PAF (paroxysmal atrial fibrillation) Status: Chronic Assessment and plan: SEE PLAN OF CARE LISTED BELOW Current Visit: Yes (2) Dyslipidemia Status: Chronic Assessment and plan: SEE PLAN OF CARE LISTED BELOW Current Visit: Yes (3) Elevated troponin Status: Acute Assessment and plan: SEE PLAN OF CARE LISTED BELOW Current Visit: Yes (4) Melena Status: Acute Assessment and plan: SEE PLAN OF CARE LISTED BELOW Current Visit: Yes (5) Nausea with vomiting, unspecified Status: Resolved Assessment and plan: SEE PLAN OF CARE LISTED BELOW Current Visit: Yes Qualifiers: Vomiting type: cyclical vomiting (6) Abdominal pain Status: Resolved Assessment and plan: SEE PLAN OF CARE LISTED BELOW Current Visit: No Qualifiers: Abdominal location: generalized Qualified Code(s): R10.84 - Generalized abdominal pain (7) Acute blood loss anemia Status: Acute Assessment and plan: SEE PLAN OF CARE LISTED BELOW Current Visit: No (8) History of stroke Status: Acute Assessment and plan: SEE PLAN OF CARE LISTED BELOW Current Visit: No (9) Pacemaker Status: Chronic Assessment and plan: SEE PLAN OF CARE LISTED BELOW Current Visit: No (10) Hypertension Status: Chronic Assessment and plan: SEE PLAN OF CARE LISTED BELOW Current Visit: No (11) Hypothyroidism Status: Chronic Assessment and plan: SEE PLAN OF CARE LISTED BELOW Current Visit: No (12) Obesity (BMI 35.0-39.9 without comorbidity) Status: Chronic Assessment and plan: SEE PLAN OF CARE LISTED BELOW Current Visit: No (13) Renal insufficiency Status: Chronic Assessment and plan: SEE PLAN OF CARE LISTED BELOW Current Visit: No (14) Sleep disorder Status: Chronic Assessment and plan: SEE PLAN OF CARE LISTED BELOW Current Visit: No (15) Esophageal cancer Status: Acute Assessment and plan: SEE PLAN OF CARE LISTED BELOW Current Visit: Yes Cardiology - PN: Subj Interval history: PRIMARY FLUID DYNAMICIST: DR. MARIN SUMMARY: Mr. Hays has risk factors significant for: age, hypertension, obesity, dyslipidemia, and previous tobacco use. History of atrial fibrillation for which he takes Eliquis for stroke prevention. History of CVA September 2016 (at that time he was started on Eliquis) is. Status post permanent pacemaker implantation for symptomatic bradycardia. Patient admitted November elevates admitted December 13, 2016 with complaints of hematemesis and melena last week, worsening fatigue. He was found to be severely anemic with a hemoglobin and hematocrit of 6.2 and 19.0 respectively. He has received several units of packed red blood cells. Cardiology was consulted for elevated troponin, anemia on Eliquis with recent CVA. December 13, 2016 echocardiogram: EF 60%, moderate LVH, PA P 48 mmHg. DECEMBER 15, 2016: This morning, Mr. Hays reports he is feeling fantastic. Labs are stable. Gastroenterology has been following and awaiting recommendations from cardiology to proceed with further invasive workup. Troponin is elevated at 2 this morning. I discussed with Dr. Marin and suspect his troponin is related to his severe anemia, elevated creatinine and stress. Recommends undergoing further GI workup prior to cardiac catheterization. Patient reports he is normally very active. He states he can take 2 flights of stairs without chest pain, heaviness, tightness or shortness of breath. He has never had heart catheterization or complaints concerning for angina. We will continue to monitor his lab work, EKG and telemetry. Will further discuss with Dr. Marin and await additional recommendations. DECEMBER 16, 2016: Still groggy post EGD. Findings of the EEG noted, concerning for esophageal cancer. Labs are stable overnight. Blood pressure uncontrolled overnight. Will adjust medications this morning for better blood pressure control after he has received his a.m. meds as he has been n.p.o. for EGD. I will around back this afternoon and reevaluate his blood pressure and adjust accordingly if needed. Continue to hold Eliquis. No paroxysms of atrial fibrillation. He may benefit from a rhythm controlling agent as he is no longer a candidate for anticoagulation due to his recent results of EGD. I will further discuss with Dr. Marin and await additional recommendations. ASSESSMENT/PLAN: 1. ELEVATED TROPONIN -no complaints of chest pain. Troponins have peaked and are trending down. 2. ANEMIA - with hematemesis and melena and epigastric pain. EGD results noted 3. HYPERTENSION - suboptimally controlled. Increase beta-alyx yesterday. Been unable to take oral meds due to EGD this morning and I will continue to monitor his blood pressure throughout the day today and adjust medications after he has received his medicines. Avoiding KAMAR inhibitor for fear of worsening renal insufficiency. 4. DYSLIPIDEMIA - LDL 38. Continue Atorvastatin. 5. ATRIAL FIBRILLATION WITH HISTORY OF CVA - currently in normal sinus rhythm. CHADVASC SCORE 5. After reviewing telemetry, I see no paroxysms of A. fib. Patient may be a candidate for a rhythm controlling agent, especially since he is severely anemic and he is no longer candidate for anticoagulation. 6. SLEEP DISORDER CONCERNING FOR SLEEP APNEA - Dr. Mott has seen. 7. CKD, STAGE III - avoiding KAMAR inhibitors. Continue current plan of care. 8. PACEMAKER - stable 9. ABNORMAL EGD FINDINGS - concerning for esophageal cancer. Exam (Progress Note) - Constitutional Vitals: Period Temp Pulse Resp BP Sys/Pretty Pulse Ox Last 24 Hr 97.1 F-98.5 F 60-74 13-24 107-173/41-77 94-100 Exam: General: [Appears well with no apparent distress.] [Pleasant and cooperative. ] [Appears comfortable.] HEENT: [PERRL, normocephalic, atraumatic. Mucous membranes moist. No jaundice noted. Conjunctiva moist and clear, sclerae anicteric] Neck: Unable to assess for JVD due to habitus. No thyromegaly or lymphadenopathy noted. No carotid bruit appreciated Cardiac: [Regular rate and rhythm.] [No obvious murmur rub or gallop.] Lungs: [Clear to auscultation without accessory muscle use to assist the respiratory pattern.] Using oxygen intermittently. Abdomen: Soft, bowel sounds normoactive. Nontender and nondistended. No abdominal bruit or thrill noted. No masses noted. Musculoskeletal: No fluid collection. Decreased range of motion is noted. Extremities: No clubbing, cyanosis noted. [ No edema noted.] Upper extremity pulses 2+. Lower extremity pulses 2+. Capillary refill less than 3 seconds. Skin: No unusual lesions or rashes. No skin breakdown appreciated. Neuro: Awake, alert and oriented 3. Moves all extremities well without hemiparesis or paralysis. No essential tremor is appreciated. Result/EKG - Labs CBC & BMP: 12/16/16 04:50 12/16/16 04:50 Lab Results: I have reviewed the past 24 hour labs Labs: Laboratory Results - last 24 hr 12/16/16 12/16/16 12/16/16 04:50 04:50 04:50 WBC 9.1 RBC 3.14 L Hgb 8.8 L Hct 26.9 L MCV 85.7 L MCH 28 MCHC 32.7 RDW 15.6 Plt Count 254 MPV 9.7 Neut % (Auto) 73.2 Lymph % (Auto) 18.5 L Owsley % (Auto) 5.9 Eos % (Auto) 1.4 Baso % (Auto) 0.4 Neut # (Auto) 6.7 Lymph # (Auto) 1.7 Owsley # (Auto) 0.5 Eos # (Auto) 0.1 Baso # (Auto) 0.0 Immature Gran % 0.6 Nucleated RBC % 0.0 Immature Gran # 0.05 Nucleated RBCs # 0.00 Immature Plt Fraction 0.0 INR 1.0 PT Patient/Control Mix 11.1 Sodium 141 Potassium 3.1 L Chloride 106 Carbon Dioxide 25 Anion Gap 13.1 BUN 28 H Creatinine 1.80 H GFR Calculation 46 BUN/Creatinine Ratio 15.00 Glucose 89 Calculated Osmolality 285.3 Calcium 8.1 L Magnesium 2.1 Troponin I 12/16/16 04:50 WBC RBC Hgb Hct MCV MCH MCHC RDW Plt Count MPV Neut % (Auto) Lymph % (Auto) Owsley % (Auto) Eos % (Auto) Baso % (Auto) Neut # (Auto) Lymph # (Auto) Owsley # (Auto) Eos # (Auto) Baso # (Auto) Immature Gran % Nucleated RBC % Immature Gran # Nucleated RBCs # Immature Plt Fraction INR PT Patient/Control Mix Sodium Potassium Chloride Carbon Dioxide Anion Gap BUN Creatinine GFR Calculation BUN/Creatinine Ratio Glucose Calculated Osmolality Calcium Magnesium Troponin I 1.650 H D - EKG EKG results: interpreted by me EKG shows: sinus rhythm
--- NOTE | 2016-12-16 13:58 | Hospitalist Progress Note ---
Assessment and Plan (1) Esophageal mass Status: Acute Assessment and plan: Biopsy pending. Consult hematology oncology . Current Visit: Yes (2) Upper gastrointestinal hemorrhage Status: Acute Assessment and plan: Secondary to esophageal mass Current Visit: Yes (3) Acute pulmonary edema Status: Acute Assessment and plan: Echo from 10/29/2016 shows EF 45-50 % at slow heart rate. Normal right ventricular size and systolic function. Moderately increased right atrial size. Moderately increased left atrial size. Thickened mitral valve. Trace mitral valve regurgitation. Aortic valve sclerosis. Moderate tricuspid valve regurgitation. PAP 40 mmHg. Pulmonic valve not well visualized. No pericardial effusion. Normal aorta. The patient had a good response to Lasix IV. His renal function is starting to climb and I will decrease his Lasix to once daily. Cardiology following. Echo noted. Current Visit: Yes (4) Chronic kidney disease, stage 3 Status: Chronic Assessment and plan: Mildly increased creatinine. Reduce Lasix. Current Visit: No (5) Chronic atrial fibrillation Status: Chronic Assessment and plan: Eliquis held. Due to gastrointestinal bleeding. Current Visit: No (6) Chronic anticoagulation Status: Chronic Assessment and plan: Eliquis held due to GI bleeding Current Visit: No (7) Essential hypertension Status: Chronic Current Visit: No (8) Acute posthemorrhagic anemia Status: Acute Assessment and plan: Status post transfusion of 4 units of packed red blood cells. GI consulted. Awaiting cardiac clearance for EGD. 12/16/16 secondary to upper gastrointestinal bleeding secondary to esophageal mass Current Visit: Yes (9) Nausea with vomiting, unspecified Status: Resolved Assessment and plan: Secondary to esophageal mass with suspected underlying malignancy Current Visit: Yes Qualifiers: Vomiting type: cyclical vomiting (10) Elevated troponin Status: Acute Assessment and plan: Cardiology consult noted. They will wait until the EGD is performed in the patient is cleared from a GI standpoint from bleeding prior to performing heart cath due to the risk of further bleeding with anticoagulation related to treatment of his possible ischemia. Current Visit: Yes Hospitalist: Subjective Interval history: Patient seen and examined. No acute events overnight. Case discussed with nursing staff. Labs reviewed. EGD report reviewed showing esophageal mass. Biopsies taken. GI input appreciated. Case discussed with the patient and his at the bedside. Plan to transfer to the floor today. Consult placed for hematology oncology. Continue to hold Eliquis. Exam - Constitutional Vitals: Period Temp Pulse Resp BP Sys/Pretty Pulse Ox Last 24 Hr 97.1 F-98.5 F 60-74 14-24 107-173/41-77 94-100 Exam: Constitutional System: Moderate distress. No tremulousness. Dyspneic. Head: Normocephalic, atraumatic. Ears, Nose and Throat System: No pain or tenderness. No epistaxis or discharge. Eyes System: Pupils equal, round, and reactive. Extraocular muscles intact. Neck: Supple, without adenopathy, No jugular venous distention. Respiratory System: Chest with clear lungs to auscultation. Cardiovascular System: Heart with regular rate and rhythm. No murmur. GI System: Abdomen soft, nontender. Normo active bowel sounds present. Musculoskeletal System: limbs with no pedal edema. Full distal pulses. Neurological System: No discernable sensory deficit. No aphasia Psychiatric System: Conversation is rational Results - Labs CBC & BMP: 12/16/16 04:50 12/16/16 04:50 Lab Results: I have reviewed the past 24 hour labs
[2016-12-16] MEDS ORDERED: POTASSIUM CHLORIDE 20 MEQ/15 ML UDCUP PO ONE (14:00)
[2016-12-16] MEDS: ONDANSETRON 4 MG/2 ML VIAL IV PRN ×2 (18:12→21:50)
[2016-12-16] MEDS: TAMSULOSIN 0.4 MG CAPSULE PO SCH (20:57)
[2016-12-17 06:09] LABS: Magnesium 2.1 MG/DL (1.8-2.4); Osmolality,Calculated 285.1 MOS/KG (273-304); Potassium 3.2 MMOL/L (3.5-5.1)
--- NOTE | 2016-12-17 08:15 | Oncology Consult Note ---
History of Present Illness History of present illness: Mr. Hays is a 71 year old male with suspected esophageal carcinoma.He underwent EGD on December 16, 2016 and he was found to have a 3 cm esophageal mass located in the lower esophagus at between 36 and 39 cm. This patient was admitted with acute GI bleed. He has been on Eliquis following a stroke and artificial pacemaker. His hemoglobin was reported to be about 6 on admission and he was transfused. He has very recently undergone cholecystectomy and his pacemaker was also placed very recently, since the first part of October. He underwent upper GI endoscopy and was found to have an esophageal neoplasm. Reports from the biopsy are pending. Past medical history: Allergies: Dexamethasone, Singulair and penicillin. - Medical History Cardio: History of: Cardiac Dysrhythmia (Atrial fibrillation), Hypertension, Pacemaker (Placed 11/01/[address] Stallings), Cardiovascular Problems (Bradycardia and A Fib) No history of: CHF, CAD, CO Neurology: History of: Cerebrovascular Accident (Cerebellar stroke, 10/29/2016) No history of: Dementia, Seizures HEENT: History of: Ear Problem (vertigo) Endocrine: History of: Thyroid Disorder No history of: Adrenal Disease, Diabetes Mellitus (IDDM), Diabetes Mellitus ( NIDDM), Endocrine Cancer, Endocrine Problems Rheumatology: History of;: Gout (Occasionally in his toes) Respiratory: History of: Asthma (As a child), Bronchitis (As a child) Genitourinary: History of: Kidney Stones (2011) Gastrointestinal: History of: GI Problems (gallstones in 2011) No history of: Gastrointestinal Bleed Musculoskeletal: No history of: Amputation Hematology: No history of: Blood Transfusion Reaction - Surgical History Cardiac Surgeries: Sugical HX of: Cardiac Surgery (Pacemaker Placed 11/01/[address] Stallings) Patient Denies: Femoral-Popliteal Bypass Graft, Cardiac Catheterization, Carotid Endarterectomy, Internal Defibrillator, Vascular Access Devices Thoracic Surgeries: Patient denies;: Kidney (Renal Surgery), Lithotripsy, Nephrectomy, Organ Transplant, Lobectomy Neurologic Surgeries: Patient denies: Neurologic Surgery HEENT Surgeries: Surgical HX of: Tonsilectomy & Adenoidectomy (1955) Patient denies: Carotid Endarterectomy, Eye Surgery, Thyroid Surgery Abdominal Surgeries: Surgical HX of: Colonoscopy (2011), EGD (2011) Patient denies: Abdominal Surgery, Appendectomy, Cholecystectomy, Gastric Bypass Surgery, Hernia Repair, Splenectomy Reproductive Surgeries: Patient denies;: Breast Surgery, Cystoscopy, Genitourinary Surgery, Prostate Surgery, Vasectomy Orthopedic Surgeries: Patient denies;: Implanted Devices, Orthopedic Surgery, Spinal Surgery, Total Hip Replacement, Total Knee Replacement - Family History Family History: Reports;: Family Stroke (Mother) Denies;: Family Anesthesia Reaction, Family Cancer, Family Diabetes, Family Heart Disease, Family Hypertension, Family Psychiatric Problems - Social History Smoking Status: Never smoker Have you smoked in the last 12 months: No Frequency of Alcohol Use: None Type of Drug Use: None Marital Status: Lives With:: Spouse Functional capacity: independent ambulation 12 point system: reviewed and no additional remarkable complaints except as stated ROS Significant review of systems includes: Acute upper GI bleed Anemia secondary to GI blood loss The patient had nausea with his GI bleed but he has not had any abdominal pain. He has a history of colon polyps He has occasional headaches He has had problems with mentation recently that he attributes to onset of the cardiac arrhythmias requiring pacemaker placement and he has had some memory loss, short-term. He also gives a history of arthritis with joint stiffness and pain and with muscle weakness. Exam General: The patient appears to be well-developed well-nourished and in no acute distress. Eyes: Normal lids and conjunctivae. ENT: His voice is clear, his trachea is midline. He has no neck masses. His hearing is normal. His oral mucosa is normal. Lungs: Breath sounds are normal throughout without rubs, rales or rhonchi. There is symmetrical unlabored chest motion with respiration. Cardiovascular: He has an artificial cardiac pacemaker in place. His heart rhythm is regular without murmur, gallop or rub. There is no jugular venous distention, clubbing, cyanosis or edema. Abdomen: There are no abdominal masses although there is fullness in the left upper quadrant. There is no ascites and no distention. Musculoskeletal: There is no focal muscle atrophy or bone or joint deformity. Neurologic: Cranial nerves II through XII are intact. There are no focal neurologic deficits. Nodes: There is no cervical, supraclavicular, submental or submandibular or axillary adenopathy. Psychiatric he is oriented to time, place, person and situation. Skin: A very cursory examination is normal. Impression: Probable relatively early stage malignancy of the lower esophagus: Path pending. He is going to need a CT of the chest, abdomen and pelvis, preferably with contrast. However, he has chronic renal failure so we may have to wait on this. Also possibly consider PET scan as an outpatient later. I will check back on Tuesday. Recent history of artificial pacemaker placement: Recent history of TIAs: Severe anemia due to acute GI hemorrhage: Status post recent appendectomy: Home Medications Medication Instructions Recorded Confirmed Type Apixaban [Eliquis] 5 mg PO BID #60 tablet 11/04/16 12/13/16 Rx Aspirin EC Tab 81 mg PO DAILY #30 tablet 11/04/16 12/13/16 Rx Lisinopril [Prinivil] 20 mg PO BID #60 tablet 11/04/16 12/13/16 Rx Meclizine [Antivert] 25 mg PO QID #120 tablet 11/04/16 12/13/16 Rx Metoprolol Succinate Xl [Toprol Xl] 50 mg PO BID #60 tablet 11/04/16 12/13/16 Rx Potassium Chloride Cap/Tab [K Dur] 20 meq PO DAILY #30 tablet 11/04/16 12/13/16 Rx amLODIPine [Norvasc] 10 mg PO DAILY #30 tablet 11/04/16 12/13/16 Rx hydrALAZINE TAB [Apresoline Tab] 100 mg PO TID #90 tablet 11/04/16 12/13/16 Rx Pantoprazole Tab [Protonix Tab] 40 mg PO DAILY #30 tablet 11/12/16 12/13/16 Rx Tamsulosin [Flomax] 0.4 mg PO BEDTIME 11/15/16 12/13/16 History Atorvastatin [Lipitor] 40 mg PO DAILY 12/13/16 12/13/16 History Polyethylene Glycol 3350 17 gm PO DAILY PRN 12/13/16 12/13/16 History Allergies Allergy/AdvReac Type Severity Reaction Status Date / Time dexamethasone Allergy Depression Verified [facility]/01/16 07:02 [facility] Allergy Depression Verified 11/01/16 07:02 Penicillins Allergy Unknown/Unable Verified 10/29/16 08:21 to obtain Medical,Surgical,& Family Hx - Medical History Cardio: History of: Cardiac Dysrhythmia (Atrial fibrillation), Hypertension, Pacemaker (Placed 11/01/[address] Stallings), Cardiovascular Problems (Bradycardia and A Fib) No history of: CHF, CAD, CO Neurology: History of: Cerebrovascular Accident (Cerebellar stroke, 10/29/2016) No history of: Dementia, Seizures HEENT: History of: Ear Problem (vertigo) Endocrine: History of: Thyroid Disorder No history of: Adrenal Disease, Diabetes Mellitus (IDDM), Diabetes Mellitus ( NIDDM), Endocrine Cancer, Endocrine Problems Rheumatology: History of;: Gout (Occasionally in his toes) Respiratory: History of: Asthma (As a child), Bronchitis (As a child) Genitourinary: History of: Kidney Stones (2011) Gastrointestinal: History of: GI Problems (gallstones in 2011) No history of: Gastrointestinal Bleed Musculoskeletal: No history of: Amputation Hematology: No history of: Blood Transfusion Reaction - Surgical History Cardiac Surgeries: Sugical HX of: Cardiac Surgery (Pacemaker Placed 11/01/[address] Stallings) Patient Denies: Femoral-Popliteal Bypass Graft, Cardiac Catheterization, Carotid Endarterectomy, Internal Defibrillator, Vascular Access Devices Thoracic Surgeries: Patient denies;: Kidney (Renal Surgery), Lithotripsy, Nephrectomy, Organ Transplant, Lobectomy Neurologic Surgeries: Patient denies: Neurologic Surgery HEENT Surgeries: Surgical HX of: Tonsilectomy & Adenoidectomy (1955) Patient denies: Carotid Endarterectomy, Eye Surgery, Thyroid Surgery Abdominal Surgeries: Surgical HX of: Colonoscopy (2011), EGD (2011) Patient denies: Abdominal Surgery, Appendectomy, Cholecystectomy, Gastric Bypass Surgery, Hernia Repair, Splenectomy Reproductive Surgeries: Patient denies;: Breast Surgery, Cystoscopy, Genitourinary Surgery, Prostate Surgery, Vasectomy Orthopedic Surgeries: Patient denies;: Implanted Devices, Orthopedic Surgery, Spinal Surgery, Total Hip Replacement, Total Knee Replacement - Family History Family History: Reports;: Family Stroke (Mother) Denies;: Family Anesthesia Reaction, Family Cancer, Family Diabetes, Family Heart Disease, Family Hypertension, Family Psychiatric Problems - Social History Smoking Status: Never smoker Frequency of Alcohol Use: None Type of Drug Use: None Exam - Constitutional Vitals: Period Temp Pulse Resp BP Sys/Pretty Pulse Ox Last 24 Hr 97.0 F-97.8 F 59-79 16-23 122-177/53-89 93-99 Results - Labs CBC & BMP: 12/16/16 04:50 12/17/16 05:19
--- NOTE | 2016-12-17 10:32 | Physician Query Form ---
CLICK EDIT DOCUMENT TO SELECT QUERY ANSWER --> OK --> SIGN Eduarda Bueno RN, CCDS Certified Clinical Psychology Assistant W) [phone] (f) [phone] [email or web address] PROVIDERS: Make your selection(s) from the choices in EACH section by typing an "x" and enter comments in the comment section. Please use your independent medical judgment in providing your response. This request does not imply that any particular answer is desired or expected. CLINICAL INDICATORS: (Providers should not edit this section) The medical record indicates that the patient was admitted with lower GI bleeding, "scope are noted-likely esophageal cancer", on "Eliquis following a stroke", " Eliquis and aspirin certainly have added to the patient's blood loss " no longer a candidate for anticoagulation due to his recent results of EGD. Based on the above, could you clarify the appropriate diagnosis, if significant , that supports the above abnormalities and additional evaluation, monitoring, and/or treatment rendered: ( ) GI bleeding due to esophageal cancer ( X) GI bleeding due to esophageal cancer and due to Extrinsic circulating anticoagulation ( ) GI bleeding due to Extrinsic circulating anticoagulation ( ) GI bleeding due to ( ) Other, please specify: ( ) Clinically unable to determine COMMENTS: PLEASE ALSO DOCUMENT RESPONSE IN PROGRESS NOTES AND/OR DISCHARGE SUMMARY Use of terms such as suspected, likely, or probable (associated with a specific diagnosis that is being evaluated, monitored, or treated as if it exists) are acceptable and can be restated in the discharge summary if not ruled out. MTDD
[2016-12-17] MEDS: ATORVASTATIN 40 MG TABLET PO SCH (11:16)
[2016-12-17] MEDS: FUROSEMIDE 40 MG TABLET PO SCH (11:16)
[2016-12-17] MEDS: POTASSIUM CHLORIDE 20 MEQ TABLET PO SCH (11:17)
[2016-12-17] MEDS: LISINOPRIL 20 MG TABLET PO SCH ×2 (11:17→21:10)
[2016-12-17] MEDS: METOPROLOL TARTRATE 50 MG TABLET PO SCH ×2 (11:17→21:10)
[2016-12-17] MEDS: MECLIZINE 25 MG TABLET PO SCH ×4 (11:17→21:10)
[2016-12-17] MEDS: ASPIRIN CHEW 81 MG TABLET PO SCH (11:18)
[2016-12-17] MEDS: PANTOPRAZOLE 40 MG VIAL IV SCH (11:18)
[2016-12-17] MEDS: amLODIPine 10 MG TABLET PO SCH (11:18)
[2016-12-17] MEDS: POTASSIUM CHLORIDE RIDER 10 MEQ in PREMIX 1 EACH IV PRN ×2 (11:26→13:39)
--- NOTE | 2016-12-17 14:10 | Hospitalist Progress Note ---
Assessment and Plan (1) Anemia Status: Acute Assessment and plan: Dr. 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 Family requests [facility]. Will ask Dr. Russell if he has a referral. Current Visit: Yes (3) Hypertension Status: Chronic Assessment and plan: controlled with Norvasc, lisinopril, and metoprolol Current Visit: Yes (4) Sleep disorder Status: Chronic Assessment and plan: Outpatient sleep study recommended. Dr. Mott recommends checking TSH. Current Visit: No (5) Chronic kidney disease, stage 3 Status: Chronic Assessment and plan: Chronic and stable Current Visit: Yes (6) Chronic atrial fibrillation Status: Chronic Assessment and plan: Hold Anticoagulation due to bleeding Current Visit: No (7) Elevated troponin Status: Acute Assessment and plan: troponins due to stress from blood loss anemia Current Visit: Yes (8) Volume overload Status: Acute Assessment and plan: Continue Lasix and potassium replacement. Echocardiogram showed an EF of 65% with septal thickness and moderate increase in size of the left and right atrium and a PA P of 48. I would avoid dehydration in this patient. Does not have chf Current Visit: Yes Hospitalist: Subjective Interval history: Received call by pathology and patient's biopsy came back adenocarcinoma with Simental's esophagus and some areas of invasion were noted H pylori however was negative. Patient really wants to go home. I will await input from GI. Family is worried about rebleeding which is very unpredictable. Asked patient to stay at least until tomorrow. Exam - Constitutional Vitals: Period Temp Pulse Resp BP Sys/Pretty Pulse Ox Last 24 Hr 97.0 F-98 F 59-79 16-20 122-177/58-89 93-96 Exam: Heart Rate-[RRR] Lungs-[CTAB] GI-[+bs soft, NT] Ext-[no edema] Neuro [Motor 5/5], [alert and oriented times 3] psych [normal mood and affect] General [no acute distress] Results - Labs CBC & BMP: 12/16/16 04:50 12/17/16 05:19 Lab Results: I have reviewed the past 24 hour labs
[2016-12-17] MEDS ORDERED: POTASSIUM CHLORIDE 20 MEQ TABLET PO ONE (14:13)
[2016-12-17] MEDS: ONDANSETRON 4 MG/2 ML VIAL IV PRN (17:29)
--- NOTE | 2016-12-17 19:25 | Pathology Report from [facility] ---
[facility] – [place] ACCESSION # : [id number] PATIENT NAME : Juana Hays ORDERING DR : Woodrow Gramajo MD CLINICAL HX: Anemia - Coffee ground emesis POST-OP DX: #1 Esophageal mass #2 Gastritis SPECIMEN INFO: #1 Esophageal mass biopsy #2 CADE GROSS DESCRIPTION: #1 Received in formalin labeled with the patients name JUANA HAYS and #1 consists of a 1.2 x 0.2 cm aggregate of wagner tissue. Submitted in cassette #1.#2 Received in formalin labeled with the patients name JUANA HAYS and #2 consists of a 0.5 x 0.4 cm aggregate of wagner tissue. Submitted in cassette #2. DIAGNOSIS FOR JUANA HAYS: #1 ESOPHAGEAL MASS BIOPSY: Barretts type mucosa with at least adenocarcinoma in-situ; some areas suspicious for invasion. Esophageal squamous mucosa with hyperplasia.#2 CADE BIOPSY: Superficial gastric mucosa with mild chronic inflammation. H. pylori not seen on H&E stain and special stain with appropriate control. COLLECTED DATE: 12/16/2016 [facility] REPORT DATE: 12/17/2016 ELECTRONICALLY SIGNED BY: Gerardo Ramey M.D. 12/17/2016 - 10:46:09 RIGO
--- NOTE | 2016-12-17 19:59 | Gastrointestinal Progress Note ---
Assessment and Plan (1) Esophageal cancer Status: Acute Assessment and plan: Discovered on endoscopy today. We will need to wait for the biopsy results, with suggest consulting oncology and weighing the options between radiation chemotherapy and esophagectomy. I would's further suggest the patient be left on a full liquid diet as this is has pretty significant narrowing of the esophagus and consider holding further anticoagulation. The esophageal cancer as the cause for the patient's blood loss. 12/17/16--The patient appears to be doing fairly well. He states that grits are getting stuck sometimes as he swallows but that the more liquid food seems to be getting by without much difficulty. Arrangements are being made to have the patient seen over at [facility] for workup of his esophageal cancer which proved to be an adenocarcinoma growing out of a segment of Simental's. As an aside I noted for the patient that this involves about half patient's esophageal wall, and he might be a candidate for surgical resection if this was localized versus chemotherapy. I have emphasized to them that if have to wait for any duration of time before they can be seen at [facility] that he definitely needs to consider drinking about 5 cans of boost versus Ensure per day in order to maintain his strength. There is little else for me to offer at this point and I will sign off of the case but would be happy to re-scope this patient as needed in the future or to place a PEG tube if this becomes necessary. Of course he will most likely have these provided at [facility]. Current Visit: Yes (2) Acute posthemorrhagic anemia Status: Acute Assessment and plan: Patient has a history of a hematocrit of 41.3% back on 11/02/16 prior to getting the cholecystectomy. This dropped down to a adonis of 28.8% when seen on but has since dropped down to 19% this admission with recent coffee-ground emesis worse today and yesterday but going on for the last 3 days by report. Eliquis and aspirin certainly have added to the patient's blood loss and may be a Natalia-Hung tear versus esophagitis versus gastric/duodenal ulcer recurrence (patient had this back in the ), versus AVMs or duodenitis. We do not know what the patient's Helicobacter pylori status is but given his prior history of ulcers this may certainly be positive. We will perform upper endoscopy with potential biopsies. It is good and the patient has been off of his Eliquis for the last 2 days. Agree with transfusion in the short-term. 12/14/16--Unfortunately the patient developed some congestive heart failure and is currently being diuresed with Dr. Marin following closely. We have given him a clear liquid diet, and he does not have any further hematemesis. We are awaiting the greenlight from cardiology to schedule his upper endoscopy to look for the source of bleeding potentially. He is being given Protonix 40 mg twice daily IV. 12/15/16--Feels better now that he is out of congestive heart failure and diuresed appropriately. His troponin levels continue to rise, but Dr. Marin wishes to proceed with upper endoscopy tomorrow and find out what his risk bleeding risk is prior to taking him to catheterization. We will likely use minimal sedation and his hematocrit remained stable at this point at 26.9%. 12/16/16--hematocrit stable. 12/17/16--Hematocrit not rechecked today. Presumably stable as he is doing well. Current Visit: Yes (3) Upper gastrointestinal hemorrhage Status: Acute Assessment and plan: As mentioned above we will try and find the source for the patient's upper GI blood loss, suspect that this may be a Natalia-Hung tear versus peptic ulcer disease of some type. He denies use of aspirin, other than his 81 mg, or other NSAIDs at home. Would certainly like to have Dr. Marin evaluate this patient before taking him to upper endoscopy tomorrow given his elevated troponin levels which I suspect are probably mild ischemia with the patient's drop in hematocrit to 19%. If Dr. Marin feels that a echocardiogram or other testing is indicated prior to endoscopy will certainly hold off on the scoping. Risks of upper endoscopy include but are not limited to: Bleeding, infection, perforation, cardiac and pulmonary compromise. 12/14/16--Awaiting cardiology clearance to scope patient. He is currently being watched closely in the ICU. Diuresis continues, I expect that if he stopped bleeding his hematocrit will improve above 30% shortly. 12/15/16--Patient's hematocrit is remained stable that is drifting downward. 12/16/16--patient stable. 12/17/16--Presumably stable Current Visit: Yes (4) Nausea with vomiting, unspecified Status: Resolved Assessment and plan: I suspect this patient may have chronic gastritis based on the nausea and vomiting which is occurring on a routine basis. There may also be gastroparesis present that we will look for this specifically when doing her upper endoscopy tomorrow. Protonix has not helped particularly making the likelihood of gastroparesis higher. 12/14/16--observe on a clear liquid diet, he seems to be doing better with promethazine as needed. 12/15/16--Continues on clear liquids and is doing much better on these now. No difficulty tolerating. 12/16/16--Tolerating clears at this point. Advance to full liquid diet due to esophageal cancer. 12/17/16--Tolerating full liquids well-- would strongly suggest not advancing past this point, he is experiencing some blocking even with excessively turbid liquids like grits and oatmeal. If he is discharged to home awaiting B visit would suggest at least 5 cans of boost versus Ensure per day to maintain his strength. Current Visit: Yes Qualifiers: Vomiting type: cyclical vomiting (5) Personal history of colonic polyps Status: Acute Assessment and plan: The patient previously had colonoscopy done by Dr. Chandan Casarez back in 2011 with a number of polyps removed. Would like to know the pathology is polyps in the number as well as locations for colonoscopies in the future. I have asked the nurses to obtain old records by contacting [facility] to this end. 12/15/16--Reports from [place] are not back yet. Still awaiting colonoscopy report with number and placement of polyps as well as pathology. 12/17/16--Will obtain these reports in the future if the patient returns down the road as an outpatient. Current Visit: Yes Gastroenterology - PN: Subj Interval history: Patient remains in good spirits, he has family who is also recommended [facility] as a potential tertiary center where he might be able to get his staging workup, adjuvant chemotherapy and/or possibly surgery. Appreciate Dr. Russell who is helping to facilitate the evaluation and providing additional recommendations. Exam (Progress Note) - Constitutional Vitals: Period Temp Pulse Resp BP Sys/Pretty Pulse Ox Last 24 Hr 97.0 F-98 F 59-79 16-20 125-177/58-89 92-96 General appearance: no acute distress - Head Head exam: Present: normocephalic, atraumatic - Eye Eye exam: Present: EOMI Pupils: Present: ELISEO - Respiratory Respiratory exam: Present: clear to auscultation bilaterally. Absent: rhonchi, stridor, wheezes - Cardiovascular Cardiovascular exam: Present: regular rate and rhythm - GI/Abdominal GI/Abdominal exam: Present: normal bowel sounds, soft. Absent: distended, tenderness, rebound - Neurological Exam Neurological exam: Present: alert, oriented X3 - Psychiatric Psychiatric exam: Present: normal affect, normal mood Results - Labs CBC & BMP: 12/16/16 04:50 12/17/16 05:19
--- NOTE | 2016-12-17 21:03 | Cardiology Progress Note ---
I, Charito Roberson RN, am scribing for, and in the presence of, Chris Marin MD 21:02. Assessment and Plan (1) PAF (paroxysmal atrial fibrillation) Status: Chronic Current Visit: Yes (2) Elevated troponin Status: Acute Assessment and plan: No signs or symptoms of ischemia We will give some additional potassium to his potassium to a good level. Ideally would like potassium between 4 and 5 We will not restart anticoagulant given his esophageal cancer and the GI bleeding, the risk outweigh the benefits We will try to keep him on a low-dose aspirin per day as tolerated I agree with the plan plans for presurgical shrinking of the cancer with chemotherapy and then surgery At this point, given his cancer we would hold off on doing a heart cath If/when he is discharged I will see him in follow-up as is scheduled unless it conflicts with his appointment with his oncologist in [facility] Current Visit: Yes (3) Anemia Status: Acute Current Visit: Yes (4) Abnormal findings on esophagogastroduodenoscopy (EGD) Status: Acute Current Visit: Yes (5) Dyslipidemia Status: Chronic Current Visit: Yes (6) Pacemaker Status: Chronic Current Visit: Yes (7) Chronic kidney disease, stage 3 Status: Chronic Current Visit: Yes (8) Hypertension Status: Chronic Current Visit: Yes (9) Hypokalemia Status: Acute Current Visit: Yes Cardiology - PN: Subj Interval history: [employer]IMARY [employer] ATTENDANT: DR. MARIN SUMMARY: Mr. Hays has risk factors significant for: age, hypertension, obesity, dyslipidemia, and previous tobacco use. History of atrial fibrillation for which he takes Eliquis for stroke prevention. History of CVA September 2016 (at that time he was started on Eliquis) is. Status post permanent pacemaker implantation for symptomatic bradycardia. Patient admitted November elevates admitted December 13, 2016 with complaints of hematemesis and melena last week, worsening fatigue. He was found to be severely anemic with a hemoglobin and hematocrit of 6.2 and 19.0 respectively. He has received several units of packed red blood cells. Cardiology was consulted for elevated troponin, anemia on Eliquis with recent CVA. December 13, 2016 echocardiogram: EF 60%, moderate LVH, PA P 48 mmHg. DECEMBER 15, 2016: This morning, Mr. Hays reports he is feeling fantastic. Labs are stable. Gastroenterology has been following and awaiting recommendations from cardiology to proceed with further invasive workup. Troponin is elevated at 2 this morning. I discussed with Dr. Marin and suspect his troponin is related to his severe anemia, elevated creatinine and stress. Recommends undergoing further GI workup prior to cardiac catheterization. Patient reports he is normally very active. He states he can take 2 flights of stairs without chest pain, heaviness, tightness or shortness of breath. He has never had heart catheterization or complaints concerning for angina. We will continue to monitor his lab work, EKG and telemetry. Will further discuss with Dr. Marin and await additional recommendations. DECEMBER 16, 2016: Still groggy post EGD. Findings of the EEG noted, concerning for esophageal cancer. Labs are stable overnight. Blood pressure uncontrolled overnight. Will adjust medications this morning for better blood pressure control after he has received his a.m. meds as he has been n.p.o. for EGD. I will around back this afternoon and reevaluate his blood pressure and adjust accordingly if needed. Continue to hold Eliquis. No paroxysms of atrial fibrillation. He may benefit from a rhythm controlling agent as he is no longer a candidate for anticoagulation due to his recent results of EGD. December 17, 2016: Mr. Hays is seen sitting up in chair with family at bedside. He denies any chest pain or shortness of breath. EGD was concerning for esophageal cancer, Dr. Russell has seen in consultation. His blood pressure has improved, this morning is 127/58. Potassium this morning is 3.2, he has potassium replacement protocol ordered. Creatinine stable 1.80. Exam (Progress Note) - Constitutional Vitals: Period Temp Pulse Resp BP Sys/Pretty Pulse Ox Last 24 Hr 97.0 F-97.8 F 59-79 16-23 122-177/53-89 93-98 Exam: General: Appears well with no apparent distress. Pleasant and cooperative. Appears comfortable. HEENT: PERRL, normocephalic, atraumatic. Mucous membranes moist. No jaundice noted. Conjunctiva moist and clear, sclerae anicteric Neck: Unable to assess for JVD due to habitus. No thyromegaly or lymphadenopathy noted. No carotid bruit appreciated Cardiac:[Regular rate and rhythm. No obvious murmur rub or gallop. Lungs: Clear to auscultation without accessory muscle use to assist the respiratory pattern. Using oxygen intermittently. Abdomen: Soft, bowel sounds normoactive. Nontender and nondistended. No abdominal bruit or thrill noted. No masses noted. Musculoskeletal: No fluid collection. Decreased range of motion is noted. Extremities: No clubbing, cyanosis noted. No edema noted. Upper extremity pulses 2+. Lower extremity pulses 2+. Capillary refill less than 3 seconds. Skin: No unusual lesions or rashes. No skin breakdown appreciated. Neuro: Awake, alert and oriented 3. Moves all extremities well. No essential tremor is appreciated. Result/EKG - Labs CBC & BMP: 12/16/16 04:50 12/17/16 05:19 Lab Results: I have reviewed the past 24 hour labs Labs: Laboratory Results - last 24 hr 12/17/16 05:19 Sodium 142 Potassium 3.2 L Chloride 106 Carbon Dioxide 27 Anion Gap 12.2 BUN 24 H Creatinine 1.80 H GFR Calculation 46 BUN/Creatinine Ratio 13.00 Glucose 87 Calculated Osmolality 285.1 Calcium 8.0 L Magnesium 2.1 I, Chris Marin MD, personally performed the services described in this documentation, ascribed by Charito Roberson RN in my presence, and it is both accurate and complete .
[2016-12-17] MEDS: PANTOPRAZOLE 40 MG TABLET PO SCH (21:10)
[2016-12-17] MEDS: TAMSULOSIN 0.4 MG CAPSULE PO SCH (21:11)
[2016-12-18 03:08] LABS: Basophils % 0.6 % (0.0-0.8); Eosinophils # 0.2 10*3/uL (0.0-0.87); Eosinophils % 2.3 % (0.00-10.9); Hematocrit 25.9 VOL% (42.0-52.0); Hemoglobin 8.3 GM/DL (14.0-18.0); Immature Granulocytes % 0.4 %; Immature Granulocytes Absolute 0.03 #; Lymphocytes % 28.3 % (21.2-54.2); Mean Corpuscular Hemoglobin 28 PG (27-34); Mean Corpuscular Volume 86.3 FL (87-102); Mean Platelet Volume 9.8 FL (9.6-12.0); Monocytes # 0.5 10*3/uL (0.11-0.8); Monocytes % 7.6 % (1.7-12.7); Neutrophils # 4.3 10*3/uL (1.4-7.4); Neutrophils % 60.8 % (38.7-73.9); Platelet Count 280 T/CUMM (130-400); White Blood Count 7.1 T/CUMM (4-12)
[2016-12-18 03:38] LABS: Calcium 7.8 MG/DL (8.5-10.1); Osmolality,Calculated 285.1 MOS/KG (273-304); Potassium 3.5 MMOL/L (3.5-5.1)
[2016-12-18 08:26] VITALS: BP 141/66
[2016-12-18] MEDS: amLODIPine 10 MG TABLET PO SCH (09:21)
[2016-12-18] MEDS: LISINOPRIL 20 MG TABLET PO SCH (09:21)
[2016-12-18] MEDS: MECLIZINE 25 MG TABLET PO SCH (09:21)
[2016-12-18] MEDS: ASPIRIN CHEW 81 MG TABLET PO SCH (09:21)
[2016-12-18] MEDS: FUROSEMIDE 40 MG TABLET PO SCH (09:22)
[2016-12-18] MEDS: ATORVASTATIN 40 MG TABLET PO SCH (09:22)
[2016-12-18] MEDS: METOPROLOL TARTRATE 50 MG TABLET PO SCH (09:22)
[2016-12-18] MEDS: PANTOPRAZOLE 40 MG TABLET PO SCH (09:22)
[2016-12-18] MEDS: POTASSIUM CHLORIDE 20 MEQ TABLET PO SCH (09:22)
--- NOTE | 2016-12-18 10:25 | Discharge Summary ---
Hospital Course - Hospital Course Hospital Course: 71 year old white male with a past medical history significant for hypertension , atrial fibrillation, CVA, bradycardia with pacemaker placement, cholecystectomy who presents to the ED today with complaints of worsening nausea and vomiting with weakness having onset 2 days ago. Patient recently placed on Eliquis for atrial fib which had caused cerebellar stroke. Patient's hemoglobin on admission was 6.2. Dr. Gramajo was consulted and did an EGD on December 16, 2016 which showed mild gastritis with a 3 cm esophageal cancer at the EG junction adenocarcinoma favored. Biopsy did come back Simental's with adenocarcinoma in situ. Patient does have renal failure therefore no CT with contrast was performed. Patient family wants him to go to [facility] to see Dr. Viral Coyle. I spoke with Dr. Ribeiro he will call Dr. Viral Coyle on Tuesday. [facility] will most likely want to do a PET scan which we do not offer here at [facility]. Patient received a total of 4 units of packed red blood cells and his hemoglobin is stabilized at 8.3. Dr. Marin from cardiology was consulted for elevated troponins which he thought was due to stress response from acute blood loss anemia. Patient had some mild volume overload due to blood transfusion which was removed with diuretics. His echocardiogram showing normal EF of 65% with PA P of 48. Patient does not have congestive heart failure. His potassium was low but was replaced. Patient is stable for discharge home will go home with home health with home PT. He will follow-up at [facility] for treatment of esophageal cancer. Recommend follow-up with his primary care doctor in 1 week. He cannot remain on Eliquis at this time. - Time spent with patient Time with patient DS: Greater than 30 minutes (50 min) Diagnosis - Discharge Diagnosis (1) Anemia Status: Acute (2) Esophageal cancer Status: Acute (3) Hypertension Status: Chronic (4) Sleep disorder Status: Chronic (5) Chronic kidney disease, stage 3 Status: Chronic (6) Chronic atrial fibrillation Status: Chronic (7) Elevated troponin Status: Acute (8) Volume overload Status: Acute Discharge Plan - Discharge Data Disposition: Home Health Service Condition at Discharge: Stable Discharge Diet: heart healthy Activity: resume usual activities as tolerated Hygiene: no restrictions Weight Bearing at Discharge: full weight bearing Driving: other (not till cleared by Doctor) Contact your physician if you experience:: fever over 101 - Discharge Medications New Pantoprazole Tab [Protonix Tab] 40 mg PO BID #60 tablet Continue Aspirin EC Tab 81 mg PO DAILY #30 tablet hydrALAZINE TAB [Apresoline Tab] 100 mg PO TID #90 tablet Lisinopril [Prinivil] 20 mg PO BID #60 tablet Metoprolol Succinate Xl [Toprol Xl] 50 mg PO BID #60 tablet Tamsulosin [Flomax] 0.4 mg PO BEDTIME Polyethylene Glycol 3350 17 gm PO DAILY PRN PRN Reason: Constipation Atorvastatin [Lipitor] 40 mg PO DAILY amLODIPine [Norvasc] 10 mg PO DAILY #30 tablet Meclizine [Antivert] 25 mg PO QID #120 tablet Discontinued Potassium Chloride Cap/Tab [K Dur] 20 meq PO DAILY #30 tablet Apixaban [Eliquis] 5 mg PO BID #60 tablet Pantoprazole Tab [Protonix Tab] 40 mg PO DAILY #30 tablet - Follow Up or Referral Follow Up: Viral Coyle Dr [Other] - 1 Week (Dr Russell will call him on Tuesday ) dr shaan [Other] - 1 Week - Forms/Instructions Exam - Constitutional Vitals: Period Temp Pulse Resp BP Sys/Pretty Pulse Ox Last 24 Hr 97.7 F-98.2 F 61-75 16-20 120-154/57-69 90-94 General appearance: normal weight, no acute distress - Respiratory Respiratory exam: Present: clear to auscultation bilaterally. Absent: rales, rhonchi, wheezes - Cardiovascular Cardiovascular exam: Present: regular rate and rhythm. Absent: systolic murmur - GI/Abdominal GI/Abdominal exam: Present: normal bowel sounds, soft. Absent: tenderness - Extremities Exam Extremities exam: Present: normal inspection, normal capillary refill Discharge Results Labs on day of discharge: Labs from last 24 hours 12/18/16 12/18/16 12/17/16 02:11 02:11 05:17 WBC 7.1 RBC 3.00 L Hgb 8.3 L Hct 25.9 L MCV 86.3 L MCH 28 MCHC 32.0 RDW 15.0 Plt Count 280 MPV 9.8 Neut % (Auto) 60.8 Lymph % (Auto) 28.3 [place] % (Auto) 7.6 Eos % (Auto) 2.3 Baso % (Auto) 0.6 Neut # (Auto) 4.3 Lymph # (Auto) 2.0 [place] # (Auto) 0.5 Eos # (Auto) 0.2 Baso # (Auto) 0.0 Immature Gran % 0.4 Nucleated RBC % 0.0 Immature Gran # 0.03 Nucleated RBCs # 0.00 Immature Plt Fraction 0.0 Sodium 142 Potassium 3.5 Chloride 107 Carbon Dioxide 25 Anion Gap 13.5 BUN 22 H Creatinine 1.90 H GFR Calculation 43 BUN/Creatinine Ratio 11.00 Glucose 98 Calculated Osmolality 285.1 Calcium 7.8 L Free T4 TSH 3rd Generation 3.090 12/17/16 05:17 WBC RBC Hgb Hct MCV MCH MCHC RDW Plt Count MPV Neut % (Auto) Lymph % (Auto) [place] % (Auto) Eos % (Auto) Baso % (Auto) Neut # (Auto) Lymph # (Auto) [place] # (Auto) Eos # (Auto) Baso # (Auto) Immature Gran % Nucleated RBC % Immature Gran # Nucleated RBCs # Immature Plt Fraction Sodium Potassium Chloride Carbon Dioxide Anion Gap BUN Creatinine GFR Calculation BUN/Creatinine Ratio Glucose Calculated Osmolality Calcium Free T4 1.19 TSH 3rd Generation DS: Provider Date of admission: 12/13/16 12:25 Primary care physician: Dominic Martinez Attending physician on admission: King Cantu MD Consults: 12/13/16 17:54 Consult to Physician [CONS] Routine Comment: elevated troponins, afib with pacer, HCT 19% Consulting Provider: Chris Marin Consulting Provider Notified: Yes When should Consulting Provider be notified: Now 12/13/16 18:22 Consult to Anesthesiology [CONS] Routine Consulting Provider: Reason for Anesthesiology: Pre-op Clearance 12/14/16 09:22 Consult to Physician [CONS] Routine Comment: Consulting Provider: Vicki Mott Consulting Provider Notified: Yes When should Consulting Provider be notified: Now Person Notified: [place] Date Notified: 12/14/16 Time Notified: 09:30 Consult Notification Comment: Patient with witnessed apnea, excessive daytime somnolence, ? snoring-suspected sleep apnea. He is having some heart failure which may be aggravated by the sleep apnea. Please evaluate and see if he is a candidate for PSG and treatment. 12/15/16 17:18 Consult to Anesthesiology [CONS] Routine Consulting Provider: Reason for Anesthesiology: Pre-op Clearance 12/16/16 09:10 Consult to Physician [CONS] Routine Comment: Esophogeal mass Consulting Provider: Rm Russell Consulting Provider Notified: Yes Consult to Specialist Group: Oncology Person Notified: PRO Date Notified: 12/16/16 Time Notified: 10:05 Discharging clinician: Angela Manuel MD
--- NOTE | 2016-12-18 14:48 | Cardiology Progress Note ---
Assessment and Plan (1) PAF (paroxysmal atrial fibrillation) Status: Chronic (2) Elevated troponin Status: Acute Assessment and plan: No signs or symptoms of ischemia We will give some additional potassium to his potassium to a good level. Ideally would like potassium between 4 and 5 We will not restart anticoagulant given his esophageal cancer and the GI bleeding, the risk outweigh the benefits We will try to keep him on a low-dose aspirin per day as tolerated I agree with the plan plans for presurgical shrinking of the cancer with chemotherapy and then surgery At this point, given his cancer we would hold off on doing a heart cath If/when he is discharged I will see him in follow-up as is scheduled unless it conflicts with his appointment with his oncologist in [facility] 12/18/16: No suggestion of ischemia No suggestion of active GI bleeding We will continue on low-dose aspirin per day for now He will be off the Eliquis Okay with me for discharge when you say so I will follow-up with him as is scheduled in the next week or 2 or sooner if needed If my appointment interferes with 1 of his oncologist appointments he may call and cancel with me (3) Anemia Status: Acute (4) Abnormal findings on esophagogastroduodenoscopy (EGD) Status: Acute (5) Dyslipidemia Status: Chronic (6) Pacemaker Status: Chronic (7) Chronic kidney disease, stage 3 Status: Chronic (8) Hypertension Status: Chronic (9) Hypokalemia Status: Acute (10) Diastolic heart failure Status: Acute (11) Cerebellar stroke Status: Acute (12) Cholecystitis with cholelithiasis Status: Acute (13) Esophageal cancer Status: Acute (14) Esophageal mass Status: Acute (15) Volume overload Status: Acute (16) Renal insufficiency Status: Chronic (17) Sleep disorder Status: Chronic Cardiology - PN: Subj Interval history: No chest pain, shortness breath, throwing up blood, or blood in his stools. Exam (Progress Note) - Constitutional Vitals: Period Temp Pulse Resp BP Sys/Pretty Pulse Ox Last 24 Hr 97.7 F-98.2 F 61-67 16-20 120-141/57-66 90-92 Exam: General: Appears well with no apparent distress. Pleasant and cooperative. Appears comfortable. HEENT: PERRL, normocephalic, atraumatic. Mucous membranes moist. No jaundice noted. Conjunctiva moist and clear, sclerae anicteric Neck: Unable to assess for JVD due to habitus. No thyromegaly or lymphadenopathy noted. No carotid bruit appreciated Cardiac:[Regular rate and rhythm. No obvious murmur rub or gallop. Lungs: Clear to auscultation without accessory muscle use to assist the respiratory pattern. Using oxygen intermittently. Abdomen: Soft, bowel sounds normoactive. Nontender and nondistended. No abdominal bruit or thrill noted. No masses noted. Musculoskeletal: No fluid collection. Decreased range of motion is noted. Extremities: No clubbing, cyanosis noted. No edema noted. Upper extremity pulses 2+. Lower extremity pulses 2+. Capillary refill less than 3 seconds. Skin: No unusual lesions or rashes. No skin breakdown appreciated. Neuro: Awake, alert and oriented 3. Moves all extremities well. No essential tremor is appreciated. Result/EKG - Labs CBC & BMP: 12/18/16 02:11 12/18/16 02:11 Lab Results: I have reviewed the past 24 hour labs Labs: Laboratory Results - last 24 hr 12/17/16 12/17/16 12/18/16 05:17 05:17 02:11 WBC 7.1 RBC 3.00 L Hgb 8.3 L Hct 25.9 L MCV 86.3 L MCH 28 MCHC 32.0 RDW 15.0 Plt Count 280 MPV 9.8 Neut % (Auto) 60.8 Lymph % (Auto) 28.3 Denali % (Auto) 7.6 Eos % (Auto) 2.3 Baso % (Auto) 0.6 Neut # (Auto) 4.3 Lymph # (Auto) 2.0 Denali # (Auto) 0.5 Eos # (Auto) 0.2 Baso # (Auto) 0.0 Immature Gran % 0.4 Nucleated RBC % 0.0 Immature Gran # 0.03 Nucleated RBCs # 0.00 Immature Plt Fraction 0.0 Sodium Potassium Chloride Carbon Dioxide Anion Gap BUN Creatinine GFR Calculation BUN/Creatinine Ratio Glucose Calculated Osmolality Calcium Free T4 1.19 TSH 3rd Generation 3.090 12/18/16 02:11 WBC RBC Hgb Hct MCV MCH MCHC RDW Plt Count MPV Neut % (Auto) Lymph % (Auto) Denali % (Auto) Eos % (Auto) Baso % (Auto) Neut # (Auto) Lymph # (Auto) Denali # (Auto) Eos # (Auto) Baso # (Auto) Immature Gran % Nucleated RBC % Immature Gran # Nucleated RBCs # Immature Plt Fraction Sodium 142 Potassium 3.5 Chloride 107 Carbon Dioxide 25 Anion Gap 13.5 BUN 22 H Creatinine 1.90 H GFR Calculation 43 BUN/Creatinine Ratio 11.00 Glucose 98 Calculated Osmolality 285.1 Calcium 7.8 L Free T4 TSH 3rd Generation Specialty Discharge - Follow Up or Referrals Follow up with: dr shaan [Other] - 1 Week (follow up with primary care physician in 1 week) [address] [Other] - 1 Week (Dr Russell will call him on Tuesday )
== END 2016-12-18 11:37 | disposition home health service (06) | DRG 374 ==
LOC: N.ED 09:42 → N.EDINP 12:25 → SUATTDRO 12:25 → N.EDINP 14:59 → N.4E 15:01 → N.ICU 18:22 → N.4E 12-16 14:45
PROVIDERS: ADMIT Family Medicine; ATTEND Internal Medicine

== ENCOUNTER 2017-01-19 06:08 | Inpatient (IN) ==
[~2017-01-19 06:08] MED LIST: LIDOCAINE 1% 20 ML VIAL MISC INJ PRN
[2017-01-19] MEDS ORDERED: MEPERIDINE 50 MG/1 ML VIAL IM ONE (07:00)
[2017-01-19] MEDS ORDERED: PROMETHAZINE 25 MG/1 ML VIAL IM ONE (07:00)
[2017-01-19] MEDS ORDERED: GLYCOPYRROLATE 0.4 MG/2 ML VIAL IM ONE (07:00)
[2017-01-19] MEDS ORDERED: MIDAZOLAM 10 MG/2 ML VIAL IM PRN (07:00)
[2017-01-19] MEDS ORDERED: GLYCOPYRROLATE 0.4 MG/2 ML VIAL ONE (07:08)
[2017-01-19] MEDS ORDERED: MEPERIDINE 50 MG/1 ML VIAL ONE (07:08)
[2017-01-19] MEDS ORDERED: PROMETHAZINE 25 MG/1 ML VIAL ONE (07:08)
[2017-01-19] MEDS ORDERED: LIDOCAINE 2% 20 ML VIAL RESP TX ONE (09:10)
[2017-01-19] MEDS ORDERED: MIDAZOLAM 2 MG/2 ML VIAL ONE (10:06)
--- NOTE | 2017-01-19 10:08 | Operative Note ---
Date of procedure: 01/19/17 Pre-op diagnosis: Left upper lobe nodule Post-op diagnosis: same Procedure: Patient is a 71-year-old with a PET positive left upper lobe nodule. A bronchoscope will be done to try to obtain a tissue diagnosis. Timeout was performed to identify the patient. The patient is in the bronchoscopy lab. Preop: Demerol 50 mg, Phenergan 25 mg, Robinul 0.1 mg IM. Anesthesia: Versed 4 mg IVP, topical lidocaine. Procedure: The fiberoptic bronchoscope was passed transnasally through the vocal cords into the lungs. The bronchopulmonary segments were identified and specimens were obtained. Findings: The vocal cords, trachea, and cris are unremarkable. The right upper lobe, right middle lobe, and right lower lobe are all open. The left upper lobe, lingula, and left lower lobe are open. Under fluoroscopy multiple transbronchial biopsies were taken in the left upper lobe and appeared to be in the nodular density. Several specimens were obtained and sent for histology. I was not able to get a brush in the area. There is a small amount of washings obtained. He tolerated the procedure well without any problems. A repeat chest x-ray is pending. Impression: Left upper lobe nodule worrisome for malignancy. Plan: We will await biopsies and decide further investigation. Anesthesia: conscious sedation Surgeon / Physician: Suraj Javier Estimated blood loss: none Specimens: other (Biopsies were sent for histology) Condition: stable Disposition: same day Discharge Plan - Discharge Medications No Action Aspirin EC Tab 81 mg PO DAILY #30 tablet hydrALAZINE TAB [Apresoline Tab] 100 mg PO TID #90 tablet Lisinopril [Prinivil] 20 mg PO BID #60 tablet Metoprolol Succinate Xl [Toprol Xl] 50 mg PO BID #60 tablet Tamsulosin [Flomax] 0.4 mg PO BEDTIME Polyethylene Glycol 3350 17 gm PO DAILY PRN PRN Reason: Constipation Atorvastatin [Lipitor] 40 mg PO DAILY Pantoprazole Tab [Protonix Tab] 40 mg PO BID #60 tablet Loratadine [Claritin] 10 mg PO DAILY Cimetidine [Tagamet Hb] 200 mg PO BEDTIME PRN PRN Reason: Reflux amLODIPine [Norvasc] 10 mg PO DAILY #30 tablet Meclizine [Antivert] 25 mg PO QID #120 tablet - Follow Up or Referral - Forms/Instructions Instructions: Sukumar Bronchoscopy or Lung Biopsy
--- NOTE | 2017-01-19 10:23 | XRay Report ---
XR chest post bronchoscope Indication: Pneumothorax Comparison: 16 December 2016 Findings: The heart and mediastinum are stable in size and configuration. Pacemaker device is unchanged in position. The pulmonary vascularity is decreased with decreasing interstitial lung density. No other lung infiltrates, effusions, pneumothorax or other abnormality is demonstrated. Impression: Findings suggest mild improvement of cardiac decompensation. PROCEDURE INTERPRETED AT [facility] DEPARTMENT OF RADIOLOGY Final Report Signed by: Dr. Reggie Ko
--- NOTE | 2017-01-19 12:23 | XRay Report ---
XR chest post bronchoscope Indication: Post bronchoscopy Comparison: Chest x-ray dated January 19, 2017 Technique: Frontal views of the chest in inspiration and extra rotation. Findings: Continued cardiomegaly. Pacemaker apparatus again demonstrated. Small left apical pneumothorax. There is a nonspecific reticular pattern throughout the bilateral lungs suspicious for interstitial pulmonary edema, interstitial pneumonia, or other interstitial lung disease. Visualized osseous and surrounding soft tissue structures appear grossly unchanged. IMPRESSION: As above. Critical Results: Discussed with Ai Key RN at time of dictation. PROCEDURE INTERPRETED AT [facility] DEPARTMENT OF RADIOLOGY Final Report Signed by: Dr Tushar Acevedo
[2017-01-19] MEDS ORDERED: ALBUTEROL/IPRATROPIUM 3 ML NEB RESP TX STA (13:58)
--- NOTE | 2017-01-19 14:17 | XRay Report ---
XR chest inspiration expiratio Indication: Post bronchoscopy pneumothorax Comparison: Chest x-ray dated January 19, 2017 at 12:15 PM Technique: Frontal views of the chest in inspiration and expiration. Findings: Continued cardiomegaly. Pacemaker apparatus again demonstrated. Minimally improved left apical pneumothorax. Suspect small left pleural fluid. Continued nonspecific reticular pattern throughout the lungs. Visualized osseous and surrounding soft tissue structures appear grossly unchanged. IMPRESSION: As above. PROCEDURE INTERPRETED AT [facility] [place] DEPARTMENT OF RADIOLOGY Final Report Signed by: Dr Tushar Acevedo
[2017-01-19] MEDS ORDERED: ONDANSETRON 4 MG/2 ML VIAL ONE (14:46)
--- NOTE | 2017-01-19 15:00 | Event Note ---
The patient is a 71-year-old that came in for lung biopsy today. He has a left apex nodule. We did transbronchial biopsies and he did develop a small left pneumothorax. He is not having any trouble breathing a repeat chest x-ray shows a pneumothorax that is smaller and should not be a problem. He has had some nausea and not eating yet. He says he is feeling a little better however and wants to go home. His vital signs are stable and will let him get up and move around a little and see if he can go home.
[2017-01-19] MEDS ORDERED: FUROSEMIDE 40 MG/4 ML VIAL IV ONE (15:40)
[2017-01-19] MEDS ORDERED: ONDANSETRON 4 MG/2 ML VIAL IV PRN (15:52)
[2017-01-19] MEDS ORDERED: FUROSEMIDE 40 MG/4 ML VIAL ONE (16:02)
--- NOTE | 2017-01-19 16:33 | Pulmonology History & Physical ---
Assessment and Plan (1) Pulmonary nodule Status: Acute Assessment and plan: The patient has a PET positive pulmonary nodule which may be a second malignancy. Current Visit: Yes (2) Pneumothorax after biopsy Status: Acute Assessment and plan: The patient has a small left apical pneumothorax that is stable. This does not appear to be causing any problems at present. Current Visit: Yes (3) Hypertension Status: Chronic Assessment and plan: The patient has hypertension that is fairly stable at present. Current Visit: No (4) History of stroke Status: Acute Assessment and plan: The patient has had a cerebellar stroke in the recent past. Current Visit: No (5) Esophageal cancer Status: Acute Assessment and plan: The patient has been found to have esophageal cancer. He will be starting chemotherapy soon. He did have some hematemesis today. Current Visit: No (6) Diastolic heart failure Status: Acute Assessment and plan: The patient has a tendency for heart failure and his chest x-ray does look a little wet. We will try to diurese a little. Current Visit: No - Constitutional Constitutional: Present: weakness, weight loss. Absent: chills, fever(s), headache(s) - EENT Eyes: Absent: loss of vision Ears: Absent: decreased hearing Nose, mouth and throat: Absent: dysphagia, headache(s) - Cardiovascular Cardiovascular: Present: chest pain at rest. Absent: edema, palpitations - Respiratory Respiratory: Present: cough, dyspnea, hemoptysis, pain on inspiration - Gastrointestinal Gastrointestinal: Present: hematemesis, nausea, vomiting. Absent: abdominal pain, change in bowel habits - Genitourinary Genitourinary: Absent: difficulty urinating, dysuria, hematuria - Musculoskeletal Musculoskeletal: Absent: arthralgias, muscle weakness - Neurological Neurological: Absent: abnormal speech, focal weakness, paresthesias - Psychiatric Psychiatric: Absent: anxiety History of Present Illness Chief complaint: Nausea and weakness History of present illness: Mr. Hays is a 71 year old white male that has been found to have an esophageal cancer and also has a left upper lobe pulmonary nodule. There is a question that this may be a second malignancy. He is a former smoker and has a component of COPD possibly. He has hypertension and has had a previous CVA. He is probably going to start chemotherapy soon. He came in to have an outpatient bronchoscope with an attempted biopsy in the left upper lobe density. This was done today and went fairly well but he did get a small left pneumothorax. We watch this for a few hours and has been stable. He was getting up to go home when he felt very nauseated and vomited some bloody secretions. He has not felt like eating and is felt a little short of breath. Because of these problems we are going to watch him overnight. He is actually scheduled to get a line soon and start chemotherapy. Home Medications Medication Instructions Recorded Confirmed Type Aspirin EC Tab 81 mg PO DAILY #30 tablet 11/04/16 01/17/17 Rx Lisinopril [Prinivil] 20 mg PO BID #60 tablet 11/04/16 01/19/17 Rx Meclizine [Antivert] 25 mg PO QID #120 tablet 11/04/16 01/19/17 Rx Metoprolol Succinate Xl [Toprol Xl] 50 mg PO BID #60 tablet 11/04/16 01/19/17 Rx amLODIPine [Norvasc] 10 mg PO DAILY #30 tablet 11/04/16 01/17/17 Rx hydrALAZINE TAB [Apresoline Tab] 100 mg PO TID #90 tablet 11/04/16 01/17/17 Rx Tamsulosin [Flomax] 0.4 mg PO BEDTIME 11/15/16 01/19/17 History Atorvastatin [Lipitor] 40 mg PO DAILY 12/13/16 01/17/17 History Polyethylene Glycol 3350 17 gm PO DAILY PRN 12/13/16 01/17/17 History Pantoprazole Tab [Protonix Tab] 40 mg PO BID #60 tablet 12/18/16 01/17/17 Rx Cimetidine [Tagamet Hb] 200 mg PO BEDTIME PRN 01/17/17 01/19/17 History Loratadine [Claritin] 10 mg PO DAILY 01/17/17 01/19/17 History Allergies Allergy/AdvReac Type Severity Reaction Status Date / Time dexamethasone Allergy Depression Verified 11/01/16 07:02 montelukast [From Singulair] Allergy Depression Verified 11/01/16 07:02 Penicillins Allergy Unknown/Unable Verified 10/29/16 08:21 to obtain Medical,Surgical,& Family Hx - Medical History Cardio: History of: Cardiac Dysrhythmia (Atrial fibrillation & Bradycardia), Hypertension, Pacemaker (Placed 11/01/[address] Stallings), Cardiovascular Problems ( Heart Murmur) No history of: CHF, CAD, [place] Neurology: History of: Cerebrovascular Accident (Cerebellar stroke, 10/29/2016), Vertigo No history of: Dementia, Seizures HEENT: History of: Ear Problem (vertigo) Endocrine: History of: Thyroid Disorder No history of: Adrenal Disease, Diabetes Mellitus (IDDM), Diabetes Mellitus ( NIDDM), Endocrine Cancer, Endocrine Problems Rheumatology: History of;: Gout (Occasionally in his toes) Respiratory: History of: Asthma (As a child), Bronchitis (As a child) No history of: Lung Cancer (Spot on lung-01/19/[address] Javier) Renal: History of: Renal Problems (Stage 3 Kidney Failure) Genitourinary: History of: Kidney Stones (2011) Gastrointestinal: History of: Gastrointestinal Cancer (Esophageal Ca-awaiting lung check), GI Problems (gallstones in 2011) No history of: Gastrointestinal Bleed Musculoskeletal: No history of: Amputation Hematology: No history of: Blood Transfusion Reaction Other: History of: Cancer (Esophageal Ca) No history of: Anesthesia Reactions - Surgical History Cardiac Surgeries: Sugical HX of: Cardiac Surgery (Pacemaker Placed 11/01/[address] Stallings) Patient Denies: Femoral-Popliteal Bypass Graft, Cardiac Catheterization, Carotid Endarterectomy, Internal Defibrillator, Vascular Access Devices Thoracic Surgeries: Patient denies;: Kidney (Renal Surgery), Lithotripsy, Nephrectomy, Organ Transplant, Lobectomy Neurologic Surgeries: Patient denies: Neurologic Surgery HEENT Surgeries: Surgical HX of: Tonsilectomy & Adenoidectomy (1955) Patient denies: Carotid Endarterectomy, Eye Surgery, Thyroid Surgery Abdominal Surgeries: Surgical HX of: Cholecystectomy (11/12/16), Colonoscopy ( 2011), EGD (2011) Patient denies: Abdominal Surgery, Appendectomy, Gastric Bypass Surgery, Hernia Repair, Splenectomy Reproductive Surgeries: Patient denies;: Breast Surgery, Cystoscopy, Genitourinary Surgery, Prostate Surgery, Vasectomy Orthopedic Surgeries: Patient denies;: Implanted Devices, Orthopedic Surgery, Spinal Surgery, Total Hip Replacement, Total Knee Replacement - Family History Family History: Reports;: Family Stroke (Mother) Denies;: Family Anesthesia Reaction, Family Cancer, Family Diabetes, Family Heart Disease, Family Hypertension, Family Psychiatric Problems - Social History Smoking Status: Former smoker Frequency of Alcohol Use: None Type of Drug Use: None Exam (Pulmonay) H&P - Constitutional Vitals: Period Temp Pulse Resp BP Sys/Pretty Pulse Ox Last 24 Hr 97.4 F-98.9 F 59-97 10-21 106-177/47-81 86-100 General appearance: no acute distress, over weight (The patient is documented but looks reasonably comfortable at present.) - Head Head exam: Present: normal inspection, normocephalic - Eye Eye exam: Present: EOMI. Absent: scleral icterus Pupils: Present: ELISEO - ENT ENT exam: Present: normal exam - Neck Neck exam: Present: normal inspection. Absent: lymphadenopathy, thyromegaly - Respiratory Respiratory exam: Present: rhonchi, other (He has fair breath sounds bilaterally.). Absent: accessory muscle use - Cardiovascular Cardiovascular exam: Present: regular rate and rhythm. Absent: gallop, systolic murmur - GI/Abdominal GI/Abdominal exam: Present: normal bowel sounds, soft. Absent: distended, organomegaly, tenderness - Extremities Exam Extremities exam: Absent: calf tenderness, edema - Neurological Exam Neurological exam: Present: alert, oriented X3, CN II-XII intact - Psychiatric Psychiatric exam: Present: normal affect - Skin Skin exam: Present: warm, dry
[2017-01-19 16:36] LABS: Basophils % 0.3 % (0.0-0.8); Eosinophils # 0.1 10*3/uL (0.0-0.87); Eosinophils % 0.3 % (0.00-10.9); Hematocrit 25.3 VOL% (42.0-52.0); Hemoglobin 8.3 GM/DL (14.0-18.0); Immature Granulocytes % 0.4 %; Immature Granulocytes Absolute 0.06 #; Lymphocytes % 6.6 % (21.2-54.2); Mean Corpuscular HGB Conc 32.8 GM/DL (32-36); Mean Corpuscular Hemoglobin 27 PG (27-34); Mean Corpuscular Volume 82.1 FL (87-102); Mean Platelet Volume 9.4 FL (9.6-12.0); Monocytes # 0.6 10*3/uL (0.11-0.8); Monocytes % 3.6 % (1.7-12.7); Neutrophils % 88.8 % (38.7-73.9); Platelet Count 312 T/CUMM (130-400); Red Blood Count 3.08 MC/CUMM (3.8-5.5); Red Cell Distribution Width 14.6 % (9.3-17.3); White Blood Count 15.8 T/CUMM (4-12)
[2017-01-19] MEDS ORDERED: FAMOTIDINE 20 MG TABLET PO PRN (16:45)
[2017-01-19] MEDS: ALBUTEROL/IPRATROPIUM 3 ML NEB RESP TX SCH (19:21)
[2017-01-19] MEDS: MECLIZINE 25 MG TABLET PO SCH ×2 (19:50→20:55)
[2017-01-19] MEDS: PANTOPRAZOLE 40 MG TABLET PO SCH (20:55)
[2017-01-19] MEDS: TAMSULOSIN 0.4 MG CAPSULE PO SCH (20:55)
[2017-01-19] MEDS: METOPROLOL SUCCINATE XL 50 MG TABLET PO SCH (20:56)
[2017-01-19] MEDS: LISINOPRIL 20 MG TABLET PO SCH (20:56)
[2017-01-20] MEDS: ALBUTEROL/IPRATROPIUM 3 ML NEB RESP TX SCH ×4 (02:00→19:36)
[2017-01-20 06:51] LABS: Calcium 8.3 MG/DL (8.5-10.1); Potassium 3.4 MMOL/L (3.5-5.1)
--- NOTE | 2017-01-20 07:17 | XRay Report ---
XR chest 1V portable Indication: Shortness of breath Comparison: 19 January 2017 Findings: The heart and mediastinum are similar in size and configuration. Pacemaker device is unchanged in position. The pulmonary vascularity is normal in caliber. There is increasing left lung density. No other lung infiltrates, effusions, pneumothorax or other abnormality is demonstrated. Impression: Increasing left lung density could indicate infiltrate or pulmonary hemorrhage. No other significant changes. PROCEDURE INTERPRETED AT [facility] DEPARTMENT OF RADIOLOGY Final Report Signed by: Dr. Reggie Ko
--- NOTE | 2017-01-20 08:26 | Pulmonology Progress Note ---
Pulmonary - PN: Subj Interval history: The patient is a 71-year-old white man that has esophageal CA and has a pulmonary nodule in his left apex. He is a former smoker and may have some COPD. He has also had diastolic heart failure with arrhythmias. Earlier this year had a cerebellar stroke. Yesterday we tried transbronchial biopsies and he did get a small pneumothorax. However he has not been feeling well otherwise . He has coughed up some blood-tinged sputum and had some nausea. He has not been eating very well. He is quite anemic and will likely need transfusions. He is scheduled to start chemotherapy soon. He says he has a restless night. His nausea is better and he ate a little bit today. His hematocrit is down to 25. Exam (Progress Note) - Constitutional Vitals: Period Temp Pulse Resp BP Sys/Pretty Pulse Ox Last 24 Hr 97.4 F-100.1 F 59-97 10-21 106-160/47-81 86-100 Exam: General appearance: no acute distress, over weight (The patient is alert and comfortable and in no distress now.) - Head Head exam: Present: normal inspection, normocephalic - Eye Eye exam: Present: EOMI. Absent: scleral icterus Pupils: Present: ELISEO - ENT ENT exam: Present: normal exam - Neck Neck exam: Present: normal inspection. Absent: lymphadenopathy, thyromegaly - Respiratory Respiratory exam: Present: Patient has fairly good breath sounds bilaterally with some minimal rhonchi. - Cardiovascular Cardiovascular exam: Present: His heart rate is controlled and he has a slightly irregular rhythm. Absent: gallop, systolic murmur - GI/Abdominal GI/Abdominal exam: Present: normal bowel sounds, soft. Absent: distended, organomegaly, tenderness - Extremities Exam Extremities exam: Absent: calf tenderness, edema - Neurological Exam Neurological exam: Present: alert, oriented X3, CN II-XII intact, he is moving everything okay. - Psychiatric Psychiatric exam: Present: normal affect - Skin Skin exam: Present: warm, dry Results - Labs CBC & BMP: 01/19/17 16:24 01/20/17 04:26 - Diagnostic Findings Procedure: Chest x-ray: image reviewed by me, report reviewed by me (Chest x- ray shows some mild infiltrates. The left pneumothorax is almost resolved.) Assessment and Plan (1) Pulmonary nodule Status: Acute Assessment and plan: The patient has a PET positive pulmonary nodule which may be a second malignancy. Current Visit: Yes (2) Pneumothorax after biopsy Status: Acute Assessment and plan: The patient has a small left apical pneumothorax that is stable. The pneumothorax is better today. Current Visit: Yes (3) Hypertension Status: Chronic Assessment and plan: The patient has hypertension that is fairly stable at present. His heart rate and blood pressure are doing okay. Current Visit: No (4) History of stroke Status: Acute Assessment and plan: The patient has had a cerebellar stroke in the recent past. Current Visit: No (5) Esophageal cancer Status: Acute Assessment and plan: The patient has been found to have esophageal cancer. He will start chemotherapy soon. Current Visit: No (6) Diastolic heart failure Status: Acute Assessment and plan: The patient has a tendency for heart failure and his chest x-ray does look a little wet. His respiratory status is a little better. Current Visit: No (7) Renal insufficiency Status: Chronic Assessment and plan: The patient's creatinine is 2.1 Current Visit: No (8) Anemia Status: Acute Assessment and plan: The patient's hematocrit is 25 and will need transfusion. Current Visit: No Qualifiers: Anemia type: iron deficiency Iron deficiency anemia type: chronic blood loss Qualified Code(s): D50.0 - Iron deficiency anemia secondary to blood loss (chronic) Specialty Discharge - Follow Up or Referrals
--- NOTE | 2017-01-20 08:59 | Oncology Consult Note ---
History of Present Illness Chief complaint: Adenocarcinoma of the distal esophagus History of present illness: Mr. 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 However, I referred him to the [facility] to Dr. Viral Coyle. Dr. Coyle performed additional staging procedures and found that the patient had a mass-effect in the left upper lobe on PET scan as well as extensive tumor involvement in the distal esophagus that is clearly invasive and not limited stage disease. The patient was admitted by Dr. Javier after I consulted him for a lung biopsy to attempt to establish the etiology of the left upper lobe mass. He has a left pneumothorax. I had planned to consider Mediport catheter placement but it would need to be placed in the right chest and I think it is too risky for the time being. We will be consulting radiology for a PICC line so that can eventually proceed with his first course of chemotherapy. I had planned to use carboplatin, Taxotere and 5-FU once we began it. Allergies: Montelukast, penicillins and dexamethasone. 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 He has a history of cardiac dysrhythmias and has an artificial pacemaker Endocrine: Positive for thyroid disorders as well as diabetes mellitus Rheumatology positive for gout Respiratory: Positive for asthma as a child : Positive for kidney stones GI: Positive for gallstones post cholecystectomy Hematology: Positive for anemia recently but not in the past. We will be transfusing him however. - Surgical History Cardiac Surgeries: Sugical HX of: Cardiac Surgery (Pacemaker Placed 11/01/[address] Stallings) Patient Denies: Femoral-Popliteal Bypass Graft, Cardiac Catheterization, Carotid Endarterectomy, Internal Defibrillator, Vascular Access Devices Thoracic Surgeries: Patient denies;: Kidney (Renal Surgery), Lithotripsy, Nephrectomy, Organ Transplant, Lobectomy Neurologic Surgeries: Patient denies: Neurologic Surgery HEENT Surgeries: Surgical HX of: Tonsilectomy & Adenoidectomy (1955) Patient denies: Carotid Endarterectomy, Eye Surgery, Thyroid Surgery Abdominal Surgeries: Surgical HX of: Colonoscopy (2011), EGD (2011) Patient denies: Abdominal Surgery, Appendectomy, Cholecystectomy, Gastric Bypass Surgery, Hernia Repair, Splenectomy Reproductive Surgeries: Patient denies;: Breast Surgery, Cystoscopy, Genitourinary Surgery, Prostate Surgery, Vasectomy Orthopedic Surgeries: Patient denies;: Implanted Devices, Orthopedic Surgery, Spinal Surgery, Total Hip Replacement, Total Knee Replacement - Family History Family History: Reports;: Family Stroke (Mother) Denies;: Family Anesthesia Reaction, Family Cancer, Family Diabetes, Family Heart Disease, Family Hypertension, Family Psychiatric Problems - Social History Smoking Status: Never smoker Have you smoked in the last 12 months: No Frequency of Alcohol Use: None Type of Drug Use: None Marital Status: Lives With:: Spouse Functional capacity: independent ambulation 12 point system: reviewed and no additional remarkable complaints except as stated ROS Significant review of systems includes: Acute upper GI bleed Anemia secondary to GI blood loss The patient had nausea with his GI bleed but he has not had any abdominal pain. He has a history of colon polyps He has occasional headaches He has had problems with mentation recently that he attributes to onset of the cardiac arrhythmias requiring pacemaker placement and he has had some memory loss, short-term. He also gives a history of arthritis with joint stiffness and pain and with muscle weakness. Physical examination: General: The patient appears both acutely and chronically ill. He is tachypneic presently. Eyes: Normal lids and conjunctivae. ENT: His oral mucosa and pharynx are normal. His trachea is midline and he has no neck masses. Lungs: Breath sounds are coarse and he has rales and wheezes in the left lung. He is tachypnea. Cardiovascular: His heart rhythm is regular without murmur, gallop or rub. There is no jugular venous distention, clubbing, cyanosis or edema. Abdomen: He is tender in the epigastrium. There is no ascites. Bowel sounds are normal. Musculoskeletal: His gait is unsteady. He has no focal muscle atrophy or bone or joint deformity. Neurologic: The patient has an unsteady gait and some ataxia. Psychiatric: The patient is fully oriented to time, place, person and situation. Impression: Locally advanced esophageal adenocarcinoma: Left upper lobe lung mass: History of cerebellar stroke with difficulty ambulating: COPD: Cardiac arrhythmias requiring artificial pacemaker: Anemia: His hemoglobin is 8.8 in my office earlier this week. History of hypothyroidism Home Medications Medication Instructions Recorded Confirmed Type Aspirin EC Tab 81 mg PO DAILY #30 tablet 11/04/16 01/17/17 Rx Lisinopril [Prinivil] 20 mg PO BID #60 tablet 11/04/16 01/19/17 Rx Meclizine [Antivert] 25 mg PO QID #120 tablet 11/04/16 01/19/17 Rx Metoprolol Succinate Xl [Toprol Xl] 50 mg PO BID #60 tablet 11/04/16 01/19/17 Rx amLODIPine [Norvasc] 10 mg PO DAILY #30 tablet 11/04/16 01/17/17 Rx hydrALAZINE TAB [Apresoline Tab] 100 mg PO TID #90 tablet 11/04/16 01/17/17 Rx Tamsulosin [Flomax] 0.4 mg PO BEDTIME 11/15/16 01/19/17 History Atorvastatin [Lipitor] 40 mg PO DAILY 12/13/16 01/17/17 History Polyethylene Glycol 3350 17 gm PO DAILY PRN 12/13/16 01/17/17 History Pantoprazole Tab [Protonix Tab] 40 mg PO BID #60 tablet 12/18/16 01/17/17 Rx Cimetidine [Tagamet Hb] 200 mg PO BEDTIME PRN 01/17/17 01/19/17 History Loratadine [Claritin] 10 mg PO DAILY 01/17/17 01/19/17 History Allergies Allergy/AdvReac Type Severity Reaction Status Date / Time dexamethasone Allergy Depression Verified 11/01/16 07:02 montelukast [From Singulair] Allergy Depression Verified 11/01/16 07:02 Penicillins Allergy Unknown/Unable Verified 10/29/16 08:21 to obtain Medical,Surgical,& Family Hx - Medical History Cardio: History of: Cardiac Dysrhythmia (Atrial fibrillation & Bradycardia), Hypertension, Pacemaker (Placed 11/01/[address] Stallings), Cardiovascular Problems ( Heart Murmur) No history of: CHF, CAD, [place] Neurology: History of: Cerebrovascular Accident (Cerebellar stroke, 10/29/2016), Vertigo No history of: Dementia, Seizures HEENT: History of: Ear Problem (vertigo) Endocrine: History of: Thyroid Disorder No history of: Adrenal Disease, Diabetes Mellitus (IDDM), Diabetes Mellitus ( NIDDM), Endocrine Cancer, Endocrine Problems Rheumatology: History of;: Gout (Occasionally in his toes) Respiratory: History of: Asthma (As a child), Bronchitis (As a child) No history of: Lung Cancer (Spot on lung-01/19/[address] Javier) Renal: History of: Renal Problems (Stage 3 Kidney Failure) Genitourinary: History of: Kidney Stones (2011) Gastrointestinal: History of: Gastrointestinal Cancer (Esophageal Ca-awaiting lung check), GI Problems (gallstones in 2011) No history of: Gastrointestinal Bleed Musculoskeletal: No history of: Amputation Hematology: No history of: Blood Transfusion Reaction Other: History of: Cancer (Esophageal Ca) No history of: Anesthesia Reactions - Surgical History Cardiac Surgeries: Sugical HX of: Cardiac Surgery (Pacemaker Placed 11/01/[address] Stallings) Patient Denies: Femoral-Popliteal Bypass Graft, Cardiac Catheterization, Carotid Endarterectomy, Internal Defibrillator, Vascular Access Devices Thoracic Surgeries: Patient denies;: Kidney (Renal Surgery), Lithotripsy, Nephrectomy, Organ Transplant, Lobectomy Neurologic Surgeries: Patient denies: Neurologic Surgery HEENT Surgeries: Surgical HX of: Tonsilectomy & Adenoidectomy (1955) Patient denies: Carotid Endarterectomy, Eye Surgery, Thyroid Surgery Abdominal Surgeries: Surgical HX of: Cholecystectomy (11/12/16), Colonoscopy ( 2011), EGD (2011) Patient denies: Abdominal Surgery, Appendectomy, Gastric Bypass Surgery, Hernia Repair, Splenectomy Reproductive Surgeries: Patient denies;: Breast Surgery, Cystoscopy, Genitourinary Surgery, Prostate Surgery, Vasectomy Orthopedic Surgeries: Patient denies;: Implanted Devices, Orthopedic Surgery, Spinal Surgery, Total Hip Replacement, Total Knee Replacement - Family History Family History: Reports;: Family Stroke (Mother) Denies;: Family Anesthesia Reaction, Family Cancer, Family Diabetes, Family Heart Disease, Family Hypertension, Family Psychiatric Problems - Social History Smoking Status: Former smoker Frequency of Alcohol Use: None Type of Drug Use: None Exam - Constitutional Vitals: Period Temp Pulse Resp BP Sys/Pretty Pulse Ox Last 24 Hr 97.4 F-100.1 F 59-97 10-21 106-160/47-81 86-100 Results - Labs CBC & BMP: 01/19/17 16:24 01/20/17 04:26 Quality Measures - VTE Contraindication to Pharmacological VTE Prophylaxis: Active Bleeding Specialty Discharge - Follow Up or Referrals
[2017-01-20] MEDS ORDERED: SODIUM CHLORIDE 0.9% 250 ML IV PRN (09:00)
[2017-01-20] MEDS: PANTOPRAZOLE 40 MG TABLET PO SCH ×2 (09:08→20:39)
[2017-01-20] MEDS: ATORVASTATIN 40 MG TABLET PO SCH (09:08)
[2017-01-20] MEDS: MECLIZINE 25 MG TABLET PO SCH ×4 (09:09→20:39)
[2017-01-20] MEDS: METOPROLOL SUCCINATE XL 50 MG TABLET PO SCH ×2 (09:09→20:38)
[2017-01-20] MEDS: LISINOPRIL 20 MG TABLET PO SCH ×2 (09:10→20:38)
[2017-01-20] MEDS: amLODIPine 10 MG TABLET PO SCH (09:10)
[2017-01-20] MEDS: LORATADINE 10 MG TABLET PO SCH (09:12)
[2017-01-20] MEDS: ASPIRIN EC 81 MG TABLET PO SCH (09:15)
[2017-01-20] MEDS: DEXT 5% NACL 0.45% KCL 20 MEQ 20 MEQ/1,000 ML BAG IV SCH (10:37)
[2017-01-20] MEDS ORDERED: chlorproMAZINE INJ 25 MG in SODIUM CHLORIDE 0.9% 100 ML IV PRN (10:46)
[2017-01-20] MEDS ORDERED: diphenhydrAMINE CAP 25 MG CAPSULE PO PRN (10:46)
[2017-01-20] MEDS ORDERED: LACTULOSE 20 GM/30 ML UDCUP PO PRN (10:46)
[2017-01-20] MEDS ORDERED: ACETAMINOPHEN 325 MG TABLET PO PRN (10:46)
[2017-01-20] MEDS ORDERED: ONDANSETRON 4 MG/2 ML VIAL IV PRN (10:46)
[2017-01-20] MEDS ORDERED: traMADol 50 MG TABLET PO PRN (10:46)
[2017-01-20] MEDS ORDERED: LOPERAMIDE 2 MG CAPSULE PO PRN ×2 (10:46)
[2017-01-20] MEDS ORDERED: chlorproMAZINE 25 MG TABLET PO PRN (10:46)
[2017-01-20] MEDS ORDERED: BENZTROPINE 2 MG/2 ML AMP IV PRN (10:46)
[2017-01-20] MEDS ORDERED: chlorproMAZINE INJ 50 MG in SODIUM CHLORIDE 0.9% 100 ML IV PRN (10:46)
[2017-01-20] MEDS ORDERED: ALPRAZolam 0.25 MG TABLET PO PRN (10:46)
[2017-01-20] MEDS ORDERED: ALUMINUM/MAGNES/SIMETH MAX STR 30 ML UDCUP PO PRN (10:46)
[2017-01-20] MEDS ORDERED: MAGNESIUM HYDROXIDE SUSP 30 ML UDCUP PO PRN (10:46)
[2017-01-20] MEDS ORDERED: PROMETHAZINE INJ 25 MG in SODIUM CHLORIDE 0.9% 50 ML IV PRN (10:46)
[2017-01-20] MEDS ORDERED: TEMAZEPAM 7.5 MG CAPSULE PO PRN (10:46)
[2017-01-20] MEDS ORDERED: guaiFENesin 200 MG/10 ML UDCUP PO PRN (10:46)
[2017-01-20] MEDS: POLYETHYLENE GLYCOL POWDER 17 GM PACK PO PRN (11:59)
--- NOTE | 2017-01-20 13:16 | Pathology Report from [facility] ---
[facility] ACCESSION # : [id number] PATIENT NAME : Stuart Hays ORDERING DR : GUERO JAMES MD CLINICAL HX: Left Pulmonary Nodule, Esophageal Cancer, Shortness of Breath. POST-OP DX: Same SPECIMEN INFO: Washing,Bronchial,MICA - 5 mls bloody, cloudy CLASS: I CLASS COMMENTS: Benign respiratory epithelium, macrophages, and squamous metaplasia.CELL BLOCK: Same. CLASS LEGEND: CLASS 0 Material inadequate for diagnosis because of (see comment) CLASS I Absence of atypical or abnormal cells CLASS II Atypical Cytology but no evidence of malignancy CLASS III Cytology suggestive of but not conclusive for malignancy CLASS IV Cytology strongly suggestive of malignancy CLASS V Cytology conclusive for malignancy COLLECTED DATE: 01/19/2017 [facility] REPORT DATE: 01/20/2017 ELECTRONICALLY SIGNED BY: Atilio Sher M.D. 01/20/2017 - 10:03:32 RIGO
--- NOTE | 2017-01-20 17:00 | Post Interventional Procedure ---
Pre-op diagnosis: esophageal CA Post-op diagnosis: same Procedure: PICC Placement Contrast: none Flouroscopy: 0.2 min Radiologist: Kian Stephenson Anesthesia: local Specimens: none sent Estimated blood loss: none Complications: none Condition: stable Description/Findings: right arm 5 FR dual lumen power picc placement done and ready for use Assessment and Plan - Time spent with patient Time spent with patient: Less than 30 minutes
--- NOTE | 2017-01-20 17:05 | Interventional Radiology Rpt ---
IR PICC line insertion, US guide vascular access IR PICC Placement Peripherally-inserted central catheter (PICC) placement using ultrasound and fluoroscopic guidance Ultrasound of the left upper extremity Clinical Information: 71-year-old male with newly diagnosed advanced age esophageal cancer who developed a pneumothorax following bronchoscopy. PICC line is requested. Physician: Dr. Stephenson Procedure: The patient was advised of the benefits, risks, and alternatives of the procedure and informed consent was obtained. A time out was performed with verification of the patient's name, MRN, site of procedure, and type of procedure to be performed. The patient was positioned in the supine position on the angiographic table. The site was prepped and draped in the usual sterile fashion. Additionally, maximal sterile barrier technique was employed for the procedure. A patent examiner radiograph reveals indwelling left chest pacemaker device. Ultrasound examination of the right arm demonstrates patent and compressible brachial and basilic veins. The right arm was prepped and draped in the usual sterile fashion. The right basilic vein was again identified. Using ultrasound guidance, a 21 gauge needle was used to access the vein. A permanent ultrasound recording of vascular access was obtained for the patient's record. A 0.018" cope wire was then advanced into the vein. The needle was exchanged for a 5 [place] peel-away sheath. A 5 [place] double lumen Bard Solo PICC catheter was measured and trimmed to the 39 cm mary. The PICC line was advanced through the sheath and into the central circulation. The catheter tip was positioned at the cavo-atrial junction. The peel-away sheath was then removed. At the conclusion of the procedure, the catheter was secured in place using a Stat-Lock device. A sterile dressing was applied. The lumens aspirate and flush freely. The catheter is ready for immediate use. The patient tolerated the procedure well and was returned to the PRU in stable condition. EBL: < 5 mL. Complications: None. Fluoroscopy time: 0.2 minutes Total number of images for this study: 3 Conclusion: Successful placement of a 5 [place] double lumen Bard Solo power injectable PICC via the right basilic vein. The catheter is ready for immediate use. PROCEDURE INTERPRETED AT [facility] DEPARTMENT OF RADIOLOGY Final Report Signed by: Kian Stephenson
[2017-01-20] MEDS: TAMSULOSIN 0.4 MG CAPSULE PO SCH (20:39)
[2017-01-21] MEDS: ALBUTEROL/IPRATROPIUM 3 ML NEB RESP TX SCH ×4 (00:18→20:30)
[2017-01-21 05:10] LABS: Basophils # 0.1 10*3/uL (0.0-0.2); Basophils % 0.5 % (0.0-0.8); Eosinophils # 0.1 10*3/uL (0.0-0.87); Eosinophils % 1.3 % (0.00-10.9); Hematocrit 25.3 VOL% (42.0-52.0); Hemoglobin 8.2 GM/DL (14.0-18.0); Immature Granulocytes % 0.7 %; Immature Granulocytes Absolute 0.07 #; Lymphocytes # 1.6 10*3/uL (1.4-4.0); Lymphocytes % 15.2 % (21.2-54.2); Mean Corpuscular HGB Conc 32.4 GM/DL (32-36); Mean Corpuscular Hemoglobin 27 PG (27-34); Mean Corpuscular Volume 84.3 FL (87-102); Mean Platelet Volume 9.5 FL (9.6-12.0); Monocytes # 0.6 10*3/uL (0.11-0.8); Monocytes % 6.2 % (1.7-12.7); Neutrophils # 7.9 10*3/uL (1.4-7.4); Neutrophils % 76.1 % (38.7-73.9); Platelet Count 261 T/CUMM (130-400); Red Cell Distribution Width 14.6 % (9.3-17.3); White Blood Count 10.3 T/CUMM (4-12)
[2017-01-21 05:38] LABS: Albumin 2.6 G/DL (3.4-5.0); Bilirubin,Total 0.5 MG/DL (0.2-1.0); Calcium 7.8 MG/DL (8.5-10.1); Osmolality,Calculated 284.3 MOS/KG (273-304); Potassium 2.9 MMOL/L (3.5-5.1); Total Protein 5.6 G/DL (6.4-8.3)
[2017-01-21] MEDS: LORATADINE 10 MG TABLET PO SCH (08:09)
[2017-01-21] MEDS: MECLIZINE 25 MG TABLET PO SCH ×4 (08:09→21:18)
[2017-01-21] MEDS: ATORVASTATIN 40 MG TABLET PO SCH (08:09)
[2017-01-21] MEDS: METOPROLOL SUCCINATE XL 50 MG TABLET PO SCH ×2 (08:10→21:18)
[2017-01-21] MEDS: DEXT 5% NACL 0.45% KCL 20 MEQ 20 MEQ/1,000 ML BAG IV SCH ×2 (08:11→18:54)
--- NOTE | 2017-01-21 08:36 | Oncology Progress Note ---
Oncology Subjective PN Interval history: The PICC line is now in place. I had considered a Mediport but there is significant risk involved since it would have to be placed on the right side and he already has a pneumothorax on the left that needs to clear before I would be willing to place the Mediport. We are about to begin chemotherapy for his esophageal adenocarcinoma. Plan to use carboplatin 350 mg IV day 1, Taxotere 150 mg IV day 1 and 5-FU 1500 mg IV over 22 hours daily for 2 days. Mr. Hays has adenocarcinoma of the distal third of his esophagus with a left upper lobe lung mass and we are awaiting results of the bronchoscopy to assess the lung mass. He is in good spirits although he is tachypnea can having left chest wall pain. In addition, he is hypokalemic. I am starting him on potassium supplementation. I am starting him on parenteral narcotics for pain using fentanyl. See my orders. On physical examination his heart sounds are normal. He has coarse breath sounds in the left lung and hears scattered rhonchi and a pleural rub. He is fully oriented and alert. Cranial nerves II through XII are intact. See orders. Exam - Constitutional Vitals: Period Temp Pulse Resp BP Sys/Pretty Pulse Ox Last 24 Hr 97.2 F-98.9 F 59-106 16-20 108-133/53-61 88-99 Results - Labs CBC & BMP: 01/21/17 05:00 01/21/17 05:00 Quality Measures - VTE Contraindication to Pharmacological VTE Prophylaxis: Active Bleeding Specialty Discharge - Follow Up or Referrals
[2017-01-21] MEDS ORDERED: FAMOTIDINE INJ 40 MG in SODIUM CHLORIDE 0.9% 100 ML IV ONE (09:00)
[2017-01-21] MEDS ORDERED: diphenhydrAMINE 50 MG/1 ML VIAL IV ONE (09:00)
[2017-01-21] MEDS ORDERED: CARBOplatin 350 MG in SODIUM CHLORIDE 0.9% 250 ML IV ONE (09:00)
[2017-01-21] MEDS ORDERED: fentaNYL 12 MCG/HR PATCH TRANSDERM SCH (09:30)
[2017-01-21] MEDS: PANTOPRAZOLE 40 MG TABLET PO SCH ×2 (09:31→21:18)
[2017-01-21] MEDS: LISINOPRIL 20 MG TABLET PO SCH ×2 (09:31→21:02)
[2017-01-21] MEDS: GRANISETRON 1 MG/1 ML VIAL IV SCH (11:11)
[2017-01-21] MEDS: DEXAMETHASONE 4 MG/1 ML VIAL IV SCH (11:28)
[2017-01-21] MEDS: amLODIPine 10 MG TABLET PO SCH (11:31)
[2017-01-21] MEDS: ASPIRIN EC 81 MG TABLET PO SCH (11:32)
[2017-01-21] MEDS: POTASSIUM CHLORIDE 20 MEQ/15 ML UDCUP PO SCH ×2 (13:40→21:18)
[2017-01-21] MEDS: FLUOROURACIL 1,500 MG in SODIUM CHLORIDE 0.9% 1,000 ML IV SCH (14:51)
[2017-01-21] MEDS ORDERED: ALBUTEROL/IPRATROPIUM 3 ML NEB RESP TX ONE (16:04)
--- NOTE | 2017-01-21 16:05 | Pulmonology Progress Note ---
Pulmonary - PN: Subj Interval history: The patient is a 71-year-old white man that has esophageal CA and has a pulmonary nodule in his left apex. He is a former smoker and may have some COPD. He has also had diastolic heart failure with arrhythmias. Earlier this year had a cerebellar stroke. Yesterday we tried transbronchial biopsies and he did get a small pneumothorax. However he has not been feeling well otherwise . He has coughed up some blood-tinged sputum and had some nausea. He has not been eating very well. He is anemic and did get transfused yesterday. He still complains of chest soreness and coughing. Overall he is very weak. He did get his PICC line okay and will start chemotherapy. Exam (Progress Note) - Constitutional Vitals: Period Temp Pulse Resp BP Sys/Pretty Pulse Ox Last 24 Hr 97.2 F-98.2 F 59-106 16-20 108-144/53-63 88-99 Exam: General appearance: no acute distress, over weight (The patient is alert and comfortable and in no distress now. He does look chronically ill.) - Head Head exam: Present: normal inspection, normocephalic - Eye Eye exam: Present: EOMI. Absent: scleral icterus Pupils: Present: ELISEO - ENT ENT exam: Present: normal exam - Neck Neck exam: Present: normal inspection. Absent: lymphadenopathy, thyromegaly - Respiratory Respiratory exam: Present: Patient has fairly good breath sounds bilaterally with some minimal rhonchi. He seems to be breathing comfortably. - Cardiovascular Cardiovascular exam: Present: His heart rate is controlled and he has a slightly irregular rhythm. Absent: gallop, systolic murmur - GI/Abdominal GI/Abdominal exam: Present: normal bowel sounds, soft. Absent: distended, organomegaly, tenderness - Extremities Exam Extremities exam: Absent: calf tenderness, edema, no signs of phlebitis. - Neurological Exam Neurological exam: Present: alert, oriented X3, CN II-XII intact, he is moving everything okay. - Psychiatric Psychiatric exam: Present: normal affect - Skin Skin exam: Present: warm, dry Results - Labs CBC & BMP: 01/21/17 05:00 01/21/17 05:00 Assessment and Plan (1) Pulmonary nodule Status: Acute Assessment and plan: The patient has a PET positive pulmonary nodule but our lung biopsy was negative. Current Visit: Yes (2) Pneumothorax after biopsy Status: Acute Assessment and plan: The patient has a small left apical pneumothorax that is stable. The pneumothorax is almost resolved. Current Visit: Yes (3) Hypertension Status: Chronic Assessment and plan: The patient has hypertension that is fairly stable at present. His heart rate and blood pressure are doing okay. Current Visit: No (4) History of stroke Status: Acute Assessment and plan: The patient has had a cerebellar stroke in the recent past. Current Visit: No (5) Esophageal cancer Status: Acute Assessment and plan: The patient has been found to have esophageal cancer. He has had some mild bleeding. He is starting his chemotherapy. Current Visit: Yes (6) Diastolic heart failure Status: Acute Assessment and plan: The patient has a tendency for heart failure and his chest x-ray does look a little wet. His respiratory status is a little better. Will continue with present therapy. Current Visit: No (7) Renal insufficiency Status: Chronic Assessment and plan: The patient's creatinine is 2.1 Current Visit: No (8) Anemia Status: Acute Assessment and plan: The patient's hematocrit is 25 and will need transfusion. Current Visit: No Qualifiers: Anemia type: iron deficiency Iron deficiency anemia type: chronic blood loss Qualified Code(s): D50.0 - Iron deficiency anemia secondary to blood loss (chronic) Specialty Discharge - Follow Up or Referrals
[2017-01-21] MEDS: TAMSULOSIN 0.4 MG CAPSULE PO SCH (21:18)
[2017-01-22] MEDS: DEXT 5% NACL 0.45% KCL 20 MEQ 20 MEQ/1,000 ML BAG IV SCH (01:12)
[2017-01-22] MEDS: ALBUTEROL/IPRATROPIUM 3 ML NEB RESP TX SCH ×4 (01:39→19:58)
[2017-01-22 04:58] LABS: Hematocrit 25.5 VOL% (42.0-52.0); Hemoglobin 8.2 GM/DL (14.0-18.0); Immature Granulocytes % 1.3 %; Immature Granulocytes Absolute 0.11 #; Lymphocytes # 0.7 10*3/uL (1.4-4.0); Lymphocytes % 7.8 % (21.2-54.2); Mean Corpuscular HGB Conc 32.2 GM/DL (32-36); Mean Corpuscular Hemoglobin 27 PG (27-34); Mean Corpuscular Volume 83.6 FL (87-102); Mean Platelet Volume 10.2 FL (9.6-12.0); Monocytes # 0.2 10*3/uL (0.11-0.8); Monocytes % 1.9 % (1.7-12.7); Neutrophils # 7.8 10*3/uL (1.4-7.4); Platelet Count 276 T/CUMM (130-400); Red Blood Count 3.05 MC/CUMM (3.8-5.5); Red Cell Distribution Width 14.4 % (9.3-17.3); White Blood Count 8.8 T/CUMM (4-12)
[2017-01-22 05:30] LABS: Albumin 2.5 G/DL (3.4-5.0); Bilirubin,Total 0.7 MG/DL (0.2-1.0); Calcium 7.1 MG/DL (8.5-10.1); Osmolality,Calculated 288.5 MOS/KG (273-304); Potassium 4.3 MMOL/L (3.5-5.1); Total Protein 5.3 G/DL (6.4-8.3)
--- NOTE | 2017-01-22 08:59 | Oncology Progress Note ---
Oncology Subjective PN Interval history: Administration of chemotherapy and monitoring for toxicity: Chemotherapy is in progress. He is tolerating the chemotherapy well and has had no nausea or vomiting and no other discomfort as result of it. He will be through with chemotherapy tomorrow and I will plan to see him in follow-up in a couple of weeks to make a decision about when to proceed with the second course. Locally advanced esophageal adenocarcinoma: He has persistent dysphagia. It is premature to expect it to improve. Hypokalemia: Serum potassium today is 4.3. Left upper lobe lung mass: He has undergone fiberoptic bronchoscopy and the cytology is class I. He has a small pneumothorax. History of cerebellar stroke with difficulty ambulating: COPD: Stable. Chronic renal failure: Serum creatinine today is 1.9 Cardiac arrhythmias requiring artificial pacemaker: Anemia: Hemoglobin 8.2 today Exam - Constitutional Vitals: Period Temp Pulse Resp BP Sys/Pretty Pulse Ox Last 24 Hr 97.6 F-98.5 F 61-83 16-22 131-146/60-83 83-99 Results - Labs CBC & BMP: 01/22/17 03:35 01/22/17 03:35 Quality Measures - VTE Contraindication to Pharmacological VTE Prophylaxis: Active Bleeding Specialty Discharge - Follow Up or Referrals
[2017-01-22] MEDS: LISINOPRIL 20 MG TABLET PO SCH ×2 (09:44→21:04)
[2017-01-22] MEDS: MECLIZINE 25 MG TABLET PO SCH ×4 (09:44→21:04)
[2017-01-22] MEDS: ASPIRIN EC 81 MG TABLET PO SCH (09:44)
[2017-01-22] MEDS: METOPROLOL SUCCINATE XL 50 MG TABLET PO SCH ×2 (09:45→21:03)
[2017-01-22] MEDS: LORATADINE 10 MG TABLET PO SCH (09:45)
[2017-01-22] MEDS: PANTOPRAZOLE 40 MG TABLET PO SCH ×2 (09:45→21:03)
[2017-01-22] MEDS: ATORVASTATIN 40 MG TABLET PO SCH (09:47)
[2017-01-22] MEDS: amLODIPine 10 MG TABLET PO SCH (09:47)
[2017-01-22] MEDS: DEXAMETHASONE 4 MG/1 ML VIAL IV SCH (09:47)
[2017-01-22] MEDS: GRANISETRON 1 MG/1 ML VIAL IV SCH (09:50)
--- NOTE | 2017-01-22 12:41 | Pulmonology Progress Note ---
Pulmonary - PN: Subj Interval history: The patient is a 71-year-old white man that has esophageal CA and has a pulmonary nodule in his left apex. He is a former smoker and may have some COPD. He has also had diastolic heart failure with arrhythmias. Earlier this year had a cerebellar stroke. He did get a small pneumothorax while we tried to biopsy the left apex nodule. He is doing better today with his breathing. He is getting his chemotherapy and seems to be tolerating it well. He is eating a little better today. Overall he feels better. Exam (Progress Note) - Constitutional Vitals: Period Temp Pulse Resp BP Sys/Pretty Pulse Ox Last 24 Hr 97.7 F-98.5 F 61-83 16-22 131-146/63-83 83-99 Exam: General appearance: no acute distress, over weight (The patient is sitting up in a chair and looks better.) - Head Head exam: Present: normal inspection, normocephalic - Eye Eye exam: Present: EOMI. Absent: scleral icterus Pupils: Present: ELISEO - ENT ENT exam: Present: normal exam - Neck Neck exam: Present: normal inspection. Absent: lymphadenopathy, thyromegaly - Respiratory Respiratory exam: Present: Patient has fairly good breath sounds bilaterally with some minimal rhonchi. He seems to be breathing comfortably. - Cardiovascular Cardiovascular exam: Present: His heart rate is controlled and he has a slightly irregular rhythm. Absent: gallop, systolic murmur - GI/Abdominal GI/Abdominal exam: Present: normal bowel sounds, soft. Absent: distended, organomegaly, tenderness - Extremities Exam Extremities exam: Absent: calf tenderness, edema, no signs of phlebitis. - Neurological Exam Neurological exam: Present: alert, oriented X3, CN II-XII intact, he is moving everything okay. He is moving around better today. - Psychiatric Psychiatric exam: Present: normal affect - Skin Skin exam: Present: warm, dry Results - Labs CBC & BMP: 01/22/17 03:35 01/22/17 03:35 Assessment and Plan (1) Pulmonary nodule Status: Acute Assessment and plan: The patient has a PET positive pulmonary nodule but our lung biopsy was negative. We will probably just have to watch this nodule. Current Visit: Yes (2) Pneumothorax after biopsy Status: Acute Assessment and plan: The patient has a small left apical pneumothorax that is stable. The pneumothorax is almost resolved. Current Visit: Yes (3) Hypertension Status: Chronic Assessment and plan: The patient has hypertension that is fairly stable at present. His heart rate and blood pressure are doing okay. Current Visit: No (4) History of stroke Status: Acute Assessment and plan: The patient has had a cerebellar stroke in the recent past. Current Visit: No (5) Esophageal cancer Status: Acute Assessment and plan: The patient has been found to have esophageal cancer. He has had some mild bleeding. He is starting his chemotherapy. Overall he seems to be stable at present. Current Visit: Yes (6) Diastolic heart failure Status: Acute Assessment and plan: The patient has a tendency for heart failure and his chest x-ray does look a little wet. His respiratory status is a little better. Will continue with present therapy. Current Visit: No (7) Renal insufficiency Status: Chronic Assessment and plan: The patient's creatinine is better at 1.9. Current Visit: No (8) Anemia Status: Acute Assessment and plan: The patient's hematocrit is 25 and stable. Current Visit: No Qualifiers: Anemia type: iron deficiency Iron deficiency anemia type: chronic blood loss Qualified Code(s): D50.0 - Iron deficiency anemia secondary to blood loss (chronic) Specialty Discharge - Follow Up or Referrals
[2017-01-22] MEDS: POTASSIUM CHLORIDE 20 MEQ/15 ML UDCUP PO SCH ×2 (14:20→21:04)
[2017-01-22] MEDS: FLUOROURACIL 1,500 MG in SODIUM CHLORIDE 0.9% 1,000 ML IV SCH (15:03)
[2017-01-22] MEDS: POLYETHYLENE GLYCOL POWDER 17 GM PACK PO PRN (16:58)
[2017-01-22] MEDS: TAMSULOSIN 0.4 MG CAPSULE PO SCH (21:04)
[2017-01-23] MEDS: ALBUTEROL/IPRATROPIUM 3 ML NEB RESP TX SCH ×3 (00:29→13:54)
[2017-01-23 05:40] LABS: Hematocrit 27.7 VOL% (42.0-52.0); Immature Granulocytes % 0.9 %; Immature Granulocytes Absolute 0.11 #; Lymphocytes # 0.6 10*3/uL (1.4-4.0); Lymphocytes % 5.5 % (21.2-54.2); Mean Corpuscular HGB Conc 32.5 GM/DL (32-36); Mean Corpuscular Hemoglobin 28 PG (27-34); Mean Corpuscular Volume 84.7 FL (87-102); Mean Platelet Volume 10.6 FL (9.6-12.0); Monocytes # 0.2 10*3/uL (0.11-0.8); Monocytes % 1.5 % (1.7-12.7); Neutrophils # 10.7 10*3/uL (1.4-7.4); Neutrophils % 92.1 % (38.7-73.9); Platelet Count 306 T/CUMM (130-400); Red Blood Count 3.27 MC/CUMM (3.8-5.5); Red Cell Distribution Width 14.6 % (9.3-17.3); White Blood Count 11.6 T/CUMM (4-12)
[2017-01-23 06:14] LABS: Albumin 2.5 G/DL (3.4-5.0); Calcium 7.2 MG/DL (8.5-10.1); Osmolality,Calculated 285.3 MOS/KG (273-304); Potassium 4.3 MMOL/L (3.5-5.1); Total Protein 5.3 G/DL (6.4-8.3)
[2017-01-23 06:39] LABS: Burr Cells Slight; Giant Platelets Few; Hypochromasia 1+; Lymphocytes 9 % (20-55); Ovalocytes Slight; Platelet Estimate Adequate; Segmented Neutrophils 91 % (50-85); Total Cells Counted 100
--- NOTE | 2017-01-23 09:07 | Oncology Progress Note ---
Oncology Subjective PN Interval history: Administration of chemotherapy and monitoring for toxicity: Chemotherapy is in progress. He is tolerating the chemotherapy well and has had no nausea or vomiting and no other discomfort as result of it. He will be through with chemotherapy tomorrow and I will plan to see him in follow-up in a couple of weeks to make a decision about when to proceed with the second course.Lab work today includes a normal white cell count of 11,600 with a platelet count of 306 ,000. He received chemotherapy beginning January 21. It consisted of: Carboplatin 350 mg IV on January 21 Taxotere 150 mg IV on January 21 5-FU 1500 mg IV over 22 hours daily for 2 days beginning January 21. This chemotherapy is repeated every 4 weeks and my plan will be to add another day of 5-FU by infusion if he tolerates the current dose well. I am hoping to give 1500 mg IV over 22 hours daily for 3 days with course #2 of chemotherapy. He has tolerated this chemotherapy well. I plan to see him in 2 weeks to arrange for his next course. Locally advanced esophageal adenocarcinoma: He has persistent dysphagia. It is premature to expect it to improve. Hypokalemia: Serum potassium today is 4.3 today. Left upper lobe lung mass: He has undergone fiberoptic bronchoscopy and the cytology is class I. He has a small pneumothorax. History of cerebellar stroke with difficulty ambulating: COPD: Stable. Chronic renal failure: Serum creatinine today is 1.8 today. Cardiac arrhythmias requiring artificial pacemaker: Anemia: Hemoglobin 9.0 today. Exam - Constitutional Vitals: Period Temp Pulse Resp BP Sys/Pretty Pulse Ox Last 24 Hr 96.3 F-98.9 F 58-87 18- 136-172/70-95 79-96 Results - Labs CBC & BMP: 01/23/17 04:53 01/23/17 04:53 Quality Measures - VTE Contraindication to Pharmacological VTE Prophylaxis: Active Bleeding Specialty Discharge - Follow Up or Referrals
[2017-01-23] MEDS: LORATADINE 10 MG TABLET PO SCH (09:20)
[2017-01-23] MEDS: ATORVASTATIN 40 MG TABLET PO SCH (09:20)
[2017-01-23] MEDS: MECLIZINE 25 MG TABLET PO SCH ×2 (09:20→13:35)
[2017-01-23] MEDS: amLODIPine 10 MG TABLET PO SCH (09:21)
[2017-01-23] MEDS: ASPIRIN EC 81 MG TABLET PO SCH (09:21)
[2017-01-23] MEDS: METOPROLOL SUCCINATE XL 50 MG TABLET PO SCH (09:22)
[2017-01-23] MEDS: LISINOPRIL 20 MG TABLET PO SCH (09:22)
[2017-01-23] MEDS: PANTOPRAZOLE 40 MG TABLET PO SCH (09:22)
[2017-01-23] MEDS: POTASSIUM CHLORIDE 20 MEQ/15 ML UDCUP PO SCH (09:23)
[2017-01-23] MEDS: GRANISETRON 1 MG/1 ML VIAL IV SCH (09:25)
--- NOTE | 2017-01-23 11:09 | Discharge Summary ---
Hospital Course - Hospital Course Hospital Course: The patient is a 71-year-old white man that has a history of a recent cerebellar CVA. He has had some diastolic heart failure and hypertension. Recently he was found to have an esophageal CA. He was found to have a left upper lobe nodule that is PET positive also. Last week we tried to biopsy the lesion and he did get a small pneumothorax. He also was feeling badly overall. He has been having some cough and congestion and nausea and vomiting. He was very anemic and has had some bleeding. Because he did not feel well he was admitted. His pneumothorax has resolved and his breathing is a little better. He did get a PICC line placed and is starting chemotherapy. He seems to be tolerating this fairly well. He says he wants to try to go home and continue treatment as an outpatient. He does seem to be better but he does drop his O2 saturation quite easily. He does look like he may have some chronic lung disease. He does use bronchodilators at home. Will set him up for home O2 also. Diagnosis - Discharge Diagnosis (1) Pulmonary nodule Status: Acute (2) Pneumothorax after biopsy Status: Acute (3) Hypertension Status: Chronic (4) History of stroke Status: Acute (5) Esophageal cancer Status: Acute (6) Diastolic heart failure Status: Acute (7) Renal insufficiency Status: Chronic (8) Anemia Status: Acute Specialty Discharge - Follow Up or Referrals Follow up with: Rm Russell MD [Physician] - (Call office late Tuesday for appointment.) Suraj Javier MD [Physician] - 2 Weeks (We will call you with this appointment.) Stuart Goff MD [Physician] - (We will call you with appointment time.) Discharge Plan - Discharge Data Disposition: Home Health Service Condition at Discharge: Stable Discharge Diet: advance to your usual diet Activity: resume usual activities as tolerated - Discharge Medications New Acetaminophen Tab [Tylenol Tab] 650 mg PO Q4H PRN tablet PRN Reason: Fever fentaNYL 12 MCG/HR PATCH [Durages[place] 12 Patch] 1 patch TRANSDERM Q3DAY patch Heparin Lock Flush 50 units IV PRN PRN syringe PRN Reason: central line lock HYDROcodone/ACETAMIN 5-325 [[place] 5-325] 1 tablet PO Q4H PRN tablet PRN Reason: Pain Moderate (4-7) Lactulose Liquid [Chronulac] 40 gm PO DAILY PRN PRN Reason: Constipation unrelieved by MOM guaiFENesin LIQUID [Robitussin] 10 ml PO Q4H PRN PRN Reason: Cough Magnesium Hydroxide Susp [Milk of Magnesia] 60 ml PO DAILY PRN PRN Reason: Constipation; 1st agent Continue Aspirin EC Tab 81 mg PO DAILY #30 tablet hydrALAZINE TAB [Apresoline Tab] 100 mg PO TID #90 tablet Lisinopril [Prinivil] 20 mg PO BID #60 tablet Metoprolol Succinate Xl [Toprol Xl] 50 mg PO BID #60 tablet Tamsulosin [Flomax] 0.4 mg PO BEDTIME Polyethylene Glycol 3350 17 gm PO DAILY PRN PRN Reason: Constipation Atorvastatin [Lipitor] 40 mg PO DAILY Pantoprazole Tab [Protonix Tab] 40 mg PO BID #60 tablet Loratadine [Claritin] 10 mg PO DAILY Cimetidine [Tagamet Hb] 200 mg PO BEDTIME PRN PRN Reason: Reflux amLODIPine [Norvasc] 10 mg PO DAILY #30 tablet Meclizine [Antivert] 25 mg PO QID #120 tablet - Follow Up or Referral Follow Up: Rm Russell MD [Physician] - (Call office late Tuesday for appointment.) Suraj Javier MD [Physician] - 2 Weeks (We will call you with this appointment.) Stuart Goff MD [Physician] - (We will call you with appointment time.) - Forms/Instructions Instructions: Esophageal Cancer (DC), Sukumar Bronchoscopy or Lung Biopsy Exam - Constitutional Vitals: Period Temp Pulse Resp BP Sys/Pretty Pulse Ox Last 24 Hr 96.3 F-98.9 F 58-87 18-22 136-172/70-95 79-96 Exam: General appearance: no acute distress, over weight (The patient is sitting up in a chair and he certainly looks more comfortable and in no distress.) - Head Head exam: Present: normal inspection, normocephalic - Eye Eye exam: Present: EOMI. Absent: scleral icterus Pupils: Present: ELISEO - ENT ENT exam: Present: normal exam - Neck Neck exam: Present: normal inspection. Absent: lymphadenopathy, thyromegaly - Respiratory Respiratory exam: Present: Patient has fairly good breath sounds bilaterally with some minimal rhonchi. He seems to be breathing comfortably. - Cardiovascular Cardiovascular exam: Present: His heart rate is controlled and he has a slightly irregular rhythm. Absent: gallop, systolic murmur - GI/Abdominal GI/Abdominal exam: Present: normal bowel sounds, soft. He has no tenderness or organomegaly. - Extremities Exam Extremities exam: Absent: calf tenderness, edema, no signs of phlebitis. - Neurological Exam Neurological exam: Present: alert, oriented X3, CN II-XII intact, he is moving everything okay. He is moving around better today. - Psychiatric Psychiatric exam: Present: normal affect - Skin Skin exam: Present: warm, dry Discharge Results Procedures and tests throughout hospitalization: Pending Orders 01/19/17 10:09 Cytology Request Routine 01/24/17 04:00 Comp Blood Count Auto Diff IN AM Comprehensive Metabolic Panel IN AM 01/25/17 04:00 Comp Blood Count Auto Diff IN AM Comprehensive Metabolic Panel IN AM 01/26/17 04:00 Comp Blood Count Auto Diff IN AM Comprehensive Metabolic Panel IN AM Labs on day of discharge: Labs from last 24 hours 01/23/17 01/23/17 04:53 04:53 WBC 11.6 D RBC 3.27 L Hgb 9.0 L Hct 27.7 L MCV 84.7 L MCH 28 MCHC 32.5 RDW 14.6 Plt Count 306 MPV 10.6 Neut % (Auto) 92.1 H Lymph % (Auto) 5.5 L [place] % (Auto) 1.5 L Eos % (Auto) 0.0 Baso % (Auto) 0.0 Neut # (Auto) 10.7 H Lymph # (Auto) 0.6 L [place] # (Auto) 0.2 Eos # (Auto) 0.0 Baso # (Auto) 0.0 Total Counted 100 Immature Gran % 0.9 Nucleated RBC % 0.0 Immature Gran # 0.11 Segmented Neutrophils 91 H Lymphocytes 9 L Nucleated RBCs # 0.00 Platelet Estimate Adequate Giant Platelets Few Immature Plt Fraction 0.0 Hypochromasia 1+ Ovalocytes Slight [place] Cells Slight Sodium 141 Potassium 4.3 Chloride 109 H Carbon Dioxide 23 Anion Gap 13.3 BUN 26 H Creatinine 1.80 H GFR Calculation 46 BUN/Creatinine Ratio 14.00 Glucose 101 Calculated Osmolality 285.3 Calcium 7.2 L Total Bilirubin 1.00 AST 13 ALT 17 Alkaline Phosphatase 113 Total Protein 5.3 L Albumin 2.5 L Globulin 2.8 Albumin/Globulin Ratio 0.8 L DS: Provider Date of admission: 01/20/17 09:37 Primary care physician: Dominic Martinez Attending physician on admission: Suraj Javier MD Consults: 01/19/17 16:43 Consult to Physician [CONS] Routine Comment: Consulting Provider: Rm Russell Consulting Provider Notified: Yes When should Consulting Provider be notified: In am Consult to Specialist Group: Oncology When should Consulting Provider be notified: In am Person Notified: CULLEN Date Notified: 01/20/17 Time Notified: 10:03 01/23/17 09:15 Consult to Case Mgmt/Social Srvs [CONS] Routine Reason for Case Mgmt/Social Srvs: Equipment Consult Comment: set up home O2. Discharging clinician: Suraj Javier MD Expected date of discharge: 01/23/17
[2017-01-23 12:20] VITALS: BP 128/59
--- NOTE | 2017-01-24 12:18 | Pathology Report from [facility] ---
[facility] ACCESSION # : [id number] PATIENT NAME : Juana Hays ORDERING DR : GUERO JAMES MD CLINICAL HX: Left pulmonary nodule - Esophageal cancer - SOB POST-OP DX: Same SPECIMEN INFO: Left upper lobe lung bronchial biopsies x 4 GROSS DESCRIPTION: The specimen is received in formalin labeled with the patients name JUANA HAYS and consists of a 0.5 x 0.2 cm aggregate of hyperemic wagner tissue. Submitted in one cassette. DIAGNOSIS FOR JUANA HAYS: BRONCHIAL, LEFT UPPER LOBE, BIOPSIES: Benign respiratory mucosa with scattered interstitial fibrosis, chronic inflammation, and squamous metaplasia. No carcinoma seen. Special stain for fungal organisms is negative. COLLECTED DATE: 01/19/2017 [facility] REPORT DATE: 01/24/2017 ELECTRONICALLY SIGNED BY: Aline Guido M.D. 01/24/2017 - 11:09:33 [facility]
== END 2017-01-23 16:30 | disposition home health service (06) | DRG 166 ==
LOC: N.PULM 06:08 → N.SDSINP 06:18 → N.4E 17:04
PROVIDERS: ADMIT Internal Medicine Pulmonary Disease; ATTEND Internal Medicine Pulmonary Disease

== ENCOUNTER 2017-01-29 14:22 | Inpatient (IN) ==
[2017-01-29] MEDS ORDERED: SODIUM CHLORIDE 0.9% 1,000 ML IV STA (14:49)
[2017-01-29] MEDS ORDERED: ONDANSETRON 4 MG/2 ML VIAL IV STA (14:49)
[2017-01-29] MEDS ORDERED: ONDANSETRON 4 MG/2 ML VIAL ONE (15:06)
[2017-01-29 16:06] LABS: Apearance,Urine CLEAR (Clear); Bilirubin,Urine Negative (Negative); Blood, Urine Negative (Negative); Glucose,Urine (UA) Negative (Negative); Ketones,Urine Negative (Negative); Nitrite,Urine Negative (Negative); Protein,Urine 100 MG/DL; RBC,Urine <1 /HPF (0-4); Urine Color Yellow (Yellow); Urine Specific Gravity 1.006 (1.001-1.035); Urine Urobilinogen < 2.0 EU/DL (0.2-1.0); WBC,Urine 1 /HPF (0-6)
[2017-01-29 16:20] LABS: Basophils % 0.8 % (0.0-0.8); Eosinophils % 0.8 % (0.00-10.9); Hemoglobin 8.3 GM/DL (14.0-18.0); Immature Granulocytes % 8.5 %; Immature Granulocytes Absolute 0.11 #; Lymphocytes # 0.6 10*3/uL (1.4-4.0); Lymphocytes % 49.2 % (21.2-54.2); Mean Corpuscular HGB Conc 33.2 GM/DL (32-36); Mean Corpuscular Hemoglobin 27 PG (27-34); Mean Corpuscular Volume 81.2 FL (87-102); Mean Platelet Volume 9.6 FL (9.6-12.0); Monocytes # 0.3 10*3/uL (0.11-0.8); Monocytes % 25.4 % (1.7-12.7); Neutrophils # 0.2 10*3/uL (1.4-7.4); Neutrophils % 15.3 % (38.7-73.9); Platelet Count 217 T/CUMM (130-400); Red Blood Count 3.08 MC/CUMM (3.8-5.5); Red Cell Distribution Width 14.9 % (9.3-17.3); White Blood Count 1.3 T/CUMM (4-12)
[2017-01-29 16:36] LABS: Albumin 2.7 G/DL (3.4-5.0); Bilirubin,Total 0.5 MG/DL (0.2-1.0); Calcium 8.3 MG/DL (8.5-10.1); Osmolality,Calculated 279.4 MOS/KG (273-304); Potassium 3.1 MMOL/L (3.5-5.1); Total Protein 6.1 G/DL (6.4-8.3)
[2017-01-29 16:57] LABS: Burr Cells Few; Lymphocytes 51 % (20-55); Ovalocytes Few; Platelet Estimate Adequate; Poikilocytosis 1+; Segmented Neutrophils 28 % (50-85); Total Cells Counted 100
--- NOTE | 2017-01-29 17:29 | Emergency Department Note ---
Neymar Ratliff Jessica J, am scribing for, and in the presence of, Kris Huerta MD 14:54. Bradley Ratliff Doug C, MD, personally performed the services described in this documentation, ascribed by Nina Blackmon in my presence, and it is both accurate and complete [id number] . Arrival - Arrival Chief Complaint: Nausea/Vomiting/Diarrhea Stated Complaint: n/v/d ED Nursing Triage Note: Pt arrived via ems from home with complaint of n/v/d x 3 days. Pt recently started chemo for esophageal cancer. Complains of being weak. Mode of Arrival: Stretcher Source: Patient, Family, Old Records Reviewed, RN Notes Reviewed Time Seen by Provider: 01/29/17 14:49 - History of Present Illness HPI Narrative: Patient is a 71-year-old white male brought to the emergency room by ambulance with history of persistent nausea and vomiting since his chemotherapy 6 days ago. Patient is also having some diarrhea but has not had any significant blood in his stool or in his vomitus. Patient goes on to tell me saving trouble with nausea and vomiting now since September of this year. Patient states has not had any fever or chills. He was recently diagnosed with esophageal carcinoma and had chemotherapy 6 days ago. He denies melena. He does not have any shortness of breath or chest pain with this. Onset (ago): week(s) Consistency: constant Severity: moderate Allergies/Adverse Reactions: Allergies Allergy/AdvReac Type Severity Reaction Status Date / Time dexamethasone Allergy Depression Ver[facility]16 07[facility]02 [facility] All[facility] Depression Verified 11/01/16 07:02 Penicillins Allergy Unknown/Unable Verified 10/29/16 08:21 to obtain Home Medications: Home Medications Medication Instructions Recorded Confirmed Type Lisinopril [Prinivil] 20 mg PO BID #60 tablet 11/04/16 01/29/17 Rx Meclizine [Antivert] 25 mg PO QID #120 tablet 11/04/16 01/29/17 Rx Metoprolol Succinate Xl [Toprol Xl] 50 mg PO BID #60 tablet 11/04/16 01/29/17 Rx amLODIPine [Norvasc] 10 mg PO DAILY #30 tablet 11/04/16 01/29/17 Rx hydrALAZINE TAB [Apresoline Tab] 100 mg PO TID #90 tablet 11/04/16 01/29/17 Rx Tamsulosin [Flomax] 0.4 mg PO BEDTIME 11/15/16 01/29/17 History Atorvastatin [Lipitor] 40 mg PO DAILY 12/13/16 01/29/17 History Polyethylene Glycol 3350 17 gm PO DAILY PRN 12/13/16 01/29/17 History Pantoprazole Tab [Protonix Tab] 40 mg PO BID #60 tablet 12/18/16 01/29/17 Rx Cimetidine [Tagamet Hb] 200 mg PO BEDTIME PRN 01/17/17 01/29/17 History Loratadine [Claritin] 10 mg PO DAILY 01/17/17 01/29/17 History Albuterol Sulfate [Proair HFA] 2 puff INH Q4H PRN 01/29/17 01/29/17 History Alum/Mag/Simeth Max Str Liquid 30 ml PO Q4H PRN 01/29/17 01/29/17 History [Mylanta Max Strength Liquid] Hydrocodone/Acetaminophen [[place] 1 each PO Q4-6H PRN 01/29/17 01/29/17 History 10-325 Tablet] Review of System - Review of System 12 point system: reviewed and no additional remarkable complaints except as stated - Review of System Constitutional: Present: as per HPI, weakness, other (shaky ). Absent: fever Cardiovascular: Absent: chest pain Gastrointestinal: Present: as per HPI, nausea, vomiting, diarrhea Neurological: Present: weakness Psychiatric: Absent: anxiety Medical,Surgical,& Family Hx - Medical History Cardio: History of: Cardiac Dysrhythmia (Atrial fibrillation & Bradycardia), Hypertension, Pacemaker (Placed 11/01/[address] Stallings), Cardiovascular Problems ( Heart Murmur) No history of: CHF, CAD, MD Neurology: History of: Cerebrovascular Accident (Cerebellar stroke, 10/29/2016), Vertigo No history of: Dementia, Seizures HEENT: History of: Ear Problem (vertigo) Endocrine: History of: Thyroid Disorder No history of: Adrenal Disease, Diabetes Mellitus (IDDM), Diabetes Mellitus ( NIDDM), Endocrine Cancer, Endocrine Problems Rheumatology: History of;: Gout (Occasionally in his toes) Respiratory: History of: Asthma (As a child), Bronchitis (As a child) No history of: Lung Cancer (Spot on lung-01/19/[address] Javier) Renal: History of: Renal Problems (Stage 3 Kidney Failure) Genitourinary: History of: Kidney Stones (2011) Gastrointestinal: History of: Gastrointestinal Cancer (Esophageal Ca-awaiting lung check), GI Problems (gallstones in 2011) No history of: Gastrointestinal Bleed Musculoskeletal: No history of: Amputation Hematology: No history of: Blood Transfusion Reaction Other: History of: Cancer (Esophageal Ca) No history of: Anesthesia Reactions - Surgical History Cardiac Surgeries: Sugical HX of: Cardiac Surgery (Pacemaker Placed 11/01/[address] Stallings) Patient Denies: Femoral-Popliteal Bypass Graft, Cardiac Catheterization, Carotid Endarterectomy, Internal Defibrillator, Vascular Access Devices Thoracic Surgeries: Patient denies;: Kidney (Renal Surgery), Lithotripsy, Nephrectomy, Organ Transplant, Lobectomy Neurologic Surgeries: Patient denies: Neurologic Surgery HEENT Surgeries: Surgical HX of: Tonsilectomy & Adenoidectomy (1955) Patient denies: Carotid Endarterectomy, Eye Surgery, Thyroid Surgery Abdominal Surgeries: Surgical HX of: Cholecystectomy (11/12/16), Colonoscopy ( 2011), EGD (2011) Patient denies: Abdominal Surgery, Appendectomy, Gastric Bypass Surgery, Hernia Repair, Splenectomy Reproductive Surgeries: Patient denies;: Breast Surgery, Cystoscopy, Genitourinary Surgery, Prostate Surgery, Vasectomy Orthopedic Surgeries: Patient denies;: Implanted Devices, Orthopedic Surgery, Spinal Surgery, Total Hip Replacement, Total Knee Replacement - Family History Family History: Reports;: Family Stroke (Mother) Denies;: Family Anesthesia Reaction, Family Cancer, Family Diabetes, Family Heart Disease, Family Hypertension, Family Psychiatric Problems - Social History Smoking Status: Former smoker Frequency of Alcohol Use: None Type of Drug Use: None Exam Vital Signs: Vital Signs Temperature 97.3 F L 01/29/17 14:29 Pulse Rate 63 01/29/17 16:30 Respiratory Rate 24 01/29/17 16:30 Blood Pressure 149/63 01/29/17 16:30 O2 Sat by Pulse Oximetry 92 L 01/29/17 16:30 - General General appearance: alert, in no apparent distress - Head Head exam: Present: atraumatic, normocephalic - Eye Eye exam: Present: normal appearance, PERRL, EOMI - ENT ENT exam: Present: normal exam, normal oropharynx, mucous membranes dry. Absent : mucous membranes moist - Neck Neck exam: Present: full ROM, trachea midline - Chest Chest inspection: Present: symmetric chest wall rise. Absent: tenderness - Respiratory Respiratory exam: Present: normal lung sounds bilaterally. Absent: wheezes - Cardiovascular Cardiovascular exam: Present: regular rate, normal rhythm, normal heart sounds, other (patient has a pacemaker ) - Abdominal Exam Abdominal exam: Present: soft. Absent: distention, tenderness - Extremities Exam Extremities exam: Present: normal inspection, full ROM. Absent: calf tenderness - Back Exam Back exam: Present: full ROM - Neurological Exam Neurological exam: Present: alert, oriented X3, CN II-XII intact - Psychiatric Psychiatric exam: Present: normal affect, normal mood - Skin Skin exam: Present: warm, dry, intact, normal color Course Course Narrative: Patient's clinical presentation, laboratory and radiographic findings were discussed with Dr. rea. Patient be admitted to Dr. Russell service and Neupogen and type and screen have been ordered. Results - Labs CBC & BMP: 01/29/17 16:07 01/29/17 16:07 Lab Results: I have reviewed the patients labs Labs: Laboratory Tests 01/29/17 15:49 Urine pH 6.0 Ur Specific [place] 1.006 Urine Protein 100 Urine Urobilinogen < 2.0 H Urine RBC <1 Urine WBC 1 Laboratory Tests 01/29/17 16:07 WBC 1.3 L RBC 3.08 L Hgb 8.3 L Hct 25.0 L MCV 81.2 L Plt Count 217 Neut % (Auto) 15.3 L [place] % (Auto) 25.4 H Neut # (Auto) 0.2 L Lymph # (Auto) 0.6 L Laboratory Tests 01/29/17 16:07 Sodium 140 Potassium 3.1 L Chloride 107 Carbon Dioxide 24 BUN 12 Creatinine 1.40 H Glucose 110 H Calcium 8.3 L Total Protein 6.1 L Albumin 2.7 L Albumin/Globulin Ratio 0.7 L Lipase 99.0 Laboratory Tests 01/29/17 16:07 Total Counted 100 Segmented Neutrophils 28 L Lymphocytes 51 Monocytes 21 H Disposition Clinical Impression: Symptomatic anemia, Neutropenia Case discussed with: patient, patient's family Disposition: Still a Patient Condition: Guarded Time of Disposition: 17:29
--- NOTE | 2017-01-29 17:50 | XRay Report ---
XR chest 1V portable Indication: Febrile illness Comparison: 20 January 2017 Findings: The heart and mediastinum are stable in size and configuration. Pacemaker device is unchanged in position. The pulmonary vascularity is slightly increased with bilateral increased interstitial lung density. Left lung infiltrates in the previous study have improved. No other other lung infiltrates, effusions, pneumothorax or other abnormality is demonstrated. Impression: Findings suggest mild cardiac decompensation. PROCEDURE INTERPRETED AT [facility] DEPARTMENT OF RADIOLOGY Final Report Signed by: Dr. Reggie Ko
[2017-01-29] MEDS ORDERED: diphenhydrAMINE CAP 25 MG CAPSULE PO PRN (18:07)
[2017-01-29] MEDS ORDERED: LOPERAMIDE 2 MG CAPSULE PO PRN ×2 (18:07)
[2017-01-29] MEDS ORDERED: chlorproMAZINE 25 MG TABLET PO PRN (18:07)
[2017-01-29] MEDS ORDERED: guaiFENesin 200 MG/10 ML UDCUP PO PRN (18:07)
[2017-01-29] MEDS ORDERED: MAGNESIUM HYDROXIDE SUSP 30 ML UDCUP PO PRN (18:07)
[2017-01-29] MEDS ORDERED: chlorproMAZINE INJ 50 MG in SODIUM CHLORIDE 0.9% 100 ML IV PRN (18:07)
[2017-01-29] MEDS ORDERED: ACETAMINOPHEN 325 MG TABLET PO PRN (18:07)
[2017-01-29] MEDS ORDERED: MYLANTA/LIDO VISC 2:1 300 ML BOTTLE SWISH/SPIT PRN (18:07)
[2017-01-29] MEDS ORDERED: chlorproMAZINE INJ 25 MG in SODIUM CHLORIDE 0.9% 100 ML IV PRN (18:07)
[2017-01-29] MEDS ORDERED: ALUMINUM/MAGNES/SIMETH MAX STR 30 ML UDCUP PO PRN ×2 (18:07→18:12)
[2017-01-29] MEDS ORDERED: BENZTROPINE 2 MG/2 ML AMP IV PRN (18:07)
[2017-01-29] MEDS ORDERED: LACTULOSE 20 GM/30 ML UDCUP PO PRN (18:07)
[2017-01-29] MEDS ORDERED: ALPRAZolam 0.25 MG TABLET PO PRN (18:07)
[2017-01-29] MEDS ORDERED: traMADol 50 MG TABLET PO PRN (18:07)
[2017-01-29] MEDS ORDERED: MYLANTA/LIDO VISC 2:1 300 ML BOTTLE SWISH/SWAL PRN (18:07)
[2017-01-29] MEDS ORDERED: POLYETHYLENE GLYCOL POWDER 17 GM PACK PO PRN (18:12)
[2017-01-29] MEDS ORDERED: NON-FORMULARY MEDICATION (Albuterol Sulfate [Proair Hfa] 2 PUFF) INH PRN (18:12)
[2017-01-29 18:33] LABS: Magnesium 1.4 MG/DL (1.8-2.4); Uric Acid 6.4 MG/DL (3.5-7.2)
[2017-01-29] MEDS: SODIUM CHLORIDE 0.9% 1,000 ML IV SCH (20:20)
[2017-01-29] MEDS: ENOXAPARIN 30 MG/0.3 ML SYRINGE SUBCUT SCH (20:20)
[2017-01-29] MEDS ORDERED: TAMSULOSIN 0.4 MG CAPSULE PO SCH (21:00)
[2017-01-29] MEDS ORDERED: MECLIZINE 25 MG TABLET PO SCH (21:00)
[2017-01-29] MEDS ORDERED: LISINOPRIL 20 MG TABLET PO SCH (21:00)
[2017-01-29] MEDS ORDERED: METOPROLOL SUCCINATE XL 50 MG TABLET PO SCH (21:00)
[2017-01-30] MEDS: ONDANSETRON 4 MG/2 ML VIAL IV PRN ×3 (02:08→23:32)
[2017-01-30] MEDS ORDERED: PROMETHAZINE 25 MG/1 ML VIAL ONE (02:36)
[2017-01-30] MEDS: PROMETHAZINE INJ 25 MG in SODIUM CHLORIDE 0.9% 50 ML IV PRN (02:37)
[2017-01-30 03:35] LABS: Basophils % 0.8 % (0.0-0.8); Hematocrit 24.2 VOL% (42.0-52.0); Hemoglobin 7.9 GM/DL (14.0-18.0); Immature Granulocytes % 0.8 %; Immature Granulocytes Absolute 0.01 #; Lymphocytes # 0.6 10*3/uL (1.4-4.0); Lymphocytes % 49.2 % (21.2-54.2); Mean Corpuscular HGB Conc 32.6 GM/DL (32-36); Mean Corpuscular Hemoglobin 27 PG (27-34); Mean Corpuscular Volume 81.2 FL (87-102); Mean Platelet Volume 10.3 FL (9.6-12.0); Monocytes # 0.4 10*3/uL (0.11-0.8); Monocytes % 29.2 % (1.7-12.7); NRBC # 0.02 10*3/uL; Neutrophils # 0.2 10*3/uL (1.4-7.4); Platelet Count 204 T/CUMM (130-400); Red Blood Count 2.98 MC/CUMM (3.8-5.5); Red Cell Distribution Width 15.1 % (9.3-17.3); White Blood Count 1.2 T/CUMM (4-12)
[2017-01-30 04:36] LABS: Anisocytosis 1+; Band Neutrophils 1 % (0-10); Eosinophils 1 % (0-10); Lymphocytes 59 % (20-55); Myelocytes 7 %; Segmented Neutrophils 23 % (50-85); Total Cells Counted 100
[2017-01-30 04:37] LABS: Platelet Estimate Adequate
[2017-01-30] MEDS: SODIUM CHLORIDE 0.9% 1,000 ML IV SCH ×4 (06:19→17:09)
[2017-01-30] MEDS ORDERED: ATORVASTATIN 40 MG TABLET PO SCH (09:00)
[2017-01-30] MEDS ORDERED: PANTOPRAZOLE 40 MG TABLET PO SCH (09:00)
[2017-01-30] MEDS ORDERED: NON-FORMULARY MEDICATION (Loratadine [Claritin] 10 MG) PO SCH (09:00)
[2017-01-30] MEDS ORDERED: amLODIPine 10 MG TABLET PO SCH (09:00)
[2017-01-30 09:04] LABS: Calcium 7.5 MG/DL (8.5-10.1); Magnesium 1.4 MG/DL (1.8-2.4); Osmolality,Calculated 284.1 MOS/KG (273-304); Potassium 3.1 MMOL/L (3.5-5.1)
[2017-01-30] MEDS: FILGRASTIM-SNDZ 300 MCG/0.5 ML SYRINGE SUBCUT SCH (09:10)
[2017-01-30] MEDS ORDERED: SODIUM CHLORIDE 0.9% 250 ML IV PRN (11:29)
--- NOTE | 2017-01-30 11:34 | Oncology History&Physical ---
Assessment and Plan (1) Esophageal cancer Status: Acute Assessment and plan: We will support the patient during the time of chemotherapy related complications. These include nausea vomiting diarrhea anemia and neutropenia. See chart for further orders Current Visit: No History of Present Illness Chief complaint: Nausea vomiting History of present illness: Mr. Hays is a 71 year old male With recently diagnosed esophageal cancer. The patient received his first course of chemotherapy consisting of 150 mg of docetaxel and 350 mg of carboplatinum while hospitalized on January 21. Over the last several days at home he developed refractory nausea vomiting and diarrhea and came to the emergency room yesterday for medical assistance. He denied fever. He did not obvious bleeding. He was noted to be anemic and neutropenic on initial laboratory inspection. Home Medications Medication Instructions Recorded Confirmed Type Lisinopril [Prinivil] 20 mg PO BID #60 tablet 11/04/16 01/29/17 Rx Meclizine [Antivert] 25 mg PO QID #120 tablet 11/04/16 01/29/17 Rx Metoprolol Succinate Xl [Toprol Xl] 50 mg PO BID #60 tablet 11/04/16 01/29/17 Rx amLODIPine [Norvasc] 10 mg PO DAILY #30 tablet 11/04/16 01/29/17 Rx hydrALAZINE TAB [Apresoline Tab] 100 mg PO TID #90 tablet 11/04/16 01/29/17 Rx Tamsulosin [Flomax] 0.4 mg PO BEDTIME 11/15/16 01/29/17 History Atorvastatin [Lipitor] 40 mg PO DAILY 12/13/16 01/29/17 History Polyethylene Glycol 3350 17 gm PO DAILY PRN 12/13/16 01/29/17 History Pantoprazole Tab [Protonix Tab] 40 mg PO BID #60 tablet 12/18/16 01/29/17 Rx Cimetidine [Tagamet Hb] 200 mg PO BEDTIME PRN 01/17/17 01/29/17 History Loratadine [Claritin] 10 mg PO DAILY 01/17/17 01/29/17 History Albuterol Sulfate [Proair HFA] 2 puff INH Q4H PRN 01/29/17 01/29/17 History Alum/Mag/Simeth Max Str Liquid 30 ml PO Q4H PRN 01/29/17 01/29/17 History [Mylanta Max Strength Liquid] Hydrocodone/Acetaminophen [[place] 1 each PO Q4-6H PRN 01/29/17 01/29/17 History 10-325 Tablet] Allergies Allergy/AdvReac Type Severity Reaction Status Date / Time dexamethasone Allergy Depression Verified 11/01/16 07:02 montelukast [From Singulair] Allergy Depression Verified 11/01/16 07:02 Penicillins Allergy Unknown/Unable Verified 10/29/16 08:21 to obtain Medical,Surgical,& Family Hx - Medical History Cardio: History of: Cardiac Dysrhythmia (Atrial fibrillation & Bradycardia), Hypertension, Pacemaker (Placed 11/01/[address] Stallings), Cardiovascular Problems ( Heart Murmur) No history of: CHF, CAD, [place] Neurology: History of: Cerebrovascular Accident (Cerebellar stroke, 10/29/2016), Vertigo No history of: Dementia, Seizures HEENT: History of: Ear Problem (vertigo) Endocrine: History of: Thyroid Disorder No history of: Adrenal Disease, Diabetes Mellitus (IDDM), Diabetes Mellitus ( NIDDM), Endocrine Cancer, Endocrine Problems Rheumatology: History of;: Gout (Occasionally in his toes) Respiratory: History of: Asthma (As a child), Bronchitis (As a child) No history of: Lung Cancer (Spot on lung-01/19/[address] Javier) Renal: History of: Renal Problems (Stage 3 Kidney Failure) Genitourinary: History of: Kidney Stones (2011) Gastrointestinal: History of: Gastrointestinal Cancer (Esophageal Ca-awaiting lung check), GI Problems (gallstones in 2011) No history of: Gastrointestinal Bleed Musculoskeletal: No history of: Amputation Hematology: No history of: Blood Transfusion Reaction Other: History of: Cancer (Esophageal Ca) No history of: Anesthesia Reactions - Surgical History Cardiac Surgeries: Sugical HX of: Cardiac Surgery (Pacemaker Placed 11/01/[address] Stallings) Patient Denies: Femoral-Popliteal Bypass Graft, Cardiac Catheterization, Carotid Endarterectomy, Internal Defibrillator, Vascular Access Devices Thoracic Surgeries: Patient denies;: Kidney (Renal Surgery), Lithotripsy, Nephrectomy, Organ Transplant, Lobectomy Neurologic Surgeries: Patient denies: Neurologic Surgery HEENT Surgeries: Surgical HX of: Tonsilectomy & Adenoidectomy (195) Patient denies: Carotid Endarterectomy, Eye Surgery, Thyroid Surgery Abdominal Surgeries: Surgical HX of: Cholecystectomy (11/12/16), Colonoscopy ( 2011), EGD (2011) Patient denies: Abdominal Surgery, Appendectomy, Gastric Bypass Surgery, Hernia Repair, Splenectomy Reproductive Surgeries: Patient denies;: Breast Surgery, Cystoscopy, Genitourinary Surgery, Prostate Surgery, Vasectomy Orthopedic Surgeries: Patient denies;: Implanted Devices, Orthopedic Surgery, Spinal Surgery, Total Hip Replacement, Total Knee Replacement - Family History Family History: Reports;: Family Stroke (Mother) Denies;: Family Anesthesia Reaction, Family Cancer, Family Diabetes, Family Heart Disease, Family Hypertension, Family Psychiatric Problems - Social History Smoking Status: Former smoker Frequency of Alcohol Use: None Type of Drug Use: None - Constitutional Constitutional: Present: fatigue, malaise, weight loss. Absent: fever(s), increased appetite - EENT Ears: Absent: ear pain, tinnitus Nose, mouth and throat: Absent: neck mass, neck pain, odynophagia, sore throat - Cardiovascular Cardiovascular ROS IM: Absent: edema, orthopnea - Respiratory Respiratory: Absent: dyspnea, hemoptysis - Gastrointestinal Gastrointestinal: Absent: hematemesis, jaundice Exam - Constitutional Vitals: Period Temp Pulse Resp BP Sys/Pretty Pulse Ox Last 24 Hr 97.3 F-99.2 F 60-77 16-29 112-176/53-90 82-96 General appearance: normal weight, no acute distress - Head Head Exam: Present: normal inspection, normocephalic - Eye Eye Exam: Present: EOMI. Absent: conjunctival injection Pupils: Present: PERRL, normal accommodation - ENT ENT exam: Present: normal external ear exam, normal oropharynx - Neck Neck exam: Present: normal inspection. Absent: lymphadenopathy - Respiratory Respiratory exam: Present: CTAB. Absent: accessory muscle use - Cardiovascular Cardiovascular exam: Present: RRR. Absent: systolic murmur - GI/Abdominal GI/Abdominal exam: Absent: ascites, distended, firm, guarding, mass, tenderness - Neurological Exam Neurological exam: Present: alert, oriented X3 Results - Labs CBC & BMP: 01/30/17 02:05 01/30/17 08:16
[2017-01-30] MEDS ORDERED: MAGNESIUM SULF RIDER 4 GM in PREMIX 1 EACH IV ONE (12:00)
[2017-01-30] MEDS ORDERED: FAMOTIDINE 20 MG TABLET PO PRN (12:00)
[2017-01-30] MEDS: POTASSIUM CHLORIDE RIDER 20 MEQ in PREMIX 1 EACH IV SCH ×2 (13:11→16:26)
[2017-01-30] MEDS ORDERED: POLYETHYLENE GLYCOL POWDER 17 GM PACK PO PRN (19:47)
[2017-01-30] MEDS: TEMAZEPAM 7.5 MG CAPSULE PO PRN (20:23)
[2017-01-30] MEDS: TAMSULOSIN 0.4 MG CAPSULE PO SCH (20:23)
[2017-01-30] MEDS: LISINOPRIL 20 MG TABLET PO SCH (20:24)
[2017-01-30] MEDS: METOPROLOL SUCCINATE XL 50 MG TABLET PO SCH (20:24)
[2017-01-30] MEDS: PANTOPRAZOLE 40 MG TABLET PO SCH (20:25)
[2017-01-30] MEDS: MECLIZINE 25 MG TABLET PO SCH (20:25)
[2017-01-30] MEDS: ENOXAPARIN 30 MG/0.3 ML SYRINGE SUBCUT SCH (20:25)
[2017-01-30] MEDS ORDERED: POTASSIUM CHLORIDE RIDER 100 ML IV ONE (22:14)
[2017-01-30] MEDS ORDERED: POTASSIUM CHLORIDE RIDER 20 MEQ in PREMIX 1 EACH IV SCH (23:30)
[2017-01-31] MEDS ORDERED: FUROSEMIDE 40 MG/4 ML VIAL IV ONE (00:45)
[2017-01-31] MEDS ORDERED: ALBUTEROL 2.5 MG/3 ML NEB RESP TX PRN (00:55)
[2017-01-31] MEDS: POTASSIUM CHLORIDE RIDER 20 MEQ in PREMIX 1 EACH IV SCH (01:13)
[2017-01-31] MEDS: PROMETHAZINE INJ 25 MG in SODIUM CHLORIDE 0.9% 50 ML IV PRN ×2 (02:02→19:45)
[2017-01-31 07:28] LABS: Basophils % 1.1 % (0.0-0.8); Eosinophils % 0.3 % (0.00-10.9); Hematocrit 28.3 VOL% (42.0-52.0); Immature Granulocytes % 1.7 %; Immature Granulocytes Absolute 0.06 #; Lymphocytes % 26.9 % (21.2-54.2); Mean Corpuscular HGB Conc 33.9 GM/DL (32-36); Mean Corpuscular Hemoglobin 27 PG (27-34); Mean Corpuscular Volume 80.9 FL (87-102); Mean Platelet Volume 10.3 FL (9.6-12.0); Monocytes # 0.9 10*3/uL (0.11-0.8); Monocytes % 24.4 % (1.7-12.7); NRBC # 0.03 10*3/uL; Neutrophils # 1.6 10*3/uL (1.4-7.4); Neutrophils % 45.6 % (38.7-73.9); Platelet Count 207 T/CUMM (130-400)
--- NOTE | 2017-01-31 07:41 | Oncology Progress Note ---
Oncology Subjective PN Interval history: Mr. 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 However, I referred him to the [facility] to Dr. Viral Coyle. Dr. Coyle performed additional staging procedures and found that the patient had a mass-effect in the left upper lobe on PET scan as well as extensive tumor involvement in the distal esophagus that is clearly invasive and not limited stage disease. He was referred back here after he underwent the PET scan that demonstrated more extensive tumor than anticipated. The telephone conversation with Dr. Coyle prior to the patient's referral to him was already about neoadjuvant chemotherapy before considering surgery. We actually referred the patient a little earlier than I might have, except that his son was insistent that he be referred to the [facility] immediately and he had already set up the appointment. When he returned here, he was admitted by Dr. Javier for the purpose of performing a bronchoscopy on a left upper lobe mass that had been picked up on the PET scan at the [facility]. The mass-effect was located in the peripheral upper lung and the reports that I have seen so far are negative for any definite evidence that it is tumor but I think it is highly suspicious for that. In addition, the patient had a small pneumothorax following bronchoscopy. I have reviewed the admission chest x-ray on the patient and there is no evidence of pneumothorax and the infiltrates in the left upper lobe seem to have improved. He received his first course of chemotherapy beginning January 21. It consisted of: Carboplatin 350 mg IV on January 21 Taxotere 150 mg IV on January 21 5-FU 1500 mg IV over 22 hours daily for 2 days beginning January 21. This chemotherapy is repeated every 4 weeks and my plan will be to add another day of 5-FU by infusion if he tolerates the current dose well. I am hoping to give 1500 mg IV over 22 hours daily for 3 days with course #2 of chemotherapy. He has been having nausea and vomiting for the past several days with some mild mucositis but no hematemesis, melena or hematochezia. He has been having orthopnea and PND that are probably made worse by the fact that he has been anemic. I will consult Dr. Marin. He is scheduled to have a Mediport catheter placed Tuesday. I will consult Dr. Goff. He also has an appointment to see Dr. Suraj Javier and I will consult him as well. On physical examination, the patient is acutely ill. Lab work today has improved. His white cell count is up to 3500 with an absolute neutrophil count of 1600. His hemoglobin is 9.6. His platelet count is 207,000. On physical examination, he appears acutely and chronically ill. Eyes: Normal lids and conjunctivae. ENT: His mouth appears dry but he has no overt mucositis or bleeding. His voice is slightly hoarse. His hearing is normal. Neck: His trachea is midline and he has no neck masses. Lungs: Breath sounds are coarse throughout and he has a prolonged expiratory phase of respiration but only faint wheezing. His chest moves symmetrically. Cardiovascular: His heart rhythm is regular without murmur, gallop or rub. There is no jugular venous distention, clubbing or cyanosis. Abdomen: There is no ascites and I palpate no masses. Musculoskeletal: He is extremely weak without focal muscle atrophy or bone or joint deformity. Neurologic: Cranial nerves II through XII are intact. The no focal neurologic deficits. 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 The small left pneumothorax has resolved: Hypokalemia: Hypomagnesemia: Chronic renal failure: Diabetes mellitus type 2: Exam - Constitutional Vitals: Period Temp Pulse Resp BP Sys/Pretty Pulse Ox Last 24 Hr 97.6 F-98.4 F 59-81 16-35 136-175/64-79 91-97 Results - Labs CBC & BMP: 01/31/17 06:42 01/31/17 06:42 Specialty Discharge - Follow Up or Referrals
[2017-01-31 07:48] LABS: White Blood Count 3.5 T/CUMM (4-12)
[2017-01-31 07:49] LABS: Hemoglobin 9.6 GM/DL (14.0-18.0)
[2017-01-31 08:01] LABS: Albumin 2.7 G/DL (3.4-5.0); Bilirubin,Total 1.1 MG/DL (0.2-1.0); Calcium 7.8 MG/DL (8.5-10.1); Osmolality,Calculated 283.1 MOS/KG (273-304); Potassium 3.2 MMOL/L (3.5-5.1); Total Protein 5.7 G/DL (6.4-8.3)
[2017-01-31 08:13] LABS: Band Neutrophils 6 % (0-10); Burr Cells Slight; Giant Platelets Few; Hypochromasia 1+; Lymphocytes 23 % (20-55); Nucleated Red Blood Cells 1 (0-5); Ovalocytes Slight; Platelet Estimate Normal; Segmented Neutrophils 51 % (50-85); Total Cells Counted 100
[2017-01-31] MEDS: amLODIPine 10 MG TABLET PO SCH (09:19)
[2017-01-31] MEDS: MAGNESIUM CHLORIDE 64 MG TABLET PO SCH (09:19)
[2017-01-31] MEDS: LORATADINE 10 MG TABLET PO SCH (09:19)
[2017-01-31] MEDS: LISINOPRIL 20 MG TABLET PO SCH (09:19)
[2017-01-31] MEDS: POTASSIUM CHLORIDE 20 MEQ TABLET PO SCH (09:19)
[2017-01-31] MEDS: PANTOPRAZOLE 40 MG TABLET PO SCH (09:19)
[2017-01-31] MEDS: MECLIZINE 25 MG TABLET PO SCH ×3 (09:19→16:49)
[2017-01-31] MEDS: ATORVASTATIN 40 MG TABLET PO SCH (09:20)
[2017-01-31] MEDS: METOPROLOL SUCCINATE XL 50 MG TABLET PO SCH (09:20)
[2017-01-31] MEDS: FILGRASTIM-SNDZ 300 MCG/0.5 ML SYRINGE SUBCUT SCH (09:22)
--- NOTE | 2017-01-31 09:42 | General Surgery Consult Note ---
Assessment and Plan - Time spent with patient Time spent with patient: Less than 30 minutes History of Present Illness Chief complaint: Esophageal cancer needing venous access for chemotherapy History of present illness: Mr. Hays is a 71 year old male white whom was set up for a Mediport placement on Tuesday through same day surgery but had to be admitted this weekend with nausea and vomiting. He is weak and his white counts little bit low he had a little fluid overload from some transfusions stable this morning and will proceed with the plans for the Mediport on Tuesday if everything remains stable. Home Medications Medication Instructions Recorded Confirmed Type Lisinopril [Prinivil] 20 mg PO BID #60 tablet 11/04/16 01/30/17 Rx Meclizine [Antivert] 25 mg PO QID #120 tablet 11/04/16 01/30/17 Rx Metoprolol Succinate Xl [Toprol Xl] 50 mg PO BID #60 tablet 11/04/16 01/30/17 Rx amLODIPine [Norvasc] 10 mg PO DAILY #30 tablet 11/04/16 01/30/17 Rx hydrALAZINE TAB [Apresoline Tab] 100 mg PO TID #90 tablet 11/04/16 01/30/17 Rx Tamsulosin [Flomax] 0.4 mg PO BEDTIME 11/15/16 01/30/17 History Atorvastatin [Lipitor] 40 mg PO DAILY 12/13/16 01/30/17 History Polyethylene Glycol 3350 17 gm PO DAILY PRN 12/13/16 01/30/17 History Pantoprazole Tab [Protonix Tab] 40 mg PO BID #60 tablet 12/18/16 01/30/17 Rx Cimetidine [Tagamet Hb] 200 mg PO BEDTIME PRN 01/17/17 01/30/17 History Loratadine [Claritin] 10 mg PO DAILY 01/17/17 01/30/17 History Albuterol Sulfate [Proair HFA] 2 puff INH Q4H PRN 01/29/17 01/30/17 History Alum/Mag/Simeth Max Str Liquid 30 ml PO Q4H PRN 01/29/17 01/30/17 History [Mylanta Max Strength Liquid] Hydrocodone/Acetaminophen [[place] 1 each PO Q4-6H PRN 01/29/17 01/30/17 History 10-325 Tablet] Allergies Allergy/AdvReac Type Severity Reaction Status Date / Time dexamethasone Allergy Depression Verified 11/01/16 07:02 montelukast [From Singulair] Allergy Depression Verified 11/01/16 07:02 Penicillins Allergy Unknown/Unable Verified 10/29/16 08:21 to obtain Medical,Surgical,& Family Hx - Medical History Cardio: History of: Cardiac Dysrhythmia (Atrial fibrillation & Bradycardia), Hypertension, Pacemaker (Placed 11/01/[address] Stallings), Cardiovascular Problems ( Heart Murmur) No history of: CHF, CAD, [place] Neurology: History of: Cerebrovascular Accident (Cerebellar stroke, 10/29/2016), Vertigo No history of: Dementia, Seizures HEENT: History of: Ear Problem (vertigo) Endocrine: History of: Thyroid Disorder No history of: Adrenal Disease, Diabetes Mellitus (IDDM), Diabetes Mellitus ( NIDDM), Endocrine Cancer, Endocrine Problems Rheumatology: History of;: Gout (Occasionally in his toes) Respiratory: History of: Asthma (As a child), Bronchitis (As a child) No history of: Lung Cancer (Spot on lung-01/19/[address] Javier) Renal: History of: Renal Problems (Stage 3 Kidney Failure) Genitourinary: History of: Kidney Stones (2011) Gastrointestinal: History of: Gastrointestinal Cancer (Esophageal Ca-awaiting lung check), GI Problems (gallstones in 2011) No history of: Gastrointestinal Bleed Musculoskeletal: No history of: Amputation Hematology: No history of: Blood Transfusion Reaction Other: History of: Cancer (Esophageal Ca) No history of: Anesthesia Reactions - Surgical History Cardiac Surgeries: Sugical HX of: Cardiac Surgery (Pacemaker Placed 11/01/[address] Stallings) Patient Denies: Femoral-Popliteal Bypass Graft, Cardiac Catheterization, Carotid Endarterectomy, Internal Defibrillator, Vascular Access Devices Thoracic Surgeries: Patient denies;: Kidney (Renal Surgery), Lithotripsy, Nephrectomy, Organ Transplant, Lobectomy Neurologic Surgeries: Patient denies: Neurologic Surgery HEENT Surgeries: Surgical HX of: Tonsilectomy & Adenoidectomy (1955) Patient denies: Carotid Endarterectomy, Eye Surgery, Thyroid Surgery Abdominal Surgeries: Surgical HX of: Cholecystectomy (11/12/16), Colonoscopy ( 2011), EGD (2011) Patient denies: Abdominal Surgery, Appendectomy, Gastric Bypass Surgery, Hernia Repair, Splenectomy Reproductive Surgeries: Patient denies;: Breast Surgery, Cystoscopy, Genitourinary Surgery, Prostate Surgery, Vasectomy Orthopedic Surgeries: Patient denies;: Implanted Devices, Orthopedic Surgery, Spinal Surgery, Total Hip Replacement, Total Knee Replacement - Family History Family History: Reports;: Family Stroke (Mother) Denies;: Family Anesthesia Reaction, Family Cancer, Family Diabetes, Family Heart Disease, Family Hypertension, Family Psychiatric Problems - Social History Smoking Status: Former smoker Frequency of Alcohol Use: None Type of Drug Use: None 12 point system: reviewed and no additional remarkable complaints except as stated Exam - Constitutional Vitals: Period Temp Pulse Resp BP Sys/Pretty Pulse Ox Last 24 Hr 97.6 F-98.4 F 59-81 16-35 136-175/58-79 91-97 General appearance: mild distress - Head Head exam: Present: normal inspection - ENT ENT exam: Present: normal exam - Neck Neck exam: Present: normal inspection - Respiratory Respiratory exam: Present: rales, rhonchi - Cardiovascular Cardiovascular exam: Present: RRR - GI/Abdominal GI/Abdominal exam: Present: hypoactive bowel sounds, soft - Extremities Exam Extremities exam: Present: normal inspection - Back Exam Back exam: Present: normal inspection - Neurological Exam Neurological exam: Present: alert, oriented X3, CN II-XII intact - Skin Skin exam: Present: normal color, warm, dry Quality Measures - VTE Contraindication to Pharmacological VTE Prophylaxis: High Risk of Bleeding Results - Labs CBC & BMP: 01/31/17 06:42 01/31/17 06:42 Lab Results: I have reviewed the past 24 hour labs Specialty Discharge - Follow Up or Referrals
--- NOTE | 2017-01-31 11:09 | Cardiology Consult Note ---
Srikanth Ratliff Vanessa, RN, am scribing for, and in the presence of, Ally Davidson MD 11:08. Assessment and Plan - Time spent with patient Time spent with patient: Greater than 30 minutes (Due to assessment, planning, documentation, medication review) (1) Shortness of breath Status: Acute Assessment and plan: SEE PLAN OF CARE LISTED BELOW. Current Visit: Yes (2) Symptomatic anemia Status: Acute Assessment and plan: SEE PLAN OF CARE LISTED BELOW. Current Visit: Yes (3) Esophageal cancer Status: Acute Assessment and plan: SEE PLAN OF CARE LISTED BELOW. Current Visit: No (4) History of stroke Status: Acute Assessment and plan: SEE PLAN OF CARE LISTED BELOW. Current Visit: No (5) Chronic anticoagulation Status: Chronic Assessment and plan: SEE PLAN OF CARE LISTED BELOW. Current Visit: No (6) Chronic atrial fibrillation Status: Chronic Assessment and plan: SEE PLAN OF CARE LISTED BELOW. Current Visit: No (7) Dyslipidemia Status: Chronic Assessment and plan: SEE PLAN OF CARE LISTED BELOW. Current Visit: No (8) Essential hypertension Status: Chronic Assessment and plan: SEE PLAN OF CARE LISTED BELOW. Current Visit: No (9) Hypothyroidism Status: Chronic Assessment and plan: SEE PLAN OF CARE LISTED BELOW. Current Visit: No (10) Pacemaker Status: Chronic Assessment and plan: SEE PLAN OF CARE LISTED BELOW. Current Visit: No History of Present Illness - Data of Consult Patient: known to practice within the last 3 years Consult date: 01/31/17 Requesting Physician: Rm Russell - Consult Narrative Reason for consult: Shortness of breath, orthopnea History of present illness: Pipe Inspector: Dr. Marin Mr. Hays, 71-year-old WM, PMHx hypertension, atrial fibrillation, hypothyroidism, CKD III, symptomatic bradycardia status post pacemaker implant in October [address] Stallings. Patient was recently admitted to [facility] in October 2016 with acute cerebellar CVA, and he was newly diagnosed with atrial fibrillation during admission. Anticoagulation initiated with Eliquis. Post CVA, he was discharged to [facility] rehab, and he has had no residual deficits. Since that time, he has undergone laparoscopic cholecystectomy for chronic cholecystitis. He returned to hospital in November 2016 with acute blood loss anemia requiring multiple units blood transfusion. GI consulted, and Dr. Gramajo performed EGD which revealed esophageal cancer. Positive troponin levels (peaking at 2.5) were contributed to demand ischemia with acute bleeding. Patient had experienced no exertional chest discomfort, dyspnea, or other anginal complaint. Echocardiogram on 12/13 moderate LVH, LVEF 65%, moderate biatrial enlargement, mild TR, mild aortic valve calcification with HUMBLE 1.7 cm. At discharge, he did not resume Eliquis or ASA. He was referred to oncology at [facility] and had PET scan there revealing left upper lobe mass which was suspicious for lung cancer. Underwent fiberoptic bronchoscopy for left upper lobe mass on January [address] Javier with small left pneumothorax afterward requiring overnight observation but no chest tube. Pathology report was negative for evidence of carcinoma. Patient was started on chemotherapy with first course on January [address] Russell. Since initiation of chemotherapy, he has not had any obvious bleeding, but he has been anemic and neutropenic on lab work. Patient was admitted to oncology floor on January 29 after presenting to the ED with persistent N/V/D, weakness. He is being treated for dehydration, symptomatic anemia, and neutropenia secondary to chemotherapy. Required 2 units PRBC transfusion on 01/30 for H&H 7.9/24.2 with good result. Cardiology is now asked to see for shortness of breath, orthopnea, PND. This morning upon exam, patient is sitting up in chair with Franca present at bedside. Patient is in no acute respiratory distress but does appear chronically ill. Mr. Hays reports that he has been experiencing shortness of breath since undergoing fiberoptic bronchoscopy on January 19. It has not worsened in severity since then. He also reports orthopnea and some PND, and he is sitting up in chair at night to sleep comfortably. He has experienced no chest pain or exertional dyspnea. Denies palpitations or recent significant lower extremity edema. Supplemental oxygen via nasal cannula at 5L/min. Productive cough with thick clear sputum production. No fever or chills. SBP 145 -160 mmHg. Labs reviewed. Neutropenia noted. Stable anemia with H&H 9.6/ 28.3. Hypokalemic, 3.2. Creatinine 1.7 (1.4 on admission). Hypomagnesemia present this admission is improved now with MG +1.8 today. ASSESSMENT/PLAN: 1. DYSPNEA and PND -chest x-ray with slightly increased pulmonary congestion but no overt pulmonary edema. Shortness of breath is most likely multifactorial due to severe anemia, COPD, and malignancy. No overt s/s heart failure at rest. Agree with nebulizer treatments. We will check an echocardiogram to rule out any change in his systolic function. 2. HYPERTENSION - Overall, fairly well controlled at this time with transient elevation of BP. Calcium channel alyx, Hydralazine, beta alyx, KAMAR inhibitor have been continued. Monitor BP and adjust antihypertensive regimen as indicated. 3. ATRIAL FIB - Controlled ventricular response. He is not anticoagulated for stroke prevention currently due to recent GI bleeding, anemia. Currently on DVT prophylactic dose of Lovenox. 4. DYSLIPIDEMIA - atorvastatin has been continued. 5. CKD III- Creatinine has trended up since admission, 1.7 today. Follow BMP and can hold KAMAR inhibitor if needed. 6. HX OF PACEMAKER - Pacemaker interrogation reviewed by Dr. Stallings on November 09. Device shows appropriate function. CC: Rm Russell MD - Home Medications and Allergies Home Medications: Home Medications Medication Instructions Recorded Confirmed Type Lisinopril [Prinivil] 20 mg PO BID #60 tablet 11/04/16 01/30/17 Rx Meclizine [Antivert] 25 mg PO QID #120 tablet 11/04/16 01/30/17 Rx Metoprolol Succinate Xl [Toprol Xl] 50 mg PO BID #60 tablet 11/04/16 01/30/17 Rx amLODIPine [Norvasc] 10 mg PO DAILY #30 tablet 11/04/16 01/30/17 Rx hydrALAZINE TAB [Apresoline Tab] 100 mg PO TID #90 tablet 11/04/16 01/30/17 Rx Tamsulosin [Flomax] 0.4 mg PO BEDTIME 11/15/16 01/30/17 History Atorvastatin [Lipitor] 40 mg PO DAILY 12/13/16 01/30/17 History Polyethylene Glycol 3350 17 gm PO DAILY PRN 12/13/16 01/30/17 History Pantoprazole Tab [Protonix Tab] 40 mg PO BID #60 tablet 12/18/16 01/30/17 Rx Cimetidine [Tagamet Hb] 200 mg PO BEDTIME PRN 01/17/17 01/30/17 History Loratadine [Claritin] 10 mg PO DAILY 01/17/17 01/30/17 History Albuterol Sulfate [Proair HFA] 2 puff INH Q4H PRN 01/29/17 01/30/17 History Alum/Mag/Simeth Max Str Liquid 30 ml PO Q4H PRN 01/29/17 01/30/17 History [Mylanta Max Strength Liquid] Hydrocodone/Acetaminophen [[place] 1 each PO Q4-6H PRN 01/29/17 01/30/17 History 10-325 Tablet] Allergies/Adverse Reactions: Allergies Allergy/AdvReac Type Severity Reaction Status Date / Time dexamethasone Allergy Depression Verified 11/01/16 07:02 montelukast [From Singulair] Allergy Depression Verified 11/01/16 07:02 Penicillins Allergy Unknown/Unable Verified 10/29/16 08:21 to obtain - Constitutional Constitutional: Present: fatigue, weakness. Absent: chills, fever(s), frequent falls, malaise, weight gain, weight loss - EENT Eyes: Absent: blurry vision Ears: Absent: decreased hearing Nose, mouth and throat: Absent: dysphagia, epistaxis, neck pain, tongue swelling , vertigo - Cardiovascular Cardiovascular: Present: dyspnea, orthopnea, PND. Absent: chest pain at rest, chest pain with activity, edema, radiating jaw, neck or arm pain, lightheadedness, palpitations - Respiratory Respiratory: Present: cough. Absent: hemoptysis, dyspnea on exertion, change in phlegm color - Gastrointestinal Gastrointestinal: Present: nausea, vomiting. Absent: abdominal pain, bloating, constipation, diarrhea, dysphagia, early satiety, melena - Genitourinary Genitourinary: Absent: dysuria, flank pain, hematuria - Musculoskeletal Musculoskeletal: Absent: arthralgias, limited range of motion, muscle weakness - Neurological Neurological: Absent: abnormal gait, confusion, dizziness, syncope, tremor(s) - Psychiatric Psychiatric: Absent: anxiety, depression - Endocrine Endocrine: Absent: cold intolerance, heat intolerance - Hematologic/Lymphatic Hematologic/Lymphatic: Present: easy bleeding, easy bruising Medical,Surgical,& Family Hx - Medical History Cardio: History of: Cardiac Dysrhythmia (Atrial fibrillation & Bradycardia), Hypertension, Pacemaker (Placed 11/01/[address] Stallings), Cardiovascular Problems ( Heart Murmur) No history of: CHF, CAD, [place] Neurology: History of: Cerebrovascular Accident (Cerebellar stroke, 10/29/2016), Vertigo No history of: Dementia, Seizures HEENT: History of: Ear Problem (vertigo) Endocrine: History of: Dyslipidemia, Thyroid Disorder No history of: Adrenal Disease, Diabetes Mellitus (IDDM), Diabetes Mellitus ( NIDDM), Endocrine Cancer, Endocrine Problems Rheumatology: History of;: Gout (Occasionally in his toes) Respiratory: History of: Asthma (As a child), Bronchitis (As a child), COPD, Obstructive Sleep Apnea No history of: Lung Cancer (Spot on lung-01/19/[address] Javier) Renal: History of: Renal Problems (Stage 3 Kidney Failure) Genitourinary: History of: Kidney Stones (2011) Gastrointestinal: History of: Gastrointestinal Bleed, Gastrointestinal Cancer ( Esophageal Ca-awaiting lung check), GI Problems (gallstones in 2011) Musculoskeletal: No history of: Amputation Hematology: History of: Anemia No history of: Blood Transfusion Reaction Other: History of: Cancer (Esophageal Ca) No history of: Anesthesia Reactions - Surgical History Cardiac Surgeries: Patient Denies: Femoral-Popliteal Bypass Graft, Cardiac Catheterization, Cardiac Surgery, Carotid Endarterectomy, Internal Defibrillator, Vascular Access Devices Thoracic Surgeries: Patient denies;: Kidney (Renal Surgery), Lithotripsy, Nephrectomy, Organ Transplant, Lobectomy Neurologic Surgeries: Patient denies: Neurologic Surgery HEENT Surgeries: Surgical HX of: Tonsilectomy & Adenoidectomy (1955) Patient denies: Carotid Endarterectomy, Eye Surgery, Thyroid Surgery Abdominal Surgeries: Surgical HX of: Cholecystectomy (11/12/16), Colonoscopy ( 2011), EGD (2011) Patient denies: Abdominal Surgery, Appendectomy, Gastric Bypass Surgery, Hernia Repair, Splenectomy Reproductive Surgeries: Patient denies;: Breast Surgery, Cystoscopy, Genitourinary Surgery, Prostate Surgery, Vasectomy Orthopedic Surgeries: Patient denies;: Implanted Devices, Orthopedic Surgery, Spinal Surgery, Total Hip Replacement, Total Knee Replacement - Family History Family History: Reports;: Family Stroke (Mother) Denies;: Family Anesthesia Reaction, Family Cancer, Family Diabetes, Family Heart Disease, Family Hypertension, Family Psychiatric Problems - Social History Smoking Status: Former smoker Frequency of Alcohol Use: None Type of Drug Use: None Marital Status: Lives With:: Spouse Functional capacity: independent ambulation Physical Examination Vital Signs Temp Pulse Resp BP Pulse Ox 97.3 F L 77 16 163/74 92 L 01/29/17 14:29 01/29/17 14:29 01/29/17 14:29 01/29/17 14:29 01/29/17 14:29 General: Present: Other (Appears chronically ill but is in no acute respiratory distress.) HEENT: Present: PERRL, Normocephaly, Mucus Membranes Dry, Other (Voice is hoarse ). Absent: Pallor Neck: Present: Midline Trachea, No JVD/HJR, No Masses, No Bruit Cardiac: Present: Reg Rate and Rhythm, No Murmur. Absent: Tachycardia, Bradycardia Lungs: Present: Clear Ascult./Percussion, Oxygen Neuro: Present: Grossly Intact. Absent: Numbness, Weakness, Resting Tremor, Essential Tremor Abdomen: Present: Soft, Active Bowel Sounds. Absent: Tender, Firm, Distended Skin: Present: Clear. Absent: Rash, Suspicious Lesions Musculoskeletal: Present: Decreased Range of Motion Extremities: Present: No Clubbing, No Cyanosis, No Edema, Normal Upper Extr. Pulses, Normal Lower Extr. Pulses, Capillary Refill (Normal) Result/EKG - Labs CBC & BMP: 01/31/17 06:42 01/31/17 06:42 Lab Results: I have reviewed the past 24 hour labs Labs: Laboratory Results - last 24 hr 01/30/17 01/31/17 01/31/17 02:04 06:42 06:42 WBC 3.5 L D RBC 3.50 L Hgb 9.6 L D Hct 28.3 L MCV 80.9 L MCH 27 MCHC 33.9 RDW 15.0 Plt Count 207 MPV 10.3 Neut % (Auto) 45.6 Lymph % (Auto) 26.9 Jones % (Auto) 24.4 H Eos % (Auto) 0.3 Baso % (Auto) 1.1 H Neut # (Auto) 1.6 Lymph # (Auto) 1.0 L Jones # (Auto) 0.9 H Eos # (Auto) 0.0 Baso # (Auto) 0.0 Total Counted 100 Immature Gran % 1.7 Nucleated RBC % 0.8 Immature Gran # 0.06 Segmented Neutrophils 51 Band Neutrophils 6 Lymphocytes 23 Monocytes 20 H Nucleated RBCs 1 Nucleated RBCs # 0.03 Platelet Estimate Normal Giant Platelets Few Immature Plt Fraction 0.0 Hypochromasia 1+ Ovalocytes Slight Chago Cells Slight Sodium 142 Potassium 3.2 L Chloride 108 H Carbon Dioxide 24 Anion Gap 13.2 BUN 14 Creatinine 1.70 H GFR Calculation 48 BUN/Creatinine Ratio 8.00 Glucose 95 Calculated Osmolality 283.1 Calcium 7.8 L Magnesium Total Bilirubin 1.10 H AST 12 ALT 16 Alkaline Phosphatase 111 Total Protein 5.7 L Albumin 2.7 L Globulin 3.0 Albumin/Globulin Ratio 0.9 L Blood Type Cancelled Antibody Screen Cancelled Crossmatch See Detail Blood Bank Comment Cancelled 01/31/17 06:42 WBC RBC Hgb Hct MCV MCH MCHC RDW Plt Count MPV Neut % (Auto) Lymph % (Auto) Jones % (Auto) Eos % (Auto) Baso % (Auto) Neut # (Auto) Lymph # (Auto) Jones # (Auto) Eos # (Auto) Baso # (Auto) Total Counted Immature Gran % Nucleated RBC % Immature Gran # Segmented Neutrophils Band Neutrophils Lymphocytes Monocytes Nucleated RBCs Nucleated RBCs # Platelet Estimate Giant Platelets Immature Plt Fraction Hypochromasia Ovalocytes Chago Cells Sodium Potassium Chloride Carbon Dioxide Anion Gap BUN Creatinine GFR Calculation BUN/Creatinine Ratio Glucose Calculated Osmolality Calcium Magnesium 1.8 Total Bilirubin AST ALT Alkaline Phosphatase Total Protein Albumin Globulin Albumin/Globulin Ratio Blood Type Antibody Screen Crossmatch Blood Bank Comment - Diagnostic Findings Procedure: Chest x-ray: image reviewed by me, report reviewed by me - EKG EKG results: interpreted by me, no acute changes EKG shows: atrial fibrillation (Ventricular pacing with underlying atrial fibrillation) Specialty Discharge - Follow Up or Referrals Stuart Ratliff Jennifer, MD, personally performed the services described in this documentation, ascribed by Casandra Duke RN in my presence, and it is both accurate and complete .
[2017-01-31] MEDS: ARFORMOTEROL 15 MCG/2 ML NEB RESP TX SCH ×2 (11:57→20:15)
[2017-01-31] MEDS: ONDANSETRON 4 MG/2 ML VIAL IV PRN (15:07)
--- NOTE | 2017-01-31 17:00 | Order Completion Report ---
See report scanned to EMR
--- NOTE | 2017-01-31 18:30 | Pulmonology Consult Note ---
Assessment and Plan (1) Chronic kidney disease, stage 3 Status: Chronic Assessment and plan: The patient's creatinine is up to 1.7 but stable Current Visit: No (2) Chronic atrial fibrillation Status: Chronic Assessment and plan: His heart rate is well controlled at present Current Visit: No (3) Essential hypertension Status: Chronic Assessment and plan: His blood pressure has been under reasonable control at present. Current Visit: No (4) History of stroke Status: Acute Assessment and plan: He had a stroke this past year and is doing much better now. Current Visit: No (5) Esophageal cancer Status: Acute Assessment and plan: He has an esophageal CA and is getting chemotherapy. Current Visit: No (6) Diastolic heart failure Status: Acute Assessment and plan: His chest x-ray does suggest chronic heart failure. He will be evaluated by cardiology. Current Visit: No (7) Pulmonary nodule Status: Acute Assessment and plan: It is very hard to see the pulmonary nodule on today's x-ray. Current Visit: No (8) Symptomatic anemia Status: Acute Assessment and plan: His hematocrit is around 25. Current Visit: Yes (9) Shortness of breath Status: Acute Assessment and plan: The patient has shortness of breath basically from a component of lung disease and possible heart failure and his anemia. We will continue with respiratory therapy. Current Visit: Yes History of Present Illness Chief complaint: Shortness of breath History of present illness: Mr. Hays is a 71 year old white male but does have a history of multiple medical problems and is recently been diagnosed with esophageal CA. He also had a left upper lung nodule we tried to biopsy and get a pneumothorax. This is done okay now. He did get his first round of chemotherapy and is very hard to see a nodule on his x-ray. He came in because he had some nausea and vomiting and poor intake. He is also having some diarrhea. He was felt to be dehydrated. He has had problems with anemia and does get short of breath easily. He has a history of hypertension and atrial fibrillation and has a pacemaker. He has had a previous CVA. He is a former smoker and may have some COPD. His x-ray suggests chronic heart failure. He is comfortable sitting up in a chair at present. Home Medications Medication Instructions Recorded Confirmed Type Lisinopril [Prinivil] 20 mg PO BID #60 tablet 11/04/16 01/30/17 Rx Meclizine [Antivert] 25 mg PO QID #120 tablet 11/04/16 01/30/17 Rx Metoprolol Succinate Xl [Toprol Xl] 50 mg PO BID #60 tablet 11/04/16 01/30/17 Rx amLODIPine [Norvasc] 10 mg PO DAILY #30 tablet 11/04/16 01/30/17 Rx hydrALAZINE TAB [Apresoline Tab] 100 mg PO TID #90 tablet 11/04/16 01/30/17 Rx Tamsulosin [Flomax] 0.4 mg PO BEDTIME 11/15/16 01/30/17 History Atorvastatin [Lipitor] 40 mg PO DAILY 12/13/16 01/30/17 History Polyethylene Glycol 3350 17 gm PO DAILY PRN 12/13/16 01/30/17 History Pantoprazole Tab [Protonix Tab] 40 mg PO BID #60 tablet 12/18/16 01/30/17 Rx Cimetidine [Tagamet Hb] 200 mg PO BEDTIME PRN 01/17/17 01/30/17 History Loratadine [Claritin] 10 mg PO DAILY 01/17/17 01/30/17 History Albuterol Sulfate [Proair HFA] 2 puff INH Q4H PRN 01/29/17 01/30/17 History Alum/Mag/Simeth Max Str Liquid 30 ml PO Q4H PRN 01/29/17 01/30/17 History [Mylanta Max Strength Liquid] Hydrocodone/Acetaminophen [[place] 1 each PO Q4-6H PRN 01/29/17 01/30/17 History 10-325 Tablet] Allergies Allergy/AdvReac Type Severity Reaction Status Date / Time dexamethasone Allergy Depression Verified 11/01/16 07:02 montelukast [From Singulair] Allergy Depression Verified 11/01/16 07:02 Penicillins Allergy Unknown/Unable Verified 10/29/16 08:21 to obtain - Constitutional Constitutional: Present: chills, fatigue, weakness, weight loss. Absent: fever( s) - EENT Eyes: Absent: loss of vision Ears: Absent: decreased hearing Nose, mouth and throat: Present: dysphagia. Absent: sinus pressure - Cardiovascular Cardiovascular: Present: dyspnea, orthopnea, palpitations. Absent: chest pain at rest, edema - Respiratory Respiratory: Present: cough, dyspnea, wheezing. Absent: hemoptysis - Gastrointestinal Gastrointestinal: Present: diarrhea, dysphagia, nausea, vomiting. Absent: abdominal pain - Genitourinary Genitourinary: Absent: difficulty urinating, dysuria, hematuria - Musculoskeletal Musculoskeletal: Present: muscle weakness. Absent: arthralgias - Neurological Neurological: Absent: abnormal speech, focal weakness, paresthesias - Psychiatric Psychiatric: Present: anxiety Exam (Pulmon) H&P - Constitutional Vitals: Period Temp Pulse Resp BP Sys/Pretty Pulse Ox Last 24 Hr 97.6 F-98.4 F 59-74 16-35 127-157/58-69 92-98 General appearance: mild distress (He is comfortable sitting up in a chair.), over weight - Head Head exam: Present: normal inspection, normocephalic - Eye Eye exam: Present: EOMI. Absent: scleral icterus Pupils: Present: ELISEO - ENT ENT exam: Present: normal exam - Neck Neck exam: Absent: lymphadenopathy, thyromegaly - Respiratory Respiratory exam: Present: rales, rhonchi (He has some crackles and rhonchi in the bases.). Absent: accessory muscle use - Cardiovascular Cardiovascular exam: Present: regular rate and rhythm, systolic murmur. Absent : gallop - GI/Abdominal GI/Abdominal exam: Present: normal bowel sounds, soft. Absent: distended, organomegaly, tenderness - Extremities Exam Extremities exam: Absent: calf tenderness, edema - Neurological Exam Neurological exam: Present: alert, oriented X3, CN II-XII intact - Psychiatric Psychiatric exam: Present: anxious, depressed - Skin Skin exam: Present: warm, dry Medical,Surgical,& Family Hx - Medical History Cardio: History of: Cardiac Dysrhythmia (Atrial fibrillation & Bradycardia), Hypertension, Pacemaker (Placed 11/01/[address] Stallings), Cardiovascular Problems ( Heart Murmur) No history of: CHF, CAD, [place] Neurology: History of: Cerebrovascular Accident (Cerebellar stroke, 10/29/2016), Vertigo No history of: Dementia, Seizures HEENT: History of: Ear Problem (vertigo) Endocrine: History of: Dyslipidemia, Thyroid Disorder No history of: Adrenal Disease, Diabetes Mellitus (IDDM), Diabetes Mellitus ( NIDDM), Endocrine Cancer, Endocrine Problems Rheumatology: History of;: Gout (Occasionally in his toes) Respiratory: History of: Asthma (As a child), Bronchitis (As a child), COPD, Obstructive Sleep Apnea No history of: Lung Cancer (Spot on lung-01/19/[address] Javier) Renal: History of: Renal Problems (Stage 3 Kidney Failure) Genitourinary: History of: Kidney Stones (2011) Gastrointestinal: History of: Gastrointestinal Bleed, Gastrointestinal Cancer ( Esophageal Ca-awaiting lung check), GI Problems (gallstones in 2011) Musculoskeletal: No history of: Amputation Hematology: History of: Anemia No history of: Blood Transfusion Reaction Other: History of: Cancer (Esophageal Ca) No history of: Anesthesia Reactions - Surgical History Cardiac Surgeries: Patient Denies: Femoral-Popliteal Bypass Graft, Cardiac Catheterization, Cardiac Surgery, Carotid Endarterectomy, Internal Defibrillator, Vascular Access Devices Thoracic Surgeries: Patient denies;: Kidney (Renal Surgery), Lithotripsy, Nephrectomy, Organ Transplant, Lobectomy Neurologic Surgeries: Patient denies: Neurologic Surgery HEENT Surgeries: Surgical HX of: Tonsilectomy & Adenoidectomy (1955) Patient denies: Carotid Endarterectomy, Eye Surgery, Thyroid Surgery Abdominal Surgeries: Surgical HX of: Cholecystectomy (11/12/16), Colonoscopy ( 2011), EGD (2011) Patient denies: Abdominal Surgery, Appendectomy, Gastric Bypass Surgery, Hernia Repair, Splenectomy Reproductive Surgeries: Patient denies;: Breast Surgery, Cystoscopy, Genitourinary Surgery, Prostate Surgery, Vasectomy Orthopedic Surgeries: Patient denies;: Implanted Devices, Orthopedic Surgery, Spinal Surgery, Total Hip Replacement, Total Knee Replacement - Family History Family History: Reports;: Family Stroke (Mother) Denies;: Family Anesthesia Reaction, Family Cancer, Family Diabetes, Family Heart Disease, Family Hypertension, Family Psychiatric Problems - Social History Smoking Status: Former smoker Frequency of Alcohol Use: None Type of Drug Use: None Results - Labs CBC & BMP: 01/31/17 06:42 01/31/17 06:42 - Diagnostic Findings Procedure: Chest x-ray: image reviewed by me, report reviewed by me (Chest x- ray shows cardiomegaly and mild bibasilar infiltrates. The pulmonary nodule in the left upper lung is hard to see. There is no pneumothorax now.) Quality Measures - VTE Contraindication to Pharmacological VTE Prophylaxis: High Risk of Bleeding Specialty Discharge - Follow Up or Referrals
[2017-02-01] MEDS: PROMETHAZINE INJ 25 MG in SODIUM CHLORIDE 0.9% 50 ML IV PRN (00:11)
[2017-02-01] MEDS: LISINOPRIL 20 MG TABLET PO SCH ×3 (00:15→21:00)
[2017-02-01] MEDS: ENOXAPARIN 30 MG/0.3 ML SYRINGE SUBCUT SCH ×2 (00:15→21:00)
[2017-02-01] MEDS: TAMSULOSIN 0.4 MG CAPSULE PO SCH ×2 (00:15→21:00)
[2017-02-01] MEDS: POTASSIUM CHLORIDE 20 MEQ TABLET PO SCH ×2 (00:15→21:00)
[2017-02-01] MEDS: MECLIZINE 25 MG TABLET PO SCH ×5 (00:15→20:59)
[2017-02-01] MEDS: PANTOPRAZOLE 40 MG TABLET PO SCH ×3 (00:15→21:00)
[2017-02-01] MEDS: METOPROLOL SUCCINATE XL 50 MG TABLET PO SCH ×3 (00:16→20:59)
[2017-02-01] MEDS: MAGNESIUM CHLORIDE 64 MG TABLET PO SCH ×3 (00:16→21:00)
[2017-02-01 07:09] LABS: Basophils % 0.3 % (0.0-0.8); Eosinophils % 0.2 % (0.00-10.9); Hematocrit 28.8 VOL% (42.0-52.0); Hemoglobin 9.6 GM/DL (14.0-18.0); Immature Granulocytes % 2.8 %; Immature Granulocytes Absolute 0.31 #; Lymphocytes # 1.5 10*3/uL (1.4-4.0); Lymphocytes % 13.3 % (21.2-54.2); Mean Corpuscular HGB Conc 33.3 GM/DL (32-36); Mean Corpuscular Hemoglobin 27 PG (27-34); Mean Corpuscular Volume 81.4 FL (87-102); Mean Platelet Volume 10.6 FL (9.6-12.0); Monocytes % 9.1 % (1.7-12.7); NRBC # 0.02 10*3/uL; Neutrophils # 8.1 10*3/uL (1.4-7.4); Neutrophils % 74.3 % (38.7-73.9); Platelet Count 202 T/CUMM (130-400); Red Blood Count 3.54 MC/CUMM (3.8-5.5); Red Cell Distribution Width 15.2 % (9.3-17.3); White Blood Count 10.9 T/CUMM (4-12)
[2017-02-01 07:17] LABS: INR 1.1; PT Patient Result 11.5 SECS
[2017-02-01 07:31] LABS: Band Neutrophils 39 % (0-10); Hypochromasia 2+; Lymphocytes 14 % (20-55); Microcytosis 1+; Platelet Estimate Adequate; Segmented Neutrophils 41 % (50-85); Total Cells Counted 100
[2017-02-01] MEDS: ARFORMOTEROL 15 MCG/2 ML NEB RESP TX SCH ×2 (07:40→19:42)
[2017-02-01 07:46] LABS: Albumin 2.5 G/DL (3.4-5.0); Calcium 7.8 MG/DL (8.5-10.1); Osmolality,Calculated 280.3 MOS/KG (273-304); Total Protein 5.4 G/DL (6.4-8.3)
--- NOTE | 2017-02-01 08:06 | Oncology Progress Note ---
Oncology Subjective PN Interval history: Mr. Hays received his first course of chemotherapy using carboplatin 350 mg, Taxotere 150 mg and 5-FU 1500 mg daily for 2 days beginning January 21, 2017. He was readmitted at this time with nausea and vomiting. He was also admitted with anemia and has been transfused. His hemoglobin today is 9.6. In addition he has cardiomyopathy with an artificial pacemaker. He has hypokalemia and today his potassium is 3.0. He has hypomagnesemia also but his serum magnesium is up to magnesium 2.0 today. He is having insomnia. I am starting him on doxepin. His has shingles and I am prescribing Valtrex for her, 1000 mg 3 times daily for 7 days. He is fully oriented and alert. He remains weak. He is still having enough weakness to have difficulty ambulating. His next chemotherapy should be due February 18 or thereabouts. He is continuing IV fluids. He needs a Mediport catheter. Were continuing to check daily lab work in order to monitor his hemoglobin as well as his potassium and his magnesium. Exam - Constitutional Vitals: Period Temp Pulse Resp BP Sys/Pretty Pulse Ox Last 24 Hr 97.7 F-99.8 F 58-64 18-26 127-158/59-68 91-98 Results - Labs CBC & BMP: 02/01/17 05:12 02/01/17 05:12 Quality Measures - VTE Contraindication to Pharmacological VTE Prophylaxis: High Risk of Bleeding Specialty Discharge - Follow Up or Referrals
[2017-02-01] MEDS: amLODIPine 10 MG TABLET PO SCH (08:59)
[2017-02-01] MEDS ORDERED: POTASSIUM CHLORIDE 20 MEQ TABLET PO SCH (09:00)
[2017-02-01] MEDS: ATORVASTATIN 40 MG TABLET PO SCH (09:00)
[2017-02-01] MEDS: LORATADINE 10 MG TABLET PO SCH (09:01)
[2017-02-01] MEDS: FILGRASTIM-SNDZ 300 MCG/0.5 ML SYRINGE SUBCUT SCH (09:08)
--- NOTE | 2017-02-01 09:08 | Pulmonology Progress Note ---
Pulmonary - PN: Subj Interval history: Patient is a 71-year-old who has esophageal cancer and has hypertension cardiovascular disease along with possibly some COPD. He has been short of breath but is feeling better today. He did diurese fairly well. He does have some cough and congestion but is better. He sits up in a chair at night but said he had a fairly good night. Today he is feeling better with less nausea. He feels like his breathing is doing a little better. His echo apparently shows good left ventricular function. His chest x-ray shortly looks like some mild heart failure but I do not see much effusion. His blood count appears to be stable now. Exam (Progress Note) - Constitutional Vitals: Period Temp Pulse Resp BP Sys/Pretty Pulse Ox Last 24 Hr 97.7 F-99.8 F 58-68 18-26 127-158/59-68 91-98 Exam: General appearance: no distress (He is comfortable sitting up in a chair. He does look like he feels better today.), over weight - Head Head exam: Present: normal inspection, normocephalic - Eye Eye exam: Present: EOMI. Absent: scleral icterus Pupils: Present: ELISEO - ENT ENT exam: Present: normal exam - Neck Neck exam: Absent: lymphadenopathy, thyromegaly - Respiratory Respiratory exam: Present: His lungs have fairly good breath sounds bilaterally with some slight crackles in the bases. - Cardiovascular Cardiovascular exam: Present: regular rate and rhythm, systolic murmur. Absent : gallop - GI/Abdominal GI/Abdominal exam: Present: normal bowel sounds, soft. Absent: distended, organomegaly, tenderness - Extremities Exam Extremities exam: Absent: calf tenderness, edema - Neurological Exam Neurological exam: Present: alert, oriented X3, CN II-XII intact - Psychiatric Psychiatric exam: Present: anxious, depressed - Skin Skin exam: Present: warm, dry Results - Labs CBC & BMP: 02/01/17 05:12 02/01/17 05:12 Assessment and Plan (1) Chronic kidney disease, stage 3 Status: Chronic Assessment and plan: The patient's creatinine is up to 1.7 but stable Current Visit: No (2) Chronic atrial fibrillation Status: Chronic Assessment and plan: His heart rate is well controlled at present. His vital signs have been stable. Current Visit: No (3) Essential hypertension Status: Chronic Assessment and plan: His blood pressure has been under reasonable control at present. Current Visit: No (4) History of stroke Status: Acute Assessment and plan: He had a stroke this past year and is doing much better now. Current Visit: No (5) Esophageal cancer Status: Acute Assessment and plan: He has an esophageal CA and is getting chemotherapy. He will get a Mediport soon. Current Visit: No (6) Diastolic heart failure Status: Acute Assessment and plan: His chest x-ray does suggest chronic heart failure. He will be evaluated by cardiology. He did diurese fairly well yesterday. He feels like his breathing is better today. Current Visit: No (7) Pulmonary nodule Status: Acute Assessment and plan: It is very hard to see the pulmonary nodule on today's x-ray. Current Visit: No (8) Symptomatic anemia Status: Acute Assessment and plan: His hematocrit is around 28 now. Current Visit: Yes (9) Shortness of breath Status: Acute Assessment and plan: The patient has shortness of breath basically from a component of lung disease and possible heart failure and his anemia. He feels like he is breathing better and feels like the bronchodilators are helping. He did diurese fairly well also. Current Visit: Yes Specialty Discharge - Follow Up or Referrals
--- NOTE | 2017-02-01 13:15 | Order Completion Report ---
See report scanned to EMR
--- NOTE | 2017-02-01 15:05 | General Surgery Progress Note ---
Assessment and Plan - Time spent with patient Time spent with patient: Less than 30 minutes Subjective Patient reports: Present: no new complaints, tolerating liquids well, afebrile. Absent: shortness of breath Exam - Constitutional Vitals: Period Temp Pulse Resp BP Sys/Pretty Pulse Ox Last 24 Hr 97.6 F-99.8 F 58-68 18-20 127-158/59-68 91-98 General appearance: mild distress - Head Head exam: Present: normal inspection - ENT ENT exam: Present: normal exam - Neck Neck exam: Present: normal inspection - Respiratory Respiratory exam: Present: rales - Cardiovascular Cardiovascular exam: Present: RRR - GI/Abdominal GI/Abdominal exam: Present: hypoactive bowel sounds, soft - Extremities Exam Extremities exam: Present: normal inspection - Back Exam Back exam: Present: normal inspection - Neurological Exam Neurological exam: Present: alert, oriented X3, CN II-XII intact - Skin Skin exam: Present: normal color, warm, dry Results - Labs CBC & BMP: 02/01/17 05:12 02/01/17 05:12 Lab Results: I have reviewed the past 24 hour labs Quality Measures - VTE Contraindication to Pharmacological VTE Prophylaxis: High Risk of Bleeding Specialty Discharge - Follow Up or Referrals
--- NOTE | 2017-02-01 15:07 | Cardiology Progress Note ---
<Brandy Mendes E - Last Filed: 02/01/17 14:48> Assessment and Plan - Time spent with patient Time spent with patient: Greater than 30 minutes (1) Diastolic CHF with preserved left ventricular function, NYHA class 2 Status: Acute Assessment and plan: SEE PLAN OF CARE LISTED BELOW Current Visit: Yes (2) Hypokalemia Status: Acute Assessment and plan: SEE PLAN OF CARE LISTED BELOW Current Visit: No (3) Atrial fibrillation Status: Chronic Assessment and plan: SEE PLAN OF CARE LISTED BELOW Current Visit: No Qualifiers: Atrial fibrillation type: paroxysmal Qualified Code(s): I48.0 - Paroxysmal atrial fibrillation (4) Hypertension Status: Chronic Assessment and plan: SEE PLAN OF CARE LISTED BELOW Current Visit: No (5) Sleep disorder Status: Chronic Assessment and plan: SEE PLAN OF CARE LISTED BELOW Current Visit: No (6) Chronic kidney disease, stage 3 Status: Chronic Assessment and plan: SEE PLAN OF CARE LISTED BELOW Current Visit: No (7) PAF (paroxysmal atrial fibrillation) Status: Chronic Assessment and plan: SEE PLAN OF CARE LISTED BELOW Current Visit: No (8) Dyslipidemia Status: Chronic Assessment and plan: SEE PLAN OF CARE LISTED BELOW Current Visit: No (9) Esophageal cancer Status: Acute Assessment and plan: SEE PLAN OF CARE LISTED BELOW Current Visit: No (10) Shortness of breath Status: Acute Assessment and plan: SEE PLAN OF CARE LISTED BELOW Current Visit: Yes Cardiology - PN: Subj Interval history: 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 Hays, 71WM, with risk factors significant for: Hypertension, CVA. Past medical history includes PAF S/P PPM, CKD III. November 2016 developed anemia requiring blood transfusions after initiating Eliquis. Underwent EGD was found to have esophageal cancer. December 2016 diagnosed with suspicious left upper lobe lung mass suspicious for cancer. Experienced small left pneumothorax after bronchoscopy in December. (Pathology report was negative for carcinoma). Patient has since started chemotherapy. He has been anemic and neutropenic. Patient admitted January 29, 2017 with persistent nausea, vomiting, diarrhea and weakness. He is being treated for dehydration, symptomatic anemia (required 2 units PRBCs), and neutropenia secondary to chemotherapy. Cardiology is now asked to see for shortness of breath. Echocardiogram: EF 55%, moderate concentric LVH, mild MR. Moderate sized pleural effusion. February 01, 2017: Patient is followed for chronic, stable conditions to include: Hypertension, atrial fibrillation. He is followed for more acute conditions to include esophageal cancer, anemia, neutropenia, shortness of breath. Patient denies chest pain, heaviness, tightness. Reports his breathing has much improved. Denies cough or hemoptysis. Patient underwent echocardiogram yesterday. (See results listed above.) Remains hypokalemic. This morning routine potassium was added to his medication regimen. Will continue to follow his labs closely. Patient is not taking aspirin or an anticoagulant due to his history of anemia requiring transfusions. Blood pressure is marginally controlled (systolic blood pressure 140s-150s). Creatinine has peaked at 1.7. Continue to follow with daily BMP. Will further discuss with Dr. Davidson and await additional recommendations. FEBRUARY 01, 2017 REVIEW OF SYSTEMS: CARDIOVASCULAR: Denies chest pain, heaviness, tightness. Denies palpitations PULMONARY: Continues to have shortness of breath, improving. Denies hemoptysis. GASTROINTESTINAL: Having occasional nausea today. No vomiting. Denies abdominal pain IMPRESSION/PLAN: 1. DYSPNEA and PND - this continues to improve with pulmonary toilet, diuresing. Multifactorial to include diastolic CHF, anemia, COPD. Echocardiogram revealed no significant valvular abnormality, normal systolic function. 2. HYPERTENSION - Overall, fairly well controlled. Could consider increasing beta-alyx if needed. However, we will continue to monitor and make adjustments at a later date if needed. 3. ATRIAL FIB, PAROXYSMAL - Controlled ventricular response. Unable to anticoagulate due to severe anemia requiring transfusion, GI bleeding. 4. DYSLIPIDEMIA - continue lipid-lowering agent. 5. CKD III- Creatinine has peaked at 1.7. Continue to follow closely. Can always consider holding KAMAR inhibitor if needed. BMP in a.m. 6. HX OF PACEMAKER - Pacemaker interrogation reviewed by Dr. Stallings on November 09. Device shows appropriate function. 7. ESOPHAGEAL CANCER - Dr. Russell is managing. Currently undergoing chemotherapy 8. CHF, ACUTE - DIASTOLIC, NYHA Class II. Continue with diuresing, afterload reduction. Daily INR. Exam (Progress Note) - Constitutional Vitals: Period Temp Pulse Resp BP Sys/Pretty Pulse Ox Last 24 Hr 97.6 F-99.8 F 58-68 18-20 127-158/59-68 91-98 Exam: General: [Appears well with no apparent distress.] [Pleasant and cooperative. ] [Appears comfortable.] Sitting up in bedside chair. HEENT: [PERRL, normocephalic, atraumatic. Mucous membranes moist. No jaundice noted. Conjunctiva moist and clear, sclerae anicteric] Neck: Unable to assess for JVD due to habitus. No thyromegaly noted. No carotid bruit appreciated Cardiac: [Regular rate and rhythm.] [No obvious murmur rub or gallop.] Lungs: [Clear to auscultation without accessory muscle use to assist the respiratory pattern.] Oxygen in use via nasal cannula Abdomen: Soft, bowel sounds normoactive. Nontender and nondistended. No abdominal bruit or thrill noted. No masses noted. Musculoskeletal: No fluid collection. Decreased range of motion is noted. Extremities: No clubbing, cyanosis noted. [ No edema noted.] Upper extremity pulses 2+. Lower extremity pulses 2+. TEDs intact capillary refill less than 3 seconds. Skin: No unusual lesions or rashes. No skin breakdown appreciated. Neuro: Awake, alert and oriented 3. Moves all extremities well without hemiparesis or paralysis. No essential tremor is appreciated. Result/EKG - Labs CBC & BMP: 02/01/17 05:12 02/01/17 05:12 Lab Results: I have reviewed the past 24 hour labs Labs: Laboratory Results - last 24 hr 01/30/17 02/01/17 02/01/17 02:04 05:12 05:12 WBC 10.9 D RBC 3.54 L Hgb 9.6 L Hct 28.8 L MCV 81.4 L MCH 27 MCHC 33.3 RDW 15.2 Plt Count 202 MPV 10.6 Neut % (Auto) 74.3 H Lymph % (Auto) 13.3 L [place] % (Auto) 9.1 Eos % (Auto) 0.2 Baso % (Auto) 0.3 Neut # (Auto) 8.1 H Lymph # (Auto) 1.5 [place] # (Auto) 1.0 H Eos # (Auto) 0.0 Baso # (Auto) 0.0 Total Counted 100 Immature Gran % 2.8 Nucleated RBC % 0.2 Immature Gran # 0.31 Segmented Neutrophils 41 L Band Neutrophils 39 H Lymphocytes 14 L Monocytes 6 Nucleated RBCs # 0.02 Platelet Estimate Adequate Immature Plt Fraction 0.0 Hypochromasia 2+ Microcytosis 1+ INR PT Patient/Control Mix Circ Anticoag PTT Sodium 141 Potassium 3.0 L Chloride 106 Carbon Dioxide 26 Anion Gap 12.0 BUN 13 Creatinine 1.70 H GFR Calculation 48 BUN/Creatinine Ratio 7.00 Glucose 97 Calculated Osmolality 280.3 Calcium 7.8 L Magnesium Total Bilirubin 1.00 AST 10 ALT 14 L Alkaline Phosphatase 112 Lactate Dehydrogenase 194 Total Protein 5.4 L Albumin 2.5 L Globulin 2.9 Albumin/Globulin Ratio 0.8 L Crossmatch See Detail 02/01/17 02/01/17 05:12 05:12 WBC RBC Hgb Hct MCV MCH MCHC RDW Plt Count MPV Neut % (Auto) Lymph % (Auto) [place] % (Auto) Eos % (Auto) Baso % (Auto) Neut # (Auto) Lymph # (Auto) [place] # (Auto) Eos # (Auto) Baso # (Auto) Total Counted Immature Gran % Nucleated RBC % Immature Gran # Segmented Neutrophils Band Neutrophils Lymphocytes Monocytes Nucleated RBCs # Platelet Estimate Immature Plt Fraction Hypochromasia Microcytosis INR 1.1 PT Patient/Control Mix 11.5 Circ Anticoag PTT 33.0 Sodium Potassium Chloride Carbon Dioxide Anion Gap BUN Creatinine GFR Calculation BUN/Creatinine Ratio Glucose Calculated Osmolality Calcium Magnesium 2.0 Total Bilirubin AST ALT Alkaline Phosphatase Lactate Dehydrogenase Total Protein Albumin Globulin Albumin/Globulin Ratio Crossmatch - Diagnostic Findings Procedure: Chest x-ray: report reviewed by me - EKG EKG results: interpreted by me EKG shows: sinus rhythm (Ventricular paced rhythm) Quality Measures - VTE Contraindication to Pharmacological VTE Prophylaxis: High Risk of Bleeding Specialty Discharge - Follow Up or Referrals <Ally Davidson - Last Filed: 02/01/17 19:33> Assessment and Plan (1) Shortness of breath Status: Acute Current Visit: Yes (2) Symptomatic anemia Status: Acute Current Visit: Yes (3) Esophageal cancer Status: Acute Current Visit: No (4) History of stroke Status: Acute Current Visit: No (5) Chronic anticoagulation Status: Chronic Current Visit: No (6) Chronic atrial fibrillation Status: Chronic Current Visit: No (7) Dyslipidemia Status: Chronic Current Visit: No (8) Essential hypertension Status: Chronic Current Visit: No (9) Hypothyroidism Status: Chronic Current Visit: No (10) Pacemaker Status: Chronic Current Visit: No Cardiology - PN: Subj Interval history: I have personally interviewed and evaluated the patient, reviewed the chart and discussed medical decision-making with Practitioner Vaughn. I have read this note and agree with her documentation here in. Exam (Progress Note) - Constitutional Vitals: Period Temp Pulse Resp BP Sys/Pretty Pulse Ox Last 24 Hr 97.6 F-99.8 F 58-68 18-20 135-158/60-68 91-98 Result/EKG - Labs CBC & BMP: 02/01/17 05:12 02/01/17 05:12 Labs: Laboratory Results - last 24 hr 02/01/17 02/01/17 02/01/17 05:12 05:12 05:12 WBC 10.9 D RBC 3.54 L Hgb 9.6 L Hct 28.8 L MCV 81.4 L MCH 27 MCHC 33.3 RDW 15.2 Plt Count 202 MPV 10.6 Neut % (Auto) 74.3 H Lymph % (Auto) 13.3 L [place] % (Auto) 9.1 Eos % (Auto) 0.2 Baso % (Auto) 0.3 Neut # (Auto) 8.1 H Lymph # (Auto) 1.5 [place] # (Auto) 1.0 H Eos # (Auto) 0.0 Baso # (Auto) 0.0 Total Counted 100 Immature Gran % 2.8 Nucleated RBC % 0.2 Immature Gran # 0.31 Segmented Neutrophils 41 L Band Neutrophils 39 H Lymphocytes 14 L Monocytes 6 Nucleated RBCs # 0.02 Platelet Estimate Adequate Immature Plt Fraction 0.0 Hypochromasia 2+ Microcytosis 1+ INR PT Patient/Control Mix Circ Anticoag PTT Sodium 141 Potassium 3.0 L Chloride 106 Carbon Dioxide 26 Anion Gap 12.0 BUN 13 Creatinine 1.70 H GFR Calculation 48 BUN/Creatinine Ratio 7.00 Glucose 97 Calculated Osmolality 280.3 Calcium 7.8 L Magnesium 2.0 Total Bilirubin 1.00 AST 10 ALT 14 L Alkaline Phosphatase 112 Lactate Dehydrogenase 194 Total Protein 5.4 L Albumin 2.5 L Globulin 2.9 Albumin/Globulin Ratio 0.8 L 02/01/17 05:12 WBC RBC Hgb Hct MCV MCH MCHC RDW Plt Count MPV Neut % (Auto) Lymph % (Auto) [place] % (Auto) Eos % (Auto) Baso % (Auto) Neut # (Auto) Lymph # (Auto) [place] # (Auto) Eos # (Auto) Baso # (Auto) Total Counted Immature Gran % Nucleated RBC % Immature Gran # Segmented Neutrophils Band Neutrophils Lymphocytes Monocytes Nucleated RBCs # Platelet Estimate Immature Plt Fraction Hypochromasia Microcytosis INR 1.1 PT Patient/Control Mix 11.5 Circ Anticoag PTT 33.0 Sodium Potassium Chloride Carbon Dioxide Anion Gap BUN Creatinine GFR Calculation BUN/Creatinine Ratio Glucose Calculated Osmolality Calcium Magnesium Total Bilirubin AST ALT Alkaline Phosphatase Lactate Dehydrogenase Total Protein Albumin Globulin Albumin/Globulin Ratio
[2017-02-01] MEDS: ONDANSETRON 4 MG/2 ML VIAL IV PRN (16:19)
[2017-02-01] MEDS: DOXEPIN 25 MG CAPSULE PO SCH (20:59)
[2017-02-02 07:19] LABS: Basophils # 0.1 10*3/uL (0.0-0.2); Basophils % 0.7 % (0.0-0.8); Eosinophils % 0.1 % (0.00-10.9); Hematocrit 29.3 VOL% (42.0-52.0); Hemoglobin 9.8 GM/DL (14.0-18.0); Immature Granulocytes % 8.4 %; Immature Granulocytes Absolute 1.57 #; Lymphocytes # 1.2 10*3/uL (1.4-4.0); Lymphocytes % 6.6 % (21.2-54.2); Mean Corpuscular HGB Conc 33.4 GM/DL (32-36); Mean Corpuscular Hemoglobin 27 PG (27-34); Mean Corpuscular Volume 81.6 FL (87-102); Mean Platelet Volume 9.9 FL (9.6-12.0); Monocytes # 1.4 10*3/uL (0.11-0.8); Monocytes % 7.2 % (1.7-12.7); Neutrophils # 14.4 10*3/uL (1.4-7.4); Platelet Count 208 T/CUMM (130-400); Red Blood Count 3.59 MC/CUMM (3.8-5.5); Red Cell Distribution Width 15.7 % (9.3-17.3); White Blood Count 18.8 T/CUMM (4-12)
[2017-02-02] MEDS: ARFORMOTEROL 15 MCG/2 ML NEB RESP TX SCH ×2 (07:44→20:23)
[2017-02-02 07:48] LABS: Calcium 8.1 MG/DL (8.5-10.1); Magnesium 2.1 MG/DL (1.8-2.4); Osmolality,Calculated 278.4 MOS/KG (273-304); Potassium 3.4 MMOL/L (3.5-5.1)
[2017-02-02 07:50] LABS: Albumin 2.5 G/DL (3.4-5.0); Bilirubin,Total 0.9 MG/DL (0.2-1.0); Calcium 8.1 MG/DL (8.5-10.1); Osmolality,Calculated 281.3 MOS/KG (273-304); Potassium 3.4 MMOL/L (3.5-5.1); Total Protein 5.3 G/DL (6.4-8.3)
[2017-02-02 07:59] LABS: Band Neutrophils 8 % (0-10); Lymphocytes 2 % (20-55); Myelocytes 3 %; Segmented Neutrophils 79 % (50-85); Total Cells Counted 100
--- NOTE | 2017-02-02 07:59 | Oncology Progress Note ---
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 We actually do not have enough information from the initial EGD on the patient. I am going to request a repeat EGD. I am interested in studies including HER-2/rogelio status, EGFR and PDL1. Symptomatic anemia: Hemoglobin 9.8 Neutropenia secondary to chemotherapy: White cell count 18,800. Neupogen discontinued. Myocardial dysfunction with artificial pacemaker aggravated by the chemotherapy and the anemia: COPD aggravated by anemia and chemotherapy. The small left pneumothorax has resolved: Hypokalemia: Potassium 3.4 Hypomagnesemia: Magnesium 2.1 Chronic renal failure: Serum creatinine 1.6 Diabetes mellitus type 2: Monitoring glucoses Platelet count 208,000 He is going for a Mediport catheter placement today. He has persistent nausea. It appears that he is continuing to bleed because he is continuing to require blood transfusions intermittently. I would like very much to have his EGD repeated to evaluate the tumor again as well as to evaluate for GI blood loss and also because we need additional tissue for targeted therapy since he might be a candidate for Herceptin or major inhibitors or PDL1 inhibitors. Exam - Constitutional Vitals: Period Temp Pulse Resp BP Sys/Pretty Pulse Ox Last 24 Hr 97.6 F-98.3 F 60-73 15-20 145-146/60-66 93-99 Results - Labs CBC & BMP: 02/02/17 07:02 02/02/17 07:02 Quality Measures - VTE Contraindication to Pharmacological VTE Prophylaxis: High Risk of Bleeding Specialty Discharge - Follow Up or Referrals
[2017-02-02 08:00] LABS: Burr Cells Slight; Giant Platelets Few; Hypochromasia 1+; Microcytosis 1+; Ovalocytes Slight; Platelet Estimate Adequate
[2017-02-02] MEDS: METOPROLOL SUCCINATE XL 50 MG TABLET PO SCH ×2 (08:13→21:54)
--- NOTE | 2017-02-02 08:52 | Pulmonology Progress Note ---
Pulmonary - PN: Subj Interval history: Patient is a 71-year-old who has esophageal cancer and has hypertension cardiovascular disease along with possibly some COPD. He has diuresed fairly well and he said he had a better night. He feels like his breathing is better. He is going for Mediport placement today. He will be set up for an EGD to reassess his lower esophagus also. Exam (Progress Note) - Constitutional Vitals: Period Temp Pulse Resp BP Sys/Pretty Pulse Ox Last 24 Hr 97.6 F-98.3 F 60-73 15-20 145-146/60-66 93-99 Exam: General appearance: no distress (He is comfortable sitting up in a chair. He is breathing better and looks comfortable.), over weight - Head Head exam: Present: normal inspection, normocephalic - Eye Eye exam: Present: EOMI. Absent: scleral icterus Pupils: Present: ELISEO - ENT ENT exam: Present: normal exam - Neck Neck exam: Absent: lymphadenopathy, thyromegaly - Respiratory Respiratory exam: Present: His lungs have good breath sounds any sounds clear with less rales and wheezing. - Cardiovascular Cardiovascular exam: Present: regular rate and rhythm, systolic murmur. Absent : gallop - GI/Abdominal GI/Abdominal exam: Present: normal bowel sounds, soft. Absent: distended, organomegaly, tenderness - Extremities Exam Extremities exam: Absent: calf tenderness, edema - Neurological Exam Neurological exam: Present: alert, oriented X3, CN II-XII intact - Psychiatric Psychiatric exam: Present: anxious, depressed - Skin Skin exam: Present: warm, dry Results - Labs CBC & BMP: 02/02/17 07:02 02/02/17 07:02 Assessment and Plan (1) Chronic kidney disease, stage 3 Status: Chronic Assessment and plan: The patient's creatinine is stable at 1.6. Current Visit: No (2) Chronic atrial fibrillation Status: Chronic Assessment and plan: His heart rate is well controlled at present. His vital signs have been stable. Current Visit: No (3) Essential hypertension Status: Chronic Assessment and plan: His blood pressure has been under reasonable control at present. Current Visit: No (4) History of stroke Status: Acute Assessment and plan: He had a stroke this past year and is doing much better now. Current Visit: No (5) Esophageal cancer Status: Acute Assessment and plan: He has an esophageal CA and is getting chemotherapy. He is getting a Mediport today. He will also have an EGD. Current Visit: No (6) Diastolic heart failure Status: Acute Assessment and plan: His chest x-ray does suggest chronic heart failure. He is diuresing well and is breathing better. Current Visit: No (7) Pulmonary nodule Status: Acute Assessment and plan: It is very hard to see the pulmonary nodule on today's x-ray. Current Visit: No (8) Symptomatic anemia Status: Acute Assessment and plan: His hematocrit is 29 today. Current Visit: Yes (9) Shortness of breath Status: Acute Assessment and plan: The patient has shortness of breath basically from a component of lung disease and possible heart failure and his anemia. He had a good night and he feels like his breathing is much better now. He appears stable and should be able to tolerate the anticipated procedures. Current Visit: Yes Specialty Discharge - Follow Up or Referrals
[2017-02-02] MEDS ORDERED: BUPIVACAINE 0.25% 50 ML VIAL ONE (09:19)
[2017-02-02] MEDS ORDERED: HEPARIN 5,000 UNIT/1 ML VIAL ONE (09:19)
[2017-02-02] MEDS ORDERED: CLINDAMYCIN INJ 900 MG in PREMIX 1 EACH IV ONE (09:37)
[2017-02-02] MEDS ORDERED: LIDOCAINE 2% 5 ML VIAL ONE (09:40)
[2017-02-02] MEDS ORDERED: PROPOFOL 200 MG/20 ML VIAL IV ONE (09:40)
[2017-02-02] MEDS ORDERED: CLINDAMYCIN 600 MG/4 ML VIAL ONE (10:36)
[2017-02-02] MEDS ORDERED: TISSUE ADHESIVE 1 EACH APPLICATOR TOP ONE (10:47)
[2017-02-02] MEDS ORDERED: oxyCODONE/ACETAMINOPHEN 5-325 MG TABLET PO PRN (11:04)
[2017-02-02] MEDS ORDERED: HYDROmorphone 2 MG/1 ML VIAL IV PRN (11:04)
--- NOTE | 2017-02-02 11:04 | Anesthesia Post-Op ---
Anesthesia Post OP - Post Ansesthetic Evaluation Patient seen in post op: Yes Resp: within normal limits CV: within normal limits Mental: within normal limits Temp: within normal limits Pled-Ba-Uslavkjus: within normal limits Nausea and Vomiting: within normal limits Pain: within normal limits
[2017-02-02] MEDS ORDERED: MIDAZOLAM 2 MG/2 ML VIAL ONE (11:16)
[2017-02-02] MEDS ORDERED: fentaNYL 100 MCG/2 ML VIAL ONE (11:16)
--- NOTE | 2017-02-02 11:16 | Operative Note ---
Date of procedure: 02/02/17 Pre-op diagnosis: Esophageal cancer needing venous access for chemotherapy Post-op diagnosis: same Procedure: Operative note: Preoperative diagnosis: Esophageal cancer needing venous access chemotherapy Postoperative diagnosis: Same Procedure: Insertion of PowerPort right cephalic vein Surgeon Dr. Goff Hot Roller Franca Mo, ADMINISTRATIVE EXECUTIVE ACNP Anesthesia managed anesthetic care with local Brief history: 71-year-old white male with esophageal cancer needs venous access for chemotherapy. He is having some nausea and vomiting associated with this process has no more venous access except for some small veins in the arms. Needs to get started on some chemotherapy at this process under control. Procedure: With patient in supine position prepped and draped in sterile fashion timeout and antibiotics completed we approach this area the right chest area of the right upper quadrant of the chest the deltopectoral groove area just below the infraclavicular region. We infiltrated with the local anesthetic and I made an incision at about the level of the intraventricular region at the level of the deltopectoral groove going to the skin subtenons tissue and carefully dissected down using light cauterization controlling bleeding. Went through Lonnie's fascia down to the level of the pectoralis major muscle. Began to dissected superior to this until I could identify the deltopectoral groove. I then carefully dissected in the groove until we identified the cephalic vein which looked like it was more than adequate. Isolated proximally with a 2-0 Vicryl tie and tied that down securely. We then isolated with a 2-0 Vicryl we did not tied distally. Patient was then placed in Trendelenburg and a small venotomy incision was made. We then inserted the catheter without difficulty and brought C arm up for positioning. The catheter went in nicely and positioned it easily into the right atrium superior vena caval area. It aspirated easily and irrigated easily without problems. At that point we tied down the 2-0 Vicryl time and then put another 2-0 Vicryl tied down to secure this catheter into the vein. I then put small clips over the opening of the vein just to seal it make sure that would be any back bleeding. Once that was completed then would begin to create a pocket inferior to the deltopectoral groove on top of the pectoralis major muscle using sharp and blunt dissection. He is light cauterization controlling bleeding. Once that was in good position and the pocket looked good then we were able to take the reservoir cut off the excess of the catheter and put the catheter onto the reservoir with the locking device. We then aspirated through the reservoir and aspirated irrigated easily. At that point we sutured it in the pocket with 2-0 Vicryl suture in the distal part on either side keep it from rotating. Once that was in position we then checked it with the C arm and if they look good at that point. I did secure the catheter on top of the muscle with another 2-0 Vicryl just to ensure that we can get pulled back and forth and he moves around. Once that was in position and that looking good shape and we irrigated with saline then an antibiotic solution of Cleocin. With that looking pretty dry at this point and with close Lonnie's with a running 4-0 Vicryl suture and we closed the skin with a running 4-0 Monocryl and applied Dermabond to the incision. At that point we took the accessing catheters and we accessed the reservoir and aspirated irrigated and aspirated irrigated easily. With that in good position then we put a dressing on the cystic patient recovery room. Estimated blood loss 10 cc Sponge count correct 2 Drains none Complications none Condition stable satisfactory Anesthesia: MAC, local (0.25% Marcaine with epinephrine mixed [id number] 1% Xylocaine plain) Surgeon / Physician: Stuart Goff Hot Roller: Franca Mo Estimated blood loss: other (10 cc) Specimens: none sent Condition: stable Disposition: floor Results - Labs CBC & BMP: 02/02/17 07:02 02/02/17 07:02 Discharge Plan - Discharge Medications No Action hydrALAZINE TAB [Apresoline Tab] 100 mg PO TID #90 tablet Lisinopril [Prinivil] 20 mg PO BID #60 tablet Metoprolol Succinate Xl [Toprol Xl] 50 mg PO BID #60 tablet Tamsulosin [Flomax] 0.4 mg PO BEDTIME Polyethylene Glycol 3350 17 gm PO DAILY PRN PRN Reason: Constipation Atorvastatin [Lipitor] 40 mg PO DAILY Pantoprazole Tab [Protonix Tab] 40 mg PO BID #60 tablet Loratadine [Claritin] 10 mg PO DAILY Cimetidine [Tagamet Hb] 200 mg PO BEDTIME PRN PRN Reason: Reflux Albuterol Sulfate [Proair HFA] 2 puff INH Q4H PRN PRN Reason: Shortness Of Breath/Wheezing amLODIPine [Norvasc] 10 mg PO DAILY #30 tablet Meclizine [Antivert] 25 mg PO QID #120 tablet Alum/Mag/Simeth Max Str Liquid [Mylanta Max Strength Liquid] 30 ml PO Q4H PRN PRN Reason: sour stomach Hydrocodone/Acetaminophen [[place] 10-325 Tablet] 1 each PO Q4-6H PRN PRN Reason: Pain - Follow Up or Referral - Forms/Instructions Instructions: Diabetic Hypoglycemia (DC), Diabetes Mellitus Type 2 in Adults ( DC), Cholesterol and Your Health (GEN), Meal Planning with Diabetes Exchanges ( DC)
--- NOTE | 2017-02-02 11:40 | XRay Report ---
XR chest 1V portable Indication: Mediport insertion right cephalic vein Comparison: Chest x-ray January 29, 2017 Technique: Single frontal view of the chest. Findings: Continued cardiomegaly. Pacemaker apparatus again demonstrated. Right-sided port catheter noted with tip projecting over the atriocaval junction. Continued hazy opacification within the bilateral mid and lower lungs which is nonspecific but may reflect pulmonary edema. Suspect small layering bilateral pleural fluid. Visualized osseous and surrounding soft tissue structures appear grossly unchanged. IMPRESSION: As above. PROCEDURE INTERPRETED AT [facility] DEPARTMENT OF RADIOLOGY Final Report Signed by: Dr Tushar Acevedo
[2017-02-02] MEDS: MECLIZINE 25 MG TABLET PO SCH ×4 (12:34→21:53)
[2017-02-02] MEDS: POTASSIUM CHLORIDE 20 MEQ TABLET PO SCH ×3 (12:34→21:53)
[2017-02-02] MEDS: MAGNESIUM CHLORIDE 64 MG TABLET PO SCH ×2 (12:36→21:02)
[2017-02-02] MEDS: PANTOPRAZOLE 40 MG TABLET PO SCH ×2 (12:36→21:02)
[2017-02-02] MEDS: LISINOPRIL 20 MG TABLET PO SCH ×2 (12:37→21:54)
--- NOTE | 2017-02-02 13:05 | Gastrointestinal Consult Note ---
Assessment and Plan (1) Esophageal cancer Status: Acute Assessment and plan: This patient does have a history of esophageal cancer, but he is going to get surgery eventually [facility] but is undergoing chemotherapy at this time as per Dr. Russell. As per his request, we will repeat upper endoscopy with tissue to be obtained for: HER-2/rogelio status, EGFR and PDL1 markers. Current Visit: No (2) Nausea with vomiting, unspecified Status: Resolved Assessment and plan: This may be secondary to chemotherapy or gastritis/esophagitis versus gastroparesis, will perform upper endoscopy tomorrow and evaluate for these possibilities. Protonix once a day until then. Will obtain further biopsies of the cancer provided we are able to find a viable segment. Current Visit: No Qualifiers: Vomiting type: cyclical vomiting (3) Symptomatic anemia Status: Acute Assessment and plan: Patient's hematocrit dropped down to 24.2% on 01/30/17 and subsequently got 2 units of packed red blood cells. He feels better now with better exercise tolerance. He is not having chest pain. Current Visit: Yes History of Present Illness Chief complaint: Rebiopsy of esophagus for tumor markers: HER-2/rogelio, EGFR and PDL1 History of present illness: Mr. Hays is a 71 year old male who was initially seen 12/15/16 while under the care of Dr. Marin and Dr. 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 Unfortunately after transfusion with 2 units packed red blood cells he developed some CHF. He was sent over to [facility] where he was evaluated with endoscopic ultrasound and was felt to qualify for surgery however they want to shrink the tumor first with chemotherapy. Dr. Russell has asked me to perform a repeat upper endoscopy to obtain more tissue in order to look at additional tumor markers: HER-2/rogelio status, EGFR and PDL1 markers as well. The patient himself is able to swallow fairly well although finds that he has frequent vomiting with his recent chemotherapy. He still has mild anemia with his most recent hematocrits demonstrating a hematocrit of 29.3 with hemoglobin of 9.8 white blood cell count is increased up to 18.8. He has some renal insufficiency with a BUN of 13 and creatinine 1.6. His most recent liver function tests are just about normal. He has occasional diarrhea. Home Medications Medication Instructions Recorded Confirmed Type Lisinopril [Prinivil] 20 mg PO BID #60 tablet 11/04/16 01/30/17 Rx Meclizine [Antivert] 25 mg PO QID #120 tablet 11/04/16 01/30/17 Rx Metoprolol Succinate Xl [Toprol Xl] 50 mg PO BID #60 tablet 11/04/16 01/30/17 Rx amLODIPine [Norvasc] 10 mg PO DAILY #30 tablet 11/04/16 01/30/17 Rx hydrALAZINE TAB [Apresoline Tab] 100 mg PO TID #90 tablet 11/04/16 01/30/17 Rx Tamsulosin [Flomax] 0.4 mg PO BEDTIME 11/15/16 01/30/17 History Atorvastatin [Lipitor] 40 mg PO DAILY 12/13/16 01/30/17 History Polyethylene Glycol 3350 17 gm PO DAILY PRN 12/13/16 01/30/17 History Pantoprazole Tab [Protonix Tab] 40 mg PO BID #60 tablet 12/18/16 01/30/17 Rx Cimetidine [Tagamet Hb] 200 mg PO BEDTIME PRN 01/17/17 01/30/17 History Loratadine [Claritin] 10 mg PO DAILY 01/17/17 01/30/17 History Albuterol Sulfate [Proair HFA] 2 puff INH Q4H PRN 01/29/17 01/30/17 History Alum/Mag/Simeth Max Str Liquid 30 ml PO Q4H PRN 01/29/17 01/30/17 History [Mylanta Max Strength Liquid] Hydrocodone/Acetaminophen [[place] 1 each PO Q4-6H PRN 01/29/17 01/30/17 History 10-325 Tablet] Allergies Allergy/AdvReac Type Severity Reaction Status Date / Time dexamethasone Allergy Depression Verified 11/01/16 07:02 montelukast [From Singulair] Allergy Depression Verified 11/01/16 07:02 Penicillins Allergy Unknown/Unable Verified 10/29/16 08:21 to obtain Medical,Surgical,& Family Hx - Medical History Cardio: History of: Cardiac Dysrhythmia (Atrial fibrillation & Bradycardia), Hypertension, Pacemaker (Placed 11/01/[address] Stallings), Cardiovascular Problems ( Heart Murmur) No history of: CHF, CAD, [place] Neurology: History of: Cerebrovascular Accident (Cerebellar stroke, 10/29/2016), Vertigo No history of: Dementia, Seizures HEENT: History of: Ear Problem (vertigo) Endocrine: History of: Dyslipidemia, Thyroid Disorder No history of: Adrenal Disease, Diabetes Mellitus (IDDM), Diabetes Mellitus ( NIDDM), Endocrine Cancer, Endocrine Problems Rheumatology: History of;: Gout (Occasionally in his toes) Respiratory: History of: Asthma (As a child), Bronchitis (As a child), COPD, Obstructive Sleep Apnea No history of: Lung Cancer (Spot on lung-01/19/[address] Javier) Renal: History of: Renal Problems (Stage 3 Kidney Failure) Genitourinary: History of: Kidney Stones (2011) Gastrointestinal: History of: Gastrointestinal Bleed, Gastrointestinal Cancer ( Esophageal Ca-awaiting lung check), GI Problems (gallstones in 2011) Musculoskeletal: No history of: Amputation Hematology: History of: Anemia No history of: Blood Transfusion Reaction Other: History of: Cancer (Esophageal Ca) No history of: Anesthesia Reactions - Surgical History Cardiac Surgeries: Patient Denies: Femoral-Popliteal Bypass Graft, Cardiac Catheterization, Cardiac Surgery, Carotid Endarterectomy, Internal Defibrillator, Vascular Access Devices Thoracic Surgeries: Patient denies;: Kidney (Renal Surgery), Lithotripsy, Nephrectomy, Organ Transplant, Lobectomy Neurologic Surgeries: Patient denies: Neurologic Surgery HEENT Surgeries: Surgical HX of: Tonsilectomy & Adenoidectomy (1956) Patient denies: Carotid Endarterectomy, Eye Surgery, Thyroid Surgery Abdominal Surgeries: Surgical HX of: Cholecystectomy (11/12/16), Colonoscopy ( 2011), EGD (2011) Patient denies: Abdominal Surgery, Appendectomy, Gastric Bypass Surgery, Hernia Repair, Splenectomy Reproductive Surgeries: Patient denies;: Breast Surgery, Cystoscopy, Genitourinary Surgery, Prostate Surgery, Vasectomy Orthopedic Surgeries: Patient denies;: Implanted Devices, Orthopedic Surgery, Spinal Surgery, Total Hip Replacement, Total Knee Replacement - Family History Family History: Reports;: Family Stroke (Mother) Denies;: Family Anesthesia Reaction, Family Cancer, Family Diabetes, Family Heart Disease, Family Hypertension, Family Psychiatric Problems - Social History Smoking Status: Former smoker Frequency of Alcohol Use: None Type of Drug Use: None Review of systems: Constitutional: Occasion fever, chills, but positive for recent nausea, and vomiting Eyes: Denies dry eyes, and scleral icterus HENT: Denies headaches Cardiovascular: Denies acute chest pain and claudication Respiratory: Denies shortness of breath, wheezing, and difficulty breathing, denies cough Gastrointestinal: As noted in the HPI Genitourinary: Denies dysuria and hematuria Neurologic: Denies vision loss, and loss of sensation Musculoskeletal: Admits to some joint swelling, joint stiffness, and muscular weakness Psychiatric: Denies depression and harrison symptoms Heme-Lymph: He does have some easy bruising, but no lymph node enlargement or tenderness, night sweats, excessive bleeding Allergies-immunologic: Denies pruritus and rhinorrhea Exam - Constitutional Vitals: Period Temp Pulse Resp BP Sys/Pretty Pulse Ox Last 24 Hr 97.6 F-98.9 F 59-73 15-20 93-147/55-68 92-99 General appearance: no acute distress Exam: Constitutional: Well-developed, well-nourished, alert, and in no acute distress Head and face: Head: Normocephalic atraumatic Eyes: Conjunctiva without injection, no gross scleral icterus, pupils equal and round bilaterally Ears: Intact to conversation in both ears Nose: External appearance is normal, nares patent Mouth: Oral mucous membranes moist without erythema dentition noted to be without erosion Neck: Normal appearance, no masses or tenderness, trachea midline Thyroid: Gland midline and appropriate size for age Respiratory: Normal respiratory effort, clear to auscultation without wheezes, rhonchi or rales Cardiovascular: Regular rate and rhythm, normal S1, S2, the exam is without rubs, or gallops. Gastrointestinal: Nontender to palpation, normal active bowel sounds, tone normal without rigidity or guarding, no masses present, no hepatomegaly, no spleen tip felt. No rectal exam obtained. Lymphatic: Neck without adenopathy, axilla without lymphadenopathy present Musculoskeletal: Right and left lower extremities without evidence of edema Skin and subcutaneous tissue: No rashes or ulcerations noted, normal skin turgor, digits and nails without clubbing/cyanosis/deformities. Neurologic: The patient is grossly oriented to person place and time, cranial nerves show tongue movements are normal with normal tongue extrusion midline, light touch sensation is intact. Psychiatric: No hallucinations or delusions are present, does not appear depressed Results - Labs CBC & BMP: 02/02/17 07:02 02/02/17 07:02 Quality Measures - VTE Contraindication to Pharmacological VTE Prophylaxis: High Risk of Bleeding Specialty Discharge - Follow Up or Referrals
--- NOTE | 2017-02-02 13:05 | Event Note ---
Came by patient's room however he was out having procedure performed. Will check back this afternoon or tomorrow
[2017-02-02] MEDS: LORATADINE 10 MG TABLET PO SCH (15:02)
[2017-02-02] MEDS: ATORVASTATIN 40 MG TABLET PO SCH (15:02)
[2017-02-02] MEDS: amLODIPine 10 MG TABLET PO SCH (15:03)
[2017-02-02] MEDS: SODIUM CHLORIDE 0.9% 1,000 ML IV SCH (15:10)
[2017-02-02] MEDS: CLINDAMYCIN INJ 900 MG in PREMIX 1 EACH IV SCH (16:43)
[2017-02-02] MEDS: TAMSULOSIN 0.4 MG CAPSULE PO SCH (21:02)
[2017-02-02] MEDS: DOXEPIN 25 MG CAPSULE PO SCH (21:02)
[2017-02-02] MEDS: ENOXAPARIN 30 MG/0.3 ML SYRINGE SUBCUT SCH (21:04)
[2017-02-03] MEDS: CLINDAMYCIN INJ 900 MG in PREMIX 1 EACH IV SCH (02:10)
[2017-02-03 04:39] LABS: Basophils # 0.1 10*3/uL (0.0-0.2); Basophils % 0.6 % (0.0-0.8); Eosinophils % 0.1 % (0.00-10.9); Hematocrit 27.9 VOL% (42.0-52.0); Hemoglobin 9.2 GM/DL (14.0-18.0); Immature Granulocytes % 17.5 %; Lymphocytes # 1.8 10*3/uL (1.4-4.0); Lymphocytes % 14.6 % (21.2-54.2); Mean Corpuscular Hemoglobin 27 PG (27-34); Mean Corpuscular Volume 82.1 FL (87-102); Monocytes # 1.4 10*3/uL (0.11-0.8); Monocytes % 10.9 % (1.7-12.7); Neutrophils # 7.1 10*3/uL (1.4-7.4); Neutrophils % 56.3 % (38.7-73.9); Platelet Count 201 T/CUMM (130-400); Red Cell Distribution Width 15.9 % (9.3-17.3); White Blood Count 12.6 T/CUMM (4-12)
[2017-02-03 05:02] LABS: Band Neutrophils 8 % (0-10); Lymphocytes 20 % (20-55); Metamyelocytes 1 %; Myelocytes 1 %; Promyelocytes 4 %; Segmented Neutrophils 63 % (50-85); Total Cells Counted 100
[2017-02-03 05:03] LABS: Hypochromasia 1+
[2017-02-03 05:04] LABS: Acanthocytes Few; Alanine Aminotransferase 16 U/L (16-61); Albumin 2.4 G/DL (3.4-5.0); Alkaline Phosphatase 113 U/L (45-117); Aspartate Amino Transferase 9 U/L (0-37); Bilirubin,Total < 0.39 MG/DL (0.2-1.0); Blood Urea Nitrogen 14 MG/DL (7-18); Calcium 7.9 MG/DL (8.5-10.1); Microcytosis 1+; Ovalocytes Slight; Platelet Estimate Normal
[2017-02-03 05:05] LABS: Glucose 103 MG/DL (74-106); Osmolality,Calculated 281.3 MOS/KG (273-304); Potassium 3.4 MMOL/L (3.5-5.1); Sodium 141 MMOL/L (136-145)
[2017-02-03] MEDS: SODIUM CHLORIDE 0.9% 1,000 ML IV SCH ×2 (05:57→13:59)
[2017-02-03] MEDS: ARFORMOTEROL 15 MCG/2 ML NEB RESP TX SCH ×2 (07:21→19:42)
[2017-02-03] MEDS: METOPROLOL SUCCINATE XL 50 MG TABLET PO SCH ×3 (07:30→21:38)
--- NOTE | 2017-02-03 07:44 | Oncology Progress Note ---
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 We actually do not have enough information from the initial EGD on the patient. He underwent EGD again today and I have reviewed the report. Tissue is being sent for studies including HER-2/rogelio status, EGFR and PDL1. I have reviewed the pictures and notes by Dr. Gramajo. There is apparent progression of the cancer but the patient is only had one course of chemotherapy and it is not time to consider changing it. But I am hoping to be able to do his detect some form of genetic mutation or surface marker that will allow us to add additional treatment to the patient's cancer. His first course of chemotherapy was started January 21. The 5-FU was an abbreviated infusion, being given only for 2 days and I plan to increase to 3 days with the next course. Symptomatic anemia: Hemoglobin 9.8 Neutropenia secondary to chemotherapy: White cell count 18,800. Neupogen discontinued. Myocardial dysfunction with artificial pacemaker aggravated by the chemotherapy and the anemia: COPD aggravated by anemia and chemotherapy. The small left pneumothorax has resolved: Hypokalemia: Potassium 3.4 Hypomagnesemia: Magnesium 2.1 Chronic renal failure: Serum creatinine 1.6 Diabetes mellitus type 2: Monitoring glucoses He is oriented and alert and in no acute distress today. Dietary has been consulted to see him to help with his appetite and caloric intake. His relates that he is not eating much and this needs to improve. Exam - Constitutional Vitals: Period Temp Pulse Resp BP Sys/Pretty Pulse Ox Last 24 Hr 97.6 F-98.8 F 57-73 15-20 93-168/55-72 90-96 Results - Labs CBC & BMP: 02/03/17 04:00 02/03/17 04:00 Quality Measures - VTE Contraindication to Pharmacological VTE Prophylaxis: High Risk of Bleeding Specialty Discharge - Follow Up or Referrals
--- NOTE | 2017-02-03 08:09 | General Surgery Progress Note ---
Assessment and Plan - Time spent with patient Time spent with patient: Less than 30 minutes (1) Esophageal cancer Status: Acute Assessment and plan: 02/03/2017. Patient is stable postop insertion of Mediport in the right cephalic vein for IV access in anticipation of treatment for esophageal cancer. The port is currently in use and the nurses are having no trouble with function. I have spoken with the patient and his family in detail regarding his care and they seem comfortable with how to manage this once he is ready for discharge. The family is concerned because of his poor p.o. intake, and we had a discussion regarding his lack of appetite is associated with his lower esophageal carcinoma. Dr. Russell was present for portion of this discussion as well. We will go ahead and get a dietitian consult at this time. Current Visit: No Subjective Patient reports: Present: other (Slight tenderness in right infra clavicular surgical incision; otherwise no complaints.) Exam - Constitutional Vitals: Period Temp Pulse Resp BP Sys/Pretty Pulse Ox Last 24 Hr 97.6 F-98.8 F 57-67 16-20 93-168/55-72 90-95 General appearance: no acute distress - Respiratory Respiratory exam: Present: other (Right infraclavicular surgical site is bandaged with infusion line in place over new port. There is no unusual ecchymosis or swelling. It is appropriately tender.). Absent: rales, wheezes Results - Labs CBC & BMP: 02/03/17 04:00 02/03/17 04:00 Lab Results: I have reviewed the past 24 hour labs (Postop labs are stable.) Quality Measures - VTE Contraindication to Pharmacological VTE Prophylaxis: High Risk of Bleeding Specialty Discharge - Follow Up or Referrals
--- NOTE | 2017-02-03 08:33 | Operative Note ---
Date of procedure: 02/03/17 Pre-op diagnosis: Esophageal cancer status post initial chemotherapy for markers Post-op diagnosis: other (Circumferential mass 5 cm in length now, this represents a 2 cm progression from size seen before--multiple biopsies were obtained for HER-2/rogelio, EGFR and PDL1 as requested. 2 cm hiatal hernia, mild gastritis and antral lipoma noted again.) Procedure: PROCEDURE: Esophagogastroduodenoscopy (EGD) with cold biopsy for pathology REFERRING PHYSICIAN: Dr. Laureano Russell MD INDICATIONS: This patient has a history of esophageal cancer, additional tissue needed at this time for tumor markers: HER-2/rgoelio, EGFR and PDL1 the prior H&P was reviewed and interrim changes are as noted: No change from GI consultation yesterday ENDOSCOPIST: Woodrow Gramajo MD ENDOSCOPE: Olympus Video 100 System upper endoscope ASA CLASS: 3 EXAM: CV: regular rate and rhythm respiratory: Clear without wheezes abdominal: active bowel sounds MEDICATION: Per nursing anesthesia protocol, see their notes PROCEDURE: After discussion of the potential risks and benefits of upper endoscopy, the informed consent was obtained. The patient was then placed in the left lateral decubitus position where sedation was achieved as noted above. Esophageal intubation was performed without difficulty, and the endoscope was advanced through the esophagus, stomach and duodenum. A slow withdrawal was then performed with retroflexion in the stomach for careful inspection of the incisura angularis, fundus and cardia. The scope was then returned to a neutral position and withdrawn through the esophagus. The patient tolerated the procedure well and without complication. BIOPSIES: Esophageal cancer from 39-44 cm PHOTOGRAPHS: Obtained FINDINGS: Hypopharynx and Larynx: Normal Esohagoscopy Upper and middle thirds: Normal Lower third circumferential intraluminal mass noted between 39 and 44 cm extending down into a hiatal hernia from the distal esophagus Esophogastric junctions: circumferential intraluminal mass noted between 39 and 44 cm extending down into a hiatal hernia from the distal esophagus Gastroscopy: Cardia/Fundus: 2 cm hiatal hernia Body: Mild gastritis, not biopsied Antrum and pylorus peripyloric lipoma otherwise normal Duodenoscopy: Bulb normal Second and third portions: Normal IMPRESSION: Circumferential mass 5 cm in length now, this represents a 2 cm progression from size seen before--multiple biopsies were obtained for HER-2/rogelio , EGFR and PDL1 as requested. 2 cm hiatal hernia, mild gastritis and antral lipoma noted again. RECOMMENDATIONS: Follow up for biopsy results in 1-2 weeks by phone [phone] Continue anti-gastroesophageal reflux measures (avoid carbonated and acidic beverages, avoid eating within 2 hours of bedtime, avoid tight fitting clothing , and elevate the front bed posts 6 inches prior to sleeping. HER-2/rogelio, EGFR and PDL1 markers pending Woodrow Gramajo MD COPY TO: Dr. Rm Russell MD Anesthesia: MAC Surgeon / Physician: Woodrow Gramajo Estimated blood loss: minimal Specimens: other (Distal 5 cm esophageal mass) Condition: stable Disposition: post procedure unit ([facility] Suite) Results - Labs CBC & BMP: 02/03/17 04:00 02/03/17 04:00 Discharge Plan - Discharge Medications No Action hydrALAZINE TAB [Apresoline Tab] 100 mg PO TID #90 tablet Lisinopril [Prinivil] 20 mg PO BID #60 tablet Metoprolol Succinate Xl [Toprol Xl] 50 mg PO BID #60 tablet Tamsulosin [Flomax] 0.4 mg PO BEDTIME Polyethylene Glycol 3350 17 gm PO DAILY PRN PRN Reason: Constipation Atorvastatin [Lipitor] 40 mg PO DAILY Pantoprazole Tab [Protonix Tab] 40 mg PO BID #60 tablet Loratadine [Claritin] 10 mg PO DAILY Cimetidine [Tagamet Hb] 200 mg PO BEDTIME PRN PRN Reason: Reflux Albuterol Sulfate [Proair HFA] 2 puff INH Q4H PRN PRN Reason: Shortness Of Breath/Wheezing amLODIPine [Norvasc] 10 mg PO DAILY #30 tablet Meclizine [Antivert] 25 mg PO QID #120 tablet Alum/Mag/Simeth Max Str Liquid [Mylanta Max Strength Liquid] 30 ml PO Q4H PRN PRN Reason: sour stomach Hydrocodone/Acetaminophen [[place] 10-325 Tablet] 1 each PO Q4-6H PRN PRN Reason: Pain - Follow Up or Referral - Forms/Instructions Instructions: Diabetic Hypoglycemia (DC), Diabetes Mellitus Type 2 in Adults ( DC), Cholesterol and Your Health (GEN), Meal Planning with Diabetes Exchanges ( DC)
--- NOTE | 2017-02-03 08:36 | Anesthesia Post-Op ---
Anesthesia Post OP - Post Ansesthetic Evaluation Patient seen in post op: Yes Resp: within normal limits CV: within normal limits Mental: within normal limits Temp: within normal limits [id number]: within normal limits Nausea and Vomiting: within normal limits Pain: within normal limits
--- NOTE | 2017-02-03 08:37 | Gastrointestinal Progress Note ---
Assessment and Plan (1) Esophageal cancer Status: Acute Assessment and plan: This patient does have a history of esophageal cancer, but he is going to get surgery eventually [facility] but is undergoing chemotherapy at this time as per Dr. Russell. As per his request, we will repeat upper endoscopy with tissue to be obtained for: HER-2/rogelio status, EGFR and PDL1 markers. 02/03/17--the mass has increased in size from 3 cm to 5 cm and now occupies some of the hiatal hernia space. Multiple biopsies were taken as requested above. Current Visit: No (2) Symptomatic anemia Status: Acute Assessment and plan: Patient's hematocrit dropped down to 24.2% on 01/30/17 and subsequently got 2 units of packed red blood cells. He feels better now with better exercise tolerance. He is not having chest pain. 02/03/17--hematocrit today is 27.9%. He appears to be doing better/stable since his blood transfusion. Current Visit: Yes Gastroenterology - PN: Subj Interval history: No new complaints Exam (Progress Note) - Constitutional Vitals: Period Temp Pulse Resp BP Sys/Pretty Pulse Ox Last 24 Hr 97.6 F-98.8 F 57-67 16-20 93-168/55-066 90-95 General appearance: no acute distress - Eye Eye exam: Present: EOMI - Respiratory Respiratory exam: Present: clear to auscultation bilaterally - Cardiovascular Cardiovascular exam: Present: regular rate and rhythm - GI/Abdominal GI/Abdominal exam: Present: normal bowel sounds, distended, soft. Absent: tenderness, rebound - Extremities Exam Extremities exam: Absent: edema Results - Labs CBC & BMP: 02/03/17 04:00 02/03/17 04:00 Specialty Discharge - Follow Up or Referrals
[2017-02-03] MEDS ORDERED: LIDOCAINE 100 MG/5 ML SYRINGE ONE (09:00)
[2017-02-03] MEDS ORDERED: PROPOFOL 200 MG/20 ML VIAL IV ONE (09:00)
[2017-02-03] MEDS: amLODIPine 10 MG TABLET PO SCH (10:11)
[2017-02-03] MEDS: LISINOPRIL 20 MG TABLET PO SCH ×2 (10:11→21:37)
[2017-02-03] MEDS: LORATADINE 10 MG TABLET PO SCH (10:12)
[2017-02-03] MEDS: POTASSIUM CHLORIDE 20 MEQ TABLET PO SCH ×2 (10:12→15:44)
[2017-02-03] MEDS: ATORVASTATIN 40 MG TABLET PO SCH (10:12)
[2017-02-03] MEDS: PANTOPRAZOLE 40 MG TABLET PO SCH ×2 (10:12→21:38)
[2017-02-03] MEDS: MECLIZINE 25 MG TABLET PO SCH ×4 (10:12→21:39)
[2017-02-03] MEDS: MAGNESIUM CHLORIDE 64 MG TABLET PO SCH ×2 (10:12→21:36)
--- NOTE | 2017-02-03 12:39 | Cardiology Progress Note ---
<Brandy Mendes E - Last Filed: 02/03/17 12:31> Assessment and Plan - Time spent with patient Time spent with patient: Greater than 30 minutes (1) Diastolic CHF with preserved left ventricular function, NYHA class 2 Status: Acute Assessment and plan: SEE PLAN OF CARE LISTED BELOW Current Visit: Yes (2) Hypokalemia Status: Acute Assessment and plan: SEE PLAN OF CARE LISTED BELOW Current Visit: No (3) Atrial fibrillation Status: Chronic Assessment and plan: SEE PLAN OF CARE LISTED BELOW Current Visit: No Qualifiers: Atrial fibrillation type: paroxysmal Qualified Code(s): I48.0 - Paroxysmal atrial fibrillation (4) Hypertension Status: Chronic Assessment and plan: SEE PLAN OF CARE LISTED BELOW Current Visit: No (5) Sleep disorder Status: Chronic Assessment and plan: SEE PLAN OF CARE LISTED BELOW Current Visit: No (6) Chronic kidney disease, stage 3 Status: Chronic Assessment and plan: SEE PLAN OF CARE LISTED BELOW Current Visit: No (7) PAF (paroxysmal atrial fibrillation) Status: Chronic Assessment and plan: SEE PLAN OF CARE LISTED BELOW Current Visit: No (8) Dyslipidemia Status: Chronic Assessment and plan: SEE PLAN OF CARE LISTED BELOW Current Visit: No (9) Esophageal cancer Status: Acute Assessment and plan: SEE PLAN OF CARE LISTED BELOW Current Visit: No (10) Shortness of breath Status: Acute Assessment and plan: SEE PLAN OF CARE LISTED BELOW Current Visit: Yes Cardiology - PN: Subj Interval history: FILL MANAGER: DR. 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 Hays, 71WM, with risk factors significant for: Hypertension, CVA. Past medical history includes PAF S/P PPM, CKD III. November 2016 developed anemia requiring blood transfusions after initiating Eliquis. Underwent EGD was found to have esophageal cancer. December 2016 diagnosed with suspicious left upper lobe lung mass suspicious for cancer. Experienced small left pneumothorax after bronchoscopy in December. (Pathology report was negative for carcinoma). Patient has since started chemotherapy. He has been anemic and neutropenic. Patient admitted January 29, 2017 with persistent nausea, vomiting, diarrhea and weakness. He is being treated for dehydration, symptomatic anemia (required 2 units PRBCs), and neutropenia secondary to chemotherapy. Cardiology is now asked to see for shortness of breath. Echocardiogram: EF 55%, moderate concentric LVH, mild MR. Moderate sized pleural effusion. February 03, 2017: Patient is followed for chronic, stable conditions to include: Hypertension, paroxysmal atrial fibrillation. He is followed for more acute conditions to include esophageal cancer, anemia, neutropenia, shortness of breath. Denies chest pain, heaviness, tightness. Reports his breathing is less labored and he looks very comfortable. Diastolic CHF appears to be well compensated. Underwent EGD this morning (post initial chemotherapy for markers ) with noted increase in size of the esophageal mass. Vital signs are stable as are labs today. I will further discuss with Dr. Davidson and await additional recommendations FEBRUARY 03, 2017 REVIEW OF SYSTEMS: CARDIOVASCULAR: Denies chest pain, heaviness, tightness. Denies palpitations PULMONARY: Continues to have mild shortness of breath, improved. Denies hemoptysis. GASTROINTESTINAL: Denies nausea, vomiting or diarrhea. Does acknowledge having difficulty swallowing meats. Currently on a soft diet IMPRESSION/PLAN: 1. DYSPNEA and PND - this continues to improve with pulmonary toilet, diuresing. Multifactorial to include acute diastolic CHF, anemia, COPD. Echocardiogram revealed no significant valvular abnormality, normal systolic function. 2. HYPERTENSION - Overall, fairly well controlled. This morning, medications have been withheld for EGD and blood pressure is elevated. However I suspect this will return to normal once medications were reintroduced today. We will follow along adjust medications accordingly 3. ATRIAL FIB, PAROXYSMAL - Controlled ventricular response. Unable to anticoagulate due to severe anemia requiring transfusion, GI bleeding. 4. DYSLIPIDEMIA - continue lipid-lowering agent. 5. CKD III- Creatinine has peaked at 1.7. Noted to be 1.6 this morning, stable. Continue to follow closely. Can always consider holding KAMAR inhibitor if needed. BMP in a.m. 6. HX OF PACEMAKER - Pacemaker interrogation reviewed by Dr. Stallings on November 09. Device shows appropriate function. 7. ESOPHAGEAL CANCER - Dr. Russlel is managing. Currently undergoing chemotherapy. Underwent EGD today which revealed increased size of esophageal mass 8. CHF, ACUTE - DIASTOLIC, NYHA Class II. Continue with diuresing, afterload reduction. Appears to be compensating well. Exam (Progress Note) - Constitutional Vitals: Period Temp Pulse Resp BP Sys/Pretty Pulse Ox Last 24 Hr 97.6 F-98.8 F 57-65 16-20 125-168/56-073 90-98 Exam: General: [Appears well with no apparent distress.] [Pleasant and cooperative. ] [Appears comfortable.] Sitting up in bedside chair. HEENT: [PERRL, normocephalic, atraumatic. Mucous membranes moist. No jaundice noted. Conjunctiva moist and clear, sclerae anicteric] Neck: Unable to assess for JVD due to habitus. No thyromegaly noted. No carotid bruit appreciated Cardiac: [Regular rate and rhythm.] [No obvious murmur rub or gallop.] Lungs: [Clear to auscultation without accessory muscle use to assist the respiratory pattern.] Oxygen in use via nasal cannula Abdomen: Soft, bowel sounds normoactive. Nontender and nondistended. No abdominal bruit or thrill noted. No masses noted. Musculoskeletal: No fluid collection. Decreased range of motion is noted. Extremities: No clubbing, cyanosis noted. [ No edema noted.] Upper extremity pulses 2+. Lower extremity pulses 2+. TEDs intact capillary refill less than 3 seconds. Skin: No unusual lesions or rashes. No skin breakdown appreciated. Neuro: Awake, alert and oriented 3. Moves all extremities well without hemiparesis or paralysis. No essential tremor is appreciated. Result/EKG - Labs CBC & BMP: 02/03/17 04:00 02/03/17 04:00 Lab Results: I have reviewed the past 24 hour labs Labs: Laboratory Results - last 24 hr 02/03/17 02/03/17 02/03/17 04:00 04:00 04:00 WBC 12.6 H D RBC 3.40 L Hgb 9.2 L Hct 27.9 L MCV 82.1 L MCH 27 MCHC 33.0 RDW 15.9 Plt Count 201 MPV 10.0 Neut % (Auto) 56.3 Lymph % (Auto) 14.6 L Randolph % (Auto) 10.9 Eos % (Auto) 0.1 Baso % (Auto) 0.6 Neut # (Auto) 7.1 Lymph # (Auto) 1.8 Randolph # (Auto) 1.4 H Eos # (Auto) 0.0 Baso # (Auto) 0.1 Total Counted 100 Immature Gran % 17.5 Nucleated RBC % 0.0 Immature Gran # 2.20 Segmented Neutrophils 63 Band Neutrophils 8 Lymphocytes 20 Monocytes 3 Metamyelocytes 1 Myelocytes 1 Promyelocytes 4 Nucleated RBCs # 0.00 Platelet Estimate Normal Immature Plt Fraction 0.0 Hypochromasia 1+ Microcytosis 1+ Ovalocytes Slight Acanthocytes (Spur) Few Sodium 141 Potassium 3.4 L Chloride 108 H Carbon Dioxide 25 Anion Gap 11.4 BUN 14 Creatinine 1.60 H GFR Calculation 52 BUN/Creatinine Ratio 8.00 Glucose 103 Calculated Osmolality 281.3 Calcium 7.9 L Magnesium 1.9 Total Bilirubin < 0.39 AST 9 ALT 16 Alkaline Phosphatase 113 Lactate Dehydrogenase 187 Total Protein 5.0 L Albumin 2.4 L Globulin 2.6 Albumin/Globulin Ratio 0.9 L - EKG EKG results: interpreted by me EKG shows: atrial fibrillation Quality Measures - VTE Contraindication to Pharmacological VTE Prophylaxis: High Risk of Bleeding Specialty Discharge - Follow Up or Referrals <Ally Davidson - Last Filed: 02/03/17 15:16> Assessment and Plan (1) Shortness of breath Status: Acute Current Visit: Yes (2) Symptomatic anemia Status: Acute Current Visit: Yes (3) Esophageal cancer Status: Acute Current Visit: No (4) History of stroke Status: Acute Current Visit: No (5) Chronic anticoagulation Status: Chronic Current Visit: No (6) Chronic atrial fibrillation Status: Chronic Current Visit: No (7) Dyslipidemia Status: Chronic Current Visit: No (8) Essential hypertension Status: Chronic Current Visit: No (9) Hypothyroidism Status: Chronic Current Visit: No (10) Pacemaker Status: Chronic Current Visit: No Cardiology - PN: Subj Interval history: I have personally interviewed and evaluated the patient, reviewed the chart and discussed medical decision-making with Practitioner Vaughn. I have read this note and agree with her documentation here in. Chest x-ray shows continued edema and effusions, we will diurese him a little bit Exam (Progress Note) - Constitutional Vitals: Period Temp Pulse Resp BP Sys/Pretty Pulse Ox Last 24 Hr 98.0 F-98.8 F 57-65 16-20 125-168/56-073 90-98 Result/EKG - Labs CBC & BMP: 02/03/17 04:00 02/03/17 04:00 Labs: Laboratory Results - last 24 hr 02/03/17 02/03/17 02/03/17 04:00 04:00 04:00 WBC 12.6 H D RBC 3.40 L Hgb 9.2 L Hct 27.9 L MCV 82.1 L MCH 27 MCHC 33.0 RDW 15.9 Plt Count 201 MPV 10.0 Neut % (Auto) 56.3 Lymph % (Auto) 14.6 L Randolph % (Auto) 10.9 Eos % (Auto) 0.1 Baso % (Auto) 0.6 Neut # (Auto) 7.1 Lymph # (Auto) 1.8 Randolph # (Auto) 1.4 H Eos # (Auto) 0.0 Baso # (Auto) 0.1 Total Counted 100 Immature Gran % 17.5 Nucleated RBC % 0.0 Immature Gran # 2.20 Segmented Neutrophils 63 Band Neutrophils 8 Lymphocytes 20 Monocytes 3 Metamyelocytes 1 Myelocytes 1 Promyelocytes 4 Nucleated RBCs # 0.00 Platelet Estimate Normal Immature Plt Fraction 0.0 Hypochromasia 1+ Microcytosis 1+ Ovalocytes Slight Acanthocytes (Spur) Few Sodium 141 Potassium 3.4 L Chloride 108 H Carbon Dioxide 25 Anion Gap 11.4 BUN 14 Creatinine 1.60 H GFR Calculation 52 BUN/Creatinine Ratio 8.00 Glucose 103 Calculated Osmolality 281.3 Calcium 7.9 L Magnesium 1.9 Total Bilirubin < 0.39 AST 9 ALT 16 Alkaline Phosphatase 113 Lactate Dehydrogenase 187 Total Protein 5.0 L Albumin 2.4 L Globulin 2.6 Albumin/Globulin Ratio 0.9 L
--- NOTE | 2017-02-03 13:18 | Pulmonology Progress Note ---
Pulmonary - PN: Subj Interval history: Patient is a 71-year-old who has esophageal cancer and has hypertension cardiovascular disease along with possibly some COPD. He has diuresed fairly well and he said he had a better night. He feels like his breathing is better. He had a Mediport placed yesterday and did well with this. He had a fairly good night. This morning he went for an EGD and esophageal cancer looks worse. He apparently has a large area now and repeat biopsies were done. This is consistent with his PET scan. He did fairly well with the scope and is breathing comfortably at present. He still coughs up some secretions at times. Exam (Progress Note) - Constitutional Vitals: Period Temp Pulse Resp BP Sys/Pretty Pulse Ox Last 24 Hr 98.0 F-98.8 F 57-65 16-20 125-168/56-073 90-98 Exam: General appearance: no distress (He is comfortable sitting up in a chair. He is breathing better and looks comfortable.), over weight - Head Head exam: Present: normal inspection, normocephalic - Eye Eye exam: Present: EOMI. Absent: scleral icterus Pupils: Present: ELISEO - ENT ENT exam: Present: normal exam - Neck Neck exam: Absent: lymphadenopathy, thyromegaly - Respiratory Respiratory exam: Present: His lungs have good breath sounds any sounds clear with less rales and wheezing. His lungs still sound reasonably clear. - Cardiovascular Cardiovascular exam: Present: regular rate and rhythm, systolic murmur. Absent : gallop - GI/Abdominal GI/Abdominal exam: Present: normal bowel sounds, soft. Absent: distended, organomegaly, tenderness - Extremities Exam Extremities exam: Absent: calf tenderness, edema - Neurological Exam Neurological exam: Present: alert, oriented X3, CN II-XII intact - Psychiatric Psychiatric exam: Present: anxious, depressed - Skin Skin exam: Present: warm, dry Results - Labs CBC & BMP: 02/03/17 04:00 02/03/17 04:00 Assessment and Plan (1) Chronic kidney disease, stage 3 Status: Chronic Assessment and plan: The patient's creatinine is stable at 1.6. Current Visit: No (2) Chronic atrial fibrillation Status: Chronic Assessment and plan: His heart rate is well controlled at present. His vital signs have been stable. Current Visit: No (3) Essential hypertension Status: Chronic Assessment and plan: His blood pressure has been under reasonable control at present. He appears to be hemodynamically stable at present. Current Visit: No (4) History of stroke Status: Acute Assessment and plan: He had a stroke this past year and is doing much better now. Current Visit: No (5) Esophageal cancer Status: Acute Assessment and plan: He has an esophageal CA and is getting chemotherapy. His EGD suggest that the cancer is larger. He will continue with chemotherapy. Current Visit: No (6) Diastolic heart failure Status: Acute Assessment and plan: His chest x-ray does suggest chronic heart failure. He is diuresing well and is breathing better. Current Visit: No (7) Pulmonary nodule Status: Acute Assessment and plan: It is very hard to see the pulmonary nodule on today's x-ray. This will just have to be followed. Current Visit: No (8) Symptomatic anemia Status: Acute Assessment and plan: His hematocrit is 27.9 today. Current Visit: Yes (9) Shortness of breath Status: Acute Assessment and plan: The patient has shortness of breath basically from a component of lung disease and possible heart failure and his anemia. He had a good night and he feels like his breathing is much better now. He appears to be fairly stable at present. Current Visit: Yes Specialty Discharge - Follow Up or Referrals
[2017-02-03] MEDS: ONDANSETRON 4 MG/2 ML VIAL IV PRN (15:31)
[2017-02-03] MEDS: FUROSEMIDE 40 MG/4 ML VIAL IV SCH ×2 (15:33→16:43)
[2017-02-03] MEDS: POTASSIUM CHLORIDE 20 MEQ/15 ML UDCUP PO SCH ×2 (16:43→21:52)
[2017-02-03] MEDS: DOXEPIN 25 MG CAPSULE PO SCH (21:38)
[2017-02-03] MEDS: TAMSULOSIN 0.4 MG CAPSULE PO SCH (21:39)
[2017-02-03] MEDS: ENOXAPARIN 30 MG/0.3 ML SYRINGE SUBCUT SCH (21:41)
[2017-02-04] MEDS: TEMAZEPAM 7.5 MG CAPSULE PO PRN (01:34)
[2017-02-04] MEDS: ONDANSETRON 4 MG/2 ML VIAL IV PRN (01:35)
[2017-02-04 05:14] LABS: Basophils # 0.1 10*3/uL (0.0-0.2); Basophils % 0.9 % (0.0-0.8); Eosinophils % 0.1 % (0.00-10.9); Hematocrit 27.9 VOL% (42.0-52.0); Hemoglobin 9.3 GM/DL (14.0-18.0); Immature Granulocytes % 26.2 %; Immature Granulocytes Absolute 2.43 #; Lymphocytes # 1.7 10*3/uL (1.4-4.0); Lymphocytes % 18.2 % (21.2-54.2); Mean Corpuscular HGB Conc 33.3 GM/DL (32-36); Mean Corpuscular Hemoglobin 27 PG (27-34); Mean Corpuscular Volume 82.3 FL (87-102); Mean Platelet Volume 9.7 FL (9.6-12.0); Monocytes % 11.1 % (1.7-12.7); Neutrophils % 43.5 % (38.7-73.9); Platelet Count 187 T/CUMM (130-400); Red Blood Count 3.39 MC/CUMM (3.8-5.5); Red Cell Distribution Width 16.2 % (9.3-17.3); White Blood Count 9.3 T/CUMM (4-12)
[2017-02-04 05:46] LABS: Calcium 7.9 MG/DL (8.5-10.1); Magnesium 1.7 MG/DL (1.8-2.4); Osmolality,Calculated 282.3 MOS/KG (273-304); Potassium 3.5 MMOL/L (3.5-5.1)
[2017-02-04 05:50] LABS: Albumin 2.2 G/DL (3.4-5.0); Bilirubin,Total 1.3 MG/DL (0.2-1.0); Osmolality,Calculated 282.3 MOS/KG (273-304); Potassium 3.5 MMOL/L (3.5-5.1)
[2017-02-04 06:05] LABS: Band Neutrophils 11 % (0-10); Burr Cells Slight; Giant Platelets Few; Hypochromasia 1+; Lymphocytes 26 % (20-55); Metamyelocytes 1 %; Myelocytes 5 %; Ovalocytes Slight; Platelet Estimate Normal; Segmented Neutrophils 50 % (50-85); Total Cells Counted 100
[2017-02-04 06:06] LABS: Microcytosis 1+
[2017-02-04] MEDS: ARFORMOTEROL 15 MCG/2 ML NEB RESP TX SCH (07:26)
--- NOTE | 2017-02-04 08:08 | Oncology Progress Note ---
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 He should be due another one in a couple more weeks. There was a delay in giving the patient chemotherapy because he sought a second opinion at the [facility]. I discussed the patient's case with Dr. Viral Coyle and Dr. Coyle recommended the chemotherapy that I had already planned. The patient underwent repeat EGD yesterday in order to get tissue for tumor markers at that time his cancer had progressed. I have explained to the family that he has not had time to respond to chemotherapy but they may want another opinion elsewhere. I am going to discuss this with him again today. He received his first course of chemotherapy beginning January 21. It consisted of: Carboplatin 350 mg IV on January 21 Taxotere 150 mg IV on January 21 5-FU 1500 mg IV over 22 hours daily for 2 days beginning January 21. This chemotherapy is repeated every 4 weeks and my plan will be to add another day of 5-FU by infusion if he tolerates the current dose well. I am hoping to give 1500 mg IV over 22 hours daily for 3 days with course #2 of chemotherapy. Lab work today includes a white cell count of 9300 with a hemoglobin of 9.3 and a platelet count of 187,000. This is a relatively stable hemoglobin. The comprehensive metabolic profile also includes a serum creatinine of 1.6 with a serum magnesium of 1.7. Liver enzymes are normal including transaminases and alkaline phosphatase and LDH. He has a low serum albumin of 2.2. I am going to have him return February 15 to my office for a CBC and comprehensive metabolic profile. In addition I am scheduling him to return for readmission on February 24 to proceed with his next course of chemotherapy which will be course #2. I am prescribing doxepin 25 mg at bedtime for sleep as his only new discharge medication. Exam - Constitutional Vitals: Period Temp Pulse Resp BP Sys/Pretty Pulse Ox Last 24 Hr 98.0 F-99.9 F 59-63 16-20 138-187/65-073 93-95 Results - Labs CBC & BMP: 02/04/17 03:33 02/04/17 03:34 Quality Measures - VTE Contraindication to Pharmacological VTE Prophylaxis: High Risk of Bleeding Specialty Discharge - Follow Up or Referrals
[2017-02-04] MEDS: FUROSEMIDE 40 MG/4 ML VIAL IV SCH (08:13)
[2017-02-04] MEDS: MECLIZINE 25 MG TABLET PO SCH (08:13)
[2017-02-04] MEDS: LISINOPRIL 20 MG TABLET PO SCH (08:14)
[2017-02-04] MEDS: amLODIPine 10 MG TABLET PO SCH (08:14)
[2017-02-04] MEDS: ATORVASTATIN 40 MG TABLET PO SCH (08:14)
[2017-02-04] MEDS: PANTOPRAZOLE 40 MG TABLET PO SCH (08:14)
[2017-02-04] MEDS: METOPROLOL SUCCINATE XL 50 MG TABLET PO SCH (08:14)
[2017-02-04] MEDS: LORATADINE 10 MG TABLET PO SCH (08:14)
[2017-02-04] MEDS: MAGNESIUM CHLORIDE 64 MG TABLET PO SCH (08:14)
[2017-02-04] MEDS: POTASSIUM CHLORIDE 20 MEQ/15 ML UDCUP PO SCH (08:15)
--- NOTE | 2017-02-04 08:58 | XRay Report ---
History: Shortness of breath Date: 02/04/2017 Study: Chest x-ray AP portable Comparison exam: February 02, 2017 There is continued cardiomegaly. The pulmonary vasculature is borderline to minimally prominent. There is some patchy and hazy and strandy infiltrate/edema in the lower lungs as before, perhaps slightly increased. There is at least mild left-sided pleural effusion. A right subclavian Mediport-type catheter is well-positioned. A left subclavian transvenous pacemaker is generally intact and unchanged. Osseous structures are similar. Impression: Continued bibasilar pulmonary edema/infiltrate, perhaps slightly increased compared to the previous study Cardiomegaly and suspected mild pulmonary venous hypertension PROCEDURE INTERPRETED AT [facility] DEPARTMENT OF RADIOLOGY Final Report Signed by: Dr. Sarah Ayala
[2017-02-04 09:20] VITALS: BP 138/77
--- NOTE | 2017-02-04 09:36 | Discharge Summary ---
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 He should be due another one in a couple more weeks. There was a delay in giving the patient chemotherapy because he sought a second opinion at the [facility]. I discussed the patient's case with Dr. Viral Coyle and Dr. Coyle recommended the chemotherapy that I had already planned. The patient underwent repeat EGD yesterday in order to get tissue for tumor markers at that time his cancer had progressed. I have explained to the family that he has not had time to respond to chemotherapy but they may want another opinion elsewhere. I am going to discuss this with him again today. He received his first course of chemotherapy beginning January 21. It consisted of: Carboplatin 350 mg IV on January 21 Taxotere 150 mg IV on January 21 5-FU 1500 mg IV over 22 hours daily for 2 days beginning January 21. This chemotherapy is repeated every 4 weeks and my plan will be to add another day of 5-FU by infusion if he tolerates the current dose well. I am hoping to give 1500 mg IV over 22 hours daily for 3 days with course #2 of chemotherapy. Lab work today includes a white cell count of 9300 with a hemoglobin of 9.3 and a platelet count of 187,000. This is a relatively stable hemoglobin. The comprehensive metabolic profile also includes a serum creatinine of 1.6 with a serum magnesium of 1.7. Liver enzymes are normal including transaminases and alkaline phosphatase and LDH. He has a low serum albumin of 2.2. I am going to have him return February 15 to my office for a CBC and comprehensive metabolic profile. In addition I am scheduling him to return for readmission on February 24 to proceed with his next course of chemotherapy which will be course #2. I am prescribing doxepin 25 mg at bedtime for sleep as his only new discharge medication. Specialty Discharge - Follow Up or Referrals Discharge Plan - Discharge Data Disposition: Disch To Home/Self Care Condition at Discharge: Guarded Discharge Diet: advance to your usual diet Activity: resume usual activities as tolerated Hygiene: no restrictions Weight Bearing at Discharge: weight bear as tolerated Driving: other Contact your physician if you experience:: fever over 101, Difficulty voiding, Redness or swelling, Nausea/Vomiting, Shortness of breath, Bleeding, pain uncontrolled by pain medications - Discharge Medications New Doxepin [SINEquan] 25 mg PO BEDTIME #30 capsule Continue hydrALAZINE TAB [Apresoline Tab] 100 mg PO TID #90 tablet Lisinopril [Prinivil] 20 mg PO BID #60 tablet Metoprolol Succinate Xl [Toprol Xl] 50 mg PO BID #60 tablet Tamsulosin [Flomax] 0.4 mg PO BEDTIME Polyethylene Glycol 3350 17 gm PO DAILY PRN PRN Reason: Constipation Atorvastatin [Lipitor] 40 mg PO DAILY Pantoprazole Tab [Protonix Tab] 40 mg PO BID #60 tablet Loratadine [Claritin] 10 mg PO DAILY Cimetidine [Tagamet Hb] 200 mg PO BEDTIME PRN PRN Reason: Reflux Albuterol Sulfate [Proair HFA] 2 puff INH Q4H PRN PRN Reason: Shortness Of Breath/Wheezing amLODIPine [Norvasc] 10 mg PO DAILY #30 tablet Meclizine [Antivert] 25 mg PO QID #120 tablet Alum/Mag/Simeth Max Str Liquid [Mylanta Max Strength Liquid] 30 ml PO Q4H PRN PRN Reason: sour stomach Hydrocodone/Acetaminophen [Escalon 10-325 Tablet] 1 each PO Q4-6H PRN PRN Reason: Pain - Follow Up or Referral - Forms/Instructions Instructions: Diabetic Hypoglycemia (DC), Diabetes Mellitus Type 2 in Adults ( DC), Cholesterol and Your Health (GEN), Meal Planning with Diabetes Exchanges ( DC) Additional Discharge Instructions: Come to my office on February 15 to check a CBC and we will draw comprehensive metabolic profile at that time. There will be no appointment to see me but please stay long enough for us to confirm the your CBC is satisfactory. We will plan to readmit you on February 24, 2017 with a second course of chemotherapy. Exam - Constitutional Vitals: Period Temp Pulse Resp BP Sys/Pretty Pulse Ox Last 24 Hr 97.8 F-99.9 F 59-63 18-20 138-187/65-78 93-98 Discharge Results Procedures and tests throughout hospitalization: Pending Orders 02/05/17 04:00 Comp Blood Count Auto Diff IN AM Comprehensive Metabolic Panel IN AM LDH [Lactate Dehydrogenase] IN AM 02/06/17 04:00 Comp Blood Count Auto Diff IN AM Comprehensive Metabolic Panel IN AM Labs on day of discharge: Labs from last 24 hours 02/04/17 02/04/1702/04/17 03:34 03:33 03:33 WBC RBC Hgb Hct MCV MCH MCHC RDW Plt Count MPV Neut % (Auto) Lymph % (Auto) [place] % (Auto) Eos % (Auto) Baso % (Auto) Neut # (Auto) Lymph # (Auto) [place] # (Auto) Eos # (Auto) Baso # (Auto) Total Counted Immature Gran % Nucleated RBC % Immature Gran # Segmented Neutrophils Band Neutrophils Lymphocytes Monocytes Metamyelocytes Myelocytes Nucleated RBCs # Platelet Estimate Giant Platelets Immature Plt Fraction Hypochromasia Microcytosis Ovalocytes [place] Cells Sodium 141 141 Potassium 3.5 3.5 Chloride 106 106 Carbon Dioxide 26 25 Anion Gap 12.5 13.5 BUN 14 14 Creatinine 1.60 H 1.60 H GFR Calculation 52 52 BUN/Creatinine Ratio 8.00 8.00 Glucose 120 H 118 H Calculated Osmolality 282.3 282.3 Calcium 8.0 L 7.9 L Magnesium 1.7 L 1.7 L Total Bilirubin 1.30 H AST 11 ALT 15 L Alkaline Phosphatase 110 Lactate Dehydrogenase 157 Total Protein 5.0 L Albumin 2.2 L Globulin 2.8 Albumin/Globulin Ratio 0.7 L 02/04/17 03:33 WBC 9.3 RBC 3.39 L Hgb 9.3 L Hct 27.9 L MCV 82.3 L MCH 27 MCHC 33.3 RDW 16.2 Plt Count 187 MPV 9.7 Neut % (Auto) 43.5 Lymph % (Auto) 18.2 L [place] % (Auto) 11.1 Eos % (Auto) 0.1 Baso % (Auto) 0.9 H Neut # (Auto) 4.0 Lymph # (Auto) 1.7 [place] # (Auto) 1.0 H Eos # (Auto) 0.0 Baso # (Auto) 0.1 Total Counted 100 Immature Gran % 26.2 Nucleated RBC % 0.0 Immature Gran # 2.43 Segmented Neutrophils 50 Band Neutrophils 11 H Lymphocytes 26 Monocytes 7 Metamyelocytes 1 Myelocytes 5 Nucleated RBCs # 0.00 Platelet Estimate Normal Giant Platelets Few Immature Plt Fraction 0.0 Hypochromasia 1+ Microcytosis 1+ Ovalocytes Slight [place] Cells Slight Sodium Potassium Chloride Carbon Dioxide Anion Gap BUN Creatinine GFR Calculation BUN/Creatinine Ratio Glucose Calculated Osmolality Calcium Magnesium Total Bilirubin AST ALT Alkaline Phosphatase Lactate Dehydrogenase Total Protein Albumin Globulin Albumin/Globulin Ratio DS: Provider Date of admission: 01/29/17 18:07 Primary care physician: Dominic Martinez Attending physician on admission: Rm Russell MD Consults: 01/31/17 08:33 Consult to Physician [CONS] Routine Comment: Has appt. with you this week Consulting Provider: Suraj Javier Consulting Provider Notified: Yes When should Consulting Provider be notified: Now Consult to Specialist Group: Pulmonology When should Consulting Provider be notified: Now Person Notified: CARLITO Date Notified: 01/31/17 Time Notified: 08:50 01/31/17 08:34 Consult to Physician [CONS] Routine Comment: Need mediport. Thanks Consulting Provider: Stuart Goff Consulting Provider Notified: Yes When should Consulting Provider be notified: Now Consult to Specialist Group: Surgery When should Consulting Provider be notified: Now Person Notified: ANA LILIA Date Notified: 01/31/17 Time Notified: 08:55 01/31/17 08:35 Consult to Physician [CONS] Routine Comment: Patient known to you. Can you see while he is in? Consulting Provider: Chris Marin Consulting Provider Notified: Yes When should Consulting Provider be notified: Now Consult to Specialist Group: Cardiology When should Consulting Provider be notified: Now Person Notified: JULIANNE Date Notified: 01/31/17 Time Notified: 08:45 01/31/17 09:39 Consult to Anesthesiology [CONS] Routine Consulting Provider: Reason for Anesthesiology: Pre-op Clearance 02/02/17 08:32 Consult to Physician [CONS] Routine Comment: Need repeat EGD with addional tissue for HER2 EGFR Consulting Provider: Woodrow Gramajo 02/02/17 13:13 Consult to Anesthesiology [CONS] Routine Consulting Provider: Reason for Anesthesiology: Pre-op Clearance 02/03/17 08:02 Consult to Dietitian [CONS] Routine Reason for Dietitian: Diet Recommendations Supplements and/or Snacks Discharging clinician: Rm Russell MD
[2017-02-04] MEDS ORDERED: HEPARIN LOCK FLUSH 500 UNIT/5 ML SYRINGE IV ONE (10:37)
--- NOTE | 2017-02-04 11:20 | Pathology Report from [facility] ---
[facility] ACCESSION # : [id number] PATIENT NAME : Juana Hays ORDERING DR : Woodrow Gramajo MD CLINICAL HX: HX esophageal CA POST-OP DX: Same SPECIMEN INFO: Esophageal BX GROSS DESCRIPTION: The specimen is received in formalin labeled with the patients name JUANA HAYS and consists of a 1.0 x 0.7 cm aggregate of pink- wagner tissue. Submitted in one cassette. DIAGNOSIS FOR JUANA HYAS: ESOPHAGEAL BIOPSY: Well-differentiated adenocarcinoma with necrosis. COLLECTED DATE: 02/03/2017 [facility] REPORT DATE: 02/04/2017 ELECTRONICALLY SIGNED BY: Gerardo Ramey M.D. 02/04/2017 - 10:05:16 [facility]
--- NOTE | 2017-02-18 17:16 | Pathology Report from [facility] ---
[facility] ACCESSION # : [id number] PATIENT NAME : Juana Hays ORDERING DR : Woodrow Gramajo MD CLINICAL HX: HX esophageal CA POST-OP DX: Same SPECIMEN INFO: Esophageal BX GROSS DESCRIPTION: The specimen is received in formalin labeled with the patients name JUANA HAYS and consists of a 1.0 x 0.7 cm aggregate of pink- wagner tissue. Submitted in one cassette. DIAGNOSIS FOR JUANA HAYS: ESOPHAGEAL BIOPSY: Well-differentiated adenocarcinoma with necrosis. COLLECTED DATE: 02/03/2017 [facility] REPORT DATE: 02/04/2017 SUPPLEMENTAL TEXT: PD-L1 IHC 22C3, HER2 Amplification, EGFR Mutation Analysis; performed by [facility], [place], [place]:PD-L1 IHC 22C3 RESULTS: Tumor proportion score of <1%. Combined positive score of 5.INTERPRETATION: CPS >/=1: PDL-L1 expression.HER2 AMPLIFICATION RESULTS: HER2 FISH: NEGATIVE for HER2 gene amplification.INTERPRETATION: FISH analysis does NOT demonstrate an amplified HER2 gene signal (HER2:CEP17 ratio is <2.0). Tumors that do not exhibit HER2 gene amplification may not respond to anti-HER2 therapies such as trastuzumab.EGFR MUTATION ANALYSIS RESULTS: EGFR mutation testing was not processed due to receipt of an inappropriate specimen type. SUPPLEMENTAL DATE: 02/18/2017 ELECTRONICALLY SIGNED BY: Gerardo Ramey M.D. 02/04/2017 - 10:05:16 [facility]
== END 2017-02-04 10:45 | disposition home health service (06) | DRG 375 ==
LOC: EDUNIT# → N.ED 14:22 → N.EDINP 18:07 → N.4E 19:11
PROVIDERS: ADMIT Specialist; ATTEND Specialist

== ENCOUNTER 2017-02-21 14:55 | Inpatient (IN) ==
[2017-02-21 15:36] LABS: Basophils % 0.3 % (0.0-0.8); Eosinophils # 0.4 10*3/uL (0.0-0.87); Eosinophils % 3.8 % (0.00-10.9); Hematocrit 21.4 VOL% (42.0-52.0); Hemoglobin 7.1 GM/DL (14.0-18.0); Mean Corpuscular HGB Conc 33.2 GM/DL (32-36); Mean Corpuscular Hemoglobin 28 PG (27-34); Mean Corpuscular Volume 83.3 FL (87-102); Monocytes # 0.6 10*3/uL (0.11-0.8); Monocytes % 6.5 % (1.7-12.7); Neutrophils # 6.4 10*3/uL (1.4-7.4); Neutrophils % 67.4 % (38.7-73.9); Platelet Count 308 T/CUMM (130-400); Red Blood Count 2.57 MC/CUMM (3.8-5.5); Red Cell Distribution Width 18.8 % (9.3-17.3); White Blood Count 9.6 T/CUMM (4-12)
[2017-02-21] MEDS ORDERED: SODIUM CHLORIDE 0.9% 500 ML IV STA (16:04)
[2017-02-21] MEDS ORDERED: PANTOPRAZOLE 40 MG VIAL IV STA (16:04)
[2017-02-21] MEDS ORDERED: ONDANSETRON 4 MG/2 ML VIAL IV STA (16:04)
[2017-02-21 16:06] LABS: Alanine Aminotransferase 23 U/L (16-61); Alkaline Phosphatase 109 U/L (45-117); Aspartate Amino Transferase 12 U/L (0-37); Bilirubin,Total < 0.39 MG/DL (0.2-1.0); Blood Urea Nitrogen 30 MG/DL (7-18); Glucose 90 MG/DL (74-106); Potassium 3.4 MMOL/L (3.5-5.1); Sodium 143 MMOL/L (136-145); Total Protein 5.9 G/DL (6.4-8.3)
[2017-02-21 17:32] LABS: PT Patient Result 10.6 SECS; Partial Thromboplastin Time 27.4 SECS (0-40)
[2017-02-21] MEDS ORDERED: ONDANSETRON 4 MG/2 ML VIAL ONE (17:54)
[2017-02-21] MEDS ORDERED: PANTOPRAZOLE 40 MG VIAL IV ONE (17:54)
[2017-02-21] MEDS ORDERED: guaiFENesin 200 MG/10 ML UDCUP PO PRN (18:47)
[2017-02-21] MEDS ORDERED: ACETAMINOPHEN 325 MG TABLET PO PRN (18:47)
[2017-02-21] MEDS ORDERED: diphenhydrAMINE CAP 25 MG CAPSULE PO PRN (18:47)
[2017-02-21] MEDS ORDERED: TEMAZEPAM 7.5 MG CAPSULE PO PRN (18:47)
[2017-02-21] MEDS ORDERED: MYLANTA/LIDO VISC 2:1 300 ML BOTTLE SWISH/SPIT PRN (18:47)
[2017-02-21] MEDS ORDERED: chlorproMAZINE INJ 25 MG in SODIUM CHLORIDE 0.9% 100 ML IV PRN (18:47)
[2017-02-21] MEDS ORDERED: ALPRAZolam 0.25 MG TABLET PO PRN (18:47)
[2017-02-21] MEDS ORDERED: ONDANSETRON 4 MG/2 ML VIAL IV PRN (18:47)
[2017-02-21] MEDS ORDERED: LOPERAMIDE 2 MG CAPSULE PO PRN ×2 (18:47)
[2017-02-21] MEDS ORDERED: BENZTROPINE 2 MG/2 ML AMP IV PRN (18:47)
[2017-02-21] MEDS ORDERED: traMADol 50 MG TABLET PO PRN (18:47)
[2017-02-21] MEDS ORDERED: SODIUM CHLORIDE 0.9% 1,000 ML IV SCH (18:47)
[2017-02-21] MEDS ORDERED: LACTULOSE 20 GM/30 ML UDCUP PO PRN (18:47)
[2017-02-21] MEDS ORDERED: SODIUM CHLORIDE 0.9% 250 ML IV PRN (18:47)
[2017-02-21] MEDS ORDERED: MAGNESIUM HYDROXIDE SUSP 30 ML UDCUP PO PRN (18:47)
[2017-02-21] MEDS ORDERED: chlorproMAZINE INJ 50 MG in SODIUM CHLORIDE 0.9% 100 ML IV PRN (18:47)
[2017-02-21] MEDS ORDERED: PROMETHAZINE INJ 25 MG in SODIUM CHLORIDE 0.9% 50 ML IV PRN (18:47)
[2017-02-21] MEDS ORDERED: ALUMINUM/MAGNES/SIMETH MAX STR 30 ML UDCUP PO PRN (18:47)
[2017-02-21] MEDS ORDERED: chlorproMAZINE 25 MG TABLET PO PRN (18:47)
[2017-02-21] MEDS ORDERED: MYLANTA/LIDO VISC 2:1 300 ML BOTTLE SWISH/SWAL PRN (18:47)
[2017-02-21 20:03] LABS: Basophils % 0.3 % (0.0-0.8); Eosinophils # 0.4 10*3/uL (0.0-0.87); Eosinophils % 4.4 % (0.00-10.9); Hematocrit 20.8 VOL% (42.0-52.0); Hemoglobin 6.7 GM/DL (14.0-18.0); Immature Granulocytes % 0.8 %; Immature Granulocytes Absolute 0.07 #; Lymphocytes # 2.1 10*3/uL (1.4-4.0); Lymphocytes % 24.2 % (21.2-54.2); Mean Corpuscular HGB Conc 32.2 GM/DL (32-36); Mean Corpuscular Hemoglobin 27 PG (27-34); Mean Corpuscular Volume 83.2 FL (87-102); Mean Platelet Volume 9.4 FL (9.6-12.0); Monocytes # 0.4 10*3/uL (0.11-0.8); Monocytes % 4.8 % (1.7-12.7); Neutrophils # 5.8 10*3/uL (1.4-7.4); Neutrophils % 65.5 % (38.7-73.9); Platelet Count 294 T/CUMM (130-400); White Blood Count 8.8 T/CUMM (4-12)
[2017-02-21 20:31] LABS: Alanine Aminotransferase 24 U/L (16-61); Albumin 2.9 G/DL (3.4-5.0); Alkaline Phosphatase 108 U/L (45-117); Aspartate Amino Transferase 12 U/L (0-37); Bilirubin,Total < 0.39 MG/DL (0.2-1.0); Blood Urea Nitrogen 29 MG/DL (7-18); Glucose 100 MG/DL (74-106); Magnesium 1.8 MG/DL (1.8-2.4); Potassium 3.3 MMOL/L (3.5-5.1); Sodium 143 MMOL/L (136-145); Total Protein 5.8 G/DL (6.4-8.3); Uric Acid 6.2 MG/DL (3.5-7.2)
[2017-02-21] MEDS ORDERED: INFLUENZA VIRUS VACCINE 0.5 ML SYRINGE IM ONE (23:55)
[2017-02-22 06:04] LABS: Basophils # 0.1 10*3/uL (0.0-0.2); Basophils % 0.7 % (0.0-0.8); Eosinophils # 0.4 10*3/uL (0.0-0.87); Eosinophils % 5.3 % (0.00-10.9); Hemoglobin 7.9 GM/DL (14.0-18.0); Immature Granulocytes % 0.5 %; Immature Granulocytes Absolute 0.04 #; Lymphocytes # 2.1 10*3/uL (1.4-4.0); Lymphocytes % 26.9 % (21.2-54.2); Mean Corpuscular HGB Conc 32.9 GM/DL (32-36); Mean Corpuscular Hemoglobin 27 PG (27-34); Mean Platelet Volume 9.2 FL (9.6-12.0); Monocytes # 0.5 10*3/uL (0.11-0.8); Monocytes % 6.6 % (1.7-12.7); Neutrophils # 4.6 10*3/uL (1.4-7.4); Platelet Count 247 T/CUMM (130-400); Red Blood Count 2.89 MC/CUMM (3.8-5.5); White Blood Count 7.7 T/CUMM (4-12)
[2017-02-22] MEDS ORDERED: PROCHLORPERAZINE 10 MG TABLET PO PRN (08:23)
[2017-02-22] MEDS ORDERED: FAMOTIDINE 20 MG TABLET PO PRN (09:00)
[2017-02-22] MEDS: POTASSIUM CHLORIDE RIDER 20 MEQ in PREMIX 1 EACH IV SCH ×2 (09:22→13:10)
[2017-02-22] MEDS: PANTOPRAZOLE 40 MG TABLET PO SCH ×2 (09:23→20:31)
[2017-02-22] MEDS: METOPROLOL SUCCINATE XL 50 MG TABLET PO SCH ×2 (09:23→20:31)
[2017-02-22] MEDS: LORATADINE 10 MG TABLET PO SCH (09:23)
[2017-02-22] MEDS: TAMSULOSIN 0.4 MG CAPSULE PO SCH (20:31)
[2017-02-22] MEDS: POLYETHYLENE GLYCOL POWDER 17 GM PACK PO PRN (20:35)
[2017-02-22 21:17] LABS: Apearance,Urine CLEAR (Clear); Bilirubin,Urine Negative (Negative); Blood, Urine Negative (Negative); Glucose,Urine (UA) Negative (Negative); Ketones,Urine Negative (Negative); Mucus,Urine Occasional /LPF (Occasional); Nitrite,Urine Negative (Negative); Protein,Urine 30 MG/DL; Urine Color Straw (Yellow); Urine Specific Gravity 1.008 (1.001-1.035); Urine Urobilinogen < 2.0 EU/DL (0.2-1.0); WBC,Urine 6 /HPF (0-6)
[2017-02-23 04:31] LABS: Basophils # 0.1 10*3/uL (0.0-0.2); Basophils % 0.7 % (0.0-0.8); Eosinophils # 0.3 10*3/uL (0.0-0.87); Eosinophils % 4.4 % (0.00-10.9); Hematocrit 23.5 VOL% (42.0-52.0); Hemoglobin 7.7 GM/DL (14.0-18.0); Immature Granulocytes % 0.9 %; Immature Granulocytes Absolute 0.07 #; Lymphocytes # 1.7 10*3/uL (1.4-4.0); Lymphocytes % 21.5 % (21.2-54.2); Mean Corpuscular HGB Conc 32.8 GM/DL (32-36); Mean Corpuscular Hemoglobin 28 PG (27-34); Mean Corpuscular Volume 84.2 FL (87-102); Mean Platelet Volume 9.7 FL (9.6-12.0); Monocytes # 0.5 10*3/uL (0.11-0.8); Monocytes % 6.4 % (1.7-12.7); Neutrophils # 5.1 10*3/uL (1.4-7.4); Neutrophils % 66.1 % (38.7-73.9); Platelet Count 265 T/CUMM (130-400); Red Blood Count 2.79 MC/CUMM (3.8-5.5); Red Cell Distribution Width 18.6 % (9.3-17.3); White Blood Count 7.7 T/CUMM (4-12)
[2017-02-23 05:07] LABS: Albumin 2.6 G/DL (3.4-5.0); Bilirubin,Total 0.5 MG/DL (0.2-1.0); Magnesium 1.7 MG/DL (1.8-2.4); Potassium 3.5 MMOL/L (3.5-5.1); Total Protein 5.3 G/DL (6.4-8.3)
[2017-02-23] MEDS ORDERED: SODIUM CHLORIDE 0.9% 250 ML IV PRN (08:30)
[2017-02-23] MEDS: METOPROLOL SUCCINATE XL 50 MG TABLET PO SCH ×2 (09:06→20:51)
[2017-02-23] MEDS: PANTOPRAZOLE 40 MG TABLET PO SCH ×2 (09:06→20:51)
[2017-02-23] MEDS: LORATADINE 10 MG TABLET PO SCH (09:07)
[2017-02-23] MEDS: POLYETHYLENE GLYCOL POWDER 17 GM PACK PO PRN (10:27)
[2017-02-23] MEDS ORDERED: CARBOplatin 350 MG in SODIUM CHLORIDE 0.9% 250 ML IV ONE (12:00)
[2017-02-23] MEDS ORDERED: CISPLATIN IV ONE (12:00)
[2017-02-23] MEDS ORDERED: SODIUM CHLORIDE 0.9% IV ONE (12:00)
[2017-02-23] MEDS: DEXAMETHASONE 10 MG/1 ML VIAL IV SCH (14:58)
[2017-02-23] MEDS: GRANISETRON 1 MG/1 ML VIAL IV SCH (15:00)
[2017-02-23] MEDS: FLUOROURACIL 1,500 MG in SODIUM CHLORIDE 0.9% 1,000 ML IV SCH (18:55)
[2017-02-23] MEDS: TAMSULOSIN 0.4 MG CAPSULE PO SCH (20:51)
[2017-02-24 05:52] LABS: Basophils % 0.2 % (0.0-0.8); Hematocrit 30.6 VOL% (42.0-52.0); Hemoglobin 10.2 GM/DL (14.0-18.0); Immature Granulocytes % 1.1 %; Immature Granulocytes Absolute 0.07 #; Lymphocytes % 15.7 % (21.2-54.2); Mean Corpuscular HGB Conc 33.3 GM/DL (32-36); Mean Corpuscular Hemoglobin 28 PG (27-34); Mean Corpuscular Volume 83.2 FL (87-102); Mean Platelet Volume 9.9 FL (9.6-12.0); Monocytes # 0.1 10*3/uL (0.11-0.8); Monocytes % 0.9 % (1.7-12.7); Neutrophils # 5.2 10*3/uL (1.4-7.4); Neutrophils % 82.1 % (38.7-73.9); Platelet Count 277 T/CUMM (130-400); Red Blood Count 3.68 MC/CUMM (3.8-5.5); Red Cell Distribution Width 17.5 % (9.3-17.3); White Blood Count 6.4 T/CUMM (4-12)
[2017-02-24 06:30] LABS: Albumin 2.7 G/DL (3.4-5.0); Bilirubin,Total 0.6 MG/DL (0.2-1.0); Magnesium 1.8 MG/DL (1.8-2.4); Potassium 3.8 MMOL/L (3.5-5.1); Total Protein 5.6 G/DL (6.4-8.3)
[2017-02-24] MEDS: PANTOPRAZOLE 40 MG TABLET PO SCH ×2 (09:24→20:45)
[2017-02-24] MEDS: METOPROLOL SUCCINATE XL 50 MG TABLET PO SCH ×2 (09:24→20:45)
[2017-02-24] MEDS: LORATADINE 10 MG TABLET PO SCH (09:24)
[2017-02-24] MEDS: POLYETHYLENE GLYCOL POWDER 17 GM PACK PO PRN (09:31)
[2017-02-24] MEDS: DEXAMETHASONE 10 MG/1 ML VIAL IV SCH (09:32)
[2017-02-24] MEDS: GRANISETRON 1 MG/1 ML VIAL IV SCH (09:35)
[2017-02-24] MEDS: FLUOROURACIL 1,500 MG in SODIUM CHLORIDE 0.9% 1,000 ML IV SCH (17:53)
[2017-02-24] MEDS: TAMSULOSIN 0.4 MG CAPSULE PO SCH (20:45)
[2017-02-25] MEDS ORDERED: HEPARIN LOCK FLUSH 500 UNIT/5 ML SYRINGE IV ONE (03:50)
[2017-02-25 05:03] LABS: Basophils % 0.1 % (0.0-0.8); Hematocrit 30.4 VOL% (42.0-52.0); Hemoglobin 10.2 GM/DL (14.0-18.0); Immature Granulocytes % 0.6 %; Immature Granulocytes Absolute 0.05 #; Lymphocytes # 0.9 10*3/uL (1.4-4.0); Lymphocytes % 10.9 % (21.2-54.2); Mean Corpuscular HGB Conc 33.6 GM/DL (32-36); Mean Corpuscular Hemoglobin 28 PG (27-34); Mean Platelet Volume 9.8 FL (9.6-12.0); Monocytes # 0.3 10*3/uL (0.11-0.8); Monocytes % 3.4 % (1.7-12.7); Neutrophils # 6.7 10*3/uL (1.4-7.4); Platelet Count 269 T/CUMM (130-400); Red Blood Count 3.62 MC/CUMM (3.8-5.5); Red Cell Distribution Width 17.6 % (9.3-17.3); White Blood Count 7.9 T/CUMM (4-12)
[2017-02-25 05:32] LABS: Albumin 2.7 G/DL (3.4-5.0); Bilirubin,Total 0.8 MG/DL (0.2-1.0); Calcium 7.5 MG/DL (8.5-10.1); Magnesium 1.8 MG/DL (1.8-2.4); Potassium 3.8 MMOL/L (3.5-5.1); Total Protein 5.4 G/DL (6.4-8.3)
[2017-02-25] MEDS: LORATADINE 10 MG TABLET PO SCH (09:34)
[2017-02-25] MEDS: METOPROLOL SUCCINATE XL 50 MG TABLET PO SCH ×2 (09:34→20:23)
[2017-02-25] MEDS: PANTOPRAZOLE 40 MG TABLET PO SCH ×2 (09:34→20:23)
[2017-02-25] MEDS: DEXAMETHASONE 10 MG/1 ML VIAL IV SCH (09:34)
[2017-02-25] MEDS: GRANISETRON 1 MG/1 ML VIAL IV SCH (09:35)
[2017-02-25] MEDS: FLUOROURACIL 1,500 MG in SODIUM CHLORIDE 0.9% 1,000 ML IV SCH (14:24)
[2017-02-25] MEDS: TAMSULOSIN 0.4 MG CAPSULE PO SCH (20:23)
[2017-02-26] MEDS: GRANISETRON 1 MG/1 ML VIAL IV SCH (08:46)
[2017-02-26] MEDS: METOPROLOL SUCCINATE XL 50 MG TABLET PO SCH (08:47)
[2017-02-26] MEDS: LORATADINE 10 MG TABLET PO SCH (08:47)
[2017-02-26] MEDS: PANTOPRAZOLE 40 MG TABLET PO SCH (08:47)
[2017-02-26 13:23] VITALS: BP 180/77
== END 2017-02-26 13:15 | disposition home health service, planned readmission (86) | DRG 378 ==
LOC: N.ED 14:55 → N.EDINP 16:17 → N.4E 18:59
PROVIDERS: ADMIT Specialist; ATTEND Specialist

== ENCOUNTER 2017-03-21 07:04 | Inpatient (IN) ==
[2017-03-21 08:28] LABS: Basophils % 0.5 % (0.0-0.8); Eosinophils # 0.2 10*3/uL (0.0-0.87); Hematocrit 28.8 VOL% (42.0-52.0); Hemoglobin 9.5 GM/DL (14.0-18.0); Immature Granulocytes % 0.7 %; Immature Granulocytes Absolute 0.05 #; Lymphocytes # 1.4 10*3/uL (1.4-4.0); Lymphocytes % 18.3 % (21.2-54.2); Mean Corpuscular Hemoglobin 27 PG (27-34); Mean Corpuscular Volume 82.5 FL (87-102); Mean Platelet Volume 9.3 FL (9.6-12.0); Monocytes # 0.6 10*3/uL (0.11-0.8); Monocytes % 7.9 % (1.7-12.7); Neutrophils # 5.4 10*3/uL (1.4-7.4); Neutrophils % 70.6 % (38.7-73.9); Platelet Count 384 T/CUMM (130-400); Red Blood Count 3.49 MC/CUMM (3.8-5.5); Red Cell Distribution Width 18.2 % (9.3-17.3); White Blood Count 7.6 T/CUMM (4-12)
[2017-03-21] MEDS ORDERED: ALUMINUM/MAGNES/SIMETH MAX STR 30 ML UDCUP PO PRN (08:41)
[2017-03-21] MEDS ORDERED: MYLANTA/LIDO VISC 2:1 300 ML BOTTLE SWISH/SWAL PRN (08:41)
[2017-03-21] MEDS ORDERED: chlorproMAZINE INJ 25 MG in SODIUM CHLORIDE 0.9% 100 ML IV PRN (08:41)
[2017-03-21] MEDS ORDERED: diphenhydrAMINE CAP 25 MG CAPSULE PO PRN (08:41)
[2017-03-21] MEDS ORDERED: PROMETHAZINE INJ 25 MG in SODIUM CHLORIDE 0.9% 50 ML IV PRN (08:41)
[2017-03-21] MEDS ORDERED: MAGNESIUM HYDROXIDE SUSP 30 ML UDCUP PO PRN (08:41)
[2017-03-21] MEDS ORDERED: MYLANTA/LIDO VISC 2:1 300 ML BOTTLE SWISH/SPIT PRN (08:41)
[2017-03-21] MEDS ORDERED: ACETAMINOPHEN 325 MG TABLET PO PRN (08:41)
[2017-03-21] MEDS ORDERED: chlorproMAZINE 25 MG TABLET PO PRN (08:41)
[2017-03-21] MEDS ORDERED: LOPERAMIDE 2 MG CAPSULE PO PRN ×2 (08:41)
[2017-03-21] MEDS ORDERED: traMADol 50 MG TABLET PO PRN (08:41)
[2017-03-21] MEDS ORDERED: ALPRAZolam 0.25 MG TABLET PO PRN (08:41)
[2017-03-21] MEDS ORDERED: guaiFENesin 200 MG/10 ML UDCUP PO PRN (08:41)
[2017-03-21] MEDS ORDERED: chlorproMAZINE INJ 50 MG in SODIUM CHLORIDE 0.9% 100 ML IV PRN (08:41)
[2017-03-21] MEDS ORDERED: BENZTROPINE 2 MG/2 ML AMP IV PRN (08:41)
[2017-03-21] MEDS ORDERED: TEMAZEPAM 7.5 MG CAPSULE PO PRN (08:41)
[2017-03-21] MEDS ORDERED: LACTULOSE 20 GM/30 ML UDCUP PO PRN (08:41)
[2017-03-21] MEDS ORDERED: ONDANSETRON 4 MG/2 ML VIAL IV PRN (08:41)
[2017-03-21 10:09] LABS: Albumin 2.7 G/DL (3.4-5.0); Bilirubin,Total 0.4 MG/DL (0.2-1.0); Calcium 7.4 MG/DL (8.5-10.1); Magnesium 0.9 MG/DL (1.8-2.4); Osmolality,Calculated 281.4 MOS/KG (273-304); Potassium 3.9 MMOL/L (3.5-5.1); Total Protein 5.9 G/DL (6.4-8.3); Uric Acid 5.6 MG/DL (3.5-7.2)
[2017-03-21] MEDS: GRANISETRON 1 MG/1 ML VIAL IV SCH (11:15)
[2017-03-21] MEDS: DEXAMETHASONE 10 MG/1 ML VIAL IV SCH (11:15)
[2017-03-21 11:27] LABS: Cancer Antigen 19-9 13.1 U/ML (0-37); Carcinoembryonic Antigen 1.6 NG/ML (0.0-5.0)
[2017-03-21] MEDS ORDERED: CARBOplatin 350 MG in SODIUM CHLORIDE 0.9% 250 ML IV ONE (12:00)
[2017-03-21] MEDS: FLUOROURACIL 1,500 MG in SODIUM CHLORIDE 0.9% 1,000 ML IV SCH (15:05)
[2017-03-21] MEDS ORDERED: FAMOTIDINE 20 MG TABLET PO PRN (16:33)
[2017-03-21] MEDS ORDERED: ALBUTEROL 2.5 MG/3 ML NEB RESP TX PRN (16:33)
[2017-03-21] MEDS ORDERED: FUROSEMIDE 20 MG TABLET PO PRN (16:33)
[2017-03-21] MEDS ORDERED: PROCHLORPERAZINE 10 MG TABLET PO PRN (16:33)
[2017-03-21] MEDS ORDERED: POLYETHYLENE GLYCOL POWDER 17 GM PACK PO PRN (16:33)
[2017-03-21] MEDS: MECLIZINE 25 MG TABLET PO SCH ×2 (18:04→20:40)
[2017-03-21] MEDS: DOXEPIN 25 MG CAPSULE PO SCH (20:39)
[2017-03-21] MEDS: PANTOPRAZOLE 40 MG TABLET PO SCH (20:39)
[2017-03-21] MEDS: LISINOPRIL 20 MG TABLET PO SCH (20:40)
[2017-03-21] MEDS: METOPROLOL SUCCINATE XL 50 MG TABLET PO SCH (20:40)
[2017-03-21] MEDS: TAMSULOSIN 0.4 MG CAPSULE PO SCH (20:40)
[2017-03-22] MEDS: LISINOPRIL 20 MG TABLET PO SCH ×2 (09:48→20:13)
[2017-03-22] MEDS: METOPROLOL SUCCINATE XL 50 MG TABLET PO SCH ×2 (09:48→20:13)
[2017-03-22] MEDS: MECLIZINE 25 MG TABLET PO SCH ×4 (09:48→20:13)
[2017-03-22] MEDS: ASPIRIN CHEW 81 MG TABLET PO SCH (09:48)
[2017-03-22] MEDS: amLODIPine 10 MG TABLET PO SCH (09:49)
[2017-03-22] MEDS: LORATADINE 10 MG TABLET PO SCH (09:49)
[2017-03-22] MEDS: PANTOPRAZOLE 40 MG TABLET PO SCH ×2 (09:49→20:13)
[2017-03-22] MEDS: ATORVASTATIN 40 MG TABLET PO SCH (09:51)
[2017-03-22] MEDS: FLUOROURACIL 1,500 MG in SODIUM CHLORIDE 0.9% 1,000 ML IV SCH (13:19)
[2017-03-22] MEDS: DEXAMETHASONE 10 MG/1 ML VIAL IV SCH (13:19)
[2017-03-22] MEDS: GRANISETRON 1 MG/1 ML VIAL IV SCH (13:19)
[2017-03-22] MEDS: TAMSULOSIN 0.4 MG CAPSULE PO SCH (20:14)
[2017-03-22] MEDS: DOXEPIN 25 MG CAPSULE PO SCH (20:14)
[2017-03-23 05:02] LABS: Hematocrit 25.8 VOL% (42.0-52.0); Hemoglobin 8.6 GM/DL (14.0-18.0); Immature Granulocytes % 0.8 %; Immature Granulocytes Absolute 0.05 #; Lymphocytes # 0.7 10*3/uL (1.4-4.0); Lymphocytes % 10.8 % (21.2-54.2); Mean Corpuscular HGB Conc 33.3 GM/DL (32-36); Mean Corpuscular Hemoglobin 28 PG (27-34); Mean Corpuscular Volume 82.7 FL (87-102); Mean Platelet Volume 9.1 FL (9.6-12.0); Monocytes # 0.1 10*3/uL (0.11-0.8); Monocytes % 1.5 % (1.7-12.7); Neutrophils # 5.7 10*3/uL (1.4-7.4); Neutrophils % 86.9 % (38.7-73.9); Platelet Count 319 T/CUMM (130-400); Red Blood Count 3.12 MC/CUMM (3.8-5.5); Red Cell Distribution Width 18.2 % (9.3-17.3); White Blood Count 6.6 T/CUMM (4-12)
[2017-03-23 05:36] LABS: Albumin 2.6 G/DL (3.4-5.0); Bilirubin,Total 0.8 MG/DL (0.2-1.0); Calcium 6.8 MG/DL (8.5-10.1); Osmolality,Calculated 291.1 MOS/KG (273-304); Potassium 4.3 MMOL/L (3.5-5.1); Total Protein 5.4 G/DL (6.4-8.3)
[2017-03-23] MEDS: MECLIZINE 25 MG TABLET PO SCH ×4 (09:03→21:53)
[2017-03-23] MEDS: LORATADINE 10 MG TABLET PO SCH (09:03)
[2017-03-23] MEDS: LISINOPRIL 20 MG TABLET PO SCH ×2 (09:03→21:53)
[2017-03-23] MEDS: ATORVASTATIN 40 MG TABLET PO SCH (09:04)
[2017-03-23] MEDS: PANTOPRAZOLE 40 MG TABLET PO SCH ×2 (09:04→21:53)
[2017-03-23] MEDS: amLODIPine 10 MG TABLET PO SCH (09:04)
[2017-03-23] MEDS: GRANISETRON 1 MG/1 ML VIAL IV SCH (09:04)
[2017-03-23] MEDS: ASPIRIN CHEW 81 MG TABLET PO SCH (09:04)
[2017-03-23] MEDS: METOPROLOL SUCCINATE XL 50 MG TABLET PO SCH ×2 (09:04→21:53)
[2017-03-23] MEDS: DEXAMETHASONE 10 MG/1 ML VIAL IV SCH (09:05)
[2017-03-23] MEDS: FLUOROURACIL 1,500 MG in SODIUM CHLORIDE 0.9% 1,000 ML IV SCH (12:30)
[2017-03-23] MEDS: MAGNESIUM CHLORIDE 64 MG TABLET PO SCH ×2 (12:33→21:53)
[2017-03-23] MEDS: TAMSULOSIN 0.4 MG CAPSULE PO SCH (21:53)
[2017-03-23] MEDS: DOXEPIN 25 MG CAPSULE PO SCH (21:53)
[2017-03-24] MEDS: GRANISETRON 1 MG/1 ML VIAL IV SCH (08:38)
[2017-03-24] MEDS: DEXAMETHASONE 10 MG/1 ML VIAL IV SCH (08:40)
[2017-03-24] MEDS: LISINOPRIL 20 MG TABLET PO SCH (08:43)
[2017-03-24] MEDS: MECLIZINE 25 MG TABLET PO SCH ×2 (08:43→13:21)
[2017-03-24] MEDS: amLODIPine 10 MG TABLET PO SCH (08:44)
[2017-03-24] MEDS: MAGNESIUM CHLORIDE 64 MG TABLET PO SCH (08:44)
[2017-03-24] MEDS: ATORVASTATIN 40 MG TABLET PO SCH (08:44)
[2017-03-24] MEDS: LORATADINE 10 MG TABLET PO SCH (08:44)
[2017-03-24] MEDS: ASPIRIN CHEW 81 MG TABLET PO SCH (08:44)
[2017-03-24] MEDS: PANTOPRAZOLE 40 MG TABLET PO SCH (08:45)
[2017-03-24] MEDS: METOPROLOL SUCCINATE XL 50 MG TABLET PO SCH (08:45)
[2017-03-24] MEDS ORDERED: HEPARIN LOCK FLUSH 500 UNIT/5 ML SYRINGE IV PRN (10:31)
[2017-03-24 14:20] VITALS: BP 137/67
== END 2017-03-24 13:36 | disposition home health service, planned readmission (86) | DRG 847 ==
LOC: N.4E 07:04
PROVIDERS: ADMIT Specialist; ATTEND Specialist

== ENCOUNTER 2017-05-03 06:42 | Inpatient (IN) ==
[2017-05-03 07:50] LABS: Basophils % 0.6 % (0.0-0.8); Eosinophils # 0.3 10*3/uL (0.0-0.87); Eosinophils % 4.9 % (0.00-10.9); Hematocrit 26.8 VOL% (42.0-52.0); Hemoglobin 8.6 GM/DL (14.0-18.0); Immature Granulocytes % 0.6 %; Immature Granulocytes Absolute 0.04 #; Lymphocytes # 1.6 10*3/uL (1.4-4.0); Lymphocytes % 23.2 % (21.2-54.2); Mean Corpuscular HGB Conc 32.1 GM/DL (32-36); Mean Corpuscular Hemoglobin 28 PG (27-34); Mean Corpuscular Volume 86.7 FL (87-102); Mean Platelet Volume 9.4 FL (9.6-12.0); Monocytes # 0.5 10*3/uL (0.11-0.8); Monocytes % 7.2 % (1.7-12.7); Neutrophils # 4.3 10*3/uL (1.4-7.4); Neutrophils % 63.5 % (38.7-73.9); Platelet Count 252 T/CUMM (130-400); Red Blood Count 3.09 MC/CUMM (3.8-5.5); White Blood Count 6.8 T/CUMM (4-12)
[2017-05-03] MEDS ORDERED: BENZTROPINE 2 MG/2 ML AMP IV PRN (08:59)
[2017-05-03] MEDS ORDERED: ALUMINUM/MAGNES/SIMETH MAX STR 30 ML UDCUP PO PRN (08:59)
[2017-05-03] MEDS ORDERED: PROMETHAZINE INJ 25 MG in SODIUM CHLORIDE 0.9% 50 ML IV PRN (08:59)
[2017-05-03] MEDS ORDERED: traMADol 50 MG TABLET PO PRN (08:59)
[2017-05-03] MEDS ORDERED: LOPERAMIDE 2 MG CAPSULE PO PRN ×2 (08:59)
[2017-05-03] MEDS ORDERED: ONDANSETRON 4 MG/2 ML VIAL IV PRN (08:59)
[2017-05-03] MEDS ORDERED: diphenhydrAMINE CAP 25 MG CAPSULE PO PRN (08:59)
[2017-05-03] MEDS ORDERED: guaiFENesin 200 MG/10 ML UDCUP PO PRN (08:59)
[2017-05-03] MEDS ORDERED: LACTULOSE 20 GM/30 ML UDCUP PO PRN (08:59)
[2017-05-03] MEDS ORDERED: MYLANTA/LIDO VISC 2:1 300 ML BOTTLE SWISH/SPIT PRN (08:59)
[2017-05-03] MEDS ORDERED: MYLANTA/LIDO VISC 2:1 300 ML BOTTLE SWISH/SWAL PRN (08:59)
[2017-05-03] MEDS ORDERED: TEMAZEPAM 7.5 MG CAPSULE PO PRN (08:59)
[2017-05-03] MEDS ORDERED: chlorproMAZINE INJ 50 MG in SODIUM CHLORIDE 0.9% 100 ML IV PRN (08:59)
[2017-05-03] MEDS ORDERED: chlorproMAZINE 25 MG TABLET PO PRN (08:59)
[2017-05-03] MEDS ORDERED: MAGNESIUM HYDROXIDE SUSP 30 ML UDCUP PO PRN (08:59)
[2017-05-03] MEDS ORDERED: chlorproMAZINE INJ 25 MG in SODIUM CHLORIDE 0.9% 100 ML IV PRN (08:59)
[2017-05-03] MEDS ORDERED: ALPRAZolam 0.25 MG TABLET PO PRN (08:59)
[2017-05-03] MEDS ORDERED: SODIUM CHLORIDE 0.9% 1,000 ML IV PRN (09:07)
[2017-05-03 09:40] LABS: Albumin 2.7 G/DL (3.4-5.0); Bilirubin,Total 0.5 MG/DL (0.2-1.0); Magnesium 0.6 MG/DL (1.8-2.4); Osmolality,Calculated 283.1 MOS/KG (273-304); Potassium 2.9 MMOL/L (3.5-5.1); Total Protein 5.9 G/DL (6.4-8.3)
[2017-05-03 09:43] LABS: Calcium 5.8 MG/DL (8.5-10.1)
[2017-05-03] MEDS ORDERED: CARBOplatin 350 MG in SODIUM CHLORIDE 0.9% 250 ML IV ONE (11:00)
[2017-05-03] MEDS: GRANISETRON 1 MG/1 ML VIAL IV SCH (11:41)
[2017-05-03] MEDS ORDERED: FUROSEMIDE 20 MG TABLET PO PRN (12:11)
[2017-05-03] MEDS ORDERED: diphenhydrAMINE CAP 50 MG CAPSULE PO PRN (12:11)
[2017-05-03] MEDS ORDERED: POLYETHYLENE GLYCOL POWDER 17 GM PACK PO PRN (12:11)
[2017-05-03] MEDS: amLODIPine 10 MG TABLET PO SCH (14:34)
[2017-05-03] MEDS: MAGNESIUM CHLORIDE 64 MG TABLET PO SCH ×2 (14:37→22:07)
[2017-05-03] MEDS: TAMSULOSIN 0.4 MG CAPSULE PO SCH ×2 (14:38→22:05)
[2017-05-03] MEDS: LISINOPRIL 20 MG TABLET PO SCH ×2 (14:39→22:06)
[2017-05-03] MEDS: METOPROLOL SUCCINATE XL 50 MG TABLET PO SCH ×2 (14:39→22:07)
[2017-05-03] MEDS: MECLIZINE 25 MG TABLET PO SCH ×2 (14:39→22:05)
[2017-05-03] MEDS: FINASTERIDE 5 MG TABLET PO SCH (14:40)
[2017-05-03] MEDS: ATORVASTATIN 40 MG TABLET PO SCH (14:41)
[2017-05-03] MEDS: PANTOPRAZOLE 40 MG TABLET PO SCH ×2 (14:41→22:07)
[2017-05-03] MEDS: FLUOROURACIL 1,500 MG in SODIUM CHLORIDE 0.9% 1,000 ML IV SCH (16:16)
[2017-05-03 17:25] LABS: Apearance,Urine CLEAR (Clear); Bilirubin,Urine Negative (Negative); Blood, Urine Negative (Negative); Glucose,Urine (UA) Negative (Negative); Ketones,Urine Negative (Negative); Mucus,Urine Occasional /LPF (Occasional); Nitrite,Urine Negative (Negative); Protein,Urine 100 MG/DL; RBC,Urine <1 /HPF (0-4); Squamous Epithelial Cell,Urine Occasional /HPF (0-10); Urine Color Yellow (Yellow); Urine Urobilinogen < 2.0 EU/DL (0.2-1.0); WBC,Urine 5 /HPF (0-6)
[2017-05-03] MEDS: POTASSIUM CHLORIDE 20 MEQ PACK PO SCH (22:03)
[2017-05-03] MEDS: CALCIUM (CARBONATE) 500 MG TABLET PO SCH (22:05)
[2017-05-04 08:53] LABS: Basophils % 0.7 % (0.0-0.8); Eosinophils # 0.3 10*3/uL (0.0-0.87); Hematocrit 23.8 VOL% (42.0-52.0); Hemoglobin 7.7 GM/DL (14.0-18.0); Immature Granulocytes % 0.5 %; Immature Granulocytes Absolute 0.02 #; Lymphocytes # 1.3 10*3/uL (1.4-4.0); Lymphocytes % 31.7 % (21.2-54.2); Mean Corpuscular HGB Conc 32.4 GM/DL (32-36); Mean Corpuscular Hemoglobin 28 PG (27-34); Mean Corpuscular Volume 87.2 FL (87-102); Mean Platelet Volume 9.8 FL (9.6-12.0); Monocytes # 0.2 10*3/uL (0.11-0.8); Monocytes % 5.3 % (1.7-12.7); Neutrophils # 2.3 10*3/uL (1.4-7.4); Neutrophils % 55.8 % (38.7-73.9); Platelet Count 230 T/CUMM (130-400); Red Blood Count 2.73 MC/CUMM (3.8-5.5); White Blood Count 4.2 T/CUMM (4-12)
[2017-05-04 09:30] LABS: Albumin 2.4 G/DL (3.4-5.0); Bilirubin,Total 0.4 MG/DL (0.2-1.0); Osmolality,Calculated 286.8 MOS/KG (273-304); Potassium 3.4 MMOL/L (3.5-5.1); Total Protein 5.4 G/DL (6.4-8.3)
[2017-05-04 09:32] LABS: Calcium 5.6 MG/DL (8.5-10.1)
[2017-05-04] MEDS: MECLIZINE 25 MG TABLET PO SCH ×2 (09:57→20:38)
[2017-05-04] MEDS: ATORVASTATIN 40 MG TABLET PO SCH (09:57)
[2017-05-04] MEDS: POTASSIUM CHLORIDE 20 MEQ PACK PO SCH ×2 (09:57→20:38)
[2017-05-04] MEDS: LISINOPRIL 20 MG TABLET PO SCH ×2 (09:57→20:38)
[2017-05-04] MEDS: FINASTERIDE 5 MG TABLET PO SCH (09:58)
[2017-05-04] MEDS: MAGNESIUM CHLORIDE 64 MG TABLET PO SCH ×3 (09:58→20:38)
[2017-05-04] MEDS: PANTOPRAZOLE 40 MG TABLET PO SCH ×2 (09:58→20:38)
[2017-05-04] MEDS: amLODIPine 10 MG TABLET PO SCH (09:58)
[2017-05-04] MEDS: TAMSULOSIN 0.4 MG CAPSULE PO SCH ×2 (09:58→20:38)
[2017-05-04] MEDS: LORATADINE 10 MG TABLET PO SCH (09:58)
[2017-05-04] MEDS: METOPROLOL SUCCINATE XL 50 MG TABLET PO SCH ×2 (09:58→20:38)
[2017-05-04] MEDS: CALCIUM (CARBONATE) 500 MG TABLET PO SCH ×2 (09:59→20:38)
[2017-05-04] MEDS: GRANISETRON 1 MG/1 ML VIAL IV SCH (09:59)
[2017-05-04] MEDS ORDERED: LORATADINE 10 MG TABLET PO SCH (12:12)
[2017-05-04] MEDS: FLUOROURACIL 1,500 MG in SODIUM CHLORIDE 0.9% 1,000 ML IV SCH (13:30)
[2017-05-05 05:14] LABS: Basophils % 0.6 % (0.0-0.8); Eosinophils # 0.3 10*3/uL (0.0-0.87); Eosinophils % 6.1 % (0.00-10.9); Hemoglobin 9.1 GM/DL (14.0-18.0); Immature Granulocytes % 0.4 %; Immature Granulocytes Absolute 0.02 #; Lymphocytes # 1.2 10*3/uL (1.4-4.0); Lymphocytes % 26.2 % (21.2-54.2); Mean Corpuscular HGB Conc 33.7 GM/DL (32-36); Mean Corpuscular Hemoglobin 29 PG (27-34); Mean Corpuscular Volume 85.4 FL (87-102); Mean Platelet Volume 9.8 FL (9.6-12.0); Monocytes # 0.1 10*3/uL (0.11-0.8); Monocytes % 2.8 % (1.7-12.7); Neutrophils % 63.9 % (38.7-73.9); Platelet Count 201 T/CUMM (130-400); Red Blood Count 3.16 MC/CUMM (3.8-5.5); Red Cell Distribution Width 19.4 % (9.3-17.3); White Blood Count 4.6 T/CUMM (4-12)
[2017-05-05 05:27] LABS: Albumin 2.4 G/DL (3.4-5.0); Bilirubin,Total 0.9 MG/DL (0.2-1.0); Calcium 6.1 MG/DL (8.5-10.1); Osmolality,Calculated 289.7 MOS/KG (273-304); Potassium 3.7 MMOL/L (3.5-5.1); Total Protein 5.1 G/DL (6.4-8.3)
[2017-05-05] MEDS ORDERED: FLUOROURACIL 1,500 MG in SODIUM CHLORIDE 0.9% 1,000 ML IV SCH (09:30)
[2017-05-05] MEDS: ATORVASTATIN 40 MG TABLET PO SCH (10:38)
[2017-05-05] MEDS: FINASTERIDE 5 MG TABLET PO SCH (10:38)
[2017-05-05] MEDS: METOPROLOL SUCCINATE XL 50 MG TABLET PO SCH ×2 (10:38→21:20)
[2017-05-05] MEDS: TAMSULOSIN 0.4 MG CAPSULE PO SCH ×2 (10:38→21:20)
[2017-05-05] MEDS: LISINOPRIL 20 MG TABLET PO SCH ×2 (10:38→21:20)
[2017-05-05] MEDS: amLODIPine 10 MG TABLET PO SCH (10:38)
[2017-05-05] MEDS: MECLIZINE 25 MG TABLET PO SCH ×2 (10:38→21:20)
[2017-05-05] MEDS: PANTOPRAZOLE 40 MG TABLET PO SCH ×2 (10:39→21:19)
[2017-05-05] MEDS: CALCIUM (CARBONATE) 500 MG TABLET PO SCH ×2 (10:39→21:20)
[2017-05-05] MEDS: LORATADINE 10 MG TABLET PO SCH (10:39)
[2017-05-05] MEDS: MAGNESIUM CHLORIDE 64 MG TABLET PO SCH ×2 (10:39→21:19)
[2017-05-05] MEDS: POTASSIUM CHLORIDE 20 MEQ PACK PO SCH ×2 (10:39→21:20)
[2017-05-05] MEDS: GRANISETRON 1 MG/1 ML VIAL IV SCH (10:39)
[2017-05-05] MEDS: ACETAMINOPHEN 325 MG TABLET PO PRN (15:12)
[2017-05-06] MEDS: ACETAMINOPHEN 325 MG TABLET PO PRN (06:50)
[2017-05-06] MEDS: MECLIZINE 25 MG TABLET PO SCH (08:45)
[2017-05-06] MEDS: GRANISETRON 1 MG/1 ML VIAL IV SCH (08:45)
[2017-05-06] MEDS: POTASSIUM CHLORIDE 20 MEQ PACK PO SCH (08:45)
[2017-05-06] MEDS: PANTOPRAZOLE 40 MG TABLET PO SCH (08:45)
[2017-05-06] MEDS: LISINOPRIL 20 MG TABLET PO SCH (08:45)
[2017-05-06] MEDS: MAGNESIUM CHLORIDE 64 MG TABLET PO SCH (08:45)
[2017-05-06] MEDS: METOPROLOL SUCCINATE XL 50 MG TABLET PO SCH (08:45)
[2017-05-06] MEDS: LORATADINE 10 MG TABLET PO SCH (08:45)
[2017-05-06] MEDS: CALCIUM (CARBONATE) 500 MG TABLET PO SCH (08:46)
[2017-05-06] MEDS: FINASTERIDE 5 MG TABLET PO SCH (08:46)
[2017-05-06] MEDS: ATORVASTATIN 40 MG TABLET PO SCH (08:46)
[2017-05-06] MEDS: TAMSULOSIN 0.4 MG CAPSULE PO SCH (08:46)
[2017-05-06] MEDS: amLODIPine 10 MG TABLET PO SCH (08:46)
[2017-05-06 12:30] VITALS: BP 157/76
[2017-05-06] MEDS ORDERED: HEPARIN LOCK FLUSH 500 UNIT/5 ML SYRINGE IV ONE (12:31)
== END 2017-05-06 13:25 | disposition home health service, planned readmission (86) | DRG 847 ==
LOC: N.4E 06:42
PROVIDERS: ADMIT Specialist; ATTEND Specialist

== ENCOUNTER 2017-05-30 06:58 | Inpatient (IN) ==
[2017-05-30 09:08] LABS: Basophils % 0.9 % (0.0-0.8); Eosinophils # 0.1 10*3/uL (0.0-0.87); Eosinophils % 2.5 % (0.00-10.9); Hematocrit 32.1 VOL% (42.0-52.0); Hemoglobin 10.5 GM/DL (14.0-18.0); Immature Granulocytes % 0.2 %; Immature Granulocytes Absolute 0.01 #; Lymphocytes # 1.1 10*3/uL (1.4-4.0); Mean Corpuscular HGB Conc 32.7 GM/DL (32-36); Mean Corpuscular Hemoglobin 29 PG (27-34); Mean Corpuscular Volume 87.5 FL (87-102); Mean Platelet Volume 9.4 FL (9.6-12.0); Monocytes # 0.3 10*3/uL (0.11-0.8); Monocytes % 7.8 % (1.7-12.7); Neutrophils # 2.7 10*3/uL (1.4-7.4); Neutrophils % 62.6 % (38.7-73.9); Platelet Count 159 T/CUMM (130-400); Red Blood Count 3.67 MC/CUMM (3.8-5.5); Red Cell Distribution Width 16.9 % (9.3-17.3); White Blood Count 4.3 T/CUMM (4-12)
[2017-05-30 11:33] LABS: Albumin 2.8 G/DL (3.4-5.0); Bilirubin,Total 0.5 MG/DL (0.2-1.0); Calcium 8.1 MG/DL (8.5-10.1); Osmolality,Calculated 280.5 MOS/KG (273-304); Potassium 3.4 MMOL/L (3.5-5.1); Total Protein 5.9 G/DL (6.4-8.3)
[2017-05-30 11:55] LABS: Magnesium 1.4 MG/DL (1.8-2.4); Uric Acid 5.9 MG/DL (3.5-7.2)
[2017-05-30] MEDS: GRANISETRON 1 MG/1 ML VIAL IV SCH (12:44)
[2017-05-30] MEDS ORDERED: CARBOplatin 350 MG in SODIUM CHLORIDE 0.9% 250 ML IV ONE (13:00)
[2017-05-30] MEDS ORDERED: FLUOROURACIL 1,500 MG in SODIUM CHLORIDE 0.9% 1,000 ML IV SCH (13:00)
[2017-05-30] MEDS ORDERED: chlorproMAZINE INJ 25 MG in SODIUM CHLORIDE 0.9% 100 ML IV PRN (17:11)
[2017-05-30] MEDS ORDERED: guaiFENesin 200 MG/10 ML UDCUP PO PRN (17:11)
[2017-05-30] MEDS ORDERED: MYLANTA/LIDO VISC 2:1 300 ML BOTTLE SWISH/SPIT PRN (17:11)
[2017-05-30] MEDS ORDERED: BENZTROPINE 2 MG/2 ML AMP IV PRN (17:11)
[2017-05-30] MEDS ORDERED: ACETAMINOPHEN 325 MG TABLET PO PRN (17:11)
[2017-05-30] MEDS ORDERED: ONDANSETRON 4 MG/2 ML VIAL IV PRN (17:11)
[2017-05-30] MEDS ORDERED: traMADol 50 MG TABLET PO PRN (17:11)
[2017-05-30] MEDS ORDERED: chlorproMAZINE 25 MG TABLET PO PRN (17:11)
[2017-05-30] MEDS ORDERED: ALPRAZolam 0.25 MG TABLET PO PRN (17:11)
[2017-05-30] MEDS ORDERED: PROMETHAZINE INJ 25 MG in SODIUM CHLORIDE 0.9% 50 ML IV PRN (17:11)
[2017-05-30] MEDS ORDERED: LACTULOSE 20 GM/30 ML UDCUP PO PRN (17:11)
[2017-05-30] MEDS ORDERED: LOPERAMIDE 2 MG CAPSULE PO PRN ×2 (17:11)
[2017-05-30] MEDS ORDERED: MYLANTA/LIDO VISC 2:1 300 ML BOTTLE SWISH/SWAL PRN (17:11)
[2017-05-30] MEDS ORDERED: TEMAZEPAM 7.5 MG CAPSULE PO PRN (17:11)
[2017-05-30] MEDS ORDERED: chlorproMAZINE INJ 50 MG in SODIUM CHLORIDE 0.9% 100 ML IV PRN (17:11)
[2017-05-30] MEDS ORDERED: ALUMINUM/MAGNES/SIMETH MAX STR 30 ML UDCUP PO PRN (17:11)
[2017-05-30] MEDS ORDERED: diphenhydrAMINE CAP 25 MG CAPSULE PO PRN (17:11)
[2017-05-30] MEDS ORDERED: MAGNESIUM HYDROXIDE SUSP 30 ML UDCUP PO PRN (17:11)
[2017-05-30] MEDS ORDERED: PROCHLORPERAZINE 10 MG TABLET PO PRN (17:15)
[2017-05-30] MEDS ORDERED: diphenhydrAMINE CAP 50 MG CAPSULE PO PRN (17:15)
[2017-05-30] MEDS ORDERED: FUROSEMIDE 20 MG TABLET PO PRN (17:15)
[2017-05-30] MEDS ORDERED: MORPHINE ER 15 MG TABLET PO PRN (17:15)
[2017-05-30] MEDS ORDERED: POLYETHYLENE GLYCOL POWDER 17 GM PACK PO SCH (21:00)
[2017-05-30] MEDS: LISINOPRIL 20 MG TABLET PO SCH (21:22)
[2017-05-30] MEDS: TAMSULOSIN 0.4 MG CAPSULE PO SCH (21:22)
[2017-05-30] MEDS: METOPROLOL SUCCINATE XL 50 MG TABLET PO SCH (21:22)
[2017-05-30] MEDS: MAGNESIUM CHLORIDE 64 MG TABLET PO SCH (21:22)
[2017-05-30] MEDS: MECLIZINE 25 MG TABLET PO SCH (21:22)
[2017-05-30] MEDS: CALCIUM (CARBONATE) 500 MG TABLET PO SCH (21:23)
[2017-05-30] MEDS: PANTOPRAZOLE 40 MG TABLET PO SCH (21:23)
[2017-05-30] MEDS: SUCRALFATE 1 GM/10 ML UDCUP PO SCH (21:28)
[2017-05-30] MEDS: POTASSIUM CHLORIDE 20 MEQ PACK PO SCH (21:29)
[2017-05-31 03:36] LABS: Apearance,Urine CLEAR (Clear); Bilirubin,Urine Negative (Negative); Blood, Urine Negative (Negative); Glucose,Urine (UA) Negative (Negative); Ketones,Urine Negative (Negative); Mucus,Urine Occasional /LPF (Occasional); Nitrite,Urine Negative (Negative); Protein,Urine 100 MG/DL; RBC,Urine <1 /HPF (0-4); Squamous Epithelial Cell,Urine Occasional /HPF (0-10); Urine Color Yellow (Yellow); Urine Specific Gravity 1.013 (1.001-1.035); Urine Urobilinogen < 2.0 EU/DL (0.2-1.0); WBC,Urine 3 /HPF (0-6)
[2017-05-31] MEDS ORDERED: amLODIPine 10 MG TABLET PO SCH (09:00)
[2017-05-31] MEDS ORDERED: LORATADINE 10 MG TABLET PO SCH (09:00)
[2017-05-31] MEDS ORDERED: ATORVASTATIN 40 MG TABLET PO SCH (09:00)
[2017-05-31] MEDS ORDERED: FINASTERIDE 5 MG TABLET PO SCH (09:00)
[2017-05-31] MEDS: CALCIUM (CARBONATE) 500 MG TABLET PO SCH (09:36)
[2017-05-31] MEDS: METOPROLOL SUCCINATE XL 50 MG TABLET PO SCH (09:36)
[2017-05-31] MEDS: LISINOPRIL 20 MG TABLET PO SCH (09:36)
[2017-05-31] MEDS: MECLIZINE 25 MG TABLET PO SCH (09:36)
[2017-05-31] MEDS: POTASSIUM CHLORIDE 20 MEQ PACK PO SCH (09:36)
[2017-05-31] MEDS: MAGNESIUM CHLORIDE 64 MG TABLET PO SCH (09:36)
[2017-05-31] MEDS: GRANISETRON 1 MG/1 ML VIAL IV SCH (09:37)
[2017-05-31] MEDS: TAMSULOSIN 0.4 MG CAPSULE PO SCH (09:37)
[2017-05-31] MEDS: PANTOPRAZOLE 40 MG TABLET PO SCH (09:37)
[2017-05-31] MEDS: SUCRALFATE 1 GM/10 ML UDCUP PO SCH ×2 (09:45→13:41)
[2017-05-31 15:14] VITALS: BP 123/60
== END 2017-05-31 15:37 | disposition home or self-care (01) | DRG 847 ==
LOC: N.4E 06:58
PROVIDERS: ADMIT Specialist; ATTEND Specialist

== ENCOUNTER 2018-07-20 10:47 | Inpatient (IN) ==
[~2018-07-20 10:47] MED LIST changes: -LIDOCAINE 1% 20 ML VIAL MISC INJ PRN; +SODIUM POLYSTYRENE SULFATE 15 GM/60 ML BOTTLE PO ONE
[2018-07-20] MEDS ORDERED: ASPIRIN 325 MG TABLET PO ONE (11:00)
[2018-07-20] MEDS ORDERED: MAGNESIUM SULF RIDER 2 GM in PREMIX 1 EACH IV PRN ×2 (11:00→17:22)
[2018-07-20] MEDS ORDERED: diphenhydrAMINE CAP 25 MG CAPSULE PO ONE (11:00)
[2018-07-20] MEDS ORDERED: SODIUM CHLORIDE 0.9% 1,000 ML IV SCH ×2 (11:00→18:00)
[2018-07-20] MEDS ORDERED: DIAZEPAM 5 MG TABLET PO ONE (11:00)
[2018-07-20] MEDS ORDERED: POTASSIUM CHLORIDE RIDER 10 MEQ in PREMIX 1 EACH IV PRN (11:00)
[2018-07-20 13:11] LABS: Apearance,Urine CLEAR (Clear); Bilirubin,Urine Negative (Negative); Blood, Urine Small mg/dL (Negative); Glucose,Urine (UA) Negative (Negative); Hyaline Casts,Urine 1 /LPF (0-3); Ketones,Urine Negative (Negative); Mucus,Urine Occasional /LPF (Occasional); Nitrite,Urine Negative (Negative); Protein,Urine Negative; RBC,Urine <1 /HPF (0-4); Urine Color Yellow (Yellow); Urine Specific Gravity 1.013 (1.001-1.035); Urine Urobilinogen < 2.0 EU/DL (0.2-1.0); WBC,Urine <1 /HPF (0-6)
[2018-07-20] MEDS ORDERED: diphenhydrAMINE CAP 25 MG CAPSULE ONE (13:58)
[2018-07-20] MEDS ORDERED: DIAZEPAM 5 MG TABLET ONE (13:58)
[2018-07-20] MEDS ORDERED: LIDOCAINE 1% 20 ML VIAL ONE (14:48)
[2018-07-20] MEDS ORDERED: MIDAZOLAM 2 MG/2 ML VIAL ONE (14:50)
[2018-07-20] MEDS ORDERED: fentaNYL 100 MCG/2 ML VIAL ONE (14:51)
[2018-07-20] MEDS ORDERED: HEPARIN 5,000 UNIT/1 ML VIAL ONE (15:03)
[2018-07-20] MEDS ORDERED: ONDANSETRON 4 MG/2 ML VIAL IV PRN (17:22)
[2018-07-20] MEDS ORDERED: MAGNESIUM SULF RIDER 4 GM in PREMIX 1 EACH IV PRN (17:22)
[2018-07-20] MEDS ORDERED: ZALEPLON 5 MG CAPSULE PO PRN (17:22)
[2018-07-20] MEDS ORDERED: LACTULOSE 20 GM/30 ML UDCUP PO PRN (17:22)
[2018-07-20] MEDS ORDERED: ALBUTEROL 2.5 MG/3 ML NEB RESP TX PRN (17:28)
[2018-07-20] MEDS ORDERED: NITROGLYCERIN SL 0.4 MG TABLET SL PRN (17:28)
[2018-07-20] MEDS: NITROGLYCERIN 2% OINT 1 INCH/GM PACK TOP SCH ×2 (18:47→18:48)
[2018-07-20 20:17] LABS: Hematocrit 32.5 VOL% (42.0-52.0)
[2018-07-20 20:33] LABS: Risk Ratio 5.53; VLDL CHOLESTEROL 29.2 MG/DL
[2018-07-20] MEDS ORDERED: PROMETHAZINE INJ 25 MG in SODIUM CHLORIDE 0.9% 50 ML IV PRN (21:21)
[2018-07-20] MEDS: ROSUVASTATIN 10 MG TABLET PO SCH (22:21)
[2018-07-20] MEDS: CARVEDILOL 25 MG TABLET PO SCH (22:22)
[2018-07-20] MEDS: TAMSULOSIN 0.4 MG CAPSULE PO SCH (22:22)
[2018-07-20] MEDS: PANTOPRAZOLE 40 MG TABLET PO SCH (22:22)
[2018-07-20] MEDS: ALUMINUM/MAGNES/SIMETH MAX STR 30 ML UDCUP PO SCH (22:23)
[2018-07-21] MEDS: NITROGLYCERIN 2% OINT 1 INCH/GM PACK TOP SCH ×4 (01:00→19:00)
[2018-07-21] MEDS: PHENobarbital 65 MG/1 ML VIAL IM SCH ×3 (05:09→21:25)
[2018-07-21 05:22] LABS: Basophils % 0.3 % (0.0-0.8); Eosinophils # 0.1 10*3/uL (0.0-0.87); Hematocrit 30.6 VOL% (42.0-52.0); Hemoglobin 9.4 GM/DL (14.0-18.0); Immature Granulocytes % 0.9 %; Immature Granulocytes Absolute 0.08 #; Lymphocytes # 0.7 10*3/uL (1.4-4.0); Lymphocytes % 7.5 % (21.2-54.2); Mean Corpuscular HGB Conc 30.7 GM/DL (32-36); Mean Corpuscular Hemoglobin 26 PG (27-34); Mean Corpuscular Volume 83.8 FL (87-102); Mean Platelet Volume 9.1 FL (9.6-12.0); Monocytes # 0.4 10*3/uL (0.11-0.8); Monocytes % 4.4 % (1.7-12.7); Neutrophils # 7.9 10*3/uL (1.4-7.4); Neutrophils % 85.9 % (38.7-73.9); Platelet Count 247 T/CUMM (130-400); Red Blood Count 3.65 MC/CUMM (3.8-5.5); Red Cell Distribution Width 15.3 % (9.3-17.3); White Blood Count 9.2 T/CUMM (4-12)
[2018-07-21 05:50] LABS: Albumin 2.4 G/DL (3.4-5.0); Bilirubin,Total 0.5 MG/DL (0.2-1.0); Calcium 7.7 MG/DL (8.5-10.1); Osmolality,Calculated 284.5 MOS/KG (273-304); Potassium 4.7 MMOL/L (3.5-5.1); Total Protein 5.9 G/DL (6.4-8.3)
[2018-07-21] MEDS: LEVOTHYROXINE 100 MCG TABLET PO SCH (07:14)
[2018-07-21] MEDS ORDERED: SODIUM CHLORIDE 0.9% 1,000 ML IV PRN (07:26)
[2018-07-21] MEDS ORDERED: FUROSEMIDE 40 MG/4 ML VIAL IV ONE ×2 (07:28→19:00)
[2018-07-21] MEDS ORDERED: ASPIRIN CHEW 81 MG TABLET PO SCH ×2 (09:00)
[2018-07-21] MEDS ORDERED: PANTOPRAZOLE 40 MG TABLET PO SCH (09:00)
[2018-07-21] MEDS ORDERED: ENOXAPARIN 40 MG/0.4 ML SYRINGE SUBCUT SCH (09:00)
[2018-07-21] MEDS ORDERED: MIDAZOLAM 2 MG/2 ML VIAL ONE ×2 (12:59→13:09)
[2018-07-21] MEDS: CARVEDILOL 25 MG TABLET PO SCH ×2 (14:15→21:24)
[2018-07-21] MEDS: ASPIRIN EC 81 MG TABLET PO SCH (14:31)
[2018-07-21] MEDS: TAMSULOSIN 0.4 MG CAPSULE PO SCH ×3 (16:15→21:24)
[2018-07-21] MEDS: ISOSORBIDE MONONITRATE 20 MG TABLET PO SCH (16:47)
[2018-07-21] MEDS: FINASTERIDE 5 MG TABLET PO SCH (16:48)
[2018-07-21] MEDS: amLODIPine 5 MG TABLET PO SCH (16:48)
[2018-07-21] MEDS: PANTOPRAZOLE 40 MG TABLET PO SCH ×2 (16:48→21:24)
[2018-07-21] MEDS: CETIRIZINE 10 MG TABLET PO SCH (16:48)
[2018-07-21 20:19] LABS: Hematocrit 33.3 VOL% (42.0-52.0); Hemoglobin 10.3 GM/DL (14.0-18.0)
[2018-07-21] MEDS: ROSUVASTATIN 10 MG TABLET PO SCH (21:24)
[2018-07-21] MEDS: ALUMINUM/MAGNES/SIMETH MAX STR 30 ML UDCUP PO SCH (21:25)
[2018-07-22 05:04] LABS: Basophils % 0.4 % (0.0-0.8); Eosinophils # 0.2 10*3/uL (0.0-0.87); Eosinophils % 2.2 % (0.00-10.9); Hematocrit 34.2 VOL% (42.0-52.0); Hemoglobin 10.6 GM/DL (14.0-18.0); Immature Granulocytes Absolute 0.08 #; Mean Corpuscular Hemoglobin 27 PG (27-34); Mean Corpuscular Volume 85.7 FL (87-102); Mean Platelet Volume 8.8 FL (9.6-12.0); Monocytes # 0.5 10*3/uL (0.11-0.8); Monocytes % 6.2 % (1.7-12.7); Neutrophils % 77.2 % (38.7-73.9); Platelet Count 211 T/CUMM (130-400); Red Blood Count 3.99 MC/CUMM (3.8-5.5); Red Cell Distribution Width 15.4 % (9.3-17.3); White Blood Count 7.7 T/CUMM (4-12)
[2018-07-22 05:19] LABS: Calcium 7.8 MG/DL (8.5-10.1); Osmolality,Calculated 284.5 MOS/KG (273-304); Potassium 4.5 MMOL/L (3.5-5.1)
[2018-07-22] MEDS: LEVOTHYROXINE 100 MCG TABLET PO SCH (06:53)
[2018-07-22] MEDS: PANTOPRAZOLE 40 MG TABLET PO SCH (09:44)
[2018-07-22] MEDS: TAMSULOSIN 0.4 MG CAPSULE PO SCH (09:44)
[2018-07-22] MEDS: ASPIRIN EC 81 MG TABLET PO SCH (09:44)
[2018-07-22] MEDS: FINASTERIDE 5 MG TABLET PO SCH (09:44)
[2018-07-22] MEDS: CARVEDILOL 25 MG TABLET PO SCH (09:44)
[2018-07-22] MEDS: ISOSORBIDE MONONITRATE 20 MG TABLET PO SCH (09:44)
[2018-07-22] MEDS: amLODIPine 5 MG TABLET PO SCH (09:44)
[2018-07-22] MEDS: CETIRIZINE 10 MG TABLET PO SCH (09:45)
[2018-07-22] MEDS: PHENobarbital 65 MG/1 ML VIAL IM SCH (09:45)
[2018-07-22 11:51] VITALS: BP 110/58
== END 2018-07-22 12:37 | disposition hospice, home (50) | DRG 375 ==
LOC: N.CL 10:47 → N.TELES 17:27
PROVIDERS: ADMIT Internal Medicine Cardiovascular Disease; ATTEND Internal Medicine Cardiovascular Disease
PROC: CLCCHCL (ICD-10-PCS; 2018-07-20 14:15)